=== PATIENT | male | born 1945 | race American Indian/Alaskan Native ===

== ENCOUNTER 2016-07-20 07:44 | Inpatient (IN) | payer MEDICARE ==
[2016-07-20] MEDS ORDERED: NACL 0.9% 1000 ML 1,000 ML IV ONE (08:35)
[2016-07-20 09:00] LABS: Basophils % (Auto) 0.4 % (0.0-1.8); Hematocrit 44.4 % (35.5-45.6); Hemoglobin 14.5 gm/dl (11.8-15.2); Mean Corpuscular HGB Conc 33 % (32-34); Mean Corpuscular Hemoglobin 29 pg (28-32); Mean Corpuscular Volume 89 fl (84-94); Platelet Count 335 K/mm3 (140-440); Red Cell Distribution Width 14.3 % (13.2-15.2); White Blood Count 15.5 K/mm3 (4.5-11.0)
[2016-07-20 09:10] LABS: INR 1.04 (0.87-1.13); Partial Thromboplastin Time 22.5 Sec. (24.2-36.6)
[2016-07-20 09:20] LABS: Albumin 4.4 g/dL (3.9-5); Albumin/Globulin Ratio 1.3 %; BUN/Creatinine Ratio 23.68; Bilirubin,Total 0.7 mg/dL (0.1-1.2); Calcium 9.4 mg/dL (8.4-10.2); Chloride 89.8 mmol/L (98-107); Potassium 5.1 mmol/L (3.6-5.0); Total Protein 7.7 g/dL (6.3-8.2)
[2016-07-20] MEDS ORDERED: ZOFRAN IV ONE (10:25)
[2016-07-20] MEDS ORDERED: PROTONIX IV ONE (10:25)
--- NOTE | 2016-07-20 10:28 | Emergency Department Report ---
ED GI Bleed HPI - General Chief complaint: GI Bleed Stated complaint: VOMITTING/COUGHING / Time Seen by Provider: 07/20/16 10:11 Source: patient, old records reviewed Mode of arrival: Wheelchair Limitations: No Limitations - History of Present Illness Initial comments: 70-year-old male with a past medical history of independent diabetes, gastroparesis, antihypertensive complaints of vomiting times one day. Patient has had multiple episodes of vomiting dark red blood. Patient denies pain during my assessment that described a burning abdominal and chest discomfort during MSE. Patient states he has been compliant with his assessment today and states stomach medication. Denies diarrhea, hematochezia, or fever. No aggravating or alleviating factors. Previous medical record review. Patient was admitted here 08/15/2015 and 07/21/2005 for similar presentation. Diagnosis gastroparesis and had an EGD showing gastritis and esophagitis. - Related Data Home Medications Medication Instructions Recorded Confirmed Last Taken Atorvastatin Calcium [Lipitor] 40 mg PO QHS 09/18/14 07/19/15 Unknown Insulin Glargine,Hum.rec.anlog 25 unit SQ QAM 09/18/14 07/19/15 Unknown [Lantus] Losartan [Cozaar] 50 mg PO QDAY 09/18/14 07/19/15 Unknown NIFEdipine [NIFEdipine ER] 60 mg PO QDAY 09/18/14 07/19/15 Unknown Tramadol HCl [traMADol] 100 mg PO Q8H PRN 09/18/14 07/19/15 Unknown Previous Rx's Medication Instructions Recorded Last Taken Type Ondansetron [Zofran ORAL LIQ] 4 mg PO Q6H 7 Days 09/19/14 Unknown Rx Pantoprazole [Protonix TAB] 40 mg PO QDAY #14 tablet 07/21/15 Unknown Rx Allergies Allergy/AdvReac Type Severity Reaction Status Date / Time No Known Allergies Allergy Verified 09/18/14 18:31 ED Review of Systems ROS: Stated complaint: VOMITTING/COUGHING / Other details as noted in HPI Comment: All other systems reviewed and negative Other: Constitutional: No fevers chills Eyes: No eye pain visual changes e ENT: No ear pain or throat pain Neck: Denies pain Respiratory: Denies sob Cardiovascular: Denies chest pain, palpitations, syncope GI: As per HPI : Denies dysuria, urinary frequency, or urgency Musculoskeletal: Denies back pain, joint swelling Skin: Denies rash, lesions, erythema Neurologic: Denies headache, numbness, weakness Psychiatric: Denies suicidal ideation, hallucinations ED Past Medical Hx - Past Medical History Hx Hypertension: Yes Hx Diabetes: Yes Hx Seizures: Yes Hx HIV: No Additional medical history: GI bleed. MVP - Surgical History Additional Surgical History: all left toes amputated - Social History Smoking Status: Never Smoker - Medications Home Medications: Home Medications Medication Instructions Recorded Confirmed Last Taken Type Atorvastatin Calcium [Lipitor] 40 mg PO QHS 09/18/14 07/19/15 Unknown History Insulin Glargine,Hum.rec.anlog 25 unit SQ QAM 09/18/14 07/19/15 Unknown History [Lantus] Losartan [Cozaar] 50 mg PO QDAY 09/18/14 07/19/15 Unknown History NIFEdipine [NIFEdipine ER] 60 mg PO QDAY 09/18/14 07/19/15 Unknown History Tramadol HCl [traMADol] 100 mg PO Q8H PRN 09/18/14 07/19/15 Unknown History Ondansetron [Zofran ORAL LIQ] 4 mg PO Q6H 7 Days 09/19/14 07/19/15 Unknown Rx Pantoprazole [Protonix TAB] 40 mg PO QDAY #14 tablet 07/21/15 Unknown Rx ED Physical Exam - General Limitations: No Limitations - Other Other exam information: General: No limitations, patient is alert in no acute distress Head exam: Atraumatic, normocephalic Eyes exam: Normal appearance, pupils equal reactive to light, extraocular movements intact ENT: Moist mucous membrane, normal oropharynx Neck exam: Normal inspection, full range of motion, no meningismus nontender Respiratory exam: Clear to auscultation bilateral, no wheezes, rales, crackles Cardiovascular: Normal rate and rhythm, normal heart sounds Abdomen: Soft, nondistended, and nontender, with normal bowel sounds, no rebound, or guarding Rectal: Guaiac-negative brown stool Extremity: Full range of motion normal inspection no deformity Back: Normal Inspection, full range of motion, no tenderness Neurologic: Alert, oriented x3, cranial nerves intact, no motor or sensory deficit Psychiatric: normal affect, normal mood Skin: Warm, dry, intact ED Course Vital Signs 07/20/16 08:29 Temperature 98.2 F Pulse Rate 88 Respiratory 18 Rate Blood Pressure 182/96 O2 Sat by Pulse 97 Oximetry - Reevaluation(s) Reevaluation #1: 07/20/16 10:36 Treated with normal saline, Protonix, Zofran, and insulin in the ED - Consultations Consultation #1: 07/20/16 11:10 Case discussed with Isabelle Rossi. Consult ordered for Dr. Ibarra ED Medical Decision Making - Lab Data Result diagrams: 07/20/16 08:44 07/20/16 08:44 Lab Results 07/20/16 07/20/16 07/20/16 Range/Units 08:44 08:44 08:44 WBC 15.5 H (4.5-11.0) K/mm3 RBC 5.00 (3.65-5.03) M/mm3 Hgb 14.5 (11.8-15.2) gm/dl Hct 44.4 (35.5-45.6) % MCV 89 (84-94) fl MCH 29 (28-32) pg MCHC 33 (32-34) % RDW 14.3 (13.2-15.2) % Plt Count 335 (140-440) K/mm3 Lymph % (Auto) 10.4 L (13.4-35.0) % [place] % (Auto) 6.8 (0.0-7.3) % Eos % (Auto) 0.0 (0.0-4.3) % Baso % (Auto) 0.4 (0.0-1.8) % Lymph # 1.6 (1.2-5.4) K/mm3 [place] # 1.1 H (0.0-0.8) K/mm3 Eos # 0.0 (0.0-0.4) K/mm3 Baso # 0.1 (0.0-0.1) K/mm3 Seg Neutrophils % 82.4 H (40.0-70.0) % Seg Neutrophils # 12.8 H (1.8-7.7) K/mm3 PT 13.5 (12.2-14.9) Sec. INR 1.04 (0.87-1.13) APTT 22.5 L (24.2-36.6) Sec. Sodium 134 L (137-145) mmol/L Potassium 5.1 H (3.6-5.0) mmol/L Chloride 89.8 L (98-107) mmol/L Carbon Dioxide 22 (22-30) mmol/L Anion Gap 27 mmol/L BUN 45 H (9-20) mg/dL Creatinine 1.9 H (0.8-1.5) mg/dL Estimated GFR 43 ml/min BUN/Creatinine Ratio 23.68 % Glucose 629 H* (75-100) mg/dL Calcium 9.4 (8.4-10.2) mg/dL Total Bilirubin 0.7 (0.1-1.2) mg/dL AST 14 (5-40) units/L ALT 12 (7-56) units/L Alkaline Phosphatase 108 (35-129) units/L Total Protein 7.7 (6.3-8.2) g/dL Albumin 4.4 (3.9-5) g/dL Albumin/Globulin Ratio 1.3 % Lipase 10 L (13-60) units/L Blood Type Antibody Screen 07/20/16 Range/Units 08:44 WBC (4.5-11.0) K/mm3 RBC (3.65-5.03) M/mm3 Hgb (11.8-15.2) gm/dl Hct (35.5-45.6) % MCV (84-94) fl MCH (28-32) pg MCHC (32-34) % RDW (13.2-15.2) % Plt Count (140-440) K/mm3 Lymph % (Auto) (13.4-35.0) % [place] % (Auto) (0.0-7.3) % Eos % (Auto) (0.0-4.3) % Baso % (Auto) (0.0-1.8) % Lymph # (1.2-5.4) K/mm3 [place] # (0.0-0.8) K/mm3 Eos # (0.0-0.4) K/mm3 Baso # (0.0-0.1) K/mm3 Seg Neutrophils % (40.0-70.0) % Seg Neutrophils # (1.8-7.7) K/mm3 PT (12.2-14.9) Sec. INR (0.87-1.13) APTT (24.2-36.6) Sec. Sodium (137-145) mmol/L Potassium (3.6-5.0) mmol/L Chloride (98-107) mmol/L Carbon Dioxide (22-30) mmol/L Anion Gap mmol/L BUN (9-20) mg/dL Creatinine (0.8-1.5) mg/dL Estimated GFR ml/min BUN/Creatinine Ratio % Glucose (75-100) mg/dL Calcium (8.4-10.2) mg/dL Total Bilirubin (0.1-1.2) mg/dL AST (5-40) units/L ALT (7-56) units/L Alkaline Phosphatase (35-129) units/L Total Protein (6.3-8.2) g/dL Albumin (3.9-5) g/dL Albumin/Globulin Ratio % Lipase (13-60) units/L Blood Type O POSITIVE Antibody Screen Negative - EKG Data -: EKG Interpreted by Me (sinus rhythm rate 91 septal infarct) - EKG Data When compared to previous EKG there are: previous EKG unavailable - Medical Decision Making Plan to admit patient to hospital for further evaluation due to hematemesis in the ED. GI consult - Differential Diagnosis PUD, esophagitis, Yaz-Dang, gastritis, varices Critical Care Time: No Critical care attestation.: If time is entered above; I have spent that time in minutes in the direct care of this critically ill patient, excluding procedure time. ED Disposition Clinical Impression: Insulin dependent diabetes mellitus, Upper GI bleed, Gastroparesis, Hyperglycemia, Renal insufficiency Nausea and vomiting Qualifiers: Vomiting type: hematemesis Qualified Code(s): K92.0 - Hematemesis Hypertension Qualifiers: Hypertension type: essential hypertension Qualified Code(s): I10 - Essential ( primary) hypertension Disposition: OP ADMITTED IP TO THIS HOSP Is pt being admited?: Yes Condition: Stable Time of Disposition: 10:28 (Dr bustillo/hosp)
--- NOTE | 2016-07-20 10:33 | Admit Criteria Form ---
Admission Criteria Documentation: GASTROINTESTINAL BLEEDING, UPPER Clinical Indications for Admission to Inpatient Care ( Place 'X' for any and all applicable criteria): Admission is indicated for ANY ONE of the following(1)(2)(3)(4)(5)(6): [ X]I. Active bleeding (eg, fresh voluminous blood in emesis or nasogastric aspirate) [ ]II. Associated conditions requiring hospitalization (eg, perforation, obstruction from ulcer) [ ]III. Inpatient admission required rather than observation care (Also use Gastrointestinal Bleeding, Upper: Observation Care as appropriate) because of ANY ONE of the following: [ ]a) Hemodynamic instability that is severe or persistent [ ]b) Anemia requiring inpatient admission as indicated by ALL of the following: [ ]1) Presence of significant clinical finding indicated by ANY ONE of the following: [ ]A. Tachycardia for age [ ]B. Orthostatic vital sign changes [ ]C. Cognitive impairment [ ]D. Heart failure [ ]E. Chest pain [ ]F. Exertional dyspnea [ ]G. Other findings suggesting inadequate perfusion (eg, peripheral or myocardial ischemia, end organ dysfunction) [ ]2) Initial (eg, emergency department, observation care) treatment with transfusion or volume replacement is judged inappropriate (due to severity of the finding) or has been ineffective [ ]c) Severe pain requiring acute inpatient management [ ]d) High-risk low platelet count [ ]e) IV fluid to replace significant ongoing losses (greater than 3 L/m2 per day) [ ]f) Immediate inpatient surgery [ ]g) Other condition, treatment or monitoring requiring inpatient admission [ ]IV. Severe liver disease (eg, cirrhosis) [ ]V. Significant active comorbid disease [ ]. Anticoagulation therapy [ ]VII. High-risk endoscopic features (arterial bleeding, adherent clot, nonbleeding visible vessel, varices, flat red spots, ulcer size greater than 2 cm, or portal hypertensive gastropathy) [ ]VIII. Previous aortic graft placement or known aortic aneurysm [ ]IX. Coagulopathy [ ]X. Syncope Extended stay beyond goal length of stay may be needed for(1)(2): [ ]a) Emergency surgery [ ]b) Varices [ ]c) Coagulation abnormalities [ ]d) Recurrent, obscure, or persistent bleeding or continued Hemodynamic instability [ ]e) Associated conditions requiring surgery (eg, perforated gastric ulcer, gastric outlet obstruction) [ ]f) Active comorbidities (eg, renal insufficiency, heart failure, pre- existing liver disease) The original [facility] [employer] content created by [facility] has been revised. The portions of the content which have been revised are identified through the use of italic text or in bold, and [facility] has neither reviewed nor approved the modified material. All other unmodified content is copyright [facility] [employer]. Please see references footnoted in the original [facility] [employer] edition 2016 Admission Criteria Met: Yes
--- NOTE | 2016-07-20 11:00 | History and Physical Report ---
History of Present Illness Date of examination: 07/20/16 Date of admission: 07/20/16 Chief complaint: Vomiting blood since this morning History of present illness: Mr. Avila is a 70 yo M who presented to the Er with vomiting blood since this morning; has about 2 episodes; he started to vomit yesterday but at that time he had no blood. He does have a history of gastritis and esophagitis which was diagnosed on EGD in 2016. He reports that his stool has been brown. He also has a diagnosed history of gastroparesis secondary to diabetes. No dizziness. No chest pain. He has no objections to being transfused. He also vomited in the emergency room. He was given IV Protonix 40 mg in the ER. Has not been taking an Advil or any other NSAID. 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 denies: smoking, alcohol abuse, prescription drug abuse Family history: diabetes, hypertension Medications and Allergies Allergies Allergy/AdvReac Type Severity Reaction Status Date / Time No Known Allergies Allergy Verified 09/18/14 18:31 Home Medications Medication Instructions Recorded Confirmed Last Taken Type Atorvastatin Calcium [Lipitor] 40 mg PO QHS 09/18/14 07/19/15 Unknown History Insulin Glargine,Hum.rec.anlog 25 unit SQ QAM 09/18/14 07/19/15 Unknown History [Lantus] Losartan [Cozaar] 50 mg PO QDAY 09/18/14 07/19/15 Unknown History NIFEdipine [NIFEdipine ER] 60 mg PO QDAY 09/18/14 07/19/15 Unknown History Tramadol HCl [traMADol] 100 mg PO Q8H PRN 09/18/14 07/19/15 Unknown History Ondansetron [Zofran ORAL LIQ] 4 mg PO Q6H 7 Days 09/19/14 07/19/15 Unknown Rx Pantoprazole [Protonix TAB] 40 mg PO QDAY #14 tablet 07/21/15 Unknown Rx Active Meds: Active Medications Pantoprazole Sodium 80 mg/ (Sodium Chloride) 100 mls @ 10 mls/hr IV Q10H PANDA PRN Reason: 8 MG/HR Review of Systems All systems: negative Constitutional: no weight loss, no weight gain, no fever, no chills, no sweats Ears, nose, mouth and throat: no ear pain, no ear discharge, no tinnitis, no decreased hearing Cardiovascular: no chest pain, no orthopnea, no palpitations, no rapid/ irregular heart beat Respiratory: no cough, no cough with sputum, no excessive sputum, no hemoptysis Gastrointestinal: other (as in the history of presenting complaint) Genitourinary Male: no dysuria, no hematuria, no flank pain, no discharge, no urinary frequency Rectal: no pain, no incontinence, no bleeding Musculoskeletal: no neck stiffness, no neck pain, no shooting arm pain, no arm numbness/tingling Integumentary: no rash, no pruritis, no redness, no sores Neurological: no head injury, no transient paralysis, no paralysis, no weakness Psychiatric: no anxiety, no memory loss, no change in sleep habits, no sleep disturbances, no insomnia Endocrine: no cold intolerance, no heat intolerance, no polyphagia, no excessive thirst Hematologic/Lymphatic: no easy bruising, no easy bleeding Allergic/Immunologic: no urticaria, no allergic rhinitis Exam - Constitutional Vitals: Temp Pulse Resp BP Pulse Ox 98.2 F 88 18 182/96 97 07/20/16 08:29 07/20/16 08:29 07/20/16 08:29 07/20/16 08:29 07/20/16 08:29 General appearance: Present: no acute distress, cachectic - EENT Eyes: Present: PERRL, EOM intact. Absent: scleral icterus, conjunctival injection ENT: hearing intact, clear oral mucosa, other (mucosa in the mouth has started blood), no oropharyngeal erythema, no poor dentition - Neck Neck: Present: supple, normal ROM. Absent: enlarged thyroid, masses or JVD - Respiratory Respiratory effort: normal Respiratory: negative: diminished, rales, rhonchi, wheezing - Cardiovascular Rhythm: regular Heart Sounds: Present: S1 & S2. Absent: gallop - Extremities Extremities: no ischemia, pulses intact, pulses symmetrical, No edema Peripheral Pulses: within normal limits - Abdominal General gastrointestinal: Present: soft, non-tender, non-distended Male genitourinary: Present: deferred - Rectal Rectal Exam: deferred - Integumentary Integumentary: Present: clear - Musculoskeletal Musculoskeletal: strength equal bilaterally - Psychiatric Psychiatric: appropriate mood/affect, intact judgment & insight - Neurologic Neurologic: CNII-XII intact, moves all extremities Results - Labs CBC & Chem 7: 07/20/16 08:44 07/20/16 08:44 Labs: Abnormal lab results 07/20/16 07/20/16 07/20/16 Range/Units 08:44 08:44 08:44 WBC 15.5 H (4.5-11.0) K/mm3 Lymph % (Auto) 10.4 L (13.4-35.0) % [place] # 1.1 H (0.0-0.8) K/mm3 Seg Neutrophils % 82.4 H (40.0-70.0) % Seg Neutrophils # 12.8 H (1.8-7.7) K/mm3 APTT 22.5 L (24.2-36.6) Sec. Sodium 134 L (137-145) mmol/L Potassium 5.1 H (3.6-5.0) mmol/L Chloride 89.8 L (98-107) mmol/L BUN 45 H (9-20) mg/dL Creatinine 1.9 H (0.8-1.5) mg/dL Glucose 629 H* (75-100) mg/dL Lipase 10 L (13-60) units/L - Imaging and Cardiology Chest x-ray: report reviewed (COPD) Assessment and Plan 1. Upper gastrointestinal bleed most likely secondary to gastritis/esophagitis to rule out peptic ulcer disease versus Yaz-Dang tear-we'll admit as an inpatient as more than 2 midnights are required for treatment. We'll admit patient to telemetry. We'll start patient on IV Protonix infusion. Monitor hemoglobin and hematocrit. We'll consult GI. We'll transfuse as needed. We' ll keep him nothing by mouth and start him on IV fluids. 2. Diabetes type 2 uncontrolled with hyperglycemia-will start patient on apidra insulin sliding scale; better Accu-Cheks 3. Benign hypertension-uncontrolled; IV prn hydralazine 4. Mild hyperkalemia- will hydrate and monitor; NPO so unable to give kayexalate 5. Acute renal failure due to vasomotor nephropathy- IVF; get u/a; monitor lytes 6. DVT prophyhlaxis- SCD; chemical prophylaxis C/I due to GIB CCT exclusive of all other billable procedures 45 minutes
[2016-07-20] MEDS: PROTONIX 80 MG in NACL 0.9% 100 ML IV SCH ×2 (12:34→23:47)
[2016-07-20] MEDS ORDERED: NOVOLOG SUB-Q SCH (12:49)
[2016-07-20] MEDS ORDERED: ZOFRAN IV PRN (12:49)
[2016-07-20] MEDS ORDERED: TYLENOL PO PRN (12:49)
[2016-07-20] MEDS ORDERED: REGLAN IV PRN (12:49)
[2016-07-20] MEDS ORDERED: APRESOLINE IV PRN (12:49)
[2016-07-20] MEDS: NACL 0.45% 1000 ML 1,000 ML IV SCH (15:21)
--- NOTE | 2016-07-20 15:42 | Gastroenterology Consultation ---
Addendum entered and electronically signed by ARNALDO CAMACHO NP 07/20/16 15:46: strict glycemic control, currently on PPI gtt. Original Note: <ARNALDO CAMACHO - Last Filed: 07/20/16 15:38> History of Present Illness - Reason for Consult Consult date: 07/20/16 Hematemesis Requesting physician: MALU PEREZ - History of Present Illness Mr. Avila is a 70 yo M who presented to the ED with vomiting blood. He states he started vomiting yesterday and noticed red tinged fluid today when vomiting. He does have a history of gastritis and esophagitis which was diagnosed on EGD in 07/2015. He denies melena. No abdominal pain. He was given IV Protonix 40 mg in the ER. Has not been taking an Advil or any other NSAID that he is aware of although he is not clear on his medication regimen. Blood glucose on admission elevated. Noted gastric emptying scan WNL in 07/2015. 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 denies: smoking, alcohol abuse, prescription drug abuse Family history: diabetes, hypertension Medications and Allergies Allergies Allergy/AdvReac Type Severity Reaction Status Date / Time No Known Allergies Allergy Verified 09/18/14 18:31 Home Medications Medication Instructions Recorded Confirmed Last Taken Type Atorvastatin Calcium [Lipitor] 80 mg PO QHS 09/18/14 07/20/16 Unknown History Insulin Glargine,Hum.rec.anlog 25 unit SQ QAM 09/18/14 07/20/16 Unknown History [Lantus] NIFEdipine [NIFEdipine ER] 60 mg PO QDAY 09/18/14 07/20/16 Unknown History Tramadol HCl [traMADol] 100 mg PO Q8H PRN 09/18/14 07/19/15 Unknown History Pantoprazole [Protonix TAB] 40 mg PO QDAY #14 tablet 07/21/15 07/20/16 Unknown Rx Gabapentin 300 mg PO TID 07/20/16 07/20/16 Unknown History Invokana 100 mg PO QAM 07/20/16 07/20/16 Unknown History Lisinopril 5 mg PO QAM 07/20/16 07/20/16 Unknown History Lyrica 75 mg PO QDAY 07/20/16 07/20/16 Unknown History Metanx Capsule 90.314 mg PO Q12HR 07/20/16 07/20/16 Unknown History Metoprolol SUCCINATE ER TAB 50 mg PO Q12HR 07/20/16 07/20/16 Unknown History Ondansetron 4 mg SL PRN PRN 07/20/16 07/20/16 Unknown History Tamsulosin [Flomax] 0.4 mg PO BID 07/20/16 07/20/16 Unknown History Vitamin D3 1,000 unit PO QDAY 07/20/16 07/20/16 Unknown History levETIRAcetam 500 mg PO Q12HR 07/20/16 07/20/16 Unknown History Active Meds: Active Medications Acetaminophen (Tylenol) 650 mg PO Q4H PRN PRN Reason: Pain MILD(1-3)/Fever >100.5/ONEILL Hydralazine HCl (Apresoline) 10 mg IV Q4HR PRN PRN Reason: SBP >/= 160mmHg Pantoprazole Sodium 80 mg/ (Sodium Chloride) 100 mls @ 10 mls/hr IV Q10H PANDA PRN Reason: 8 MG/HR Last Admin: 07/20/16 12:34 Dose: 10 mls/hr Sodium Chloride (Nacl 0.45% 1000 Ml) 1,000 mls @ 100 mls/hr IV DIRECT PANDA Last Admin: 07/20/16 15:21 Dose: 100 mls/hr Insulin Aspart (Novolog) 0 units SUB-Q ACHS PANDA PRN Reason: Protocol Last Admin: 07/20/16 14:09 Dose: Not Given Metoclopramide HCl (Reglan) 5 mg IV Q6H PRN PRN Reason: Nausea And Vomiting Ondansetron HCl (Zofran) 4 mg IV Q8H PRN PRN Reason: N/V unrelieved by Reglan Review of Systems - Review of Systems All systems: negative Gastrointestinal: vomiting, hematemesis Exam - Constitutional Vital Signs: Temp Pulse Resp BP Pulse Ox 98.2 F 91 H 15 149/69 94 07/20/16 08:29 07/20/16 14:01 07/20/16 14:01 07/20/16 14:01 07/20/16 14:01 General appearance: no acute distress, other (withdrawn) - EENT ENT: hearing intact, other (poor historian) - Respiratory Respiratory: bilateral: diminished - Cardiovascular Rhythm: regular Heart Sounds: Present: S1 & S2 Extremities: abnormal (left foot partial amputation) - Gastrointestinal General gastrointestinal: Present: soft, non-tender, normal bowel sounds - Integumentary Integumentary: Present: warm, dry - Neurologic Neurological: alert and oriented x3 - Psychiatric Psychiatric: appropriate mood/affect, cooperative - Labs CBC & Chem 7: 07/20/16 08:44 07/20/16 13:00 Lab Results: Laboratory Results - last 24 hr 07/20/16 07/20/16 12:39 13:00 Glucose 515 H* POC Glucose > 500 H Assessment and Plan 41. Hematemesis -H/H WNL -Previous EGD in 07/2015 with esophagitis, path c/w esophagitis and kellen. -Noted increase in BUN/Creat with mild hyperkalemia -Agree with PPI, avoid NSAIDS -Monitor H/H. -Ok for clear liquids today -EGD based on progress <KIRAN VELEZ R - Last Filed: 07/21/16 13:26> History of Present Illness - Reason for Consult Consult date: 07/20/16 Medications and Allergies Active Meds: Active Medications Acetaminophen (Tylenol) 650 mg PO Q4H PRN PRN Reason: Pain MILD(1-3)/Fever >100.5/ONEILL Atorvastatin Calcium (Lipitor) 80 mg PO QHS PANDA Gabapentin (Neurontin) 300 mg PO Q8HR PANDA Hydralazine HCl (Apresoline) 10 mg IV Q4HR PRN PRN Reason: SBP >/= 160mmHg Last Admin: 07/20/16 23:45 Dose: 10 mg Sodium Chloride (Nacl 0.45% 1000 Ml) 1,000 mls @ 100 mls/hr IV DIRECT PANDA Last Admin: 07/20/16 15:21 Dose: 100 mls/hr Pantoprazole Sodium 80 mg/ (Sodium Chloride) 100 mls @ 10 mls/hr IV DIRECT PANDA PRN Reason: 8 MG/HR Piperacillin Sod/Tazobactam Sod (Zosyn/Ns 4.5gm/100ml) 100 mls @ 200 mls/hr IV Q8HR PANDA PRN Reason: Protocol Last Admin: 07/21/16 11:51 Dose: 200 mls/hr Insulin Aspart (Novolog) 0 units SUB-Q Q4HR [facility] PRN Reason: Protocol Last Admin: 07/21/16 05:47 Dose: 6 units Levetiracetam (Keppra) 500 mg PO BID [facility] Last Admin: 07/21/16 11:55 Dose: 500 mg Metoclopramide HCl (Reglan) 5 mg IV Q6H PRN PRN Reason: Nausea And Vomiting Metoprolol Succinate (Toprol Xl) 50 mg PO BID [facility] Last Admin: 07/21/16 11:56 Dose: 50 mg Nifedipine (Procardia Xl) 60 mg PO QDAY [facility] Last Admin: 07/21/16 11:55 Dose: 60 mg Ondansetron HCl (Zofran) 4 mg IV Q8H PRN PRN Reason: N/V unrelieved by Reglan Last Admin: 07/21/16 02:09 Dose: 4 mg Pregabalin (Lyrica) 75 mg PO QDAY [facility] Last Admin: 07/21/16 11:56 Dose: 75 mg Tamsulosin HCl (Flomax) 0.4 mg PO BID [facility] Last Admin: 07/21/16 11:55 Dose: 0.4 mg Exam - Constitutional Vital Signs: Temp Pulse Resp BP Pulse Ox 98.2 F 87 20 123/63 98 07/21/16 08:20 07/21/16 08:20 07/21/16 08:20 07/21/16 08:20 07/21/16 08:20 - Labs CBC & Chem 7: 07/21/16 05:24 07/21/16 05:24 Lab Results: Laboratory Results - last 24 hr 07/20/16 07/20/16 07/20/16 13:00 15:36 19:24 WBC RBC Hgb 14.1 Hct 41.9 MCV MCH MCHC RDW Plt Count Add Manual Diff Total Counted Seg Neuts % (Manual) Band Neutrophils % Lymphocytes % (Manual) Reactive Lymphs % (Man) Monocytes % (Manual) Eosinophils % (Manual) Basophils % (Manual) Metamyelocytes % Myelocytes % Promyelocytes % Blast Cells % Nucleated RBC % Seg Neutrophils # Man Band Neutrophils # Lymphocytes # (Manual) Abs React Lymphs (Man) Monocytes # (Manual) Eosinophils # (Manual) Basophils # (Manual) Metamyelocytes # Myelocytes # Promyelocytes # Blast Cells # WBC Morphology Hypersegmented Neuts Hyposegmented Neuts Hypogranular Neuts Smudge Cells Toxic Granulation Toxic Vacuolation Dohle Bodies Pelger-Huet Anomaly Irais Rods Platelet Estimate Clumped Platelets Plt Clumps, EDTA Large Platelets Giant Platelets Platelet Satelliting Plt Morphology Comment RBC Morphology Dimorphic RBCs Polychromasia Hypochromasia Poikilocytosis Anisocytosis Microcytosis Macrocytosis Spherocytes Pappenheimer Bodies Sickle Cells Target Cells Tear Drop Cells Ovalocytes Helmet Cells Vega-Whitten Bodies [place] Rings Esther Cells Bite Cells Crenated Cell Elliptocytes Acanthocytes (Spur) Rouleaux Hemoglobin C Crystals Schistocytes Malaria parasites Bhavin Bodies Hem Pathologist Commnt POC ABG pH POC ABG pCO2 POC ABG pO2 POC ABG HCO3 POC ABG Total CO2 POC ABG O2 Sat POC ABG Base Excess FiO2 Sodium Potassium Chloride Carbon Dioxide Anion Gap BUN Creatinine Estimated GFR BUN/Creatinine Ratio Glucose 515 H* POC Glucose > 500 H Calcium Ketones 07/20/16 07/20/16 07/20/16 19:24 19:24 22:56 WBC RBC Hgb Hct MCV MCH MCHC RDW Plt Count Add Manual Diff Total Counted Seg Neuts % (Manual) Band Neutrophils % Lymphocytes % (Manual) Reactive Lymphs % (Man) Monocytes % (Manual) Eosinophils % (Manual) Basophils % (Manual) Metamyelocytes % Myelocytes % Promyelocytes % Blast Cells % Nucleated RBC % Seg Neutrophils # Man Band Neutrophils # Lymphocytes # (Manual) Abs React Lymphs (Man) Monocytes # (Manual) Eosinophils # (Manual) Basophils # (Manual) Metamyelocytes # Myelocytes # Promyelocytes # Blast Cells # WBC Morphology Hypersegmented Neuts Hyposegmented Neuts Hypogranular Neuts Smudge Cells Toxic Granulation Toxic Vacuolation Dohle Bodies Pelger-Huet Anomaly Irais Rods Platelet Estimate Clumped Platelets Plt Clumps, EDTA Large Platelets Giant Platelets Platelet Satelliting Plt Morphology Comment RBC Morphology Dimorphic RBCs Polychromasia Hypochromasia Poikilocytosis Anisocytosis Microcytosis Macrocytosis Spherocytes Pappenheimer Bodies Sickle Cells Target Cells Tear Drop Cells Ovalocytes Helmet Cells Vega-Whitten Bodies [place] Rings Orem Cells Bite Cells Crenated Cell Elliptocytes Acanthocytes (Spur) Rouleaux Hemoglobin C Crystals Schistocytes Malaria parasites Bhavin Bodies Hem Pathologist Commnt POC ABG pH POC ABG pCO2 POC ABG pO2 POC ABG HCO3 POC ABG Total CO2 POC ABG O2 Sat POC ABG Base Excess FiO2 Sodium 142 D Potassium 4.5 Chloride 99.9 Carbon Dioxide 25 Anion Gap 22 BUN 47 H Creatinine 1.7 H Estimated GFR 49 BUN/Creatinine Ratio 27.64 Glucose 338 H POC Glucose 311 H Calcium 9.1 Ketones 3.4 H 07/20/16 07/21/16 07/21/16 23:06 02:22 05:24 WBC 23.7 H RBC 4.69 Hgb 13.5 Hct 41.5 MCV 88 MCH 29 MCHC 33 RDW 14.3 Plt Count 334 Add Manual Diff Complete Total Counted 100 Seg Neuts % (Manual) 81.0 H Band Neutrophils % 6.0 Lymphocytes % (Manual) 8.0 L Reactive Lymphs % (Man) 0 Monocytes % (Manual) 5.0 Eosinophils % (Manual) 0 Basophils % (Manual) 0 Metamyelocytes % 0 Myelocytes % 0 Promyelocytes % 0 Blast Cells % 0 Nucleated RBC % Not Reportable Seg Neutrophils # Man 19.2 H Band Neutrophils # 1.4 Lymphocytes # (Manual) 1.9 Abs React Lymphs (Man) 0.0 Monocytes # (Manual) 1.2 H Eosinophils # (Manual) 0.0 Basophils # (Manual) 0.0 Metamyelocytes # 0.0 Myelocytes # 0.0 Promyelocytes # 0.0 Blast Cells # 0.0 WBC Morphology Not Reportable Hypersegmented Neuts Not Reportable Hyposegmented Neuts Not Reportable Hypogranular Neuts Not Reportable Smudge Cells Not Reportable Toxic Granulation Not Reportable Toxic Vacuolation Not Reportable Dohle Bodies Not Reportable Pelger-Huet Anomaly Not Reportable Irais Rods Not Reportable Platelet Estimate Appears normal Clumped Platelets Not Reportable Plt Clumps, EDTA Not Reportable Large Platelets Not Reportable Giant Platelets Not Reportable Platelet Satelliting Not Reportable Plt Morphology Comment Not Reportable RBC Morphology Normal Dimorphic RBCs Not Reportable Polychromasia Not Reportable Hypochromasia Not Reportable Poikilocytosis Not Reportable Anisocytosis Not Reportable Microcytosis Not Reportable Macrocytosis Not Reportable Spherocytes Not Reportable Pappenheimer Bodies Not Reportable Sickle Cells Not Reportable Target Cells Not Reportable Tear Drop Cells Not Reportable Ovalocytes Not Reportable Helmet Cells Not Reportable Vega-Whitten Bodies Not Reportable [place] Rings Not Reportable Esther Cells Not Reportable Bite Cells Not Reportable Crenated Cell Not Reportable Elliptocytes Not Reportable Acanthocytes (Spur) Not Reportable Rouleaux Not Reportable Hemoglobin C Crystals Not Reportable Schistocytes Not Reportable Malaria parasites Not Reportable Bhavin Bodies Not Reportable Hem Pathologist Commnt No POC ABG pH 7.403 POC ABG pCO2 38.4 POC ABG pO2 65 L POC ABG HCO3 23.9 POC ABG Total CO2 25 POC ABG O2 Sat 93 POC ABG Base Excess -1 FiO2 21 Sodium Potassium Chloride Carbon Dioxide Anion Gap BUN Creatinine Estimated GFR BUN/Creatinine Ratio Glucose POC Glucose 292 H Calcium Ketones 07/21/16 07/21/16 05:24 05:27 WBC RBC Hgb Hct MCV MCH MCHC RDW Plt Count Add Manual Diff Total Counted Seg Neuts % (Manual) Band Neutrophils % Lymphocytes % (Manual) Reactive Lymphs % (Man) Monocytes % (Manual) Eosinophils % (Manual) Basophils % (Manual) Metamyelocytes % Myelocytes % Promyelocytes % Blast Cells % Nucleated RBC % Seg Neutrophils # Man Band Neutrophils # Lymphocytes # (Manual) Abs React Lymphs (Man) Monocytes # (Manual) Eosinophils # (Manual) Basophils # (Manual) Metamyelocytes # Myelocytes # Promyelocytes # Blast Cells # WBC Morphology Hypersegmented Neuts Hyposegmented Neuts Hypogranular Neuts Smudge Cells Toxic Granulation Toxic Vacuolation Dohle Bodies Pelger-Huet Anomaly Irais Rods Platelet Estimate Clumped Platelets Plt Clumps, EDTA Large Platelets Giant Platelets Platelet Satelliting Plt Morphology Comment RBC Morphology Dimorphic RBCs Polychromasia Hypochromasia Poikilocytosis Anisocytosis Microcytosis Macrocytosis Spherocytes Pappenheimer Bodies Sickle Cells Target Cells Tear Drop Cells Ovalocytes Helmet Cells Vega-Whitten Bodies [place] Rings Esther Cells Bite Cells Crenated Cell Elliptocytes Acanthocytes (Spur) Rouleaux Hemoglobin C Crystals Schistocytes Malaria parasites Bhavin Bodies Hem Pathologist Commnt POC ABG pH POC ABG pCO2 POC ABG pO2 POC ABG HCO3 POC ABG Total CO2 POC ABG O2 Sat POC ABG Base Excess FiO2 Sodium 143 Potassium 4.2 Chloride 102.0 Carbon Dioxide 27 Anion Gap 18 BUN 44 H Creatinine 1.6 H Estimated GFR 52 BUN/Creatinine Ratio 27.50 Glucose 242 H POC Glucose 251 H Calcium 9.1 Ketones Assessment and Plan As above. 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 No evidence of active bleed. Will not do endoscopy unless warranted by clinical changes.
[2016-07-20] MEDS: NOVOLOG SUB-Q SCH ×3 (16:58→23:48)
[2016-07-20 19:38] LABS: Hematocrit 41.9 % (35.5-45.6); Hemoglobin 14.1 gm/dl (11.8-15.2)
[2016-07-20 19:48] LABS: BUN/Creatinine Ratio 27.64; Calcium 9.1 mg/dL (8.4-10.2); Chloride 99.9 mmol/L (98-107); Potassium 4.5 mmol/L (3.6-5.0)
[2016-07-20 23:26] LABS: ISTAT Base Excess -1; ISTAT DEVICE 0; ISTAT HCO3 23.9; ISTAT PCO2 38.4 (35-45); ISTAT PH 7.403 (7.35-7.45); ISTAT PO2 65 (80-105); ISTAT SO2 93; ISTAT TCO2 25
[2016-07-21] MEDS ORDERED: PROTONIX 80 MG in NACL 0.9% 100 ML IV SCH (02:00)
[2016-07-21] MEDS: NOVOLOG SUB-Q SCH ×5 (02:34→18:12)
[2016-07-21 06:27] LABS: Hematocrit 41.5 % (35.5-45.6); Hemoglobin 13.5 gm/dl (11.8-15.2); Mean Corpuscular HGB Conc 33 % (32-34); Mean Corpuscular Hemoglobin 29 pg (28-32); Mean Corpuscular Volume 88 fl (84-94); Platelet Count 334 K/mm3 (140-440); Red Blood Count 4.69 M/mm3 (3.65-5.03); Red Cell Distribution Width 14.3 % (13.2-15.2)
[2016-07-21 06:31] LABS: BUN/Creatinine Ratio 27.5; Calcium 9.1 mg/dL (8.4-10.2); Potassium 4.2 mmol/L (3.6-5.0)
[2016-07-21 06:48] LABS: White Blood Count 23.7 K/mm3 (4.5-11.0)
[2016-07-21] MEDS ORDERED: NON-FORMULARY (Gabapentin 300 MG) PO SCH (08:00)
[2016-07-21 09:14] LABS: Basophils % (Manual) 0 % (0.0-1.8); Blastocytes % (Manual) 0 %; Eosinophils % (Manual) 0 % (0.0-4.3)
[2016-07-21 09:15] LABS: Diff Status Complete; RBC Morphology Normal
[2016-07-21] MEDS ORDERED: NON-FORMULARY (Metoprolol Succinate Er Tab 50 MG) PO SCH (10:00)
[2016-07-21] MEDS ORDERED: LEVETIRACETAM 500 MG PO SCH (10:00)
[2016-07-21] MEDS ORDERED: NON-FORMULARY (Nifedipine [Nifedipine Er] 60 MG) PO SCH (10:00)
[2016-07-21] MEDS ORDERED: LYRICA 75 MG PO SCH (10:00)
--- NOTE | 2016-07-21 11:26 | XRay Report ---
PORTABLE CHEST: An AP portable view of the chest demonstrates a normal cardiac contour considering the limits of this technique. The lungs are clear with no evidence of infiltrate, fluid or failure. IMPRESSION: Normal portable chest.
[2016-07-21] MEDS: ZOSYN/NS 4.5GM/100ML 100 ML IV SCH ×2 (11:51→16:23)
[2016-07-21] MEDS: PROCARDIA XL PO SCH (11:55)
[2016-07-21] MEDS: FLOMAX PO SCH (11:55)
[2016-07-21] MEDS: KEPPRA PO SCH (11:55)
[2016-07-21] MEDS: LYRICA PO SCH (11:56)
[2016-07-21] MEDS: TOPROL XL PO SCH (11:56)
--- NOTE | 2016-07-21 13:01 | Gastroenterology Progress Note ---
<ARNALDO CAMACHO - Last Filed: 07/21/16 13:02> Assessment and Plan 41. Hematemesis -H/H stable wtih no further vomiting, this could have been MWT as the patient only saw blood after vomiting the first time. -Previous EGD in 07/2015 with esophagitis, path c/w esophagitis and kellen. -Continue PPI -advance diet to full liquids, no plans for endoscopy at this time. Subjective Date of service: 07/21/16 Interval history: Patient denies any further vomiting. Objective - Constitutional Vitals: Temp Pulse Resp BP Pulse Ox 98.2 F 87 20 123/63 98 07/21/16 08:20 07/21/16 08:20 07/21/16 08:20 07/21/16 08:20 07/21/16 08:20 General appearance: no acute distress - EENT Eyes: EOM intact ENT: hearing intact - Neck Neck: supple - Respiratory Respiratory: bilateral: diminished - Cardiovascular Rhythm: regular - Gastrointestinal General gastrointestinal: Present: non-tender, non-distended, normal bowel sounds - Integumentary Integumentary: Present: warm, dry - Neurologic Neurological: alert and oriented x3 - Labs CBC & Chem 7: 07/21/16 05:24 07/21/16 05:24 Labs: Laboratory Results - last 24 hr 07/20/16 07/20/16 07/20/16 13:00 15:36 19:24 WBC RBC Hgb 14.1 Hct 41.9 MCV MCH MCHC RDW Plt Count Add Manual Diff Total Counted Seg Neuts % (Manual) Band Neutrophils % Lymphocytes % (Manual) Reactive Lymphs % (Man) Monocytes % (Manual) Eosinophils % (Manual) Basophils % (Manual) Metamyelocytes % Myelocytes % Promyelocytes % Blast Cells % Nucleated RBC % Seg Neutrophils # Man Band Neutrophils # Lymphocytes # (Manual) Abs React Lymphs (Man) Monocytes # (Manual) Eosinophils # (Manual) Basophils # (Manual) Metamyelocytes # Myelocytes # Promyelocytes # Blast Cells # WBC Morphology Hypersegmented Neuts Hyposegmented Neuts Hypogranular Neuts Smudge Cells Toxic Granulation Toxic Vacuolation Dohle Bodies Pelger-Huet Anomaly Irais Rods Platelet Estimate Clumped Platelets Plt Clumps, EDTA Large Platelets Giant Platelets Platelet Satelliting Plt Morphology Comment RBC Morphology Dimorphic RBCs Polychromasia Hypochromasia Poikilocytosis Anisocytosis Microcytosis Macrocytosis Spherocytes Pappenheimer Bodies Sickle Cells Target Cells Tear Drop Cells Ovalocytes Helmet Cells [place] Bodies [place] Rings [place] Cells Bite Cells Crenated Cell Elliptocytes Acanthocytes (Spur) Rouleaux Hemoglobin C Crystals Schistocytes Malaria parasites Bhavin Bodies Hem Pathologist Commnt POC ABG pH POC ABG pCO2 POC ABG pO2 POC ABG HCO3 POC ABG Total CO2 POC ABG O2 Sat POC ABG Base Excess FiO2 Sodium Potassium Chloride Carbon Dioxide Anion Gap BUN Creatinine Estimated GFR BUN/Creatinine Ratio Glucose 515 H* POC Glucose > 500 H Calcium Ketones 07/20/16 07/20/16 07/20/16 19:24 19:24 22:56 WBC RBC Hgb Hct MCV MCH MCHC RDW Plt Count Add Manual Diff Total Counted Seg Neuts % (Manual) Band Neutrophils % Lymphocytes % (Manual) Reactive Lymphs % (Man) Monocytes % (Manual) Eosinophils % (Manual) Basophils % (Manual) Metamyelocytes % Myelocytes % Promyelocytes % Blast Cells % Nucleated RBC % Seg Neutrophils # Man Band Neutrophils # Lymphocytes # (Manual) Abs React Lymphs (Man) Monocytes # (Manual) Eosinophils # (Manual) Basophils # (Manual) Metamyelocytes # Myelocytes # Promyelocytes # Blast Cells # WBC Morphology Hypersegmented Neuts Hyposegmented Neuts Hypogranular Neuts Smudge Cells Toxic Granulation Toxic Vacuolation Dohle Bodies Pelger-Huet Anomaly Irais Rods Platelet Estimate Clumped Platelets Plt Clumps, EDTA Large Platelets Giant Platelets Platelet Satelliting Plt Morphology Comment RBC Morphology Dimorphic RBCs Polychromasia Hypochromasia Poikilocytosis Anisocytosis Microcytosis Macrocytosis Spherocytes Pappenheimer Bodies Sickle Cells Target Cells Tear Drop Cells Ovalocytes Helmet Cells [place] Bodies [place] Rings [place] Cells Bite Cells Crenated Cell Elliptocytes Acanthocytes (Spur) Rouleaux Hemoglobin C Crystals Schistocytes Malaria parasites Bhavin Bodies Hem Pathologist Commnt POC ABG pH POC ABG pCO2 POC ABG pO2 POC ABG HCO3 POC ABG Total CO2 POC ABG O2 Sat POC ABG Base Excess FiO2 Sodium 142 D Potassium 4.5 Chloride 99.9 Carbon Dioxide 25 Anion Gap 22 BUN 47 H Creatinine 1.7 H Estimated GFR 49 BUN/Creatinine Ratio 27.64 Glucose 338 H POC Glucose 311 H Calcium 9.1 Ketones 3.4 H 07/20/16 07/21/16 07/21/16 23:06 02:22 05:24 WBC 23.7 H RBC 4.69 Hgb 13.5 Hct 41.5 MCV 88 MCH 29 MCHC 33 RDW 14.3 Plt Count 334 Add Manual Diff Complete Total Counted 100 Seg Neuts % (Manual) 81.0 H Band Neutrophils % 6.0 Lymphocytes % (Manual) 8.0 L Reactive Lymphs % (Man) 0 Monocytes % (Manual) 5.0 Eosinophils % (Manual) 0 Basophils % (Manual) 0 Metamyelocytes % 0 Myelocytes % 0 Promyelocytes % 0 Blast Cells % 0 Nucleated RBC % Not Reportable Seg Neutrophils # Man 19.2 H Band Neutrophils # 1.4 Lymphocytes # (Manual) 1.9 Abs React Lymphs (Man) 0.0 Monocytes # (Manual) 1.2 H Eosinophils # (Manual) 0.0 Basophils # (Manual) 0.0 Metamyelocytes # 0.0 Myelocytes # 0.0 Promyelocytes # 0.0 Blast Cells # 0.0 WBC Morphology Not Reportable Hypersegmented Neuts Not Reportable Hyposegmented Neuts Not Reportable Hypogranular Neuts Not Reportable Smudge Cells Not Reportable Toxic Granulation Not Reportable Toxic Vacuolation Not Reportable Dohle Bodies Not Reportable Pelger-Huet Anomaly Not Reportable Irais Rods Not Reportable Platelet Estimate Appears normal Clumped Platelets Not Reportable Plt Clumps, EDTA Not Reportable Large Platelets Not Reportable Giant Platelets Not Reportable Platelet Satelliting Not Reportable Plt Morphology Comment Not Reportable RBC Morphology Normal Dimorphic RBCs Not Reportable Polychromasia Not Reportable Hypochromasia Not Reportable Poikilocytosis Not Reportable Anisocytosis Not Reportable Microcytosis Not Reportable Macrocytosis Not Reportable Spherocytes Not Reportable Pappenheimer Bodies Not Reportable Sickle Cells Not Reportable Target Cells Not Reportable Tear Drop Cells Not Reportable Ovalocytes Not Reportable Helmet Cells Not Reportable [place] Bodies Not Reportable [place] Rings Not Reportable [place] Cells Not Reportable Bite Cells Not Reportable Crenated Cell Not Reportable Elliptocytes Not Reportable Acanthocytes (Spur) Not Reportable Rouleaux Not Reportable Hemoglobin C Crystals Not Reportable Schistocytes Not Reportable Malaria parasites Not Reportable Bhavin Bodies Not Reportable Hem Pathologist Commnt No POC ABG pH 7.403 POC ABG pCO2 38.4 POC ABG pO2 65 L POC ABG HCO3 23.9 POC ABG Total CO2 25 POC ABG O2 Sat 93 POC ABG Base Excess -1 FiO2 21 Sodium Potassium Chloride Carbon Dioxide Anion Gap BUN Creatinine Estimated GFR BUN/Creatinine Ratio Glucose POC Glucose 292 H Calcium Ketones 07/21/16 07/21/16 05:24 05:27 WBC RBC Hgb Hct MCV MCH MCHC RDW Plt Count Add Manual Diff Total Counted Seg Neuts % (Manual) Band Neutrophils % Lymphocytes % (Manual) Reactive Lymphs % (Man) Monocytes % (Manual) Eosinophils % (Manual) Basophils % (Manual) Metamyelocytes % Myelocytes % Promyelocytes % Blast Cells % Nucleated RBC % Seg Neutrophils # Man Band Neutrophils # Lymphocytes # (Manual) Abs React Lymphs (Man) Monocytes # (Manual) Eosinophils # (Manual) Basophils # (Manual) Metamyelocytes # Myelocytes # Promyelocytes # Blast Cells # WBC Morphology Hypersegmented Neuts Hyposegmented Neuts Hypogranular Neuts Smudge Cells Toxic Granulation Toxic Vacuolation Dohle Bodies Pelger-Huet Anomaly Irais Rods Platelet Estimate Clumped Platelets Plt Clumps, EDTA Large Platelets Giant Platelets Platelet Satelliting Plt Morphology Comment RBC Morphology Dimorphic RBCs Polychromasia Hypochromasia Poikilocytosis Anisocytosis Microcytosis Macrocytosis Spherocytes Pappenheimer Bodies Sickle Cells Target Cells Tear Drop Cells Ovalocytes Helmet Cells [place] Bodies [place] Cells Bite Cells Crenated Cell Elliptocytes Acanthocytes (Spur) Rouleaux Hemoglobin C Crystals Schistocytes Malaria parasites Bhavin Bodies Hem Pathologist Commnt POC ABG pH POC ABG pCO2 POC ABG pO2 POC ABG HCO3 POC ABG Total CO2 POC ABG O2 Sat POC ABG Base Excess FiO2 Sodium 143 Potassium 4.2 Chloride 102.0 Carbon Dioxide 27 Anion Gap 18 BUN 44 H Creatinine 1.6 H Estimated GFR 52 BUN/Creatinine Ratio 27.50 Glucose 242 H POC Glucose 251 H Calcium 9.1 Ketones <KIRAN VELEZ R - Last Filed: 07/21/16 14:21> Assessment and Plan No further bleeding. Pt denies abd pain, difficulty swallowing. No evidence of thrush on oral exam. H/H stable. No further GI evaluation planned. Will sign off. Thanks. Subjective Date of service: 07/21/16 Objective - Constitutional Vitals: Temp Pulse Resp BP Pulse Ox 98.2 F 87 20 123/63 98 07/21/16 08:20 07/21/16 08:20 07/21/16 08:20 07/21/16 08:20 07/21/16 08:20 - Labs CBC & Chem 7: 07/21/16 05:24 07/21/16 05:24 Labs: Laboratory Results - last 24 hr 07/20/16 07/20/16 07/20/16 15:36 19:24 19:24 WBC RBC Hgb 14.1 Hct 41.9 MCV MCH MCHC RDW Plt Count Add Manual Diff Total Counted Seg Neuts % (Manual) Band Neutrophils % Lymphocytes % (Manual) Reactive Lymphs % (Man) Monocytes % (Manual) Eosinophils % (Manual) Basophils % (Manual) Metamyelocytes % Myelocytes % Promyelocytes % Blast Cells % Nucleated RBC % Seg Neutrophils # Man Band Neutrophils # Lymphocytes # (Manual) Abs React Lymphs (Man) Monocytes # (Manual) Eosinophils # (Manual) Basophils # (Manual) Metamyelocytes # Myelocytes # Promyelocytes # Blast Cells # WBC Morphology Hypersegmented Neuts Hyposegmented Neuts Hypogranular Neuts Smudge Cells Toxic Granulation Toxic Vacuolation Dohle Bodies Pelger-Huet Anomaly Irais Rods Platelet Estimate Clumped Platelets Plt Clumps, EDTA Large Platelets Giant Platelets Platelet Satelliting Plt Morphology Comment RBC Morphology Dimorphic RBCs Polychromasia Hypochromasia Poikilocytosis Anisocytosis Microcytosis Macrocytosis Spherocytes Pappenheimer Bodies Sickle Cells Target Cells Tear Drop Cells Ovalocytes Helmet Cells [place] Bodies [place] Cells Bite Cells Crenated Cell Elliptocytes Acanthocytes (Spur) Rouleaux Hemoglobin C Crystals Schistocytes Malaria parasites Bhavin Bodies Hem Pathologist Commnt POC ABG pH POC ABG pCO2 POC ABG pO2 POC ABG HCO3 POC ABG Total CO2 POC ABG O2 Sat POC ABG Base Excess FiO2 Sodium 142 D Potassium 4.5 Chloride 99.9 Carbon Dioxide 25 Anion Gap 22 BUN 47 H Creatinine 1.7 H Estimated GFR 49 BUN/Creatinine Ratio 27.64 Glucose 338 H POC Glucose > 500 H Calcium 9.1 Ketones 07/20/16 07/20/16 07/20/16 19:24 22:56 23:06 WBC RBC Hgb Hct MCV MCH MCHC RDW Plt Count Add Manual Diff Total Counted Seg Neuts % (Manual) Band Neutrophils % Lymphocytes % (Manual) Reactive Lymphs % (Man) Monocytes % (Manual) Eosinophils % (Manual) Basophils % (Manual) Metamyelocytes % Myelocytes % Promyelocytes % Blast Cells % Nucleated RBC % Seg Neutrophils # Man Band Neutrophils # Lymphocytes # (Manual) Abs React Lymphs (Man) Monocytes # (Manual) Eosinophils # (Manual) Basophils # (Manual) Metamyelocytes # Myelocytes # Promyelocytes # Blast Cells # WBC Morphology Hypersegmented Neuts Hyposegmented Neuts Hypogranular Neuts Smudge Cells Toxic Granulation Toxic Vacuolation Dohle Bodies Pelger-Huet Anomaly Irais Rods Platelet Estimate Clumped Platelets Plt Clumps, EDTA Large Platelets Giant Platelets Platelet Satelliting Plt Morphology Comment RBC Morphology Dimorphic RBCs Polychromasia Hypochromasia Poikilocytosis Anisocytosis Microcytosis Macrocytosis Spherocytes Pappenheimer Bodies Sickle Cells Target Cells Tear Drop Cells Ovalocytes Helmet Cells [place] Bodies [place] Cells Bite Cells Crenated Cell Elliptocytes Acanthocytes (Spur) Rouleaux Hemoglobin C Crystals Schistocytes Malaria parasites Bhavin Bodies Hem Pathologist Commnt POC ABG pH 7.403 POC ABG pCO2 38.4 POC ABG pO2 65 L POC ABG HCO3 23.9 POC ABG Total CO2 25 POC ABG O2 Sat 93 POC ABG Base Excess -1 FiO2 21 Sodium Potassium Chloride Carbon Dioxide Anion Gap BUN Creatinine Estimated GFR BUN/Creatinine Ratio Glucose POC Glucose 311 H Calcium Ketones 3.4 H 07/21/16 07/21/16 07/21/16 02:22 05:24 05:24 WBC 23.7 H RBC 4.69 Hgb 13.5 Hct 41.5 MCV 88 MCH 29 MCHC 33 RDW 14.3 Plt Count 334 Add Manual Diff Complete Total Counted 100 Seg Neuts % (Manual) 81.0 H Band Neutrophils % 6.0 Lymphocytes % (Manual) 8.0 L Reactive Lymphs % (Man) 0 Monocytes % (Manual) 5.0 Eosinophils % (Manual) 0 Basophils % (Manual) 0 Metamyelocytes % 0 Myelocytes % 0 Promyelocytes % 0 Blast Cells % 0 Nucleated RBC % Not Reportable Seg Neutrophils # Man 19.2 H Band Neutrophils # 1.4 Lymphocytes # (Manual) 1.9 Abs React Lymphs (Man) 0.0 Monocytes # (Manual) 1.2 H Eosinophils # (Manual) 0.0 Basophils # (Manual) 0.0 Metamyelocytes # 0.0 Myelocytes # 0.0 Promyelocytes # 0.0 Blast Cells # 0.0 WBC Morphology Not Reportable Hypersegmented Neuts Not Reportable Hyposegmented Neuts Not Reportable Hypogranular Neuts Not Reportable Smudge Cells Not Reportable Toxic Granulation Not Reportable Toxic Vacuolation Not Reportable Dohle Bodies Not Reportable Pelger-Huet Anomaly Not Reportable Irais Rods Not Reportable Platelet Estimate Appears normal Clumped Platelets Not Reportable Plt Clumps, EDTA Not Reportable Large Platelets Not Reportable Giant Platelets Not Reportable Platelet Satelliting Not Reportable Plt Morphology Comment Not Reportable RBC Morphology Normal Dimorphic RBCs Not Reportable Polychromasia Not Reportable Hypochromasia Not Reportable Poikilocytosis Not Reportable Anisocytosis Not Reportable Microcytosis Not Reportable Macrocytosis Not Reportable Spherocytes Not Reportable Pappenheimer Bodies Not Reportable Sickle Cells Not Reportable Target Cells Not Reportable Tear Drop Cells Not Reportable Ovalocytes Not Reportable Helmet Cells Not Reportable [place] Bodies Not Reportable [place] Rings Not Reportable [place] Cells Not Reportable Bite Cells Not Reportable Crenated Cell Not Reportable Elliptocytes Not Reportable Acanthocytes (Spur) Not Reportable Rouleaux Not Reportable Hemoglobin C Crystals Not Reportable Schistocytes Not Reportable Malaria parasites Not Reportable Bhavin Bodies Not Reportable Hem Pathologist Commnt No POC ABG pH POC ABG pCO2 POC ABG pO2 POC ABG HCO3 POC ABG Total CO2 POC ABG O2 Sat POC ABG Base Excess FiO2 Sodium 143 Potassium 4.2 Chloride 102.0 Carbon Dioxide 27 Anion Gap 18 BUN 44 H Creatinine 1.6 H Estimated GFR 52 BUN/Creatinine Ratio 27.50 Glucose 242 H POC Glucose 292 H Calcium 9.1 Ketones 07/21/16 07/21/16 05:27 13:37 WBC RBC Hgb Hct MCV MCH MCHC RDW Plt Count Add Manual Diff Total Counted Seg Neuts % (Manual) Band Neutrophils % Lymphocytes % (Manual) Reactive Lymphs % (Man) Monocytes % (Manual) Eosinophils % (Manual) Basophils % (Manual) Metamyelocytes % Myelocytes % Promyelocytes % Blast Cells % Nucleated RBC % Seg Neutrophils # Man Band Neutrophils # Lymphocytes # (Manual) Abs React Lymphs (Man) Monocytes # (Manual) Eosinophils # (Manual) Basophils # (Manual) Metamyelocytes # Myelocytes # Promyelocytes # Blast Cells # WBC Morphology Hypersegmented Neuts Hyposegmented Neuts Hypogranular Neuts Smudge Cells Toxic Granulation Toxic Vacuolation Dohle Bodies Pelger-Huet Anomaly Irais Rods Platelet Estimate Clumped Platelets Plt Clumps, EDTA Large Platelets Giant Platelets Platelet Satelliting Plt Morphology Comment RBC Morphology Dimorphic RBCs Polychromasia Hypochromasia Poikilocytosis Anisocytosis Microcytosis Macrocytosis Spherocytes Pappenheimer Bodies Sickle Cells Target Cells Tear Drop Cells Ovalocytes Helmet Cells [place] Bodies [place] Rings [place] Cells Bite Cells Crenated Cell Elliptocytes Acanthocytes (Spur) Rouleaux Hemoglobin C Crystals Schistocytes Malaria parasites Bhavin Bodies Hem Pathologist Commnt POC ABG pH POC ABG pCO2 POC ABG pO2 POC ABG HCO3 POC ABG Total CO2 POC ABG O2 Sat POC ABG Base Excess FiO2 Sodium Potassium Chloride Carbon Dioxide Anion Gap BUN Creatinine Estimated GFR BUN/Creatinine Ratio Glucose POC Glucose 251 H 309 H Calcium Ketones
[2016-07-21] MEDS: NEURONTIN PO SCH (13:51)
[2016-07-21] MEDS: NACL 0.45% 1000 ML 1,000 ML IV SCH (13:54)
--- NOTE | 2016-07-21 15:30 | Progress Note ---
Assessment and Plan Assessment and plan: 1. Upper gastrointestinal bleed most likely secondary to gastritis/esophagitis - resolving; GI consult appreciated. Patient is to be advanced to full liquid diet. Mild globin and hematocrit is stable. No need for transfusion. We'll start patient on twice a day Protonix and DC Protonix infusion 2. Diabetes type 2 uncontrolled with hyperglycemia-tinea insulin sliding scale. We'll restart home medication once patient is started on a full diet; Accu-Cheks 3. Benign hypertension-uncontrolled; start home medications, IV prn hydralazine 4. Mild hyperkalemia- resolved, continue to monitor electrolytes 5. Acute renal failure due to vasomotor nephropathy- improving, continue IVF; get u/a; monitor lytes 6. Likely sepsis with elevated HR and Leukocytosis-source of infection is unclear at this time. Chest x-ray shows no abnormality. We'll get urinalysis. He does have a productive coughs up possible early pneumonia is not ruled out. We'll start patient on empiric antibiotics with zosyn 7. DVT prophyhlaxis- SCD; chemical prophylaxis C/I due to GIB History Interval history: Low up for hemoptysis Patient is seen at the bedside, no further hemoptysis noted. He does have productive cough Hospitalist Physical - Constitutional Vitals: Temp Pulse Resp BP Pulse Ox 98.2 F 87 20 123/63 98 07/21/16 08:20 07/21/16 08:20 07/21/16 08:20 07/21/16 08:20 07/21/16 08:20 General appearance: Present: no acute distress, cachectic - EENT Eyes: Present: PERRL, EOM intact. Absent: scleral icterus, conjunctival injection ENT: hearing intact, clear oral mucosa, no oropharyngeal erythema, no poor dentition - Neck Neck: Present: supple, normal ROM - Respiratory Respiratory effort: normal Respiratory: bilateral: diminished, negative: rales, rhonchi, wheezing - Cardiovascular Rhythm: regular Heart Sounds: Present: S1 & S2. Absent: gallop - Extremities Extremities: no ischemia, pulses intact, pulses symmetrical, No edema, normal temperature Peripheral Pulses: within normal limits - Abdominal General gastrointestinal: soft, non-tender, non-distended, normal bowel sounds - Integumentary Integumentary: Present: clear - Psychiatric Psychiatric: appropriate mood/affect, intact judgment & insight, cooperative - Neurologic Neurologic: CNII-XII intact, moves all extremities Results - Labs CBC & Chem 7: 07/21/16 05:24 07/21/16 05:24 Labs: Laboratory Last Values WBC 23.7 K/mm3 (4.5-11.0) H 07/21/16 05:24 RBC 4.69 M/mm3 (3.65-5.03) 07/21/16 05:24 Hgb 13.5 gm/dl (11.8-15.2) 07/21/16 05:24 Hct 41.5 % (35.5-45.6) 07/21/16 05:24 MCV 88 fl (84-94) 07/21/16 05:24 MCH 29 pg (28-32) 07/21/16 05:24 MCHC 33 % (32-34) 07/21/16 05:24 RDW 14.3 % (13.2-15.2) 07/21/16 05:24 Plt Count 334 K/mm3 (140-440) 07/21/16 05:24 Lymph % (Auto) 10.4 % (13.4-35.0) L 07/20/16 08:44 [place] % (Auto) 6.8 % (0.0-7.3) 07/20/16 08:44 Eos % (Auto) 0.0 % (0.0-4.3) 07/20/16 08:44 Baso % (Auto) 0.4 % (0.0-1.8) 07/20/16 08:44 Lymph # 1.6 K/mm3 (1.2-5.4) 07/20/16 08:44 [place] # 1.1 K/mm3 (0.0-0.8) H 07/20/16 08:44 Eos # 0.0 K/mm3 (0.0-0.4) 07/20/16 08:44 Baso # 0.1 K/mm3 (0.0-0.1) 07/20/16 08:44 Add Manual Diff Complete 07/21/16 05:24 Total Counted 100 07/21/16 05:24 Seg Neutrophils % 82.4 % (40.0-70.0) H 07/20/16 08:44 Seg Neuts % (Manual) 81.0 % (40.0-70.0) H 07/21/16 05:24 Band Neutrophils % 6.0 % 07/21/16 05:24 Lymphocytes % (Manual) 8.0 % (13.4-35.0) L 07/21/16 05:24 Reactive Lymphs % (Man) 0 % 07/21/16 05:24 Monocytes % (Manual) 5.0 % (0.0-7.3) 07/21/16 05:24 Eosinophils % (Manual) 0 % (0.0-4.3) 07/21/16 05:24 Basophils % (Manual) 0 % (0.0-1.8) 07/21/16 05:24 Metamyelocytes % 0 % 07/21/16 05:24 Myelocytes % 0 % 07/21/16 05:24 Promyelocytes % 0 % 07/21/16 05:24 Blast Cells % 0 % 07/21/16 05:24 Nucleated RBC % Not Reportable 07/21/16 05:24 Seg Neutrophils # 12.8 K/mm3 (1.8-7.7) H 07/20/16 08:44 Seg Neutrophils # Man 19.2 K/mm3 (1.8-7.7) H 07/21/16 05:24 Band Neutrophils # 1.4 K/mm3 07/21/16 05:24 Lymphocytes # (Manual) 1.9 K/mm3 (1.2-5.4) 07/21/16 05:24 Abs React Lymphs (Man) 0.0 K/mm3 07/21/16 05:24 Monocytes # (Manual) 1.2 K/mm3 (0.0-0.8) H 07/21/16 05:24 Eosinophils # (Manual) 0.0 K/mm3 (0.0-0.4) 07/21/16 05:24 Basophils # (Manual) 0.0 K/mm3 (0.0-0.1) 07/21/16 05:24 Metamyelocytes # 0.0 K/mm3 07/21/16 05:24 Myelocytes # 0.0 K/mm3 07/21/16 05:24 Promyelocytes # 0.0 K/mm3 07/21/16 05:24 Blast Cells # 0.0 K/mm3 07/21/16 05:24 WBC Morphology Not Reportable 07/21/16 05:24 Hypersegmented Neuts Not Reportable 07/21/16 05:24 Hyposegmented Neuts Not Reportable 07/21/16 05:24 Hypogranular Neuts Not Reportable 07/21/16 05:24 Smudge Cells Not Reportable 07/21/16 05:24 Toxic Granulation Not Reportable 07/21/16 05:24 Toxic Vacuolation Not Reportable 07/21/16 05:24 Dohle Bodies Not Reportable 07/21/16 05:24 Pelger-Huet Anomaly Not Reportable 07/21/16 05:24 Irais Rods Not Reportable 07/21/16 05:24 Platelet Estimate Appears normal 07/21/16 05:24 Clumped Platelets Not Reportable 07/21/16 05:24 Plt Clumps, EDTA Not Reportable 07/21/16 05:24 Large Platelets Not Reportable 07/21/16 05:24 Giant Platelets Not Reportable 07/21/16 05:24 Platelet Satelliting Not Reportable 07/21/16 05:24 Plt Morphology Comment Not Reportable 07/21/16 05:24 RBC Morphology Normal 07/21/16 05:24 Dimorphic RBCs Not Reportable 07/21/16 05:24 Polychromasia Not Reportable 07/21/16 05:24 Hypochromasia Not Reportable 07/21/16 05:24 Poikilocytosis Not Reportable 07/21/16 05:24 Anisocytosis Not Reportable 07/21/16 05:24 Microcytosis Not Reportable 07/21/16 05:24 Macrocytosis Not Reportable 07/21/16 05:24 Spherocytes Not Reportable 07/21/16 05:24 Pappenheimer Bodies Not Reportable 07/21/16 05:24 Sickle Cells Not Reportable 07/21/16 05:24 Target Cells Not Reportable 07/21/16 05:24 Tear Drop Cells Not Reportable 07/21/16 05:24 Ovalocytes Not Reportable 07/21/16 05:24 Helmet Cells Not Reportable 07/21/16 05:24 [place] Bodies Not Reportable 07/21/16 05:24 [place] Rings Not Reportable 07/21/16 05:24 [place] Cells Not Reportable 07/21/16 05:24 Bite Cells Not Reportable 07/21/16 05:24 Crenated Cell Not Reportable 07/21/16 05:24 Elliptocytes Not Reportable 07/21/16 05:24 Acanthocytes (Spur) Not Reportable 07/21/16 05:24 Rouleaux Not Reportable 07/21/16 05:24 Hemoglobin C Crystals Not Reportable 07/21/16 05:24 Schistocytes Not Reportable 07/21/16 05:24 Malaria parasites Not Reportable 07/21/16 05:24 Bhavin Bodies Not Reportable 07/21/16 05:24 Hem Pathologist Commnt No 07/21/16 05:24 PT 13.5 Sec. (12.2-14.9) 07/20/16 08:44 INR 1.04 (0.87-1.13) 07/20/16 08:44 APTT 22.5 Sec. (24.2-36.6) L 07/20/16 08:44 POC ABG pH 7.403 (7.35-7.45) 07/20/16 23:06 POC ABG pCO2 38.4 (35-45) 07/20/16 23:06 POC ABG pO2 65 (80-105) L 07/20/16 23:06 POC ABG HCO3 23.9 07/20/16 23:06 POC ABG Total CO2 25 07/20/16 23:06 POC ABG O2 Sat 93 07/20/16 23:06 POC ABG Base Excess -1 07/20/16 23:06 FiO2 21 % 07/20/16 23:06 Sodium 143 mmol/L (137-145) 07/21/16 05:24 Potassium 4.2 mmol/L (3.6-5.0) 07/21/16 05:24 Chloride 102.0 mmol/L (98-107) 07/21/16 05:24 Carbon Dioxide 27 mmol/L (22-30) 07/21/16 05:24 Anion Gap 18 mmol/L 07/21/16 05:24 BUN 44 mg/dL (9-20) H 07/21/16 05:24 Creatinine 1.6 mg/dL (0.8-1.5) H 07/21/16 05:24 Estimated GFR 52 ml/min 07/21/16 05:24 BUN/Creatinine Ratio 27.50 % 07/21/16 05:24 Glucose 242 mg/dL (75-100) H 07/21/16 05:24 POC Glucose 309 (70-105) H 07/21/16 13:37 Calcium 9.1 mg/dL (8.4-10.2) 07/21/16 05:24 Total Bilirubin 0.7 mg/dL (0.1-1.2) 07/20/16 08:44 AST 14 units/L (5-40) 07/20/16 08:44 ALT 12 units/L (7-56) 07/20/16 08:44 Alkaline Phosphatase 108 units/L (35-129) 07/20/16 08:44 Total Protein 7.7 g/dL (6.3-8.2) 07/20/16 08:44 Albumin 4.4 g/dL (3.9-5) 07/20/16 08:44 Albumin/Globulin Ratio 1.3 % 07/20/16 08:44 Lipase 10 units/L (13-60) L 07/20/16 08:44 Ketones 3.4 mg/dL (0.2-2.8) H 07/20/16 19:24 Blood Type O POSITIVE 07/20/16 08:44 Antibody Screen Negative 07/20/16 08:44 Microbiology 07/21/16 08:39 Peripheral/Venous Blood Culture - Preliminary Culture in Progress 07/21/16 08:23 Peripheral/Venous Blood Culture - Preliminary Culture in Progress 07/20/16 10:00 Stool Stool Occult Blood (LAURA) - Final - Imaging and Cardiology Chest x-ray: report reviewed (c x-raynormal)
[2016-07-22] MEDS: PROTONIX PO SCH ×2 (00:42→10:27)
[2016-07-22] MEDS: KEPPRA PO SCH ×2 (00:42→10:27)
[2016-07-22] MEDS: TOPROL XL PO SCH ×2 (00:43→10:25)
[2016-07-22] MEDS: NEURONTIN PO SCH ×3 (00:43→14:08)
[2016-07-22] MEDS: FLOMAX PO SCH ×2 (00:49→10:27)
[2016-07-22] MEDS: ZOSYN/NS 4.5GM/100ML 100 ML IV SCH ×3 (00:55→14:07)
[2016-07-22] MEDS: NOVOLOG SUB-Q SCH ×6 (01:28→18:09)
--- NOTE | 2016-07-22 07:49 | Gastroenterology Progress Note ---
Assessment and Plan 41. Hematemesis -Follow up CBC today -No further vomiting -Patient with a septic picture with hypotension/elevated HR, unclear etiology, being covered empirically wtih ZOSYN. -Advance to Regular diabetic diet and monitor if patient eats. He states he does not have much of an appetite. -No plans for endoscopy at this time. Subjective Date of service: 07/22/16 Interval history: Patient denies further vomiting. Objective - Constitutional Vitals: Temp Pulse Resp BP Pulse Ox 97.7 F 85 20 85/50 97 07/22/16 06:39 07/22/16 06:39 07/22/16 06:39 07/22/16 06:39 07/22/16 06:39 General appearance: no acute distress - EENT Eyes: EOM intact ENT: hearing intact - Neck Neck: supple - Respiratory Respiratory: bilateral: diminished - Cardiovascular Rhythm: regular Heart Sounds: Present: S1 & S2 - Gastrointestinal General gastrointestinal: Present: soft, non-tender, normal bowel sounds - Integumentary Integumentary: Present: warm, dry - Neurologic Neurological: alert and oriented x3 - Labs CBC & Chem 7: 07/21/16 05:24 07/21/16 05:24 Labs: Laboratory Results - last 24 hr 07/21/16 07/21/16 07/21/16 05:24 13:37 15:56 Add Manual Diff Complete Total Counted 100 Seg Neuts % (Manual) 81.0 H Band Neutrophils % 6.0 Lymphocytes % (Manual) 8.0 L Reactive Lymphs % (Man) 0 Monocytes % (Manual) 5.0 Eosinophils % (Manual) 0 Basophils % (Manual) 0 Metamyelocytes % 0 Myelocytes % 0 Promyelocytes % 0 Blast Cells % 0 Nucleated RBC % Not Reportable Seg Neutrophils # Man 19.2 H Band Neutrophils # 1.4 Lymphocytes # (Manual) 1.9 Abs React Lymphs (Man) 0.0 Monocytes # (Manual) 1.2 H Eosinophils # (Manual) 0.0 Basophils # (Manual) 0.0 Metamyelocytes # 0.0 Myelocytes # 0.0 Promyelocytes # 0.0 Blast Cells # 0.0 WBC Morphology Not Reportable Hypersegmented Neuts Not Reportable Hyposegmented Neuts Not Reportable Hypogranular Neuts Not Reportable Smudge Cells Not Reportable Toxic Granulation Not Reportable Toxic Vacuolation Not Reportable Dohle Bodies Not Reportable Pelger-Huet Anomaly Not Reportable Irais Rods Not Reportable Platelet Estimate Appears normal Clumped Platelets Not Reportable Plt Clumps, EDTA Not Reportable Large Platelets Not Reportable Giant Platelets Not Reportable Platelet Satelliting Not Reportable Plt Morphology Comment Not Reportable RBC Morphology Normal Dimorphic RBCs Not Reportable Polychromasia Not Reportable Hypochromasia Not Reportable Poikilocytosis Not Reportable Anisocytosis Not Reportable Microcytosis Not Reportable Macrocytosis Not Reportable Spherocytes Not Reportable Pappenheimer Bodies Not Reportable Sickle Cells Not Reportable Target Cells Not Reportable Tear Drop Cells Not Reportable Ovalocytes Not Reportable Helmet Cells Not Reportable [place]ega[place] Bodies Not Reportable [place] Rings Not Reportable [place] Cells Not Reportable Bite Cells Not Reportable Crenated Cell Not Reportable Elliptocytes Not Reportable Acanthocytes (Spur) Not Reportable Rouleaux Not Reportable Hemoglobin C Crystals Not Reportable Schistocytes Not Reportable Malaria parasites Not Reportable Bhavin Bodies Not Reportable Hem Pathologist Commnt No POC Glucose 309 H 256 H 07/22/16 01:13 Add Manual Diff Total Counted Seg Neuts % (Manual) Band Neutrophils % Lymphocytes % (Manual) Reactive Lymphs % (Man) Monocytes % (Manual) Eosinophils % (Manual) Basophils % (Manual) Metamyelocytes % Myelocytes % Promyelocytes % Blast Cells % Nucleated RBC % Seg Neutrophils # Man Band Neutrophils # Lymphocytes # (Manual) Abs React Lymphs (Man) Monocytes # (Manual) Eosinophils # (Manual) Basophils # (Manual) Metamyelocytes # Myelocytes # Promyelocytes # Blast Cells # WBC Morphology Hypersegmented Neuts Hyposegmented Neuts Hypogranular Neuts Smudge Cells Toxic Granulation Toxic Vacuolation Dohle Bodies Pelger-Huet Anomaly Riais Rods Platelet Estimate Clumped Platelets Plt Clumps, EDTA Large Platelets Giant Platelets Platelet Satelliting Plt Morphology Comment RBC Morphology Dimorphic RBCs Polychromasia Hypochromasia Poikilocytosis Anisocytosis Microcytosis Macrocytosis Spherocytes Pappenheimer Bodies Sickle Cells Target Cells Tear Drop Cells Ovalocytes Helmet Cells [place] Bodies [place] Rings Esther Cells Bite Cells Crenated Cell Elliptocytes Acanthocytes (Spur) Rouleaux Hemoglobin C Crystals Schistocytes Malaria parasites Bhavin Bodies Hem Pathologist Commnt POC Glucose 287 H
[2016-07-22 08:15] LABS: Basophils % (Auto) 0.8 % (0.0-1.8); Eosinophils % (Auto) 0.8 % (0.0-4.3); Hematocrit 40.1 % (35.5-45.6); Hemoglobin 12.8 gm/dl (11.8-15.2); Mean Corpuscular HGB Conc 32 % (32-34); Mean Corpuscular Hemoglobin 29 pg (28-32); Mean Corpuscular Volume 90 fl (84-94); Platelet Count 281 K/mm3 (140-440); Red Blood Count 4.48 M/mm3 (3.65-5.03); Red Cell Distribution Width 14.4 % (13.2-15.2); White Blood Count 13.9 K/mm3 (4.5-11.0)
[2016-07-22 08:32] LABS: BUN/Creatinine Ratio 22.63; Calcium 7.9 mg/dL (8.4-10.2); Chloride 100.6 mmol/L (98-107); Potassium 4.1 mmol/L (3.6-5.0)
[2016-07-22] MEDS: PROCARDIA XL PO SCH (10:25)
[2016-07-22] MEDS: LYRICA PO SCH (10:27)
[2016-07-22] MEDS ORDERED: NACL 0.9% 500 ML 500 ML IV ONE (10:49)
--- NOTE | 2016-07-22 14:04 | Progress Note ---
Assessment and Plan Assessment and plan: 1. Likely sepsis with elevated HR and Leukocytosis-source of infection is unclear at this time. Chest x-ray shows no abnormality. Urinalysis still not done; He does have a productive coughs up possible early pneumonia is not ruled out- improving. cont patient on empiric antibiotics with zosyn 2. Diabetes type 2 uncontrolled with hyperglycemia-cont insulin sliding scale. We'll restart home medication once patient is started on a full diet; Accu- Cheks 3. Benign hypertension-uncontrolled; start home medications, IV prn hydralazine 4. Acute renal failure due to vasomotor nephropathy-cr increased; continue IVF; get u/a; monitor lytes 6. Upper gastrointestinal bleed most likely secondary to gastritis/esophagitis - resolved; GI consult appreciated. Advance to full diet. [place] to po protonix; 7. DVT prophyhlaxis- SCD; chemical prophylaxis C/I due to GIB for us will discharge in the morning if blood cultures are negative and creatinine improves and white count continues to trend down History Interval history: folLow up for hemoptysis Patient is seen at the bedside, no complaints; no vomiting Hospitalist Physical - Constitutional Vitals: Temp Pulse Resp BP Pulse Ox 98.1 F 84 64 H 96/50 98 07/22/16 08:00 07/22/16 10:25 07/22/16 08:00 07/22/16 10:25 07/22/16 08:00 General appearance: Present: no acute distress, cachectic - EENT Eyes: Present: PERRL, EOM intact. Absent: scleral icterus, conjunctival injection ENT: hearing intact, clear oral mucosa, no oropharyngeal erythema, no poor dentition - Neck Neck: Present: supple, normal ROM. Absent: enlarged thyroid, masses or JVD - Respiratory Respiratory effort: normal Respiratory: bilateral: diminished, negative: rales, rhonchi, wheezing - Cardiovascular Rhythm: regular Heart Sounds: Present: S1 & S2. Absent: gallop - Extremities Extremities: no ischemia, pulses intact, pulses symmetrical, No edema Peripheral Pulses: within normal limits - Abdominal General gastrointestinal: soft, non-tender, non-distended - Integumentary Integumentary: Present: clear - Psychiatric Psychiatric: appropriate mood/affect, intact judgment & insight - Neurologic Neurologic: CNII-XII intact, moves all extremities Results - Labs CBC & Chem 7: 07/22/16 07:52 07/22/16 07:52 Labs: Laboratory Last Values WBC 13.9 K/mm3 (4.5-11.0) H 07/22/16 07:52 RBC 4.48 M/mm3 (3.65-5.03) 07/22/16 07:52 Hgb 12.8 gm/dl (11.8-15.2) 07/22/16 07:52 Hct 40.1 % (35.5-45.6) 07/22/16 07:52 MCV 90 fl (84-94) 07/22/16 07:52 MCH 29 pg (28-32) 07/22/16 07:52 MCHC 32 % (32-34) 07/22/16 07:52 RDW 14.4 % (13.2-15.2) 07/22/16 07:52 Plt Count 281 K/mm3 (140-440) 07/22/16 07:52 Lymph % (Auto) 24.8 % (13.4-35.0) 07/22/16 07:52 [place] % (Auto) 8.0 % (0.0-7.3) H 07/22/16 07:52 Eos % (Auto) 0.8 % (0.0-4.3) 07/22/16 07:52 Baso % (Auto) 0.8 % (0.0-1.8) 07/22/16 07:52 Lymph # 3.4 K/mm3 (1.2-5.4) 07/22/16 07:52 [place] # 1.1 K/mm3 (0.0-0.8) H 07/22/16 07:52 Eos # 0.1 K/mm3 (0.0-0.4) 07/22/16 07:52 Baso # 0.1 K/mm3 (0.0-0.1) 07/22/16 07:52 Add Manual Diff Complete 07/21/16 05:24 Total Counted 100 07/21/16 05:24 Seg Neutrophils % 65.6 % (40.0-70.0) 07/22/16 07:52 Seg Neuts % (Manual) 81.0 % (40.0-70.0) H 07/21/16 05:24 Band Neutrophils % 6.0 % 07/21/16 05:24 Lymphocytes % (Manual) 8.0 % (13.4-35.0) L 07/21/16 05:24 Reactive Lymphs % (Man) 0 % 07/21/16 05:24 Monocytes % (Manual) 5.0 % (0.0-7.3) 07/21/16 05:24 Eosinophils % (Manual) 0 % (0.0-4.3) 07/21/16 05:24 Basophils % (Manual) 0 % (0.0-1.8) 07/21/16 05:24 Metamyelocytes % 0 % 07/21/16 05:24 Myelocytes % 0 % 07/21/16 05:24 Promyelocytes % 0 % 07/21/16 05:24 Blast Cells % 0 % 07/21/16 05:24 Nucleated RBC % Not Reportable 07/21/16 05:24 Seg Neutrophils # 9.2 K/mm3 (1.8-7.7) H 07/22/16 07:52 Seg Neutrophils # Man 19.2 K/mm3 (1.8-7.7) H 07/21/16 05:24 Band Neutrophils # 1.4 K/mm3 07/21/16 05:24 Lymphocytes # (Manual) 1.9 K/mm3 (1.2-5.4) 07/21/16 05:24 Abs React Lymphs (Man) 0.0 K/mm3 07/21/16 05:24 Monocytes # (Manual) 1.2 K/mm3 (0.0-0.8) H 07/21/16 05:24 Eosinophils # (Manual) 0.0 K/mm3 (0.0-0.4) 07/21/16 05:24 Basophils # (Manual) 0.0 K/mm3 (0.0-0.1) 07/21/16 05:24 Metamyelocytes # 0.0 K/mm3 07/21/16 05:24 Myelocytes # 0.0 K/mm3 07/21/16 05:24 Promyelocytes # 0.0 K/mm3 07/21/16 05:24 Blast Cells # 0.0 K/mm3 07/21/16 05:24 WBC Morphology Not Reportable 07/21/16 05:24 Hypersegmented Neuts Not Reportable 07/21/16 05:24 Hyposegmented Neuts Not Reportable 07/21/16 05:24 Hypogranular Neuts Not Reportable 07/21/16 05:24 Smudge Cells Not Reportable 07/21/16 05:24 Toxic Granulation Not Reportable 07/21/16 05:24 Toxic Vacuolation Not Reportable 07/21/16 05:24 Dohle Bodies Not Reportable 07/21/16 05:24 Pelger-Huet Anomaly Not Reportable 07/21/16 05:24 Irais Rods Not Reportable 07/21/16 05:24 Platelet Estimate Appears normal 07/21/16 05:24 Clumped Platelets Not Reportable 07/21/16 05:24 Plt Clumps, EDTA Not Reportable 07/21/16 05:24 Large Platelets Not Reportable 07/21/16 05:24 Giant Platelets Not Reportable 07/21/16 05:24 Platelet Satelliting Not Reportable 07/21/16 05:24 Plt Morphology Comment Not Reportable 07/21/16 05:24 RBC Morphology Normal 07/21/16 05:24 Dimorphic RBCs Not Reportable 07/21/16 05:24 Polychromasia Not Reportable 07/21/16 05:24 Hypochromasia Not Reportable 07/21/16 05:24 Poikilocytosis Not Reportable 07/21/16 05:24 Anisocytosis Not Reportable 07/21/16 05:24 Microcytosis Not Reportable 07/21/16 05:24 Macrocytosis Not Reportable 07/21/16 05:24 Spherocytes Not Reportable 07/21/16 05:24 Pappenheimer Bodies Not Reportable 07/21/16 05:24 Sickle Cells Not Reportable 07/21/16 05:24 Target Cells Not Reportable 07/21/16 05:24 Tear Drop Cells Not Reportable 07/21/16 05:24 Ovalocytes Not Reportable 07/21/16 05:24 Helmet Cells Not Reportable 07/21/16 05:24 Vega[employer] Bodies Not Reportable 07/21/16 05:24 [place] Rings Not Reportable 07/21/16 05:24 [place] Cells Not Reportable 07/21/16 05:24 Bite Cells Not Reportable 07/21/16 05:24 Crenated Cell Not Reportable 07/21/16 05:24 Elliptocytes Not Reportable 07/21/16 05:24 Acanthocytes (Spur) Not Reportable 07/21/16 05:24 Rouleaux Not Reportable 07/21/16 05:24 Hemoglobin C Crystals Not Reportable 07/21/16 05:24 Schistocytes Not Reportable 07/21/16 05:24 Malaria parasites Not Reportable 07/21/16 05:24 Bhavin Bodies Not Reportable 07/21/16 05:24 Hem Pathologist Commnt No 07/21/16 05:24 PT 13.5 Sec. (12.2-14.9) 07/20/16 08:44 INR 1.04 (0.87-1.13) 07/20/16 08:44 APTT 22.5 Sec. (24.2-36.6) L 07/20/16 08:44 POC ABG pH 7.403 (7.35-7.45) 07/20/16 23:06 POC ABG pCO2 38.4 (35-45) 07/20/16 23:06 POC ABG pO2 65 (80-105) L 07/20/16 23:06 POC ABG HCO3 23.9 07/20/16 23:06 POC ABG Total CO2 25 07/20/16 23:06 POC ABG O2 Sat 93 07/20/16 23:06 POC ABG Base Excess -1 07/20/16 23:06 FiO2 21 % 07/20/16 23:06 Sodium 138 mmol/L (137-145) 07/22/16 07:52 Potassium 4.1 mmol/L (3.6-5.0) 07/22/16 07:52 Chloride 100.6 mmol/L (98-107) 07/22/16 07:52 Carbon Dioxide 24 mmol/L (22-30) 07/22/16 07:52 Anion Gap 18 mmol/L 07/22/16 07:52 BUN 43 mg/dL (9-20) H 07/22/16 07:52 Creatinine 1.9 mg/dL (0.8-1.5) H 07/22/16 07:52 Estimated GFR 43 ml/min 07/22/16 07:52 BUN/Creatinine Ratio 22.63 % 07/22/16 07:52 Glucose 268 mg/dL (75-100) H 07/22/16 07:52 POC Glucose 312 (70-105) H 07/22/16 10:17 Calcium 7.9 mg/dL (8.4-10.2) L 07/22/16 07:52 Total Bilirubin 0.7 mg/dL (0.1-1.2) 07/20/16 08:44 AST 14 units/L (5-40) 07/20/16 08:44 ALT 12 units/L (7-56) 07/20/16 08:44 Alkaline Phosphatase 108 units/L (35-129) 07/20/16 08:44 Total Protein 7.7 g/dL (6.3-8.2) 07/20/16 08:44 Albumin 4.4 g/dL (3.9-5) 07/20/16 08:44 Albumin/Globulin Ratio 1.3 % 07/20/16 08:44 Lipase 10 units/L (13-60) L 07/20/16 08:44 Ketones 3.4 mg/dL (0.2-2.8) H 07/20/16 19:24 Blood Type O POSITIVE 07/20/16 08:44 Antibody Screen Negative 07/20/16 08:44 Microbiology 07/21/16 08:39 Peripheral/Venous Blood Culture - Preliminary NO GROWTH AFTER 24 HOURS 07/21/16 08:23 Peripheral/Venous Blood Culture - Preliminary NO GROWTH AFTER 24 HOURS 07/20/16 10:00 Stool Stool Occult Blood (LAURA) - Final
[2016-07-23] MEDS: ZOSYN/NS 4.5GM/100ML 100 ML IV SCH ×2 (00:49→07:01)
[2016-07-23] MEDS: NACL 0.45% 1000 ML 1,000 ML IV SCH ×2 (00:49→08:10)
[2016-07-23] MEDS: FLOMAX PO SCH ×2 (00:50→11:25)
[2016-07-23] MEDS: TOPROL XL PO SCH ×2 (00:51→11:33)
[2016-07-23] MEDS: KEPPRA PO SCH ×2 (00:51→11:25)
[2016-07-23] MEDS: PROTONIX PO SCH ×2 (00:52→11:25)
[2016-07-23] MEDS: NOVOLOG SUB-Q SCH ×4 (00:52→11:30)
[2016-07-23] MEDS: NEURONTIN PO SCH ×2 (00:52→07:00)
[2016-07-23 09:05] LABS: Hematocrit 41.5 % (35.5-45.6); Hemoglobin 13.5 gm/dl (11.8-15.2); Mean Corpuscular HGB Conc 33 % (32-34); Mean Corpuscular Hemoglobin 29 pg (28-32); Mean Corpuscular Volume 88 fl (84-94); Platelet Count 264 K/mm3 (140-440); Red Cell Distribution Width 13.9 % (13.2-15.2); White Blood Count 9.1 K/mm3 (4.5-11.0)
[2016-07-23 09:16] VITALS: BP 120/61
--- NOTE | 2016-07-23 09:56 | Discharge Summary ---
Providers - Providers Date of Admission: 07/20/16 10:36 Date of discharge: 07/23/16 Attending physician: MALU PEREZ 07/20/16 11:09 Consult to Physician [CONS] Urgent Consulting Provider: KIRAN VELEZ Reason For Exam: vomiting blood, gastroparesis Notified:: y Primary care physician: CLIENT RESOLUTION SPECIALIST Hospitalization Reason for admission: hematemesis, leukocytosis Condition: Stable Pertinent studies: cxr-normal Microbiology 07/21/16 08:39 Peripheral/Venous Blood Culture - Preliminary NO GROWTH AFTER 48 HOURS 07/21/16 08:23 Peripheral/Venous Blood Culture - Preliminary NO GROWTH AFTER 48 HOURS 07/20/16 10:00 Stool Stool Occult Blood (LAURA) - Final Hospital course: Mr. Avila presented to the emergency room with hematemesis on a background history of gastritis and esophagitis which was diagnosed on a recent EGD. He was seen by the accessibility lift technician and it was recommended for him to continue PPIs. He had no recurrent episodes after admission. He was also noted to have a leukocytosis and had a productive cough. He was started on antibiotics for presumed sepsis secondary to pneumonia. His cough and leukocytosis improved prior to discharge. He required no blood transfusion while he was here. Condition at discharge-stable 31 minutes spent preparing discharge Disposition: DISCHARGED TO HOME OR SELFCARE - Discharge Diagnoses (1) Hypertension Status: Acute Qualifiers: Hypertension type: essential hypertension Qualified Code(s): I10 - Essential (primary) hypertension (2) Nausea and vomiting Status: Acute Qualifiers: Vomiting type: hematemesis Qualified Code(s): K92.0 - Hematemesis; R11.0 - Nausea (3) Renal insufficiency Status: Acute (4) Insulin dependent diabetes mellitus Status: Chronic (5) Sepsis Status: Acute (6) Pneumonia Status: Acute Core Measure Documentation - Palliative Care Palliative Care/ Comfort Measures: Not Applicable - Core Measures Any of the following diagnoses?: none Exam - Constitutional Vitals: Temp Pulse Resp BP Pulse Ox 98.2 F 61 18 120/61 94 07/23/16 08:00 07/23/16 08:00 07/23/16 08:00 07/23/16 08:00 07/23/16 08:00 General appearance: Present: no acute distress, well-nourished - EENT Eyes: Present: PERRL, EOM intact. Absent: scleral icterus, conjunctival injection ENT: hearing intact, clear oral mucosa, no oropharyngeal erythema, no poor dentition - Neck Neck: Present: supple, normal ROM. Absent: enlarged thyroid, masses or JVD - Respiratory Respiratory effort: normal Respiratory: negative: diminished, rales, rhonchi, wheezing - Cardiovascular Rhythm: regular Heart Sounds: Present: S1 & S2. Absent: gallop - Extremities Extremities: no ischemia, pulses intact, pulses symmetrical, No edema - Abdominal General gastrointestinal: Present: soft, non-tender, non-distended - Rectal Rectal Exam: deferred - Integumentary Integumentary: Present: clear - Musculoskeletal Musculoskeletal: strength equal bilaterally - Psychiatric Psychiatric: appropriate mood/affect, intact judgment & insight - Neurologic Neurologic: CNII-XII intact, moves all extremities Plan Activity: no restrictions Diet: low salt, diabetic Follow up with: PRIMARY CARE, [Primary Care Provider] - 3-5 Days Prescriptions: Levofloxacin [Levaquin TAB] 500 mg PO QDAY #4 tablet
[2016-07-23] MEDS: LYRICA PO SCH (11:25)
[2016-07-23] MEDS: PROCARDIA XL PO SCH (11:25)
== END 2016-07-23 13:07 | disposition home or self-care (01) | DRG 871 ==
LOC: ED 07:44 → 3A 10:36
PROVIDERS: ADMIT Hospitalist; ATTEND Hospitalist
DX: A41.9 Sepsis, unspecified organism (principal); N17.0 Acute kidney failure with tubular necrosis; K29.61 Other gastritis with bleeding; J18.9 Pneumonia, unspecified organism; K20.9 Esophagitis, unspecified; K31.84 Gastroparesis; E11.65 Type 2 diabetes mellitus with hyperglycemia; I10 Essential (primary) hypertension; E87.5 Hyperkalemia; E11.43 Type 2 diabetes mellitus with diabetic autonomic (poly)neuropathy; Z79.899 Other long term (current) drug therapy; Z79.4 Long term (current) use of insulin; Z89.422 Acquired absence of other left toe(s); Z89.431 Acquired absence of right foot; Z83.3 Family history of diabetes mellitus; Z82.49 Family history of ischemic heart disease and other diseases of the circulatory system
CPT/HCPCS: 36415; 36600; 71010; 80048; 80053; 82010; 82271; 82803; 82947; 82962; 83690; 85007; 85014; 85018; 85025; 85027; 85610; 85730; 86850; 86900; 86901; 87040; 93005; 93010; 96361; 96374; 96375; A9270-GY; C9113; J0360; J1815; J2405; J2543; J7030; J7040

== ENCOUNTER 2016-08-01 23:10 | Inpatient (IN) | payer MEDICARE ==
[2016-08-01] MEDS ORDERED: NACL 0.9% 1000 ML 1,000 ML IV ONE (23:41)
[2016-08-02 00:14] LABS: Basophils % (Auto) 0.9 % (0.0-1.8); Hemoglobin 14.8 gm/dl (11.8-15.2); Mean Corpuscular HGB Conc 33 % (32-34); Mean Corpuscular Hemoglobin 29 pg (28-32); Mean Corpuscular Volume 89 fl (84-94); Platelet Count 360 K/mm3 (140-440); Red Blood Count 5.07 M/mm3 (3.65-5.03); Red Cell Distribution Width 14.4 % (13.2-15.2); White Blood Count 19.7 K/mm3 (4.5-11.0)
[2016-08-02 00:32] LABS: Albumin/Globulin Ratio 1.1 %; BUN/Creatinine Ratio 16.87; Bilirubin,Total 0.6 mg/dL (0.1-1.2); Calcium 9.7 mg/dL (8.4-10.2); Total Protein 7.5 g/dL (6.3-8.2)
[2016-08-02 00:33] LABS: Chloride 90.8 mmol/L (98-107); Potassium 4.6 mmol/L (3.6-5.0)
[2016-08-02] MEDS ORDERED: NACL 0.9% 1000 ML 1,000 ML IV ONE (02:35)
[2016-08-02] MEDS ORDERED: PEPCID IV ONE (02:35)
[2016-08-02] MEDS ORDERED: PROTONIX IV ONE (02:35)
[2016-08-02] MEDS ORDERED: ZOFRAN IV ONE (02:35)
--- NOTE | 2016-08-02 02:38 | Emergency Department Report ---
ED GI Bleed HPI - General Chief complaint: GI Bleed Stated complaint: VOMITING, CHEST PAIN Time Seen by Provider: 08/02/16 02:23 Source: patient, family, RN notes reviewed, old records reviewed Mode of arrival: Ambulatory Limitations: No Limitations - History of Present Illness Initial comments: This is a 70-year-old male, previously unknown to me. Has a past medical history of diabetes and hypertension. Recently admitted to the hospital for presumed upper GI bleed. Patient presents to the ER with gross hematemesis. It has been present since 1 day. Complains of mild abdominal discomfort, mild chest discomfort. There is no bright red blood per rectum. Positive chest pressure. Positive cough. Positive nausea and vomiting. Patient denies NSAID ingestion. Denies alcohol consumption. Reports that he feels weak generally. When I evaluated the patient in his room, he had a bucket that was filled with gross blood. He was hemodynamically stable, and mentating appropriately. His physical exam was unremarkable including an unremarkable rectal exam. Patient was started on 2 L of IV fluid, Pepcid, Protonix. Type and screen is ordered. Case was discussed with patient accounting representative, Dr. Holt, who was group will evaluate the patient. Hospital physician, Dr. Epps, graciously accepts the patient to his service. MD complaint: gross hematemesis -: Gradual Location: epigastric Radiation: none Severity scale (0 -10): 0 Quality: cramping Consistency: intermittent Improves with: none Worsens with: none Context: history of GI bleed Associated Symptoms: abdominal pain, nausea, vomiting, loss of appetite, malaise , weakness - Related Data Home Medications Medication Instructions Recorded Confirmed Last Taken Atorvastatin Calcium [Lipitor] 80 mg PO QHS 09/18/14 08/02/16 Unknown Insulin Glargine,Hum.rec.anlog 35 unit SQ QPM 09/18/14 08/02/16 Unknown [Lantus] NIFEdipine [NIFEdipine ER] 60 mg PO QDAY 09/18/14 08/02/16 Unknown Tramadol HCl [traMADol] 100 mg PO Q8H PRN 09/18/14 07/19/15 Unknown Gabapentin 300 mg PO TID 07/20/16 08/02/16 Unknown Invokana 100 mg PO QAM 07/20/16 08/02/16 Unknown Lisinopril 5 mg PO QAM 07/20/16 08/02/16 Unknown Metanx Capsule 90.314 mg PO Q12HR 07/20/16 08/02/16 Unknown Metoprolol SUCCINATE ER TAB 50 mg PO Q12HR 07/20/16 08/02/16 Unknown Ondansetron 4 mg SL PRN PRN 07/20/16 08/02/16 Unknown Tamsulosin [Flomax] 0.4 mg PO BID 07/20/16 08/02/16 Unknown Vitamin D3 1,000 unit PO QDAY 07/20/16 08/02/16 Unknown levETIRAcetam 500 mg PO Q12HR 07/20/16 08/02/16 Unknown Levomefolate/B6/B12/Algal Oil 1 each PO DAILY 08/02/16 08/02/16 Unknown [Metanx Capsule] Metoprolol [Lopressor TAB] 50 mg PO DAILY 08/02/16 08/02/16 Unknown Previous Rx's Medication Instructions Recorded Last Taken Type Pantoprazole [Protonix TAB] 40 mg PO QDAY #14 tablet 07/21/15 Unknown Rx Levofloxacin [Levaquin TAB] 500 mg PO QDAY #4 tablet 07/23/16 Unknown Rx Allergies Allergy/AdvReac Type Severity Reaction Status Date / Time No Known Allergies Allergy Verified 09/18/14 18:31 ED Review of Systems ROS: Stated complaint: VOMITING, CHEST PAIN Other details as noted in HPI Constitutional: malaise, weakness. denies: fever Eyes: denies: eye discharge ENT: denies: epistaxis Respiratory: cough Cardiovascular: chest pain Gastrointestinal: abdominal pain, hematemesis. denies: hematochezia Genitourinary: denies: urgency, dysuria Musculoskeletal: denies: back pain Skin: denies: lesions Neurological: weakness ED Past Medical Hx - Past Medical History Previous Medical History?: Yes Hx Hypertension: Yes Hx Congestive Heart Failure: No Hx Diabetes: Yes Hx Seizures: Yes Hx Asthma: No Hx COPD: No Hx HIV: No Additional medical history: GI bleed. MVP - Surgical History Past Surgical History?: Yes Additional Surgical History: all left toes amputated - Social History Smoking Status: Current Every Day Smoker Substance Use Type: None - Medications Home Medications: Home Medications Medication Instructions Recorded Confirmed Last Taken Type Atorvastatin Calcium [Lipitor] 80 mg PO QHS 09/18/14 08/02/16 Unknown History Insulin Glargine,Hum.rec.anlog 35 unit SQ QPM 09/18/14 08/02/16 Unknown History [Lantus] NIFEdipine [NIFEdipine ER] 60 mg PO QDAY 09/18/14 08/02/16 Unknown History Tramadol HCl [traMADol] 100 mg PO Q8H PRN 09/18/14 07/19/15 Unknown History Pantoprazole [Protonix TAB] 40 mg PO QDAY #14 tablet 07/21/15 08/02/16 Unknown Rx Gabapentin 300 mg PO TID 07/20/16 08/02/16 Unknown History Invokana 100 mg PO QAM 07/20/16 08/02/16 Unknown History Lisinopril 5 mg PO QAM 07/20/16 08/02/16 Unknown History Metanx Capsule 90.314 mg PO Q12HR 07/20/16 08/02/16 Unknown History Metoprolol SUCCINATE ER TAB 50 mg PO Q12HR 07/20/16 08/02/16 Unknown History Ondansetron 4 mg SL PRN PRN 07/20/16 08/02/16 Unknown History Tamsulosin [Flomax] 0.4 mg PO BID 07/20/16 08/02/16 Unknown History Vitamin D3 1,000 unit PO QDAY 07/20/16 08/02/16 Unknown History levETIRAcetam 500 mg PO Q12HR 07/20/16 08/02/16 Unknown History Levofloxacin [Levaquin TAB] 500 mg PO QDAY #4 tablet 07/23/16 08/02/16 Unknown Rx Levomefolate/B6/B12/Algal Oil 1 each PO DAILY 08/02/16 08/02/16 Unknown History [Metanx Capsule] Metoprolol [Lopressor TAB] 50 mg PO DAILY 08/02/16 08/02/16 Unknown History ED Physical Exam - General Limitations: No Limitations General appearance: alert, in no apparent distress - Head Head exam: Present: atraumatic, normocephalic - Eye Eye exam: Present: normal appearance, EOMI. Absent: nystagmus - ENT ENT exam: Present: normal exam, normal orophraynx, mucous membranes moist, normal external ear exam - Neck Neck exam: Present: normal inspection, full ROM. Absent: tenderness, meningismus - Respiratory Respiratory exam: Present: normal lung sounds bilaterally. Absent: respiratory distress, wheezes, rales, rhonchi, stridor, decreased breath sounds - Cardiovascular Cardiovascular Exam: Present: regular rate, normal rhythm, normal heart sounds. Absent: bradycardia, tachycardia, irregular rhythm, systolic murmur, diastolic murmur, rubs, gallop - GI/Abdominal GI/Abdominal exam: Present: soft, normal bowel sounds. Absent: distended, tenderness, guarding, rebound, rigid, pulsatile mass - Rectal Rectal exam: Present: normal inspection, normal rectal tone, heme (-) stool, other (escorted by ANIYAH Malloy) - Extremities Exam Extremities exam: Present: normal inspection, full ROM, normal capillary refill. Absent: tenderness, pedal edema, joint swelling, calf tenderness - Back Exam Back exam: Present: normal inspection, full ROM. Absent: tenderness, CVA tenderness (R), CVA tenderness (L), muscle spasm, paraspinal tenderness, vertebral tenderness - Neurological Exam Neurological exam: Present: alert, other (Extraocular movements intact. Tongue midline. No facial droop. Facial sensation intact to light touch in the V1, V2 , V3 distribution bilaterally. 5 and 5 strength in 4 extremities.. Sensation is intact to light touch in 4 extremities.). Absent: motor sensory deficit - Psychiatric Psychiatric exam: Present: normal affect, normal mood - Skin Skin exam: Present: warm, dry, intact, normal color. Absent: rash ED Course Vital Signs 08/01/16 08/02/16 08/02/16 23:25 02:24 03:00 Temperature 99.4 F 99.3 F 99.5 F Pulse Rate 97 H 100 H Respiratory 18 20 Rate Blood Pressure 167/91 178/80 [Left] O2 Sat by Pulse 97 95 Oximetry 08/02/16 03:38 Temperature Pulse Rate Respiratory 20 Rate Blood Pressure [Left] O2 Sat by Pulse 95 Oximetry - Reevaluation(s) Reevaluation #1: 08/02/16 04:39 Differential diagnosis: Yaz-Dang tear, gastritis, upper GI bleed ED Medical Decision Making - Lab Data Result diagrams: 08/01/16 23:52 08/01/16 23:52 Vital Signs 08/01/16 08/02/16 08/02/16 23:25 02:24 03:00 Temperature 99.4 F 99.3 F 99.5 F Pulse Rate 97 H 100 H Respiratory 18 20 Rate Blood Pressure 167/91 178/80 [Left] O2 Sat by Pulse 97 95 Oximetry 08/02/16 03:38 Temperature Pulse Rate Respiratory 20 Rate Blood Pressure [Left] O2 Sat by Pulse 95 Oximetry Lab Results 08/01/16 08/01/16 08/01/16 Range/Units 23:30 23:52 23:52 WBC 19.7 H (4.5-11.0) K/mm3 RBC 5.07 H (3.65-5.03) M/mm3 Hgb 14.8 (11.8-15.2) gm/dl Hct 45.0 (35.5-45.6) % MCV 89 (84-94) fl MCH 29 (28-32) pg MCHC 33 (32-34) % RDW 14.4 (13.2-15.2) % Plt Count 360 (140-440) K/mm3 Lymph % (Auto) 7.2 L (13.4-35.0) % [place] % (Auto) 3.2 (0.0-7.3) % Eos % (Auto) 0.0 (0.0-4.3) % Baso % (Auto) 0.9 (0.0-1.8) % Lymph # 1.4 (1.2-5.4) K/mm3 [place] # 0.6 (0.0-0.8) K/mm3 Eos # 0.0 (0.0-0.4) K/mm3 Baso # 0.2 H (0.0-0.1) K/mm3 Seg Neutrophils % 88.7 H (40.0-70.0) % Seg Neutrophils # 17.5 H (1.8-7.7) K/mm3 PT 13.1 (12.2-14.9) Sec. INR 1.00 (0.87-1.13) APTT 23.0 L (24.2-36.6) Sec. Sodium (137-145) mmol/L Potassium (3.6-5.0) mmol/L Chloride (98-107) mmol/L Carbon Dioxide (22-30) mmol/L Anion Gap mmol/L BUN (9-20) mg/dL Creatinine (0.8-1.5) mg/dL Estimated GFR ml/min BUN/Creatinine Ratio % Glucose (75-100) mg/dL POC Glucose 459 H (70-105) Lactic Acid (0.7-2.0) mmol/L Calcium (8.4-10.2) mg/dL Total Bilirubin (0.1-1.2) mg/dL AST (5-40) units/L ALT (7-56) units/L Alkaline Phosphatase (35-129) units/L Total Protein (6.3-8.2) g/dL Albumin (3.9-5) g/dL Albumin/Globulin Ratio % Lipase (13-60) units/L Blood Type 08/01/16 08/01/16 08/02/16 Range/Units 23:52 23:52 02:57 WBC (4.5-11.0) K/mm3 RBC (3.65-5.03) M/mm3 Hgb (11.8-15.2) gm/dl Hct (35.5-45.6) % MCV (84-94) fl MCH (28-32) pg MCHC (32-34) % RDW (13.2-15.2) % Plt Count (140-440) K/mm3 Lymph % (Auto) (13.4-35.0) % [place] % (Auto) (0.0-7.3) % Eos % (Auto) (0.0-4.3) % Baso % (Auto) (0.0-1.8) % Lymph # (1.2-5.4) K/mm3 [place] # (0.0-0.8) K/mm3 Eos # (0.0-0.4) K/mm3 Baso # (0.0-0.1) K/mm3 Seg Neutrophils % (40.0-70.0) % Seg Neutrophils # (1.8-7.7) K/mm3 PT (12.2-14.9) Sec. INR (0.87-1.13) APTT (24.2-36.6) Sec. Sodium 139 (137-145) mmol/L Potassium 4.6 (3.6-5.0) mmol/L Chloride 90.8 L (98-107) mmol/L Carbon Dioxide 28 (22-30) mmol/L Anion Gap 25 mmol/L BUN 27 H (9-20) mg/dL Creatinine 1.6 H (0.8-1.5) mg/dL Estimated GFR 52 ml/min BUN/Creatinine Ratio 16.87 % Glucose 532 H* (75-100) mg/dL POC Glucose (70-105) Lactic Acid 2.5 H* (0.7-2.0) mmol/L Calcium 9.7 (8.4-10.2) mg/dL Total Bilirubin 0.6 (0.1-1.2) mg/dL AST 17 (5-40) units/L ALT 14 (7-56) units/L Alkaline Phosphatase 102 (35-129) units/L Total Protein 7.5 (6.3-8.2) g/dL Albumin 4.0 (3.9-5) g/dL Albumin/Globulin Ratio 1.1 % Lipase 9 L (13-60) units/L Blood Type O POSITIVE - EKG Data 08/02/16 04:39 normal sinus, 89 bpm, atrial enlargement, poor progression, normal axis, not morphologically consistent with STEMI. Appears essentially unchanged when compared to prior EKG from 07/20/2016. Motion artifact is noted. - Radiology Data Radiology results: report reviewed, image reviewed X-ray chest negative for acute disease Critical care attestation.: If time is entered above; I have spent that time in minutes in the direct care of this critically ill patient, excluding procedure time. ED Disposition Clinical Impression: Renal insufficiency, Upper GI bleed, Nausea and vomiting Disposition: OP ADMITTED IP TO THIS HOSP Is pt being admited?: Yes Does the pt Need Aspirin: No Condition: Good Referrals: JAYDA BATISTA [Other] - 3-5 Days Forms: Accompanied Note
[2016-08-02] MEDS: PROTONIX 80 MG in NACL 0.9% 100 ML IV SCH ×2 (03:15→14:43)
--- NOTE | 2016-08-02 03:16 | XRay Report ---
FINAL REPORT EXAM: XR CHEST 1V AP HISTORY: n/v hematesis TECHNIQUE: Single frontal view of the chest PRIORS: None FINDINGS: Lungs are clear. Heart size is normal. Normal pulmonary vasculature. No effusion or pneumothorax. IMPRESSION: 1. No acute finding.
--- NOTE | 2016-08-02 04:04 | History and Physical Report ---
History of Present Illness Date of examination: 08/02/16 Date of admission: 08/02/16 Chief complaint: hematemesis History of present illness: 70-year-old male with significant past medical history of hypertension, diabetes , gastritis and esophagitis who presents to the emergency Department with complaints of hematemesis. Nursing reports that the patient and his brought a basin of approximately 4-500 mL of dark red blood with them to the emergency room. Patient reports that he has had approximately 10 episodes of hematemesis since yesterday morning. Patient denies any chest pain or shortness of breath. No hematochezia. Patient had a recent hospitalization with discharge home 07/23/16 for hematemesis, SIRS and ARF at that time. No EGD was done. He does have a history of gastritis and esophagitis which was diagnosed on EGD in 07/2015. Patient had a gastric emptying scan that was also normal on 07/2015. No cough or cold-like symptoms. No fever or chills. Past History Past Medical History: diabetes, hypertension, hyperlipidemia, other (gastritis, esophagitis, diabetic gastroparesis) Past Surgical History: Other (transmetatarsal amputation left foot) Social history: no significant social history Family history: no significant family history Medications and Allergies Allergies Allergy/AdvReac Type Severity Reaction Status Date / Time No Known Allergies Allergy Verified 09/18/14 18:31 Home Medications Medication Instructions Recorded Confirmed Last Taken Type Atorvastatin Calcium [Lipitor] 80 mg PO QHS 09/18/14 08/02/16 Unknown History Insulin Glargine,Hum.rec.anlog 35 unit SQ QPM 09/18/14 08/02/16 Unknown History [Lantus] NIFEdipine [NIFEdipine ER] 60 mg PO QDAY 09/18/14 08/02/16 Unknown History Tramadol HCl [traMADol] 100 mg PO Q8H PRN 09/18/14 07/19/15 Unknown History Pantoprazole [Protonix TAB] 40 mg PO QDAY #14 tablet 07/21/15 08/02/16 Unknown Rx Gabapentin 300 mg PO TID 07/20/16 08/02/16 Unknown History Invokana 100 mg PO QAM 07/20/16 08/02/16 Unknown History Lisinopril 5 mg PO QAM 07/20/16 08/02/16 Unknown History Metanx Capsule 90.314 mg PO Q12HR 07/20/16 08/02/16 Unknown History Metoprolol SUCCINATE ER TAB 50 mg PO Q12HR 07/20/16 08/02/16 Unknown History Ondansetron 4 mg SL PRN PRN 07/20/16 08/02/16 Unknown History Tamsulosin [Flomax] 0.4 mg PO BID 07/20/16 08/02/16 Unknown History Vitamin D3 1,000 unit PO QDAY 07/20/16 08/02/16 Unknown History levETIRAcetam 500 mg PO Q12HR 07/20/16 08/02/16 Unknown History Levofloxacin [Levaquin TAB] 500 mg PO QDAY #4 tablet 07/23/16 08/02/16 Unknown Rx Levomefolate/B6/B12/Algal Oil 1 each PO DAILY 08/02/16 08/02/16 Unknown History [Metanx Capsule] Metoprolol [Lopressor TAB] 50 mg PO DAILY 08/02/16 08/02/16 Unknown History Active Meds: Active Medications Pantoprazole Sodium 80 mg/ (Sodium Chloride) 100 mls @ 10 mls/hr IV DIRECT PANDA PRN Reason: 8 MG/HR Last Admin: 08/02/16 03:15 Dose: 10 mls/hr Review of Systems All systems: negative Exam - Constitutional Vitals: Temp Pulse Resp BP Pulse Ox 99.5 F 100 H 20 178/80 95 08/02/16 03:00 08/02/16 02:24 08/02/16 03:38 08/02/16 02:24 08/02/16 03:38 General appearance: Present: no acute distress, well-nourished - EENT Eyes: Present: PERRL ENT: hearing intact, clear oral mucosa - Neck Neck: Present: supple, normal ROM - Respiratory Respiratory effort: normal Respiratory: bilateral: CTA - Cardiovascular Heart Sounds: Present: S1 & S2. Absent: rub, click - Extremities Extremities: pulses symmetrical, No edema Peripheral Pulses: within normal limits - Abdominal General gastrointestinal: Present: soft, non-tender, non-distended, normal bowel sounds Male genitourinary: Present: normal - Integumentary Integumentary: Present: clear, warm, dry - Musculoskeletal Musculoskeletal: gait normal, strength equal bilaterally - Psychiatric Psychiatric: appropriate mood/affect, intact judgment & insight - Neurologic Neurologic: CNII-XII intact, moves all extremities Results - Labs CBC & Chem 7: 08/01/16 23:52 08/01/16 23:52 Labs: Laboratory Last Values WBC 19.7 K/mm3 (4.5-11.0) H 08/01/16 23:52 RBC 5.07 M/mm3 (3.65-5.03) H 08/01/16 23:52 Hgb 14.8 gm/dl (11.8-15.2) 08/01/16 23:52 Hct 45.0 % (35.5-45.6) 08/01/16 23:52 MCV 89 fl (84-94) 08/01/16 23:52 MCH 29 pg (28-32) 08/01/16 23:52 MCHC 33 % (32-34) 08/01/16 23:52 RDW 14.4 % (13.2-15.2) 08/01/16 23:52 Plt Count 360 K/mm3 (140-440) 08/01/16 23:52 Lymph % (Auto) 7.2 % (13.4-35.0) L 08/01/16 23:52 [place] % (Auto) 3.2 % (0.0-7.3) 08/01/16 23:52 Eos % (Auto) 0.0 % (0.0-4.3) 08/01/16 23:52 Baso % (Auto) 0.9 % (0.0-1.8) 08/01/16 23:52 Lymph # 1.4 K/mm3 (1.2-5.4) 08/01/16 23:52 [place] # 0.6 K/mm3 (0.0-0.8) 08/01/16 23:52 Eos # 0.0 K/mm3 (0.0-0.4) 08/01/16 23:52 Baso # 0.2 K/mm3 (0.0-0.1) H 08/01/16 23:52 Seg Neutrophils % 88.7 % (40.0-70.0) H 08/01/16 23:52 Seg Neutrophils # 17.5 K/mm3 (1.8-7.7) H 08/01/16 23:52 PT 13.1 Sec. (12.2-14.9) 08/01/16 23:52 INR 1.00 (0.87-1.13) 08/01/16 23:52 APTT 23.0 Sec. (24.2-36.6) L 08/01/16 23:52 Sodium 139 mmol/L (137-145) 08/01/16 23:52 Potassium 4.6 mmol/L (3.6-5.0) 08/01/16 23:52 Chloride 90.8 mmol/L (98-107) L 08/01/16 23:52 Carbon Dioxide 28 mmol/L (22-30) 08/01/16 23:52 Anion Gap 25 mmol/L 08/01/16 23:52 BUN 27 mg/dL (9-20) H 08/01/16 23:52 Creatinine 1.6 mg/dL (0.8-1.5) H 08/01/16 23:52 Estimated GFR 52 ml/min 08/01/16 23:52 BUN/Creatinine Ratio 16.87 % 08/01/16 23:52 Glucose 532 mg/dL (75-100) H* 08/01/16 23:52 POC Glucose 459 (70-105) H 08/01/16 23:30 Lactic Acid 2.5 mmol/L (0.7-2.0) H* 08/02/16 02:57 Calcium 9.7 mg/dL (8.4-10.2) 08/01/16 23:52 Total Bilirubin 0.6 mg/dL (0.1-1.2) 08/01/16 23:52 AST 17 units/L (5-40) 08/01/16 23:52 ALT 14 units/L (7-56) 08/01/16 23:52 Alkaline Phosphatase 102 units/L (35-129) 08/01/16 23:52 Total Protein 7.5 g/dL (6.3-8.2) 08/01/16 23:52 Albumin 4.0 g/dL (3.9-5) 08/01/16 23:52 Albumin/Globulin Ratio 1.1 % 08/01/16 23:52 Lipase 9 units/L (13-60) L 08/01/16 23:52 Assessment and Plan Assessment and plan: 1. Upper gastrointestinal bleed most likely secondary to gastritis/esophagitis vs peptic ulcer disease versus Yaz-Dang tear. H&H is currently stable. Previous EGD on 07/2015 with esophagitis and pathology consistent with esophagitis and kellen. Patient will be started on a Protonix drip. Given that this is his second admission for same complaint, patient most likely will undergo EGD. GI consultation pending. 2. SIRS. Patient does have low-grade fever and tachycardia. Etiology likely secondary to #1. We will monitor. 3. Diabetes mellitus type 2, uncontrolled. Patient has significant hyperglycemia. Start sliding scale insulin and consider long-acting insulin. 1800 ADA diet. 4. Acute renal failure. Etiology likely secondary to vasomotor nephropathy. Continue IV fluids. Follow-up urinalysis and monitor electrolytes. 5. DVT prophylaxis. Patient will receive SCDs and hold anticoagulation given the GERD.
[2016-08-02] MEDS ORDERED: DULCOLAX PR PRN (04:27)
[2016-08-02] MEDS ORDERED: ZOFRAN IV PRN (04:27)
[2016-08-02] MEDS ORDERED: D50W (25GM) IV PRN (04:27)
[2016-08-02] MEDS ORDERED: MILK OF MAGNESIA PO PRN (04:27)
[2016-08-02] MEDS ORDERED: TYLENOL PO PRN (04:27)
[2016-08-02] MEDS: NACL 0.9% 1000 ML 1,000 ML IV SCH ×2 (06:53→11:29)
--- NOTE | 2016-08-02 08:35 | Admit Criteria Form ---
Admission Criteria Documentation: GASTROINTESTINAL BLEEDING, UPPER Clinical Indications for Admission to Inpatient Care ( Place 'X' for any and all applicable criteria): Admission is indicated for ANY ONE of the following(1)(2)(3)(4)(5)(6): [X ]I. Active bleeding (eg, fresh voluminous blood in emesis or nasogastric aspirate) [ ]II. Associated conditions requiring hospitalization (eg, perforation, obstruction from ulcer) [ ]III. Inpatient admission required rather than observation care (Also use Gastrointestinal Bleeding, Upper: Observation Care as appropriate) because of ANY ONE of the following: [ ]a) Hemodynamic instability that is severe or persistent [ ]b) Anemia requiring inpatient admission as indicated by ALL of the following: [ ]1) Presence of significant clinical finding indicated by ANY ONE of the following: [ ]A. Tachycardia for age [ ]B. Orthostatic vital sign changes [ ]C. Cognitive impairment [ ]D. Heart failure [ ]E. Chest pain [ ]F. Exertional dyspnea [ ]G. Other findings suggesting inadequate perfusion (eg, peripheral or myocardial ischemia, end organ dysfunction) [ ]2) Initial (eg, emergency department, observation care) treatment with transfusion or volume replacement is judged inappropriate (due to severity of the finding) or has been ineffective [ ]c) Severe pain requiring acute inpatient management [ ]d) High-risk low platelet count [ ]e) IV fluid to replace significant ongoing losses (greater than 3 L/m2 per day) [ ]f) Immediate inpatient surgery [ ]g) Other condition, treatment or monitoring requiring inpatient admission [ ]IV. Severe liver disease (eg, cirrhosis) [ ]V. Significant active comorbid disease [ ]. Anticoagulation therapy [ ]VII. High-risk endoscopic features (arterial bleeding, adherent clot, nonbleeding visible vessel, varices, flat red spots, ulcer size greater than 2 cm, or portal hypertensive gastropathy) [ ]VIII. Previous aortic graft placement or known aortic aneurysm [ ]IX. Coagulopathy [ ]X. Syncope Extended stay beyond goal length of stay may be needed for(1)(2): [ ]a) Emergency surgery [ ]b) Varices [ ]c) Coagulation abnormalities [ ]d) Recurrent, obscure, or persistent bleeding or continued Hemodynamic instability [ ]e) Associated conditions requiring surgery (eg, perforated gastric ulcer, gastric outlet obstruction) [ ]f) Active comorbidities (eg, renal insufficiency, heart failure, pre- existing liver disease) The original [facility] [employer] content created by [facility] has been revised. The portions of the content which have been revised are identified through the use of italic text or in bold, and [facility] has neither reviewed nor approved the modified material. All other unmodified content is copyright [facility] [email or web address]. Please see references footnoted in the original [facility] [email or web address] edition 2016 Admission Criteria Met: Yes
--- NOTE | 2016-08-02 13:05 | Gastroenterology Consultation ---
History of Present Illness - Reason for Consult Consult date: 08/02/16 Hematemesis Requesting physician: DAINA ROBERTS - History of Present Illness 70yo man with hx of DM, htn, gastroparesis, left transmetatarsal amputation, who was brought in was several episodes of coffee ground emesis. No melena, however. Mr. Avila denies any heartburn, difficulty swallowing, abdominal pain, BRBPR. No CP/SOB. Hb was 14.8 on admission w/ blood glucose >500 and lactate of 2.2. He has not had any bleeding this AM. No other complaints. Past History Past Medical History: diabetes, hypertension, hyperlipidemia, other (gastritis, esophagitis, diabetic gastroparesis) Past Surgical History: Other (transmetatarsal amputation left foot) Social history: no significant social history Family history: no significant family history Medications and Allergies Allergies Allergy/AdvReac Type Severity Reaction Status Date / Time No Known Allergies Allergy Verified 09/18/14 18:31 Home Medications Medication Instructions Recorded Confirmed Last Taken Type Atorvastatin Calcium [Lipitor] 80 mg PO QHS 09/18/14 08/02/16 Unknown History Insulin Glargine,Hum.rec.anlog 35 unit SQ QPM 09/18/14 08/02/16 Unknown History [Lantus] NIFEdipine [NIFEdipine ER] 60 mg PO QDAY 09/18/14 08/02/16 Unknown History Tramadol HCl [traMADol] 100 mg PO Q8H PRN 09/18/14 07/19/15 Unknown History Pantoprazole [Protonix TAB] 40 mg PO QDAY #14 tablet 07/21/15 08/02/16 Unknown Rx Gabapentin 300 mg PO TID 07/20/16 08/02/16 Unknown History Invokana 100 mg PO QAM 07/20/16 08/02/16 Unknown History Lisinopril 5 mg PO QAM 07/20/16 08/02/16 Unknown History Metanx Capsule 90.314 mg PO Q12HR 07/20/16 08/02/16 Unknown History Metoprolol SUCCINATE ER TAB 50 mg PO Q12HR 07/20/16 08/02/16 Unknown History Ondansetron 4 mg SL PRN PRN 07/20/16 08/02/16 Unknown History Tamsulosin [Flomax] 0.4 mg PO BID 07/20/16 08/02/16 Unknown History Vitamin D3 1,000 unit PO QDAY 07/20/16 08/02/16 Unknown History levETIRAcetam 500 mg PO Q12HR 07/20/16 08/02/16 Unknown History Levofloxacin [Levaquin TAB] 500 mg PO QDAY #4 tablet 07/23/16 08/02/16 Unknown Rx Levomefolate/B6/B12/Algal Oil 1 each PO DAILY 08/02/16 08/02/16 Unknown History [Metanx Capsule] Metoprolol [Lopressor TAB] 50 mg PO DAILY 08/02/16 08/02/16 Unknown History Active Meds: Active Medications Acetaminophen (Tylenol) 650 mg PO Q4H PRN PRN Reason: Pain MILD(1-3)/Fever >100.5/ONEILL Bisacodyl (Dulcolax) 10 mg MN QDAY PRN PRN Reason: Constipation unrelieved by MOM Dextrose (D50w (25gm)) 50 ml IV PRN PRN PRN Reason: Hypoglycemia Pantoprazole Sodium 80 mg/ (Sodium Chloride) 100 mls @ 10 mls/hr IV DIRECT PANDA PRN Reason: 8 MG/HR Last Admin: 08/02/16 03:15 Dose: 10 mls/hr Sodium Chloride (Nacl 0.9% 1000 Ml) 1,000 mls @ 75 mls/hr IV DIRECT PANDA Last Admin: 08/02/16 11:29 Dose: 75 mls/hr Insulin Detemir (Levemir) 10 units SUB-Q QHS PANDA Insulin Human Regular (Novolin R) 0 units SUB-Q ACHS PANDA PRN Reason: Protocol Last Admin: 08/02/16 12:44 Dose: 6 units Magnesium Hydroxide (Milk Of Magnesia) 30 ml PO Q4H PRN PRN Reason: Constipation Ondansetron HCl (Zofran) 4 mg IV Q8H PRN PRN Reason: N/V unrelieved by Reglan Review of Systems - Review of Systems All systems: negative (hematemesis) Exam - Constitutional Vital Signs: Temp Pulse Resp BP Pulse Ox 99.6 F 86 16 186/86 98 08/02/16 07:28 08/02/16 07:28 08/02/16 07:28 08/02/16 07:28 08/02/16 07:28 General appearance: no acute distress - EENT Eyes: PERRL - Neck Neck: supple - Respiratory Respiratory: bilateral: CTA - Cardiovascular Rhythm: regular Heart Sounds: Present: S1 & S2 Extremity abnormal: other (left transmetatarsal amputation) - Gastrointestinal General gastrointestinal: Present: soft, non-tender, non-distended, normal bowel sounds - Integumentary Integumentary: Present: clear - Neurologic Neurological: alert and oriented x3 - Psychiatric Psychiatric: appropriate mood/affect - Labs CBC & Chem 7: 08/01/16 23:52 08/01/16 23:52 Assessment and Plan 70yo man with above medical hx a/w several episodes of coffee ground emesis. However, his Hb is normal and given the amount of hematemesis described, I would expect him to be anemic. This may moreso be entry level marketing representative of underlying diabetic gastroparesis. Rec: 1) OK to have clear liquids 2) Repeat Hb 3) PPI once daily 4) Strict glycemic control 5) May consider EGD after blood sugars are better controlled/lactic acidosis improves Thank you for allowing me to participate in the care of your patient. Please do not hesitate to contact me with any questions.
[2016-08-02] MEDS ORDERED: LEVEMIR SUB-Q SCH (22:00)
[2016-08-02] MEDS ORDERED: APRESOLINE IV PRN (23:27)
[2016-08-03] MEDS: PROTONIX 80 MG in NACL 0.9% 100 ML IV SCH ×2 (00:46→15:30)
[2016-08-03] MEDS: NACL 0.9% 1000 ML 1,000 ML IV SCH ×2 (00:52→13:46)
[2016-08-03 07:13] LABS: Hematocrit 41.6 % (35.5-45.6); Hemoglobin 13.2 gm/dl (11.8-15.2); Mean Corpuscular HGB Conc 32 % (32-34); Mean Corpuscular Hemoglobin 28 pg (28-32); Mean Corpuscular Volume 89 fl (84-94); Platelet Count 348 K/mm3 (140-440); Red Blood Count 4.67 M/mm3 (3.65-5.03); Red Cell Distribution Width 14.6 % (13.2-15.2)
[2016-08-03 07:18] LABS: White Blood Count 24.5 K/mm3 (4.5-11.0)
[2016-08-03 07:20] LABS: BUN/Creatinine Ratio 20.83; Blood Urea Nitrogen 25 mg/dL (9-20); Calcium 8.5 mg/dL (8.4-10.2); Carbon Dioxide 28 mmol/L (22-30); Chloride 104.5 mmol/L (98-107); Glucose 234 mg/dL (75-100); Sodium 145 mmol/L (137-145)
[2016-08-03 07:25] LABS: Anion Gap 17 mmol/L
--- NOTE | 2016-08-03 09:04 | Gastroenterology Progress Note ---
Assessment and Plan 70yo man with above medical hx a/w several episodes of coffee ground emesis. However, his Hb is normal and given the amount of hematemesis described, I would expect him to be anemic. 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 Rec: 1) OK to have clear liquids 2) Monitor Hb 3) Cont PPI 4) Possible EGD tomorrow Subjective Date of service: 08/03/16 Principal diagnosis: Possible hematemesis Interval history: Pt seen/examined today. No abdominal complaints. Hb in 13's, but WBC inc to 25k. No CP/SOB. Objective - Constitutional Vitals: Temp Pulse Resp BP Pulse Ox 98.2 F 72 14 142/82 99 08/03/16 07:22 08/03/16 07:22 08/03/16 07:22 08/03/16 07:22 08/03/16 07:22 General appearance: no acute distress - EENT Eyes: PERRL - Neck Neck: supple - Respiratory Respiratory: bilateral: CTA - Cardiovascular Rhythm: regular Heart Sounds: Present: S1 & S2 - Extremities Extremities: No edema - Gastrointestinal General gastrointestinal: Present: soft, non-tender, non-distended, normal bowel sounds - Neurologic Neurological: alert and oriented x3 - Labs CBC & Chem 7: 08/03/16 06:26 08/03/16 06:26 Labs: Laboratory Results - last 24 hr 08/02/16 08/02/16 08/02/16 05:22 08:17 11:21 WBC RBC Hgb Hct MCV MCH MCHC RDW Plt Count Sodium Potassium Chloride Carbon Dioxide Anion Gap BUN Creatinine Estimated GFR BUN/Creatinine Ratio Glucose POC Glucose 481 H 372 H 338 H Calcium 08/02/16 08/02/16 08/03/16 16:34 21:17 06:09 WBC RBC Hgb Hct MCV MCH MCHC RDW Plt Count Sodium Potassium Chloride Carbon Dioxide Anion Gap BUN Creatinine Estimated GFR BUN/Creatinine Ratio Glucose POC Glucose 301 H 405 H 214 H Calcium 08/03/16 08/03/16 06:26 06:26 WBC 24.5 H RBC 4.67 Hgb 13.2 Hct 41.6 MCV 89 MCH 28 MCHC 32 RDW 14.6 Plt Count 348 Sodium 145 Potassium 4.0 Chloride 104.5 Carbon Dioxide 28 Anion Gap 17 BUN 25 H Creatinine 1.2 Estimated GFR > 60 BUN/Creatinine Ratio 20.83 Glucose 234 H POC Glucose Calcium 8.5
[2016-08-03 09:35] LABS: Basophils % (Manual) 0 % (0.0-1.8); Blastocytes % (Manual) 0 %; Eosinophils % (Manual) 0 % (0.0-4.3)
[2016-08-03 09:36] LABS: Anisocytosis Few; Diff Status Complete
[2016-08-03] MEDS ORDERED: LEVEMIR SUB-Q SCH (10:40)
--- NOTE | 2016-08-03 10:41 | Progress Note ---
Assessment and Plan Assessment and plan: 1. Gastroparesis: optimize DM control, rx with antiemetics and IVFluids, clear liquid diet and Advance as tolerated 2. SIRS. likely 2/2 #1, supportive care 3. Diabetes mellitus type 2, uncontrolled. Patient has significant hyperglycemia. Start sliding scale insulin and consider long-acting insulin. 1800 ADA diet, counseled on improved compliance. 4. Acute renal failure. Etiology likely secondary to vasomotor nephropathy. Continue IV fluids, resolving with IVF . History Interval history: continues to have vomiting with occasional bloody streaks, unable to keep any food of liquids down Hospitalist Physical - Physical exam Narrative exam: General: Patient appears well in no distress HEENT: MMM, EOMI cardiac: S1-S2 heard lungs: clear to auscultation, abdomen: soft, nontender, nondistended bowel sounds positive extremities: no edema clubbing or cyanosis Skin: no rash or lesion Neuro: no focal deficit Psych: appropriate behavior and mood, cognition intact - Constitutional Vitals: Temp Pulse Resp BP Pulse Ox 98.2 F 72 14 142/82 99 08/03/16 07:22 08/03/16 07:22 08/03/16 07:22 08/03/16 07:22 08/03/16 07:22 General appearance: Present: no acute distress, well-nourished Results - Labs CBC & Chem 7: 08/03/16 06:26 08/03/16 06:26 Labs: Laboratory Last Values WBC 24.5 K/mm3 (4.5-11.0) H 08/03/16 06:26 RBC 4.67 M/mm3 (3.65-5.03) 08/03/16 06:26 Hgb 13.2 gm/dl (11.8-15.2) 08/03/16 06:26 Hct 41.6 % (35.5-45.6) 08/03/16 06:26 MCV 89 fl (84-94) 08/03/16 06:26 MCH 28 pg (28-32) 08/03/16 06:26 MCHC 32 % (32-34) 08/03/16 06:26 RDW 14.6 % (13.2-15.2) 08/03/16 06:26 Plt Count 348 K/mm3 (140-440) 08/03/16 06:26 Lymph % (Auto) 7.2 % (13.4-35.0) L 08/01/16 23:52 [place] % (Auto) 3.2 % (0.0-7.3) 08/01/16 23:52 Eos % (Auto) 0.0 % (0.0-4.3) 08/01/16 23:52 Baso % (Auto) 0.9 % (0.0-1.8) 08/01/16 23:52 Lymph # 1.4 K/mm3 (1.2-5.4) 08/01/16 23:52 [place] # 0.6 K/mm3 (0.0-0.8) 08/01/16 23:52 Eos # 0.0 K/mm3 (0.0-0.4) 08/01/16 23:52 Baso # 0.2 K/mm3 (0.0-0.1) H 08/01/16 23:52 Add Manual Diff Complete 08/03/16 06:26 Total Counted 100 08/03/16 06:26 Seg Neutrophils % 88.7 % (40.0-70.0) H 08/01/16 23:52 Seg Neuts % (Manual) 80.0 % (40.0-70.0) H 08/03/16 06:26 Band Neutrophils % 4.0 % 08/03/16 06:26 Lymphocytes % (Manual) 9.0 % (13.4-35.0) L 08/03/16 06:26 Reactive Lymphs % (Man) 0 % 08/03/16 06:26 Monocytes % (Manual) 7.0 % (0.0-7.3) 08/03/16 06:26 Eosinophils % (Manual) 0 % (0.0-4.3) 08/03/16 06:26 Basophils % (Manual) 0 % (0.0-1.8) 08/03/16 06:26 Metamyelocytes % 0 % 08/03/16 06:26 Myelocytes % 0 % 08/03/16 06:26 Promyelocytes % 0 % 08/03/16 06:26 Blast Cells % 0 % 08/03/16 06:26 Nucleated RBC % Not Reportable 08/03/16 06:26 Seg Neutrophils # 17.5 K/mm3 (1.8-7.7) H 08/01/16 23:52 Seg Neutrophils # Man 19.6 K/mm3 (1.8-7.7) H 08/03/16 06:26 Band Neutrophils # 1.0 K/mm3 08/03/16 06:26 Lymphocytes # (Manual) 2.2 K/mm3 (1.2-5.4) 08/03/16 06:26 Abs React Lymphs (Man) 0.0 K/mm3 08/03/16 06:26 Monocytes # (Manual) 1.7 K/mm3 (0.0-0.8) H 08/03/16 06:26 Eosinophils # (Manual) 0.0 K/mm3 (0.0-0.4) 08/03/16 06:26 Basophils # (Manual) 0.0 K/mm3 (0.0-0.1) 08/03/16 06:26 Metamyelocytes # 0.0 K/mm3 08/03/16 06:26 Myelocytes # 0.0 K/mm3 08/03/16 06:26 Promyelocytes # 0.0 K/mm3 08/03/16 06:26 Blast Cells # 0.0 K/mm3 08/03/16 06:26 WBC Morphology Not Reportable 08/03/16 06:26 Hypersegmented Neuts Not Reportable 08/03/16 06:26 Hyposegmented Neuts Not Reportable 08/03/16 06:26 Hypogranular Neuts Not Reportable 08/03/16 06:26 Smudge Cells Not Reportable 08/03/16 06:26 Toxic Granulation Not Reportable 08/03/16 06:26 Toxic Vacuolation Not Reportable 08/03/16 06:26 Dohle Bodies Not Reportable 08/03/16 06:26 Pelger-Huet Anomaly Not Reportable 08/03/16 06:26 Irais Rods Not Reportable 08/03/16 06:26 Platelet Estimate Not Reportable 08/03/16 06:26 Clumped Platelets Not Reportable 08/03/16 06:26 Plt Clumps, EDTA Not Reportable 08/03/16 06:26 Large Platelets Not Reportable 08/03/16 06:26 Giant Platelets Not Reportable 08/03/16 06:26 Platelet Satelliting Not Reportable 08/03/16 06:26 Plt Morphology Comment Not Reportable 08/03/16 06:26 RBC Morphology Not Reportable 08/03/16 06:26 Dimorphic RBCs Not Reportable 08/03/16 06:26 Polychromasia Not Reportable 08/03/16 06:26 Hypochromasia Not Reportable 08/03/16 06:26 Poikilocytosis Not Reportable 08/03/16 06:26 Anisocytosis Few 08/03/16 06:26 Microcytosis Not Reportable 08/03/16 06:26 Macrocytosis Not Reportable 08/03/16 06:26 Spherocytes Not Reportable 08/03/16 06:26 Pappenheimer Bodies Not Reportable 08/03/16 06:26 Sickle Cells Not Reportable 08/03/16 06:26 Target Cells Not Reportable 08/03/16 06:26 Tear Drop Cells Not Reportable 08/03/16 06:26 Ovalocytes Not Reportable 08/03/16 06:26 Helmet Cells Not Reportable 08/03/16 06:26 [place] Bodies Not Reportable 08/03/16 06:26 [place] Rings Not Reportable 08/03/16 06:26 [place] Cells Not Reportable 08/03/16 06:26 Bite Cells Not Reportable 08/03/16 06:26 Crenated Cell Not Reportable 08/03/16 06:26 Elliptocytes Not Reportable 08/03/16 06:26 Acanthocytes (Spur) Not Reportable 08/03/16 06:26 Rouleaux Not Reportable 08/03/16 06:26 Hemoglobin C Crystals Not Reportable 08/03/16 06:26 Schistocytes Not Reportable 08/03/16 06:26 Malaria parasites Not Reportable 08/03/16 06:26 Bhavin Bodies Not Reportable 08/03/16 06:26 Hem Pathologist Commnt No 08/03/16 06:26 PT 13.1 Sec. (12.2-14.9) 08/01/16 23:52 INR 1.00 (0.87-1.13) 08/01/16 23:52 APTT 23.0 Sec. (24.2-36.6) L 08/01/16 23:52 Sodium 145 mmol/L (137-145) 08/03/16 06:26 Potassium 4.0 mmol/L (3.6-5.0) 08/03/16 06:26 Chloride 104.5 mmol/L (98-107) 08/03/16 06:26 Carbon Dioxide 28 mmol/L (22-30) 08/03/16 06:26 Anion Gap 17 mmol/L 08/03/16 06:26 BUN 25 mg/dL (9-20) H 08/03/16 06:26 Creatinine 1.2 mg/dL (0.8-1.5) 08/03/16 06:26 Estimated GFR > 60 ml/min 08/03/16 06:26 BUN/Creatinine Ratio 20.83 % 08/03/16 06:26 Glucose 234 mg/dL (75-100) H 08/03/16 06:26 POC Glucose 214 (70-105) H 08/03/16 06:09 Lactic Acid 2.5 mmol/L (0.7-2.0) H* 08/02/16 02:57 Calcium 8.5 mg/dL (8.4-10.2) 08/03/16 06:26 Total Bilirubin 0.6 mg/dL (0.1-1.2) 08/01/16 23:52 AST 17 units/L (5-40) 08/01/16 23:52 ALT 14 units/L (7-56) 08/01/16 23:52 Alkaline Phosphatase 102 units/L (35-129) 08/01/16 23:52 Total Protein 7.5 g/dL (6.3-8.2) 08/01/16 23:52 Albumin 4.0 g/dL (3.9-5) 08/01/16 23:52 Albumin/Globulin Ratio 1.1 % 08/01/16 23:52 Lipase 9 units/L (13-60) L 08/01/16 23:52 Blood Type O POSITIVE 08/01/16 23:52 Antibody Screen Negative 08/01/16 23:52
[2016-08-03] MEDS ORDERED: NON-FORMULARY (Nifedipine [Nifedipine Er] 60 MG) PO SCH (10:45)
[2016-08-03] MEDS ORDERED: ZESTRIL PO SCH ×2 (12:00→22:00)
[2016-08-03] MEDS: FLOMAX PO SCH ×2 (12:38→22:58)
[2016-08-03] MEDS: LOPRESSOR PO SCH ×2 (12:38→22:58)
[2016-08-03] MEDS: PROCARDIA XL PO SCH (12:38)
[2016-08-03] MEDS ORDERED: NON-FORMULARY (Gabapentin 300 MG) PO SCH (14:00)
[2016-08-03] MEDS: NEURONTIN PO SCH ×2 (15:30→22:57)
[2016-08-03] MEDS: REGLAN IV SCH ×3 (17:49→22:55)
[2016-08-03] MEDS: ZESTRIL PO SCH (22:56)
[2016-08-03] MEDS: LEVEMIR SUB-Q SCH (23:01)
[2016-08-04] MEDS: NACL 0.9% 1000 ML 1,000 ML IV SCH ×2 (02:38→17:09)
[2016-08-04] MEDS: PROTONIX 80 MG in NACL 0.9% 100 ML IV SCH ×2 (04:22→17:02)
[2016-08-04] MEDS: REGLAN IV SCH ×4 (04:26→23:10)
[2016-08-04] MEDS: FLOMAX PO SCH ×2 (09:32→23:00)
[2016-08-04] MEDS: NEURONTIN PO SCH ×3 (09:32→22:59)
[2016-08-04] MEDS: ZESTRIL PO SCH ×2 (09:33→23:00)
[2016-08-04] MEDS: PROCARDIA XL PO SCH (09:33)
[2016-08-04] MEDS: LOPRESSOR PO SCH ×2 (09:34→22:59)
[2016-08-04] MEDS ORDERED: NON-FORMULARY (Lisinopril 5 MG) PO SCH (10:00)
--- NOTE | 2016-08-04 10:04 | Progress Note ---
Assessment and Plan Assessment and plan: 1. Gastroparesis: optimize DM control, rx with antiemetics and IVFluids, clear liquid diet and Advance as tolerated 2. SIRS. likely 2/2 #1, supportive care 3. Diabetes mellitus type 2, uncontrolled. Patient has significant hyperglycemia. Start sliding scale insulin and consider long-acting insulin. 1800 ADA diet, counseled on improved compliance. 4. Acute renal failure. Etiology likely secondary to vasomotor nephropathy. Continue IV fluids, resolving with IVF . History Interval history: continues to have vomiting with occasional bloody streaks, unable to keep any food of liquids down Hospitalist Physical - Physical exam Narrative exam: General: Patient appears well in no distress HEENT: MMM, EOMI cardiac: S1-S2 heard lungs: clear to auscultation, abdomen: soft, nontender, nondistended bowel sounds positive extremities: no edema clubbing or cyanosis Skin: no rash or lesion Neuro: no focal deficit Psych: appropriate behavior and mood, cognition intact - Constitutional Vitals: Temp Pulse Resp BP Pulse Ox 98.5 F 60 18 90/54 94 08/04/16 07:39 08/04/16 07:39 08/04/16 07:39 08/04/16 09:33 08/04/16 07:39 General appearance: Present: no acute distress, well-nourished Results - Labs CBC & Chem 7: 08/03/16 06:26 08/03/16 06:26 Labs: Laboratory Last Values WBC 24.5 K/mm3 (4.5-11.0) H 08/03/16 06:26 RBC 4.67 M/mm3 (3.65-5.03) 08/03/16 06:26 Hgb 13.2 gm/dl (11.8-15.2) 08/03/16 06:26 Hct 41.6 % (35.5-45.6) 08/03/16 06:26 MCV 89 fl (84-94) 08/03/16 06:26 MCH 28 pg (28-32) 08/03/16 06:26 MCHC 32 % (32-34) 08/03/16 06:26 RDW 14.6 % (13.2-15.2) 08/03/16 06:26 Plt Count 348 K/mm3 (140-440) 08/03/16 06:26 Lymph % (Auto) 7.2 % (13.4-35.0) L 08/01/16 23:52 [place] % (Auto) 3.2 % (0.0-7.3) 08/01/16 23:52 Eos % (Auto) 0.0 % (0.0-4.3) 08/01/16 23:52 Baso % (Auto) 0.9 % (0.0-1.8) 08/01/16 23:52 Lymph # 1.4 K/mm3 (1.2-5.4) 08/01/16 23:52 [place] # 0.6 K/mm3 (0.0-0.8) 08/01/16 23:52 Eos # 0.0 K/mm3 (0.0-0.4) 08/01/16 23:52 Baso # 0.2 K/mm3 (0.0-0.1) H 08/01/16 23:52 Add Manual Diff Complete 08/03/16 06:26 Total Counted 100 08/03/16 06:26 Seg Neutrophils % 88.7 % (40.0-70.0) H 08/01/16 23:52 Seg Neuts % (Manual) 80.0 % (40.0-70.0) H 08/03/16 06:26 Band Neutrophils % 4.0 % 08/03/16 06:26 Lymphocytes % (Manual) 9.0 % (13.4-35.0) L 08/03/16 06:26 Reactive Lymphs % (Man) 0 % 08/03/16 06:26 Monocytes % (Manual) 7.0 % (0.0-7.3) 08/03/16 06:26 Eosinophils % (Manual) 0 % (0.0-4.3) 08/03/16 06:26 Basophils % (Manual) 0 % (0.0-1.8) 08/03/16 06:26 Metamyelocytes % 0 % 08/03/16 06:26 Myelocytes % 0 % 08/03/16 06:26 Promyelocytes % 0 % 08/03/16 06:26 Blast Cells % 0 % 08/03/16 06:26 Nucleated RBC % Not Reportable 08/03/16 06:26 Seg Neutrophils # 17.5 K/mm3 (1.8-7.7) H 08/01/16 23:52 Seg Neutrophils # Man 19.6 K/mm3 (1.8-7.7) H 08/03/16 06:26 Band Neutrophils # 1.0 K/mm3 08/03/16 06:26 Lymphocytes # (Manual) 2.2 K/mm3 (1.2-5.4) 08/03/16 06:26 Abs React Lymphs (Man) 0.0 K/mm3 08/03/16 06:26 Monocytes # (Manual) 1.7 K/mm3 (0.0-0.8) H 08/03/16 06:26 Eosinophils # (Manual) 0.0 K/mm3 (0.0-0.4) 08/03/16 06:26 Basophils # (Manual) 0.0 K/mm3 (0.0-0.1) 08/03/16 06:26 Metamyelocytes # 0.0 K/mm3 08/03/16 06:26 Myelocytes # 0.0 K/mm3 08/03/16 06:26 Promyelocytes # 0.0 K/mm3 08/03/16 06:26 Blast Cells # 0.0 K/mm3 08/03/16 06:26 WBC Morphology Not Reportable 08/03/16 06:26 Hypersegmented Neuts Not Reportable 08/03/16 06:26 Hyposegmented Neuts Not Reportable 08/03/16 06:26 Hypogranular Neuts Not Reportable 08/03/16 06:26 Smudge Cells Not Reportable 08/03/16 06:26 Toxic Granulation Not Reportable 08/03/16 06:26 Toxic Vacuolation Not Reportable 08/03/16 06:26 Dohle Bodies Not Reportable 08/03/16 06:26 Pelger-Huet Anomaly Not Reportable 08/03/16 06:26 Irais Rods Not Reportable 08/03/16 06:26 Platelet Estimate Not Reportable 08/03/16 06:26 Clumped Platelets Not Reportable 08/03/16 06:26 Plt Clumps, EDTA Not Reportable 08/03/16 06:26 Large Platelets Not Reportable 08/03/16 06:26 Giant Platelets Not Reportable 08/03/16 06:26 Platelet Satelliting Not Reportable 08/03/16 06:26 Plt Morphology Comment Not Reportable 08/03/16 06:26 RBC Morphology Not Reportable 08/03/16 06:26 Dimorphic RBCs Not Reportable 08/03/16 06:26 Polychromasia Not Reportable 08/03/16 06:26 Hypochromasia Not Reportable 08/03/16 06:26 Poikilocytosis Not Reportable 08/03/16 06:26 Anisocytosis Few 08/03/16 06:26 Microcytosis Not Reportable 08/03/16 06:26 Macrocytosis Not Reportable 08/03/16 06:26 Spherocytes Not Reportable 08/03/16 06:26 Pappenheimer Bodies Not Reportable 08/03/16 06:26 Sickle Cells Not Reportable 08/03/16 06:26 Target Cells Not Reportable 08/03/16 06:26 Tear Drop Cells Not Reportable 08/03/16 06:26 Ovalocytes Not Reportable 08/03/16 06:26 Helmet Cells Not Reportable 08/03/16 06:26 [place] Bodies Not Reportable 08/03/16 06:26 [place] Rings Not Reportable 08/03/16 06:26 [place] Cells Not Reportable 08/03/16 06:26 Bite Cells Not Reportable 08/03/16 06:26 Crenated Cell Not Reportable 08/03/16 06:26 Elliptocytes Not Reportable 08/03/16 06:26 Acanthocytes (Spur) Not Reportable 08/03/16 06:26 Rouleaux Not Reportable 08/03/16 06:26 Hemoglobin C Crystals Not Reportable 08/03/16 06:26 Schistocytes Not Reportable 08/03/16 06:26 Malaria parasites Not Reportable 08/03/16 06:26 Bhavin Bodies Not Reportable 08/03/16 06:26 Hem Pathologist Commnt No 08/03/16 06:26 PT 13.1 Sec. (12.2-14.9) 08/01/16 23:52 INR 1.00 (0.87-1.13) 08/01/16 23:52 APTT 23.0 Sec. (24.2-36.6) L 08/01/16 23:52 Sodium 145 mmol/L (137-145) 08/03/16 06:26 Potassium 4.0 mmol/L (3.6-5.0) 08/03/16 06:26 Chloride 104.5 mmol/L (98-107) 08/03/16 06:26 Carbon Dioxide 28 mmol/L (22-30) 08/03/16 06:26 Anion Gap 17 mmol/L 08/03/16 06:26 BUN 25 mg/dL (9-20) H 08/03/16 06:26 Creatinine 1.2 mg/dL (0.8-1.5) 08/03/16 06:26 Estimated GFR > 60 ml/min 08/03/16 06:26 BUN/Creatinine Ratio 20.83 % 08/03/16 06:26 Glucose 234 mg/dL (75-100) H 08/03/16 06:26 POC Glucose 179 (70-105) H 08/04/16 06:44 Lactic Acid 2.5 mmol/L (0.7-2.0) H* 08/02/16 02:57 Calcium 8.5 mg/dL (8.4-10.2) 08/03/16 06:26 Total Bilirubin 0.6 mg/dL (0.1-1.2) 08/01/16 23:52 AST 17 units/L (5-40) 08/01/16 23:52 ALT 14 units/L (7-56) 08/01/16 23:52 Alkaline Phosphatase 102 units/L (35-129) 08/01/16 23:52 Total Protein 7.5 g/dL (6.3-8.2) 08/01/16 23:52 Albumin 4.0 g/dL (3.9-5) 08/01/16 23:52 Albumin/Globulin Ratio 1.1 % 08/01/16 23:52 Lipase 9 units/L (13-60) L 08/01/16 23:52 Blood Type O POSITIVE 08/01/16 23:52 Antibody Screen Negative 08/01/16 23:52
--- NOTE | 2016-08-04 12:05 | Gastroenterology Progress Note ---
<ARNALDO SMITH - Last Filed: 08/04/16 12:03> Assessment and Plan 1. Hematemesis -H/H stable. -Patient states he has no further N/V. Tolerating clear diet well. NO abdominal pain or melena -Advance to full liquids -Continue glycemic control -Noted elevation of WBC on 08/03/16, Follow up CBC/BMP/Lactic acid today. Subjective Date of service: 08/04/16 Principal diagnosis: Possible hematemesis Interval history: Patient reports he has no further N/V. Objective - Constitutional Vitals: Temp Pulse Resp BP Pulse Ox 98.5 F 60 18 90/54 94 08/04/16 07:39 08/04/16 07:39 08/04/16 07:39 08/04/16 09:33 08/04/16 07:39 General appearance: no acute distress - EENT Eyes: EOM intact ENT: hearing intact - Neck Neck: supple - Respiratory Respiratory: bilateral: CTA - Cardiovascular Rhythm: regular Heart Sounds: Present: S1 & S2 - Gastrointestinal General gastrointestinal: Present: soft, non-tender, non-distended - Labs CBC & Chem 7: 08/03/16 06:26 08/03/16 06:26 Labs: Laboratory Results - last 24 hr 08/03/16 08/03/16 08/03/16 10:56 16:18 22:08 POC Glucose 285 H 326 H 291 H 08/04/16 08/04/16 06:44 11:52 POC Glucose 179 H 231 H <ADRIANNE MORSE - Last Filed: 08/04/16 15:31> Subjective Interval history: GI attending: I have performed a face to face evaluation on Mr. Avila and agree with the above note of Enid Smith NP. Since the time of her exam, he vomited again, but w/o blood. Will therefore plan for EGD tomorrow due to recurrent symptoms. NPO after MN. Objective - Constitutional Vitals: Temp Pulse Resp BP Pulse Ox 98.5 F 60 18 90/54 94 08/04/16 07:39 08/04/16 07:39 08/04/16 07:39 08/04/16 09:33 08/04/16 07:39 - Labs CBC & Chem 7: 08/04/16 12:34 08/04/16 12:34 Labs: Laboratory Results - last 24 hr 08/03/16 08/03/16 08/03/16 10:56 16:18 22:08 WBC RBC Hgb Hct MCV MCH MCHC RDW Plt Count Sodium Potassium Chloride Carbon Dioxide Anion Gap BUN Creatinine Estimated GFR BUN/Creatinine Ratio Glucose POC Glucose 285 H 326 H 291 H Lactic Acid Calcium 08/04/16 08/04/16 08/04/16 06:44 11:52 12:34 WBC 10.2 RBC 4.03 Hgb 11.9 Hct 36.2 MCV 90 MCH 30 MCHC 33 RDW 14.3 Plt Count 286 Sodium Potassium Chloride Carbon Dioxide Anion Gap BUN Creatinine Estimated GFR BUN/Creatinine Ratio Glucose POC Glucose 179 H 231 H Lactic Acid Calcium 08/04/16 08/04/16 12:34 12:34 WBC RBC Hgb Hct MCV MCH MCHC RDW Plt Count Sodium 142 Potassium 4.3 Chloride 105.2 Carbon Dioxide 27 Anion Gap 14 BUN 27 H Creatinine 1.3 Estimated GFR > 60 BUN/Creatinine Ratio 20.76 Glucose 215 H POC Glucose Lactic Acid 1.2 Calcium 7.9 L
[2016-08-04 12:59] LABS: Hematocrit 36.2 % (35.5-45.6); Hemoglobin 11.9 gm/dl (11.8-15.2); Mean Corpuscular HGB Conc 33 % (32-34); Mean Corpuscular Hemoglobin 30 pg (28-32); Mean Corpuscular Volume 90 fl (84-94); Platelet Count 286 K/mm3 (140-440); Red Blood Count 4.03 M/mm3 (3.65-5.03); Red Cell Distribution Width 14.3 % (13.2-15.2); White Blood Count 10.2 K/mm3 (4.5-11.0)
[2016-08-04 13:16] LABS: Anion Gap 14 mmol/L; BUN/Creatinine Ratio 20.76; Blood Urea Nitrogen 27 mg/dL (9-20); Calcium 7.9 mg/dL (8.4-10.2); Carbon Dioxide 27 mmol/L (22-30); Chloride 105.2 mmol/L (98-107); Glucose 215 mg/dL (75-100); Potassium 4.3 mmol/L (3.6-5.0); Sodium 142 mmol/L (137-145)
[2016-08-04] MEDS: LEVEMIR SUB-Q SCH (23:02)
[2016-08-05] MEDS: PROTONIX 80 MG in NACL 0.9% 100 ML IV SCH (03:56)
[2016-08-05] MEDS: REGLAN IV SCH ×2 (04:15→10:00)
[2016-08-05] MEDS: NACL 0.9% 1000 ML 1,000 ML IV SCH (06:33)
[2016-08-05] MEDS ORDERED: WATER FOR IRRIG STERILE IR ONE (07:29)
[2016-08-05] MEDS ORDERED: DIPRIVAN 10 MG/ML IV ONE ×2 (07:44)
--- NOTE | 2016-08-05 07:44 | Anesthesia Consultation ---
Addendum entered and electronically signed by ALEENA BLEVINS PA 08/05/16 07:53: TRINITY Yoon, RRR Original Note: Anesthesia Consult and Med Hx Date of service: 08/05/16 - Pre-Operative Health Status ASA Pre-Surgery Classification: ASA3 Proposed Anesthetic Plan: MAC - Pulmonary Hx Smoking: Yes Hx Asthma: No COPD: No Hx Pneumonia: Yes (07/2016) - Cardiovascular System Hx Hypertension: Yes - Central Nervous System Hx Seizures: Yes Hx Psychiatric Problems: No - Gastrointestinal Hx Gastroesophageal Reflux Disease: No (diabetic gastroparesis) - Endocrine Hx Renal Disease: Yes (ARF) Hx End Stage Renal Disease: No Hx Insulin Dependent Diabetes: Yes (uncontrolled) - Other Systems Hx Cancer: No - Additional Comments Anesthesia Medical History Comments: sepsis 07/2016
--- NOTE | 2016-08-05 07:45 | Anesthesia Day of Surgery ---
Anesthesia Day of Surgery - Day of Surgery Patient Examined: Yes Patient H&P Reviewed: Yes Patient is NPO: Yes Beta Blockers: Yes
[2016-08-05] MEDS ORDERED: NACL 0.9% 1000 ML 1,000 ML IV SCH (08:00)
[2016-08-05] MEDS: NEURONTIN PO SCH ×2 (08:23→14:16)
[2016-08-05] MEDS ORDERED: XYLOCAINE MPF 2% ONE (08:30)
[2016-08-05] MEDS ORDERED: ROBINUL ONE (08:30)
--- NOTE | 2016-08-05 08:52 | Post Operative Note ---
Pre-op diagnosis: Hematemesis, nausea/vomiting Post-op diagnosis: other (hematemesis, nausea/vomiting, ulcerative esophagitis) Findings: EGD Esophagus: Severe ulcerative esophagitis extending from 30-40cm from oral entry site; biopsied Stomach: Normal; biopsied Duodenum: Normal, up to 2nd portion Imp: Hematemesis, nausea/vomiting; has underlying gastroparesis but significant ulcerative esophagitis on exam. Rec: 1) PPI 2x/day, Carafate 4x/day for 1 mos 2) F/U pathology 3) Outpatient f/u in 2 weeks No further inpatient GI w/u will be needed. Will sign off, but please do not hesitate to re-call with any questions. Thank you! Procedure: EGD Anesthesia: MAC Surgeon: ADRIANNE MORSE Estimated blood loss: minimal Pathology: list (esophagus, antrum) Specimen disposition: to lab Condition: stable Disposition: floor
--- NOTE | 2016-08-05 09:59 | Operative Report ---
PROCEDURE PERFORMED: Upper endoscopy with biopsy. PREOPERATIVE DIAGNOSES: Hematemesis, nausea, vomiting. POSTOPERATIVE DIAGNOSES: Hematemesis, nausea, vomiting, ulcerative esophagitis. ANESTHESIA: Via monitored anesthesia care. DESCRIPTION OF PROCEDURE: After informed consent was obtained, the patient was placed in left lateral decubitus position. A standard Fujinon upper endoscope was inserted into the mouth and advanced to the second portion of the duodenum. The scope was then carefully withdrawn and the mucosa was carefully examined. FINDINGS: Esophagus: There was evidence of severe ulcerative esophagitis extending from 30-40 cm from the oral entry site. Cold forceps biopsies were taken and sent for pathology. Stomach: Appeared normal. Cold forceps biopsies were taken and sent for pathology. Duodenum: Appeared normal up to the second portion. COMPLICATIONS: None. ESTIMATED BLOOD LOSS: Minimal. IMPRESSION: A 70-year-old gentleman with recurrent hematemesis, nausea, and vomiting. He has underlying gastroparesis, but also significant ulcerative esophagitis on exam today. RECOMMENDATIONS: 1. Return to floor. 2. Advance diet to soft. 3. Transition Protonix to 40 mg tablets by mouth twice daily and I will also add Carafate suspension four times a day. 4. Follow up pathology. 5. Outpatient followup in 2 weeks. At this time, no further inpatient GI workup will be needed. I will stop following daily, but please do not hesitate to recontact me with any further questions. Thank you for allowing me to participate in the care of your patient. JOB# [id number] ELIZABETH/NEGRA
--- NOTE | 2016-08-05 10:26 | Post Anesthesia Evaluation ---
- Post Anesthesia Evaluation Patient Participated: Yes Airway Patent: Yes Stable Respiratory Function: Yes Nausea/Vomiting: No Temp > 96.8F: Yes Pain Manageable: Yes Adequeate Hydration: Yes Anesthesia Complications: No Block Receding Appropriately: Not Applicable Patient on Ventilator: No
[2016-08-05] MEDS ORDERED: CARAFATE PO SCH (12:00)
--- NOTE | 2016-08-05 12:50 | Discharge Summary ---
Providers - Providers Date of Admission: 08/02/16 04:28 Attending physician: JOSE RAMOS MD Hospitalization Condition: Good Hospital course: This is a 70-year-old man with a past medical history of uncontrolled diabetes and esophagitis who presented with several days of intractable vomiting, vomiting was followed by hematemesis. He notes a had 8 episodes of vomiting that contained streaks of blood. He was admitted for treatment of diabetic gastroparesis, he was given Reglan and antiemetics and IV fluids. His glucose was controlled by subcutaneous insulin, he went on to have an EGD that showed severe ulcerative esophagitis. He has been counseled about adherence with gastroparesis diet, insulin and diabetic diet, he is also to take Carafate and PPI for 1 months and then follow-up with gastroenterology Discharge Diagnosis 1. severe ulcerative esophagitis 2. Diabetic gastroparesis 3. Uncontrolled DM Disposition: DISCHARGED TO HOME OR SELFCARE Time spent for discharge: 35 minutes Core Measure Documentation - Palliative Care Palliative Care/ Comfort Measures: Not Applicable - Core Measures Any of the following diagnoses?: none Exam - Constitutional Vitals: Temp Pulse Resp BP Pulse Ox 97.9 F 65 11 L 116/68 99 08/05/16 08:44 08/05/16 08:59 08/05/16 08:59 08/05/16 08:59 08/05/16 08:59 General appearance: Present: no acute distress, well-nourished - EENT Eyes: Present: PERRL ENT: hearing intact, clear oral mucosa - Neck Neck: Present: supple, normal ROM - Respiratory Respiratory effort: normal Respiratory: bilateral: CTA - Cardiovascular Heart Sounds: Present: S1 & S2. Absent: rub, click - Extremities Extremities: pulses symmetrical, No edema Peripheral Pulses: within normal limits - Abdominal General gastrointestinal: Present: soft, non-tender, non-distended, normal bowel sounds Male genitourinary: Present: normal - Integumentary Integumentary: Present: clear, warm, dry - Musculoskeletal Musculoskeletal: gait normal, strength equal bilaterally - Psychiatric Psychiatric: appropriate mood/affect, intact judgment & insight - Neurologic Neurologic: CNII-XII intact, moves all extremities Plan Follow up with: JAYDA BATISTA [Other] - 3-5 Days ADRIANNE MORSE MD [Staff Physician] - 7 Days Forms: Accompanied Note Prescriptions: Insulin Detemir [Levemir] 20 units SUB-Q QHS #1000 units AtorvaSTATin [Lipitor] 80 mg PO QHS #60 tablet Sucralfate [Carafate] 1 gm PO Q6HR #120 tablet Insulin Regular, Human [HumuLIN R] 5 units SUB-Q AC #1000 units Pantoprazole [Protonix TAB] 40 mg PO BID #60 tab Lisinopril [Zestril TAB] 20 mg PO BID #60 tablet Ondansetron [Zofran Odt] 4 mg PO Q6H PRN #60 tab.rapdis PRN Reason: Nausea And Vomiting
[2016-08-05] MEDS: FLOMAX PO SCH (14:16)
[2016-08-05 14:25] VITALS: BP 186/81
== END 2016-08-05 16:14 | disposition home or self-care (01) | DRG 380 ==
LOC: ED 23:10 → 3A 08-02 04:28
PROVIDERS: ADMIT Hospitalist; ATTEND Internal Medicine
PROC: 0DB58ZX Excision of Esophagus, Via Natural or Artificial Opening Endoscopic, Diagnostic (ICD-10-PCS; principal; 2016-08-05)
PROC: 0DB68ZX Excision of Stomach, Via Natural or Artificial Opening Endoscopic, Diagnostic (ICD-10-PCS; 2016-08-05)
DX: K22.10 Ulcer of esophagus without bleeding (principal); N17.0 Acute kidney failure with tubular necrosis; R65.11 Systemic inflammatory response syndrome (SIRS) of non-infectious origin with acute organ dysfunction; K31.84 Gastroparesis; K92.2 Gastrointestinal hemorrhage, unspecified; E11.43 Type 2 diabetes mellitus with diabetic autonomic (poly)neuropathy; E11.65 Type 2 diabetes mellitus with hyperglycemia; F17.200 Nicotine dependence, unspecified, uncomplicated; E78.5 Hyperlipidemia, unspecified; I10 Essential (primary) hypertension; Z79.4 Long term (current) use of insulin; Z79.899 Other long term (current) drug therapy; Z89.432 Acquired absence of left foot; Z71.89 Other specified counseling; Z87.01 Personal history of pneumonia (recurrent)
CPT/HCPCS: 36415; 71010; 80048; 80053; 82140; 82271; 82962; 83690; 85007; 85025; 85027; 85610; 85730; 86850; 86900; 86901; 88305; 88312; 88342; 93005; 93010; 96361; 96374; 96375; A9270-GY; C9113; J0360; J1815; J1818; J2405; J2704; J2765; J7030

== ENCOUNTER 2016-11-23 14:31 | Emergency (ER) | payer MEDICARE ==
[2016-11-23 14:47] VITALS: BP 131/86
[2016-11-23 15:02] LABS: Basophils % (Auto) 1.5 % (0.0-1.8); Eosinophils % (Auto) 6.9 % (0.0-4.3); Hemoglobin 15.4 gm/dl (11.8-15.2); Mean Corpuscular HGB Conc 32 % (32-34); Mean Corpuscular Hemoglobin 28 pg (28-32); Mean Corpuscular Volume 88 fl (84-94); Platelet Count 314 K/mm3 (140-440); Red Blood Count 5.46 M/mm3 (3.65-5.03); Red Cell Distribution Width 14.5 % (13.2-15.2); White Blood Count 8.1 K/mm3 (4.5-11.0)
[2016-11-23 15:15] LABS: Anion Gap 17 mmol/L; BUN/Creatinine Ratio 19.28; Blood Urea Nitrogen 27 mg/dL (9-20); Calcium 9.8 mg/dL (8.4-10.2); Carbon Dioxide 24 mmol/L (22-30); Glucose 167 mg/dL (75-100); Potassium 5.1 mmol/L (3.6-5.0); Sodium 137 mmol/L (137-145)
--- NOTE | 2016-11-25 16:43 | ED Elopement Review ---
ED Pt Elopement review - Results review Lab results: Laboratory Tests 11/23/16 11/23/16 14:49 14:49 WBC 8.1 RBC 5.46 H Hgb 15.4 H Hct 48.0 H MCV 88 MCH 28 MCHC 32 RDW 14.5 Plt Count 314 Lymph % (Auto) 36.6 H Jack % (Auto) 6.0 Eos % (Auto) 6.9 H Baso % (Auto) 1.5 Lymph # 3.0 Jack # 0.5 Eos # 0.6 H Baso # 0.1 Seg Neutrophils % 49.0 Seg Neutrophils # 4.0 Sodium 137 Potassium 5.1 H Chloride 101.0 Carbon Dioxide 24 Anion Gap 17 BUN 27 H Creatinine 1.4 Estimated GFR > 60 BUN/Creatinine Ratio 19.28 Glucose 167 H Calcium 9.8 Troponin T < 0.010 - Call Back decision Pt Call Back Decision: No action required
== END 2016-11-23 16:05 | disposition left against medical advice (07) ==
LOC: ED 14:31
DX: R07.9 Chest pain, unspecified (principal); R11.11 Vomiting without nausea; Z53.21 Procedure and treatment not carried out due to patient leaving prior to being seen by health care provider
CPT/HCPCS: 36415; 80048; 84484; 85025; 93005; 93010

== ENCOUNTER 2019-02-16 09:37 | Emergency (ER) | payer BC, MEDICARE ==
[2019-02-16] MEDS ORDERED: ZOFRAN IV ONE (10:06)
[2019-02-16] MEDS ORDERED: PROTONIX IV ONE (10:06)
--- NOTE | 2019-02-16 10:14 | Emergency Department Report ---
HPI - General Chief Complaint: GI Bleed Time Seen by Provider: 02/16/19 09:50 - HPI HPI: Room 22 The patient is a 73-year-old male presenting with a chief complaint of coffee- ground emesis. Patient states he developed nausea and vomiting last night hav ing over 10 episodes. The patient's spouse states the vomitus looked brown like coffee grounds. Patient denies abdominal pain, chest pain, headache or pain of any type. Patient states his last bowel movement occurred last night and was within normal limits. Patient denies bright red blood per rectum or melena. Patient denies history of fever. Patient now states he feels weak Location: Gastrointestinal system Duration: [See above] Quality: Weakness Severity: [See above] Modifying factors: [see above] Context: [see above] Mode of transportation: [not driving] ED Past Medical Hx - Past Medical History Previous Medical History?: Yes Hx Hypertension: Yes Hx Diabetes: Yes Hx Renal Disease: Yes (ARF) Hx Seizures: Yes Hx Dementia: Yes Additional medical history: GI bleed. MVP - Surgical History Past Surgical History?: Yes Additional Surgical History: all left toes amputated - Family History Family history: no significant - Social History Smoking Status: Current Every Day Smoker (1/7 pack per day) Substance Use Type: Prescribed - Medications Home Medications: Home Medications Medication Instructions Recorded Confirmed Last Taken Type Atorvastatin Calcium [Lipitor] 80 mg PO QHS 09/18/14 08/02/16 Unknown History NIFEdipine [NIFEdipine ER] 60 mg PO QDAY 09/18/14 08/02/16 Unknown History Gabapentin 300 mg PO TID 07/20/16 08/02/16 Unknown History Invokana 100 mg PO QAM 07/20/16 08/02/16 Unknown History Metanx Capsule 90.314 mg PO Q12HR 07/20/16 08/02/16 Unknown History Tamsulosin [Flomax] 0.4 mg PO BID 07/20/16 08/02/16 Unknown History Vitamin D3 1,000 unit PO QDAY 07/20/16 08/02/16 Unknown History levETIRAcetam 500 mg PO Q12HR 07/20/16 08/02/16 Unknown History Levomefolate/B6/B12/Algal Oil 1 each PO DAILY 08/02/16 08/02/16 Unknown History [Metanx Capsule] Metoprolol [Lopressor TAB] 50 mg PO DAILY 08/02/16 08/02/16 Unknown History AtorvaSTATin [Lipitor] 80 mg PO QHS #60 tablet 08/05/16 Unknown Rx Detemir (Nf) [Levemir (Nf)] 20 units SUB-Q QHS #1000 units 08/05/16 Unknown Rx Insulin Regular, Human [HumuLIN R] 5 units SUB-Q AC #1000 units 08/05/16 Unknown Rx Lisinopril [Zestril TAB] 20 mg PO BID #60 tablet 08/05/16 Unknown Rx Ondansetron [Zofran Odt] 4 mg PO Q6H PRN #60 tab.rapdis 08/05/16 Unknown Rx Pantoprazole [Protonix TAB] 40 mg PO BID #60 tab 08/05/16 Unknown Rx Sucralfate [Carafate] 1 gm PO Q6HR #120 tablet 08/05/16 Unknown Rx Pantoprazole [Protonix] 40 mg PO QDAY #60 tablet 02/16/19 Unknown Rx Ranitidine HCl [Zantac] 300 mg PO QHS #60 tablet 02/16/19 Unknown Rx ED Review of Systems ROS: Stated complaint: VOMITING Other details as noted in HPI Constitutional: weakness Eyes: denies: eye pain ENT: denies: throat pain Respiratory: no symptoms reported Cardiovascular: denies: chest pain Endocrine: no symptoms reported Gastrointestinal: nausea, vomiting, hematemesis. denies: abdominal pain, melena Genitourinary: denies: dysuria Musculoskeletal: denies: back pain Neurological: denies: headache Physical Exam - Physical Exam Vital Signs: Vital Signs 02/16/19 09:38 Temperature 98.1 F Pulse Rate 96 H Respiratory 18 Rate Blood Pressure 174/93 O2 Sat by Pulse 97 Oximetry Physical Exam: GENERAL: The patient is well-developed well-nourished male lying on stretcher not appearing to be in acute distress. [] HEENT: Extraocular motions are intact. Patient has moist mucous membranes. NECK: Supple. Trachea midline CHEST/LUNGS: Clear to auscultation. There is no respiratory distress noted. HEART/CARDIOVASCULAR: Regular. There is no tachycardia. There is no gallop rub or murmur. ABDOMEN: Abdomen is soft, nontender. Patient has normal bowel sounds. There is no abdominal distention. SKIN: There is no rash. There is no edema. There is no diaphoresis. NEURO: The patient is awake, alert, and oriented. The patient is cooperative. The patient has normal speech MUSCULOSKELETAL: There is no evidence of acute injury. ED Course Vital Signs 02/16/19 09:38 Temperature 98.1 F Pulse Rate 96 H Respiratory 18 Rate Blood Pressure 174/93 O2 Sat by Pulse 97 Oximetry - Reevaluation(s) Reevaluation #1: 02/16/19 15:22 Patient asymptomatic. Patient denies nausea. Patient tolerating po - Consultations Consultation #1: 02/16/19 12:39 Gastroenterology paged 02/16/19 12:[address] Field- recommends proceeding with CT chest and call back with results 02/16/19 15:08 Gastroenterology paged 02/16/19 15:[address] field-recommended Protonix 40 mg daily and Zantac 300 milligrams daily at bedtime and follow up in clinic if patient able to tolerate po ED Medical Decision Making - Lab Data Result diagrams: 02/16/19 09:56 02/16/19 09:56 Laboratory Tests 02/16/19 02/16/19 02/16/19 09:56 09:56 09:56 WBC 11.9 H RBC 5.35 H Hgb 15.9 H Hct 47.5 H MCV 89 MCH 30 MCHC 33 RDW 14.9 Plt Count 245 Lymph % (Auto) 9.1 L Clay % (Auto) 1.9 Eos % (Auto) 0.2 Baso % (Auto) 0.7 Lymph # 1.1 L Clay # 0.2 Eos # 0.0 Baso # 0.1 Seg Neutrophils % 88.1 H Seg Neutrophils # 10.5 H PT 12.2 INR 0.93 APTT 23.4 L VBG pH Sodium 136 L Potassium 4.6 Chloride 89.0 L Carbon Dioxide 30 Anion Gap 22 BUN 25 H Creatinine 1.3 Estimated GFR > 60 BUN/Creatinine Ratio 19 Glucose 488 H Calcium 9.9 Total Bilirubin 0.60 AST 23 ALT 12 Alkaline Phosphatase 127 Total Protein 8.1 Albumin 4.5 Albumin/Globulin Ratio 1.3 Lipase 8 L Urine Color Urine Turbidity Urine pH Ur Specific [place] Urine Protein Urine Glucose (UA) Urine Ketones Urine Blood Urine Nitrite Urine Bilirubin Urine Urobilinogen Ur Leukocyte Esterase Urine WBC (Auto) Urine RBC (Auto) Blood Type Antibody Screen 02/16/19 02/16/19 02/16/19 09:56 Unknown Unknown WBC RBC Hgb Hct MCV MCH MCHC RDW Plt Count Lymph % (Auto) Clay % (Auto) Eos % (Auto) Baso % (Auto) Lymph # Clay # Eos # Baso # Seg Neutrophils % Seg Neutrophils # PT INR APTT VBG pH 7.381 Sodium Potassium Chloride Carbon Dioxide Anion Gap BUN Creatinine Estimated GFR BUN/Creatinine Ratio Glucose Calcium Total Bilirubin AST ALT Alkaline Phosphatase Total Protein Albumin Albumin/Globulin Ratio Lipase Urine Color Yellow Urine Turbidity Clear Urine pH 6.0 Ur Specific [place] 1.027 Urine Protein 30 mg/dl Urine Glucose (UA) >=500 Urine Ketones 20 Urine Blood Sm Urine Nitrite Neg Urine Bilirubin Neg Urine Urobilinogen < 2.0 Ur Leukocyte Esterase Neg Urine WBC (Auto) < 1.0 Urine RBC (Auto) 2.0 Blood Type O POSITIVE Antibody Screen Negative - Radiology Data Radiology results: report reviewed (CT abdomen and pelvis, CT chest), image reviewed (CT abdomen pelvis, CT chest) [address] [address] Cat Scan Report Signed Patient: RODOLFO GAMA JR MR#: [id number] : 1945 Acct:[id number] Age/Sex: 73 / M ADM Date: 02/16/19 Loc: ED Attending Dr: Ordering Physician: JESSIE MARTE MD Date of Service: 02/16/19 Procedure(s): CT abdomen pelvis w con Accession Number(s): [id number] cc: JESSIE MARTE MD CT ABDOMEN AND PELVIS WITH CONTRAST INDICATION: frequent nausea vomiting, coffee-ground emesis. TECHNIQUE: Axial CT images were obtained through the abdomen and pelvis after IV contrast. All CT scans at this location are performed using CT dose r eduction for ALARA by means of automated exposure control. COMPARISON: None available. FINDINGS: Exam is limited secondary to moderate respiratory motion artifact LOWER CHEST: Fluid-filled esophagus with probable fluid in the posterior mediastinum surrounding it suggestive for severe esophagitis. LIVER: No significant abnormality. GALLBLADDER: No significant abnormality. BILE DUCTS: No significant abnormality. PANCREAS: No significant abnormality. SPLEEN: No significant abnormality. ADRENALS: No significant abnormality. RIGHT KIDNEY and URETER: Several simple right renal cysts, largest of which measures 1.3 cm. LEFT KIDNEY and URETER: Complex 1.6 cm hypodense lesion with central hyperdense or enhancing component. STOMACH and SMALL BOWEL: No significant abnormality. COLON: No significant abnormality. APPENDIX: Normal PERITONEUM: No free fluid. No free air. No fluid collection. LYMPH NODES: No significant adenopathy. AORTA and ARTERIES: No significant abnormality. IVC and VEINS: No significant abnormality. URINARY BLADDER: Mild to moderate diffuse poorly thickened bladder wall with partially collapsed urinary bladder REPRODUCTIVE ORGANS: No significant abnormality. ADDITIONAL FINDINGS: None. SKELETAL SYSTEM: No significant abnormality. IMPRESSION: 1. Marked esophageal thickening with surrounding fluid characteristic for severe esophagitis. Recommend chest CT with oral Omnipaque c ontrast in order to evaluate for possible esophageal leak/perforation. 2. Few slightly thickened urinary bladder likely secondary to chronic bladder outlet obstruction, however, cystitis cannot be excluded. 3. Indeterminate 1.6 cm complex left renal lesion. Recommend follow-up pre and postcontrast CT and/or ultrasound for to exclude complex cyst from small renal cell carcinoma. Signer Name: Sotero Soriano MD Signed: 02/16/2019 12:19 PM Workstation Name: [id number] Transcribed By: TL Dictated By: Sotero Soriano MD Electronically Authenticated By: Sotero Soriano MD Signed Date/Time: 02/16/191218 DD/ 1212 TD/TT: [address] [address] Cat Scan Report Signed Patient: RODOLFO GAMA JR MR#: [id number] : 1945 Acct:[id number] Age/Sex: 73 / M ADM Date: 02/16/19 Loc: ED Attending Dr: Ordering Physician: JESSIE MARTE MD Date of Service: 02/16/19 Procedure(s): CT chest wo con Accession Number(s): [id number] cc: JESSIE MARTE MD CT CHEST WITHOUT CONTRAST INDICATION / CLINICAL INFORMATION: hematemesis, r/o esophageal perf. abnl CT Abd. TECHNIQUE: Axial CT images were obtained through the chest without contrast. All CT scans at this location are performed using CT dose reduction for ALARA by means of automated exposure control. COMPARISON: CT abdomen and pelvis with contrast earlier this morning FINDINGS: The study was performed with oral contrast. HEART: No significant abnormality. THORACIC AORTA: No significant abnormality. MEDIASTINUM and JAYDA: Oral contrast is seen within the thoracic esophagus and stomach. There is mild distention and marked thickening of the distal thoracic esophagus seen better on the contrast-enhanced study earlier this morning characteristic for esophagitis. No pneumomediastinum or extravasation of oral contrast is seen to suggest esophageal leak/perforation. LUNGS: Moderate pulmonary emphysema is present. Lungs are otherwise clear. PLEURA: No significant pleural effusion. No pneumothorax. ADDITIONAL FINDINGS: None. UPPER ABDOMEN: No significant abnormality. SKELETAL SYSTEM: No significant abnormality. IMPRESSION: 1. Moderate to severe distal thoracic esophagitis. No pneumomediastinum or esophageal leak/perforation. Signer Name: Sotero Soriano MD Signed: 02/16/2019 2:55 PM Workstation Name: [id number] Transcribed By: TL Dictated By: Sotero Soriano MD Electronically Authenticated By: Sotero Soriano MD Signed Date/Time: 02/16/19 1455 DD/ 1449 TD/TT: - Differential Diagnosis GI bleed, gastritis Critical care attestation.: If time is entered above; I have spent that time in minutes in the direct care of this critically ill patient, excluding procedure time. ED Disposition Clinical Impression: Ulcerative esophagitis Disposition: DC-01 TO HOME OR SELFCARE Is pt being admited?: No Does the pt Need Aspirin: No Condition: Stable Instructions: Corrosive Esophagitis (ED) Additional Instructions: Return to the emergency department immediately should you develop worsening symptoms, fever, inability to tolerate food or liquid or any other concerns. 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 Please follow up with him for further evaluation) Forms: Accompanied Note Time of Disposition: 15:27
[2019-02-16 10:28] LABS: Basophils # (Auto) 0.1 K/mm3 (0.0-0.1); Basophils % (Auto) 0.7 % (0.0-1.8); Eosinophils % (Auto) 0.2 % (0.0-4.3); Hematocrit 47.5 % (35.5-45.6); Hemoglobin 15.9 gm/dl (11.8-15.2); Lymphocytes # (Auto) 1.1 K/mm3 (1.2-5.4); Lymphocytes % (Auto) 9.1 % (13.4-35.0); Mean Corpuscular HGB Conc 33 % (32-34); Mean Corpuscular Volume 89 fl (84-94); Monocytes # (Auto) 0.2 K/mm3 (0.0-0.8); Monocytes % (Auto) 1.9 % (0.0-7.3); Platelet Count 245 K/mm3 (140-440); Red Blood Count 5.35 M/mm3 (3.65-5.03); Red Cell Distribution Width 14.9 % (13.2-15.2)
[2019-02-16 10:38] LABS: INR 0.93 (0.87-1.13); Partial Thromboplastin Time 23.4 Sec. (24.2-36.6)
[2019-02-16 10:41] LABS: Alanine Aminotransferase 12 units/L (7-56); Albumin 4.5 g/dL (3.9-5); BUN/Creatinine Ratio 19; Blood Urea Nitrogen 25 mg/dL (9-20); Calcium 9.9 mg/dL (8.4-10.2); Hemolysis Index 33
[2019-02-16] MEDS ORDERED: NACL 0.9% 1000 ML 1,000 ML IV ONE (10:46)
[2019-02-16] MEDS ORDERED: CATAPRES PO ONE (10:47)
[2019-02-16 11:11] LABS: Bilirubin,Urine NEG (Negative); Blood,Urine SM (Negative); Color,Urine Yellow (Yellow); Urobilinogen,Urine < 2.0 mg/dL (<2.0)
[2019-02-16 11:24] LABS: WBC,Urine < 1.0 /HPF (0.0-6.0)
--- NOTE | 2019-02-16 12:23 | Cat Scan Report ---
CT ABDOMEN AND PELVIS WITH CONTRAST INDICATION: frequent nausea vomiting, coffee-ground emesis. TECHNIQUE: Axial CT images were obtained through the abdomen and pelvis after IV contrast. All CT scans at this location are performed using CT dose reduction for ALARA by means of automated exposure control. COMPARISON: None available. FINDINGS: Exam is limited secondary to moderate respiratory motion artifact LOWER CHEST: Fluid-filled esophagus with probable fluid in the posterior mediastinum surrounding it s uggestive for severe esophagitis. LIVER: No significant abnormality. GALLBLADDER: No significant abnormality. BILE DUCTS: No significant abnormality. PANCREAS: No significant abnormality. SPLEEN: No significant abnormality. ADRENALS: No significant abnormality. RIGHT KIDNEY and URETER: Several simple right renal cysts, largest of which measures 1.3 cm. LEFT KIDNEY and URETER: Complex 1.6 cm hypodense lesion with central hyperdense or enhancing componen t. STOMACH and SMALL BOWEL: No significant abnormality. COLON: No significant abnormality. APPENDIX: Normal PERITONEUM: No free fluid. No free air. No fluid collection. LYMPH NODES: No significant adenopathy. AORTA and ARTERIES: No significant abnormality. IVC and VEINS: No significant abnormality. URINARY BLADDER: Mild to moderate diffuse poorly thickened bladder wall with partially collapsed urin cora bladder REPRODUCTIVE ORGANS: No significant abnormality. ADDITIONAL FINDINGS: None. SKELETAL SYSTEM: No significant abnormality. IMPRESSION: 1. Marked esophageal thickening with surrounding fluid characteristic for severe esophagitis. Recomme nd chest CT with oral Omnipaque contrast in order to evaluate for possible esophageal leak/perforatio n. 2. Few slightly thickened urinary bladder likely secondary to chronic bladder outlet obstruction, how ever, cystitis cannot be excluded. 3. Indeterminate 1.6 cm complex left renal lesion. Recommend follow-up pre and postcontrast CT and/or ultrasound for to exclude complex cyst from small renal cell carcinoma. Signer Name: Sotero Soriano MD Signed: 02/16/2019 12:19 PM Workstation Name: [id number]
[2019-02-16] MEDS ORDERED: REGLAN IV PRN (12:59)
--- NOTE | 2019-02-16 15:00 | Cat Scan Report ---
CT CHEST WITHOUT CONTRAST INDICATION / CLINICAL INFORMATION: hematemesis, r/o esophageal perf. abnl CT Abd. TECHNIQUE: Axial CT images were obtained through the chest without contrast. All CT scans at this location are p erformed using CT dose reduction for ALARA by means of automated exposure control. COMPARISON: CT abdomen and pelvis with contrast earlier this morning FINDINGS: The study was performed with oral contrast. HEART: No significant abnormality. THORACIC AORTA: No significant abnormality. MEDIASTINUM and JAYDA: Oral contrast is seen within the thoracic esophagus and stomach. There is mild distention and marked thickening of the distal thoracic esophagus seen better on the contrast-enhance d study earlier this morning characteristic for esophagitis. No pneumomediastinum or extravasation of oral contrast is seen to suggest esophageal leak/perforation. LUNGS: Moderate pulmonary emphysema is present. Lungs are otherwise clear. PLEURA: No significant pleural effusion. No pneumothorax. ADDITIONAL FINDINGS: None. UPPER ABDOMEN: No significant abnormality. SKELETAL SYSTEM: No significant abnormality. IMPRESSION: 1. Moderate to severe distal thoracic esophagitis. No pneumomediastinum or esophageal leak/perforatio n. Signer Name: Sotero Soriano MD Signed: 02/16/2019 2:55 PM Workstation Name: [id number]
[2019-02-16 16:26] VITALS: BP 141/74
== END 2019-02-16 16:28 | disposition home or self-care (01) ==
LOC: ED 09:37
DX: K22.10 Ulcer of esophagus without bleeding (principal); R53.1 Weakness; R10.9 Unspecified abdominal pain; I10 Essential (primary) hypertension; E11.9 Type 2 diabetes mellitus without complications; N17.9 Acute kidney failure, unspecified; F03.90 Unspecified dementia, unspecified severity, without behavioral disturbance, psychotic disturbance, mood disturbance, and anxiety; F17.200 Nicotine dependence, unspecified, uncomplicated; Z79.4 Long term (current) use of insulin; Z98.890 Other specified postprocedural states; Z79.899 Other long term (current) drug therapy
CPT/HCPCS: 36415; 71250; 74177; 80053; 81001; 82271; 82805; 83690; 85025; 85610; 85730; 86850; 86900; 86901; 96361; 96374; 96375; 99284; C9113; J2405; J7030; Q9967

== ENCOUNTER 2019-03-17 16:27 | Emergency (ER) | payer BC, MEDICARE ==
--- NOTE | 2019-03-17 16:45 | Event Note ---
ED Screening Note Date of service: 03/17/19 Time: 16:44 ED Screening Note: 73 y o male presents to ED cc of N/V x 2 days, states coffe grounds vomitting has GI appt 2-3 weeks This initial assessment/diagnostic orders/clinical plan/treatment(s) is/are subject to change based on patients health status, clinical progression and re- assessment by fellow clinical providers in the ED. Further treatment and workup at subsequent clinical providers discretion. Patient/guardian urged not to elope from the ED as their condition may be serious if not clinically assessed and managed. Initial orders include: labs, ua
[2019-03-17] MEDS ORDERED: ZOFRAN IV ONE (20:42)
[2019-03-17] MEDS ORDERED: NACL 0.9% 1000 ML 1,000 ML IV ONE ×2 (20:42→21:59)
[2019-03-17] MEDS ORDERED: PROTONIX IV ONE (20:43)
[2019-03-17 21:11] LABS: Basophils # (Auto) 0.1 K/mm3 (0.0-0.1); Basophils % (Auto) 1.1 % (0.0-1.8); Eosinophils % (Auto) 0.1 % (0.0-4.3); Hematocrit 41.1 % (35.5-45.6); Hemoglobin 13.8 gm/dl (11.8-15.2); Lymphocytes % (Auto) 8.5 % (13.4-35.0); Mean Corpuscular HGB Conc 34 % (32-34); Mean Corpuscular Volume 89 fl (84-94); Monocytes # (Auto) 0.4 K/mm3 (0.0-0.8); Monocytes % (Auto) 3.4 % (0.0-7.3); Platelet Count 279 K/mm3 (140-440); Red Blood Count 4.63 M/mm3 (3.65-5.03); Red Cell Distribution Width 14.8 % (13.2-15.2)
--- NOTE | 2019-03-17 21:13 | Emergency Department Report ---
ED N/V/D HPI - General Chief complaint: Nausea/Vomiting/Diarrhea Stated complaint: VOMITING Time Seen by Provider: 03/17/19 16:43 Source: patient Mode of arrival: Wheelchair Limitations: Physical Limitation - History of Present Illness Initial comments: Mr. kaushik vaca is a 73-year-old male with history of diabetes mellitus gastroparesis and ulcerative esophagitis presents with vomiting today. He vomited over 4 times. Had a normal meal yesterday. He has prescription Zofran at home which did not provide any relief. He denies pain. In 2016, EGD revealed severe ulcerative esophagitis. CT scan obtained earlier in February revealed marked esophageal thickening with surrounding fluid characteristic for severe esophagitis. . Personal wall taper helper Dr. Livingston Personal dictating machine typist Dr. Smith PCP Dr. Renuka SHARMA complaint: nausea, vomiting -: Gradual, days(s) (1) Description of Vomiting: food contents Associated Abdominal Pain: No Severity: moderate Consistency: constant Improves with: none Worsens with: none Associated Symptoms: denies other symptoms - Related Data Home Medications Medication Instructions Recorded Confirmed Last Taken Atorvastatin Calcium [Lipitor] 80 mg PO QHS 09/18/14 03/17/19 03/16/19 Gabapentin 300 mg PO TID 07/20/16 03/17/19 03/16/19 Vitamin D3 1,000 unit PO QDAY 07/20/16 03/17/19 03/17/19 Levomefolate/B6/B12/Algal Oil 1 each PO DAILY 08/02/16 03/17/19 03/17/19 [Metanx Capsule] AtorvaSTATin [Lipitor] 40 mg PO QHS 03/17/19 03/17/19 03/16/19 Magnesium 400 mg PO BID 03/17/19 03/17/19 03/16/19 Sodium Polystyrene Sulfon/Sorb 30 gm PO DAILY 03/17/19 03/17/19 03/16/19 [Kionex 15 gm/60 ml Suspension] Tamsulosin [Flomax] 0.4 mg PO QDAY 03/17/19 03/17/19 03/17/19 Previous Rx's Medication Instructions Recorded Last Taken Type Detemir (Nf) [Levemir (Nf)] 20 units SUB-Q QHS #1000 units 08/05/16 03/16/19 Rx Pantoprazole [Protonix TAB] 40 mg PO BID #60 tab 08/05/16 03/17/19 Rx Allergies Allergy/AdvReac Type Severity Reaction Status Date / Time No Known Allergies Allergy Verified 09/18/14 18:31 ED Review of Systems ROS: Stated complaint: VOMITING Other details as noted in HPI Comment: All other systems reviewed and negative Constitutional: denies: fever, malaise Gastrointestinal: abdominal pain ED Past Medical Hx - Past Medical History Previous Medical History?: Yes Hx Hypertension: Yes Hx Congestive Heart Failure: No Hx Diabetes: Yes Hx Renal Disease: Yes (ARF) Hx Seizures: Yes Hx Asthma: No Hx COPD: No Hx Dementia: Yes Hx HIV: No Additional medical history: GI bleed, neuropathy, elevated cholesterol. MVP - Surgical History Past Surgical History?: Yes Additional Surgical History: all left toes amputated - Social History Smoking Status: Current Every Day Smoker Substance Use Type: Prescribed - Medications Home Medications: Home Medications Medication Instructions Recorded Confirmed Last Taken Type Atorvastatin Calcium [Lipitor] 80 mg PO QHS 09/18/14 03/17/19 03/16/19 History Gabapentin 300 mg PO TID 07/20/16 03/17/19 03/16/19 History Vitamin D3 1,000 unit PO QDAY 07/20/16 03/17/19 03/17/19 History Levomefolate/B6/B12/Algal Oil 1 each PO DAILY 08/02/16 03/17/19 03/17/19 History [Metanx Capsule] Detemir (Nf) [Levemir (Nf)] 20 units SUB-Q QHS #1000 units 08/05/16 03/17/19 03/16/19 Rx Pantoprazole [Protonix TAB] 40 mg PO BID #60 tab 08/05/16 03/17/19 03/17/19 Rx AtorvaSTATin [Lipitor] 40 mg PO QHS 03/17/19 03/17/19 03/16/19 History Magnesium 400 mg PO BID 03/17/19 03/17/19 03/16/19 History Sodium Polystyrene Sulfon/Sorb 30 gm PO DAILY 03/17/19 03/17/19 03/16/19 History [Kionex 15 gm/60 ml Suspension] Tamsulosin [Flomax] 0.4 mg PO QDAY 03/17/19 03/17/19 03/17/19 History ED Physical Exam - General Limitations: Physical Limitation General appearance: alert, in no apparent distress - Head Head exam: Present: atraumatic, normocephalic - Eye Eye exam: Present: normal appearance - ENT ENT exam: Present: mucous membranes moist - Neck Neck exam: Present: normal inspection, full ROM - Respiratory Respiratory exam: Present: normal lung sounds bilaterally. Absent: respiratory distress, wheezes, rales, rhonchi - Cardiovascular Cardiovascular Exam: Present: regular rate, normal rhythm, normal heart sounds. Absent: systolic murmur, diastolic murmur, rubs, gallop - GI/Abdominal GI/Abdominal exam: Present: soft, normal bowel sounds. Absent: distended, tenderness, guarding, rebound - Rectal Rectal exam: Present: deferred - Extremities Exam Extremities exam: Present: normal inspection - Back Exam Back exam: Present: normal inspection - Neurological Exam Neurological exam: Present: alert, oriented X3 - Psychiatric Psychiatric exam: Present: normal affect, normal mood - Skin Skin exam: Present: warm, dry, intact, normal color. Absent: rash ED Course Vital Signs 03/17/19 03/17/19 03/17/19 16:32 20:31 21:01 Temperature 99.7 F H Pulse Rate 98 H 95 H Respiratory 18 18 18 Rate Blood Pressure 145/75 140/76 Blood Pressure 156/77 [Left] O2 Sat by Pulse 97 97 93 Oximetry 03/17/19 03/17/19 03/17/19 21:31 22:00 22:31 Temperature Pulse Rate 93 H 90 89 Respiratory 15 14 15 Rate Blood Pressure 157/79 144/73 144/73 Blood Pressure [Left] O2 Sat by Pulse 99 95 97 Oximetry 03/17/19 03/17/19 23:00 23:31 Temperature Pulse Rate 90 89 Respiratory 14 16 Rate Blood Pressure 144/75 144/75 Blood Pressure [Left] O2 Sat by Pulse 95 95 Oximetry ED Medical Decision Making - Lab Data Result diagrams: 03/17/19 20:50 03/17/19 23:01 Laboratory Results - last 24 hr 03/17/19 03/17/19 03/17/19 20:50 20:50 23:01 WBC 12.0 H RBC 4.63 Hgb 13.8 Hct 41.1 MCV 89 MCH 30 MCHC 34 RDW 14.8 Plt Count 279 Lymph % (Auto) 8.5 L [place] % (Auto) 3.4 Eos % (Auto) 0.1 Baso % (Auto) 1.1 Lymph # 1.0 L [place] # 0.4 Eos # 0.0 Baso # 0.1 Seg Neutrophils % 86.9 H Seg Neutrophils # 10.5 H Sodium 133 L Potassium 5.4 H 6.2 H* Chloride 92.0 L Carbon Dioxide 25 Anion Gap 21 BUN 19 Creatinine 1.6 H Estimated GFR 52 BUN/Creatinine Ratio 12 Glucose 486 H Calcium 9.5 - Medical Decision Making Mr. Tenorio presents with nausea vomiting. He has history of gastroparesis and esophagitis. He has been prescribed Zofran tablets which did not provide any relief. While under my observation, Mr. Avila did not have any vomiting. Baseline renal function with two hemolyzed samples. I do not suspect hyperkalemia in this setting. Mr. vAila felt better and desired to go home. dc'd home Critical care attestation.: If time is entered above; I have spent that time in minutes in the direct care of this critically ill patient, excluding procedure time. ED Disposition Clinical Impression: Renal insufficiency, Insulin dependent diabetes mellitus, Gastroparesis, Nausea and vomiting Disposition: DC- TO HOME OR SELFCARE Is pt being admited?: No Does the pt Need Aspirin: No Condition: Stable Additional Instructions: Please return to the ED for any concerns. Referrals: PRIMARY CARE, [Primary Care Provider] - 3-5 Days
[2019-03-17 21:54] LABS: Calcium 9.5 mg/dL (8.4-10.2)
[2019-03-18 00:26] VITALS: BP 147/69
== END 2019-03-18 00:46 | disposition home or self-care (01) ==
LOC: ED 16:27
DX: E11.43 Type 2 diabetes mellitus with diabetic autonomic (poly)neuropathy (principal); K31.84 Gastroparesis; I10 Essential (primary) hypertension; F17.200 Nicotine dependence, unspecified, uncomplicated; E78.00 Pure hypercholesterolemia, unspecified; Z89.422 Acquired absence of other left toe(s); Z79.899 Other long term (current) drug therapy; N28.9 Disorder of kidney and ureter, unspecified
CPT/HCPCS: 36415; 80048; 84132; 85025; 96361; 96374; 96375; 99284; C9113; J2405; J7030

== ENCOUNTER 2019-03-20 17:25 | Inpatient (IN) | payer BC, MEDICARE ==
--- NOTE | 2019-03-20 17:40 | Emergency Department Report ---
Blank Doc - Documentation Documentation: This is a 73-year-old male that presents with n/v. Was here 2 days ago for si milary symptoms but has not resolved. Hyperkalemia 2 days ago at 6.1 prior to discharge. This initial assessment/diagnostic orders/clinical plan/treatment(s) is/are subject to change based on patient's health status, clinical progression and re- assessment by fellow clinical providers in the ED. Further treatment and workup at subsequent clinical providers discretion. Patient/guardians urged not to elope from the ED as their condition may be serious if not clinically assessed and managed. Initial orders include: 1- Patient sent to MAIN ED for further evaluation and treatment 2- EKG 3- labs 4- UA
[2019-03-20] MEDS ORDERED: NACL 0.9% 1000 ML 1,000 ML IV ONE ×2 (17:57→19:25)
[2019-03-20] MEDS ORDERED: ZOFRAN IV ONE ×2 (17:57)
--- NOTE | 2019-03-20 18:08 | Emergency Department Report ---
HPI - General Chief Complaint: Nausea/Vomiting/Diarrhea Time Seen by Provider: 03/20/19 17:41 - HPI HPI: Room 18 The patient is a 73-year-old male presenting with a chief complaint of nausea vomiting. states the patient has had little to eat since she was discharged from the hospital 3 days ago. The patient had an episode of nausea vomiting today. Patient denies diarrhea, abdominal pain, chest pain or headache. Patient denies shortness of breath. Patient denies any forms of pain. When asked how is feeling currently the patient implies he feels "all right." Location: [See above] Duration: [See above] Quality: [See above] Severity: [See above] Timing: [See above] Context: [See above] Modifying factors: [See above] Associated signs and symptoms: [see above] ED Past Medical Hx - Past Medical History Previous Medical History?: Yes Hx Hypertension: Yes Hx Diabetes: Yes Hx Renal Disease: Yes (ARF) Hx Seizures: Yes Hx Dementia: Yes Additional medical history: GI bleed, neuropathy, elevated cholesterol. MVP - Surgical History Past Surgical History?: Yes Additional Surgical History: all left toes amputated - Family History Family history: no significant - Social History Smoking Status: Current Every Day Smoker (1/7 per day) Substance Use Type: None (denies illicit drug use) - Medications Home Medications: Home Medications Medication Instructions Recorded Confirmed Last Taken Type Atorvastatin Calcium [Lipitor] 80 mg PO QHS 09/18/14 03/17/19 03/16/19 History Gabapentin 300 mg PO TID 07/20/16 03/17/19 03/16/19 History Vitamin D3 1,000 unit PO QDAY 07/20/16 03/17/19 03/17/19 History Levomefolate/B6/B12/Algal Oil 1 each PO DAILY 08/02/16 03/17/19 03/17/19 History [Metanx Capsule] Detemir (Nf) [Levemir (Nf)] 20 units SUB-Q QHS #1000 units 08/05/16 03/17/19 03/16/19 Rx Pantoprazole [Protonix TAB] 40 mg PO BID #60 tab 08/05/16 03/17/19 03/17/19 Rx AtorvaSTATin [Lipitor] 40 mg PO QHS 03/17/19 03/17/19 03/16/19 History Magnesium 400 mg PO BID 03/17/19 03/17/19 03/16/19 History Sodium Polystyrene Sulfon/Sorb 30 gm PO DAILY 03/17/19 03/17/19 03/16/19 History [Kionex 15 gm/60 ml Suspension] Tamsulosin [Flomax] 0.4 mg PO QDAY 03/17/19 03/17/19 03/17/19 History ED Review of Systems ROS: Stated complaint: VOMITING Other details as noted in HPI Constitutional: no symptoms reported Eyes: denies: eye pain ENT: denies: throat pain Respiratory: denies: shortness of breath Cardiovascular: denies: chest pain Endocrine: no symptoms reported Gastrointestinal: nausea, vomiting. denies: abdominal pain, diarrhea Genitourinary: denies: dysuria Musculoskeletal: denies: back pain Neurological: denies: headache Physical Exam - Physical Exam Vital Signs: Vital Signs 03/20/19 03/20/19 17:39 18:02 Temperature 99.4 F Pulse Rate 94 H 92 H Respiratory 18 18 Rate Blood Pressure 131/77 Blood Pressure 176/81 [Left] O2 Sat by Pulse 98 99 Oximetry Physical Exam: GENERAL: The patient is well-developed well-nourished male lying on stretcher with an emesis bag but not appearing to be in acute distress HEENT: Normocephalic. Atraumatic. Extraocular motions are intact. Patient has moist mucous membranes. NECK: Supple. Trachea midline CHEST/LUNGS: Clear to auscultation. There is no respiratory distress noted. HEART/CARDIOVASCULAR: Regular. There is no tachycardia. There is no gallop rub or murmur. ABDOMEN: Abdomen is soft, nontender. Patient has normal bowel sounds. There is no abdominal distention. SKIN: There is no rash. There is no edema. There is no diaphoresis. NEURO: The patient is awake, alert, and oriented. The patient is cooperative. The patient has normal speech MUSCULOSKELETAL: There is no evidence of acute injury. ED Course Vital Signs 03/20/19 03/20/19 17:39 18:02 Temperature 99.4 F Pulse Rate 94 H 92 H Respiratory 18 18 Rate Blood Pressure 131/77 Blood Pressure 176/81 [Left] O2 Sat by Pulse 98 99 Oximetry ED Medical Decision Making - Lab Data Result diagrams: 03/20/19 18:00 03/20/19 18:32 Laboratory Tests 03/20/19 03/20/19 03/20/19 17:39 18:00 18:00 WBC 11.9 H RBC 5.61 H Hgb 16.3 H Hct 49.7 H D MCV 89 MCH 29 MCHC 33 RDW 14.7 Plt Count 353 Lymph % (Auto) 10.6 L [place] % (Auto) 3.1 Eos % (Auto) 0.0 Baso % (Auto) 1.6 Lymph # 1.3 [place] # 0.4 Eos # 0.0 Baso # 0.2 H Seg Neutrophils % 84.7 H Seg Neutrophils # 10.0 H PT INR APTT VBG pH 7.409 Sodium Potassium Chloride Carbon Dioxide Anion Gap BUN Creatinine Estimated GFR BUN/Creatinine Ratio Glucose POC Glucose 405 H Calcium Total Bilirubin AST ALT Alkaline Phosphatase CK-MB (CK-2) Troponin T Total Protein Albumin Albumin/Globulin Ratio Lipase 03/20/19 03/20/19 03/20/19 18:00 18:32 18:32 WBC RBC Hgb Hct MCV MCH MCHC RDW Plt Count Lymph % (Auto) [place] % (Auto) Eos % (Auto) Baso % (Auto) Lymph # [place] # Eos # Baso # Seg Neutrophils % Seg Neutrophils # PT 12.6 INR 0.97 APTT 20.0 L VBG pH Sodium 135 L Potassium 4.2 D Chloride 87.5 L Carbon Dioxide 25 Anion Gap 27 BUN 31 H Creatinine 1.5 Estimated GFR 56 BUN/Creatinine Ratio 21 Glucose 475 H POC Glucose Calcium 9.8 Total Bilirubin 0.90 AST 9 ALT 10 Alkaline Phosphatase 97 CK-MB (CK-2) 2.0 Troponin T < 0.010 Total Protein 7.3 Albumin 4.3 Albumin/Globulin Ratio 1.4 Lipase 7 L - EKG Data -: EKG Interpreted by Me EKG shows normal: sinus rhythm Rate: normal - EKG Data When compared to previous EKG there are: no significant change Interpretation: unchanged when compared t (02/16/2019) - Medical Decision Making Patient is hemoconcentrated with elevated BUN/creatinine ratio is compared to previous visit signify dehydration. We'll admit the patient for persistent nausea vomiting, decreased oral intake and dehydration - Differential Diagnosis DKA, gastroparesis, achalasia Critical care attestation.: If time is entered above; I have spent that time in minutes in the direct care of this critically ill patient, excluding procedure time. ED Disposition Clinical Impression: Nausea & vomiting, Hyperglycemia, Dehydration Disposition: DC-09 OP ADMIT IP TO THIS HOSP Is pt being admited?: Yes Does the pt Need Aspirin: No Condition: Fair Time of Disposition: 19:27 (hospitalist paged (Dr Atwood))
[2019-03-20 18:52] LABS: Basophils # (Auto) 0.2 K/mm3 (0.0-0.1); Basophils % (Auto) 1.6 % (0.0-1.8); Hematocrit 49.7 % (35.5-45.6); Hemoglobin 16.3 gm/dl (11.8-15.2); Lymphocytes # (Auto) 1.3 K/mm3 (1.2-5.4); Lymphocytes % (Auto) 10.6 % (13.4-35.0); Mean Corpuscular HGB Conc 33 % (32-34); Mean Corpuscular Volume 89 fl (84-94); Monocytes # (Auto) 0.4 K/mm3 (0.0-0.8); Monocytes % (Auto) 3.1 % (0.0-7.3); Platelet Count 353 K/mm3 (140-440); Red Blood Count 5.61 M/mm3 (3.65-5.03); Red Cell Distribution Width 14.7 % (13.2-15.2)
[2019-03-20 19:03] LABS: INR 0.97 (0.87-1.13)
[2019-03-20 19:14] LABS: Albumin 4.3 g/dL (3.9-5); Calcium 9.8 mg/dL (8.4-10.2)
[2019-03-20] MEDS ORDERED: HumuLIN R IV ONE (19:33)
[2019-03-20 20:51] LABS: Bilirubin,Urine NEG (Negative); Blood,Urine SM (Negative); Color,Urine Yellow (Yellow); Mucus,Urine FEW /HPF; Protein,Urine <15 mg/dL mg/dL (Negative); Urobilinogen,Urine < 2.0 mg/dL (<2.0); WBC,Urine < 1.0 /HPF (0.0-6.0)
[2019-03-20] MEDS ORDERED: PROTONIX IV ONE (21:35)
[2019-03-20] MEDS ORDERED: ZOFRAN IV PRN (21:37)
[2019-03-20] MEDS ORDERED: SODIUM CHLORIDE FLUSH SYRINGE 10 ML IV PRN (21:37)
[2019-03-20] MEDS ORDERED: TYLENOL PO PRN (21:37)
[2019-03-20] MEDS ORDERED: REGLAN IV PRN (21:39)
[2019-03-20] MEDS: SODIUM CHLORIDE FLUSH SYRINGE 10 ML IV SCH (21:50)
[2019-03-20] MEDS ORDERED: NACL 0.45% 1000 ML 1,000 ML IV SCH (22:00)
[2019-03-20] MEDS: PROTONIX 80 MG in NACL 0.9% 100 ML IV SCH (22:25)
[2019-03-20] MEDS ORDERED: APRESOLINE IV PRN (23:10)
--- NOTE | 2019-03-20 23:10 | History and Physical Report ---
History of Present Illness Date of examination: 03/20/19 Date of admission: 03/20/19 21:37 History of present illness: 73-year-old man with a history of hypertension, diabetes, gastroparesis, se izure, dementia, hyperlipidemia, mitral valve prolapse comes emergency room with complaints of nausea vomiting black material today, total of 5 episodes, no NSAID use, denies abdominal pain eview Of Systems: Constitutional: no weight loss, fever, chills Ears, eyes, nose, mouth and throat: no nasal congestion, no nasal discharge, no sinus pressure, blurry vision, diplopia Neck: No neck pain or rigidity. Cardiovascular: No palpitations, chest pain Respiratory: No shortness of breath, cough Gastrointestinal: No hematochezia, abdominal pain Genitourinary : no dysuria, frequency , hematuria Musculoskeletal: no muscle ache , joint pain Integumentary: no rash, no pruritis Neurological: no parathesias, focal weakness Endocrine: no cold or heat intolerance, no polyuria or polydipsia Hematologic/Lymphatic: no easy bruising, no easy bleeding, no gland swelling Allergic/Immunologic: no urticaria, no angioedema. PAST MEDICAL HISTORY:hypertension, diabetes, gastroparesis, seizure, dementia, hyperlipidemia, mitral valve prolapse PAST SURGICAL HISTORY: Left toes amputated FAMILY HISTORY:hypertension, diabetes SOCIAL HISTORY: Denies tobacco, drugs, alcohol Medications and Allergies Allergies Allergy/AdvReac Type Severity Reaction Status Date / Time No Known Allergies Allergy Verified 09/18/14 18:31 Home Medications Medication Instructions Recorded Confirmed Last Taken Type Atorvastatin Calcium [Lipitor] 80 mg PO QHS 09/18/14 03/17/19 03/16/19 History Gabapentin 300 mg PO TID 07/20/16 03/17/19 03/16/19 History Vitamin D3 1,000 unit PO QDAY 07/20/16 03/17/19 03/17/19 History Levomefolate/B6/B12/Algal Oil 1 each PO DAILY 08/02/16 03/17/19 03/17/19 History [Metanx Capsule] Detemir (Nf) [Levemir (Nf)] 20 units SUB-Q QHS #1000 units 08/05/16 03/17/19 03/16/19 Rx Pantoprazole [Protonix TAB] 40 mg PO BID #60 tab 08/05/16 03/17/1903/17/19 Rx AtorvaSTATin [Lipitor] 40 mg PO QHS 03/17/19 03/17/19 03/16/19 History Magnesium 400 mg PO BID 03/17/19 03/17/19 03/16/19 History Sodium Polystyrene Sulfon/Sorb 30 gm PO DAILY 03/17/19 03/17/19 03/16/19 History [Kionex 15 gm/60 ml Suspension] Tamsulosin [Flomax] 0.4 mg PO QDAY 03/17/19 03/17/19 03/17/19 History Active Meds: Active Medications Acetaminophen (Tylenol) 650 mg PO Q4H PRN PRN Reason: Pain MILD(1-3)/Fever >100.5/ONEILL Sodium Chloride (Nacl 0.9% 1000 Ml) 1,000 mls @ 250 mls/hr IV ONCE ONE Stop: 03/20/19 23:24 Last Admin: 03/20/19 19:55 Dose: 250 mls/hr Documented by: Pantoprazole Sodium 80 mg/ (Sodium Chloride) 100 mls @ 10 mls/hr IV DIRECT PANDA Last Admin: 03/20/19 22:25 Dose: 8 mg/hr, 10 mls/hr Documented by: Sodium Chloride (Nacl 0.45% 1000 Ml) 1,000 mls @ 100 mls/hr IV DIRECT PANDA Metoclopramide HCl (Reglan) 10 mg IV Q4H PRN PRN Reason: Nausea And Vomiting Ondansetron HCl (Zofran) 4 mg IV Q4H PRN PRN Reason: Nausea And Vomiting Sodium Chloride (Sodium Chloride Flush Syringe 10 Ml) 10 ml IV BID [facility] Last Admin: 03/20/19 21:50 Dose: 10 ml Documented by: Sodium Chloride (Sodium Chloride Flush Syringe 10 Ml) 10 ml IV PRN PRN PRN Reason: LINE FLUSH Exam - Physical Exam Narrative exam: General Apperance: The patient sitting in bed no acute distress HEENT: Normocephalic, atraumatic. Pupils equally round and reactive to light, extraocular movement intact, and no sclericterus or JVD or thyromegaly or nodule. Neck supple, no carotid bruit, mucous membranes moist, no exudate or erythema Heart: S1-S2, regular is rhythm Lungs: Clear to auscultation bilaterally, breathing comfortable Abdomen: Positive bowel sounds, soft, nontender, nondistended, no organomegaly Extremities: No edema cyanosis clubbing Skin: no rash, nodule, warm and dry Neuro:CN 2 -12 intact, motor/sensory intact, speech is fluent - Constitutional Vitals: Temp Pulse Resp BP Pulse Ox 98.3 F 76 16 156/73 99 03/20/19 19:23 03/20/19 21:45 03/20/19 21:45 03/20/19 21:45 03/20/19 21:45 Results - Labs CBC & Chem 7: 03/20/19 18:00 03/20/19 18:32 Labs: Abnormal lab results 03/20/19 03/20/19 03/20/19 Range/Units 17:39 18:00 18:00 WBC 11.9 H (4.5-11.0) K/mm3 RBC 5.61 H (3.65-5.03) M/mm3 Hgb 16.3 H (11.8-15.2) gm/dl Hct 49.7 H D (35.5-45.6) % Lymph % (Auto) 10.6 L (13.4-35.0) % Baso # 0.2 H (0.0-0.1) K/mm3 Seg Neutrophils % 84.7 H (40.0-70.0) % Seg Neutrophils # 10.0 H (1.8-7.7) K/mm3 APTT 20.0 L (24.2-36.6) Sec. Sodium (137-145) mmol/L Chloride (98-107) mmol/L BUN (9-20) mg/dL Glucose (75-100) mg/dL POC Glucose 405 H (70-105) Total Creatine Kinase (55-170) units/L CK-MB (CK-2) Rel Index (0-4) Lipase (13-60) units/L 03/20/19 03/20/19 03/20/19 Range/Units 18:32 18:32 19:39 WBC (4.5-11.0) K/mm3 RBC (3.65-5.03) M/mm3 Hgb (11.8-15.2) gm/dl Hct (35.5-45.6) % Lymph % (Auto) (13.4-35.0) % Baso # (0.0-0.1) K/mm3 Seg Neutrophils % (40.0-70.0) % Seg Neutrophils # (1.8-7.7) K/mm3 APTT (24.2-36.6) Sec. Sodium 135 L (137-145) mmol/L Chloride 87.5 L (98-107) mmol/L BUN 31 H (9-20) mg/dL Glucose 475 H (75-100) mg/dL POC Glucose 478 H (70-105) Total Creatine Kinase 32 L (55-170) units/L CK-MB (CK-2) Rel Index 6.2 H (0-4) Lipase 7 L (13-60) units/L 03/20/19 Range/Units 20:47 WBC (4.5-11.0) K/mm3 RBC (3.65-5.03) M/mm3 Hgb (11.8-15.2) gm/dl Hct (35.5-45.6) % Lymph % (Auto) (13.4-35.0) % Baso # (0.0-0.1) K/mm3 Seg Neutrophils % (40.0-70.0) % Seg Neutrophils # (1.8-7.7) K/mm3 APTT (24.2-36.6) Sec. Sodium (137-145) mmol/L Chloride (98-107) mmol/L BUN (9-20) mg/dL Glucose (75-100) mg/dL POC Glucose 367 H (70-105) Total Creatine Kinase (55-170) units/L CK-MB (CK-2) Rel Index (0-4) Lipase (13-60) units/L Assessment and Plan Assessment Upper GI bleed hypertension diabetes/gastroparesis seizure dementia hyperlipidemia mitral valve prolapse Plan Admit to medicine Start IV fluid, protonix drip Serial hemoglobin, xray, consult GI Check fingersticks initiate insulin sliding scale Continue appropriate outpatient medications DVT prophylaxis, IV hydralazine as needed for blood pressure control
[2019-03-21 00:33] LABS: Hematocrit 44.7 % (35.5-45.6); Hemoglobin 14.5 gm/dl (11.8-15.2)
--- NOTE | 2019-03-21 01:16 | XRay Report ---
CHEST 1 VIEW 03/20/2019 11:11 PM INDICATION / CLINICAL INFORMATION: ugib. COMPARISON: Chest x-ray 08/02/2016 FINDINGS: SUPPORT DEVICES: None. HEART / MEDIASTINUM: No significant abnormality. LUNGS / PLEURA: No significant pulmonary or pleural abnormality. No pneumothorax. ADDITIONAL FINDINGS: No significant additional findings. IMPRESSION: 1. No acute findings. Signer Name: Sotero Soriano MD Signed: 03/21/2019 1:12 AM Workstation Name: [id number]
[2019-03-21] MEDS: PROTONIX 80 MG in NACL 0.9% 100 ML IV SCH ×2 (06:55→17:25)
[2019-03-21 07:34] LABS: Basophils # (Auto) 0.2 K/mm3 (0.0-0.1); Basophils % (Auto) 1.1 % (0.0-1.8); Eosinophils % (Auto) 0.1 % (0.0-4.3); Hemoglobin 13.2 gm/dl (11.8-15.2); Lymphocytes # (Auto) 2.3 K/mm3 (1.2-5.4); Mean Corpuscular HGB Conc 32 % (32-34); Mean Corpuscular Volume 89 fl (84-94); Monocytes # (Auto) 1.6 K/mm3 (0.0-0.8); Monocytes % (Auto) 9.9 % (0.0-7.3); Red Blood Count 4.62 M/mm3 (3.65-5.03); Red Cell Distribution Width 14.7 % (13.2-15.2)
[2019-03-21 07:42] LABS: Calcium 8.7 mg/dL (8.4-10.2)
[2019-03-21 07:58] LABS: Platelet Count 248 K/mm3 (140-440)
[2019-03-21] MEDS: SODIUM CHLORIDE FLUSH SYRINGE 10 ML IV SCH ×2 (09:56→21:54)
[2019-03-21] MEDS ORDERED: NACL 0.9% 1000 ML 1,000 ML IV SCH (15:00)
--- NOTE | 2019-03-21 16:14 | Anesthesia Consultation ---
Anesthesia Consult and Med Hx Date of service: 03/21/19 - Airway Anesthetic Teeth Evaluation: Edentulous ROM Head & Neck: Adequate Mental/Hyoid Distance: Adequate Mallampati Class: Class II Intubation Access Assessment: Probably Good - Pre-Operative Health Status ASA Pre-Surgery Classification: ASA3 Proposed Anesthetic Plan: MAC - Pulmonary Hx Smoking: Yes Hx Asthma: No COPD: No Hx Pneumonia: Yes (07/2016) - Cardiovascular System Hx Hypertension: Yes - Central Nervous System Hx Seizures: Yes Hx Psychiatric Problems: Yes (Dementia) - Gastrointestinal Hx Gastroesophageal Reflux Disease: No (diabetic gastroparesis) - Endocrine Hx Renal Disease: Yes (ARF) Hx End Stage Renal Disease: No Hx Insulin Dependent Diabetes: Yes (uncontrolled) - Other Systems Hx Cancer: No
--- NOTE | 2019-03-21 16:15 | Anesthesia Day of Surgery ---
Anesthesia Day of Surgery - Day of Surgery Patient Examined: Yes Patient H&P Reviewed: Yes Patient is NPO: Yes Beta Blockers: No
[2019-03-21] MEDS: HumuLIN R SUB-Q SCH (16:35)
--- NOTE | 2019-03-21 16:44 | Progress Note ---
Assessment and Plan Assessment and plan: Upper GI bleed. Cont. protonix. GI to perform EGD. Hypertension. Resume antihypertensives Diabetes Mellitus II. Accucheks and SSRI Gastroparesis. Reglan prn, antiemetics Seizure d/o. AEDs and sz precautions Alzheimers Dementia. Hyperlipidemia. Cont. statins Mitral valve prolapse History Interval history: no new episodes of bleeding Hospitalist Physical - Constitutional Vitals: Temp Pulse Resp BP Pulse Ox 99.1 F 94 H 18 140/70 98 03/21/19 07:31 03/21/19 07:31 03/21/19 07:31 03/21/19 07:31 03/21/19 12:46 General appearance: Present: no acute distress, well-nourished - EENT Eyes: Present: PERRL, EOM intact ENT: hearing intact, clear oral mucosa, dentition normal - Neck Neck: Present: supple, normal ROM - Respiratory Respiratory effort: normal Respiratory: bilateral: CTA - Cardiovascular Rhythm: regular Heart Sounds: Present: S1 & S2. Absent: gallop, rub - Extremities Extremities: no ischemia, No edema, Full ROM - Abdominal General gastrointestinal: soft, non-tender, non-distended, normal bowel sounds - Integumentary Integumentary: Present: clear, warm, dry - Neurologic Neurologic: CNII-XII intact, moves all extremities Results - Labs CBC & Chem 7: 03/21/19 06:40 03/21/19 06:40 Labs: Laboratory Last Values WBC 16.4 K/mm3 (4.5-11.0) H 03/21/19 06:40 RBC 4.62 M/mm3 (3.65-5.03) 03/21/19 06:40 Hgb 13.2 gm/dl (11.8-15.2) 03/21/19 06:40 Hct 41.0 % (35.5-45.6) 03/21/19 06:40 MCV 89 fl (84-94) 03/21/19 06:40 MCH 29 pg (28-32) 03/21/19 06:40 MCHC 32 % (32-34) 03/21/19 06:40 RDW 14.7 % (13.2-15.2) 03/21/19 06:40 Plt Count 248 K/mm3 (140-440) 03/21/19 06:40 Lymph % (Auto) 14.0 % (13.4-35.0) 03/21/19 06:40 [place] % (Auto) 9.9 % (0.0-7.3) H 03/21/19 06:40 Eos % (Auto) 0.1 % (0.0-4.3) 03/21/19 06:40 Baso % (Auto) 1.1 % (0.0-1.8) 03/21/19 06:40 Lymph # 2.3 K/mm3 (1.2-5.4) 03/21/19 06:40 [place] # 1.6 K/mm3 (0.0-0.8) H 03/21/19 06:40 Eos # 0.0 K/mm3 (0.0-0.4) 03/21/19 06:40 Baso # 0.2 K/mm3 (0.0-0.1) H 03/21/19 06:40 Seg Neutrophils % 74.9 % (40.0-70.0) H 03/21/19 06:40 Seg Neutrophils # 12.3 K/mm3 (1.8-7.7) H 03/21/19 06:40 PT 12.6 Sec. (12.2-14.9) 03/20/19 18:00 INR 0.97 (0.87-1.13) 03/20/19 18:00 APTT 20.0 Sec. (24.2-36.6) L 03/20/19 18:00 VBG pH 7.409 (7.320-7.420) 03/20/19 18:00 Sodium 139 mmol/L (137-145) 03/21/19 06:40 Potassium 4.3 mmol/L (3.6-5.0) 03/21/19 06:40 Chloride 98.0 mmol/L (98-107) 03/21/19 06:40 Carbon Dioxide 22 mmol/L (22-30) 03/21/19 06:40 23 mmol/L 03/21/19 06:40 BUN 34 mg/dL (9-20) H 03/21/19 06:40 1.5 mg/dL (0.8-1.5) 03/21/19 06:40 Estimated GFR 56 ml/min 03/21/19 06:40 23 % 03/21/19 06:40 Glucose 337 mg/dL (75-100) H 03/21/19 06:40 POC Glucose 309 (70-105) H 03/21/19 15:10 Calcium 8.7 mg/dL (8.4-10.2) 03/21/19 06:40 0.90 mg/dL (0.1-1.2) 03/20/19 18:32 AST 9 units/L (5-40) 03/20/19 18:32 ALT 10 units/L (7-56) 03/20/19 18:32 97 units/L (35-129) 03/20/19 18:32 32 units/L (55-170) L 03/20/19 18:32 CK-MB (CK-2) 2.0 ng/mL (0.0-4.0) 03/20/19 18:32 CK-MB (CK-2) Rel Index 6.2 (0-4) H 03/20/19 18:32 < 0.010 ng/mL (0.00-0.029) 03/20/19 18:32 7.3 g/dL (6.3-8.2) 03/20/19 18:32 4.3 g/dL (3.9-5) 03/20/19 18:32 1.4 % 03/20/19 18:32 7 units/L (13-60) L 03/20/19 18:32 Yellow (Yellow) 03/20/19 20:30 Clear (Clear) 03/20/19 20:30 5.0 (5.0-7.0) 03/20/19 20:30 Ur Specific [place] 1.027 (1.003-1.030) 03/20/19 20:30 <15 mg/dl mg/dL (Negative) 03/20/19 20:30 >=500 mg/dL (Negative) 03/20/19 20:30 20 mg/dL (Negative) 03/20/19 20:30 Sm (Negative) 03/20/19 20:30 Neg (Negative) 03/20/19 20:30 Neg (Negative) 03/20/19 20:30 < 2.0 mg/dL (<2.0) 03/20/19 20:30 Ur Leukocyte Esterase Neg (Negative) 03/20/19 20:30 < 1.0 /HPF (0.0-6.0) 03/20/19 20:30 2.0 /HPF (0.0-6.0) 03/20/19 20:30 Few /HPF 03/20/19 20:30 Active Medications - Current Medications Current Medications: Generic Name Dose Route Start Last Admin Trade Name Freq PRN Reason Stop Dose Admin Acetaminophen 650 mg 03/20/19 21:37 Tylenol PO Q4H PRN Pain MILD(1-3)/Fever >100.5/ONEILL Hydralazine HCl 5 mg 03/20/19 23:10 Apresoline IV Q6H PRN Hypertension Pantoprazole Sodium 80 mg/ 100 mls @ 10 mls/hr 03/20/19 22:00 03/21/19 06:55 Sodium Chloride IV 8 mg/hr DIRECT PANDA 10 mls/hr Administration 8 MG/HR Sodium Chloride 1,000 mls @ 50 mls/hr 03/21/19 15:00 Nacl 0.9% 1000 Ml IV DIRECT PANDA Insulin Human Regular 0 units 03/21/19 16:30 03/21/19 16:35 Humulin R SUB-Q 6 units ACHS PANDA Administration Protocol Metoclopramide HCl 10 mg 03/20/19 21:39 03/21/19 01:01 Reglan IV 10 mg Q4H PRN Administration Nausea And Vomiting Ondansetron HCl 4 mg 03/20/19 21:37 Zofran IV Q4H PRN Nausea And Vomiting Sodium Chloride 10 ml 03/20/19 22:00 03/21/19 09:56 Sodium Chloride Flush Syringe 10 Ml IV Not Given BID PANDA Sodium Chloride 10 ml 03/20/19 21:37 03/21/19 00:55 Sodium Chloride Flush Syringe 10 Ml IV 10 ml PRN PRN Administration LINE FLUSH Nutrition/Malnutrition Assess - Dietary Evaluation Nutrition/Malnutrition Findings: Nutrition Notes Start: 03/21/19 12:00 Freq: Status: Active Protocol: Document 03/21/19 12:00 ZUNILDA (Rec: 03/21/19 12:13 [email or web address] [id number]) Nutrition Notes Need for Assessment generated from: director of [employer],Education Initial or Follow up Brief Note Current Diagnosis Diabetes,Hypertension, Hyperlipidemia Other Pertinent Diagnosis AMS, N/V/D, gastroparesis, s/p L toe amputation Current Diet NPO Labs/Tests BUN: 34 Glu: 337 Pertinent Medications Reviewed Height 6 ft 1 in Weight 79 kg [place] Body Weight (kg) 83.63 BMI 22.9 Subjective/Other Information Pt screened for new onset of DM. Pt with AMS at time of visit and was alone. Pt was not good historian and not appropriate for diet education at [facility] time. RD spoke with pt RN who said pt is at bedside often. Nutrition Intervention Follow-Up By: 03/22/19 Additional Comments F/u for assessment/diet education when returns to bedside
[2019-03-22] MEDS: HumuLIN R SUB-Q SCH ×5 (00:16→21:20)
--- NOTE | 2019-03-22 02:25 | Consultation ---
REFERRING PHYSICIAN: Patricio Epps MD INDICATION: 1. Anemia. 2. GI bleed. HISTORY OF PRESENT ILLNESS: The patient is a 73-year-old male with history of hypertension, diabetes, gastroparesis, seizure disorder and dementia as well as mitral valve prolapse, who comes complaining of nausea and vomiting with coffee emesis. The patient reports some mild epigastric pain. He reports some history of reflux. Denies any melena or bright red blood per rectum. Denies any family history of upper GI bleed. Denies severe NSAID use. The patient subsequently came to the Emergency Room, was admitted and GI consulted. Denies a history of GI bleed in the past. PAST MEDICAL HISTORY: 1. Hypertension. 2. Diabetes. 3. Gastroparesis. 4. Seizure disorder. 5. Dementia. 6. High cholesterol. PAST SURGICAL HISTORY: Left toe amputations. ALLERGIES: No known drug allergies. MEDICATIONS: Reviewed and updated in chart. FAMILY HISTORY: Negative for colon cancer, IBD, or liver disease. SOCIAL HISTORY: Denies alcohol, tobacco or IV drug abuse. REVIEW OF SYSTEMS: GENERAL: Reports mild weakness. HEENT: No visual complaints or tinnitus. PULMONARY: No shortness of breath, cough or chest pain. GASTROINTESTINAL: Reports nausea, vomiting, and hematemesis. All points of 13-point review of systems otherwise negative. PHYSICAL EXAMINATION: VITAL SIGNS: Temperature of 98.0, pulse 94, respirations 18, blood pressure 140/70. GENERAL: Fairly nourished male in no acute distress. HEENT: Pupils are round and reactive. PULMONARY: Clear to auscultation bilaterally. CARDIOVASCULAR: Regular rhythm. Normal S1, S2. ABDOMEN: Positive bowel sounds, soft. SKIN: No obvious rashes. LABORATORY DATA: Pertinent for white count of 16, hemoglobin and hematocrit 13.2 and 41.0, platelet count 248. Chem-7 within normal limits. LFTs within normal limits. ASSESSMENT AND PLAN: A 73-year-old male presents with coffee emesis and signs of upper gastrointestinal bleed, now being seen by GI. The patient does have a history of gastroparesis and diabetes. We would want to rule out upper GI pathology. PLAN: 1. We will follow hematocrit and transfuse as needed. 2. PPI IV daily. 3. Antiemetics and pain medication per primary team. 4. Diabetes and other medical issues per primary team. 5. NPO after midnight. 6. Plan EGD in a.m. JOB# [id number] AEB/NEGRA
[2019-03-22 05:44] LABS: Basophils # (Auto) 0.1 K/mm3 (0.0-0.1); Basophils % (Auto) 0.9 % (0.0-1.8); Eosinophils # (Auto) 0.2 K/mm3 (0.0-0.4); Eosinophils % (Auto) 1.6 % (0.0-4.3); Hematocrit 41.2 % (35.5-45.6); Hemoglobin 13.3 gm/dl (11.8-15.2); Lymphocytes # (Auto) 4.1 K/mm3 (1.2-5.4); Mean Corpuscular HGB Conc 32 % (32-34); Mean Corpuscular Volume 90 fl (84-94); Monocytes # (Auto) 1.1 K/mm3 (0.0-0.8); Monocytes % (Auto) 7.7 % (0.0-7.3); Platelet Count 269 K/mm3 (140-440); Red Cell Distribution Width 14.7 % (13.2-15.2)
[2019-03-22 06:05] LABS: BUN/Creatinine Ratio 18; Blood Urea Nitrogen 24 mg/dL (9-20); Calcium 8.8 mg/dL (8.4-10.2); Hemolysis Index 7
--- NOTE | 2019-03-22 12:47 | Progress Note ---
Assessment and Plan Assessment and plan: Upper GI bleed. Cont. protonix. GI to perform EGD today Hypertension. Resume antihypertensives Diabetes Mellitus II. Accucheks and SSRI Gastroparesis. Reglan prn, antiemetics Seizure d/o. AEDs and sz precautions Alzheimers Dementia. Hyperlipidemia. Cont. statins Mitral valve prolapse Disposition. Anticipate d/c later today. History Interval history: no new episodes of bleeding Hospitalist Physical - Constitutional Vitals: Temp Pulse Resp BP Pulse Ox 98.5 F 74 16 155/72 93 03/22/19 04:09 03/22/19 07:53 03/22/19 07:53 03/22/19 07:53 03/22/19 04:09 General appearance: Present: no acute distress, well-nourished - EENT Eyes: Present: PERRL, EOM intact ENT: hearing intact, clear oral mucosa, dentition normal - Neck Neck: Present: supple, normal ROM - Respiratory Respiratory effort: normal Respiratory: bilateral: CTA - Cardiovascular Rhythm: regular Heart Sounds: Present: S1 & S2. Absent: gallop, rub - Extremities Extremities: no ischemia, No edema, Full ROM - Abdominal General gastrointestinal: soft, non-tender, non-distended, normal bowel sounds - Integumentary Integumentary: Present: clear, warm, dry - Neurologic Neurologic: CNII-XII intact, moves all extremities Results - Labs CBC & Chem 7: 03/22/19 05:02 03/22/19 05:02 Labs: Laboratory Last Values WBC 13.8 K/mm3 (4.5-11.0) H 03/22/19 05:02 RBC 4.60 M/mm3 (3.65-5.03) 03/22/19 05:02 Hgb 13.3 gm/dl (11.8-15.2) 03/22/19 05:02 Hct 41.2 % (35.5-45.6) 03/22/19 05:02 MCV 90 fl (84-94) 03/22/19 05:02 MCH 29 pg (28-32) 03/22/19 05:02 MCHC 32 % (32-34) 03/22/19 05:02 RDW 14.7 % (13.2-15.2) 03/22/19 05:02 Plt Count 269 K/mm3 (140-440) 03/22/19 05:02 Lymph % (Auto) 30.0 % (13.4-35.0) 03/22/19 05:02 [place] % (Auto) 7.7 % (0.0-7.3) H 03/22/19 05:02 Eos % (Auto) 1.6 % (0.0-4.3) 03/22/19 05:02 Baso % (Auto) 0.9 % (0.0-1.8) 03/22/19 05:02 Lymph # 4.1 K/mm3 (1.2-5.4) 03/22/19 05:02 [place] # 1.1 K/mm3 (0.0-0.8) H 03/22/19 05:02 Eos # 0.2 K/mm3 (0.0-0.4) 03/22/19 05:02 Baso # 0.1 K/mm3 (0.0-0.1) 03/22/19 05:02 Seg Neutrophils % 59.8 % (40.0-70.0) 03/22/19 05:02 Seg Neutrophils # 8.3 K/mm3 (1.8-7.7) H 03/22/19 05:02 PT 12.6 Sec. (12.2-14.9) 03/20/19 18:00 INR 0.97 (0.87-1.13) 03/20/19 18:00 APTT 20.0 Sec. (24.2-36.6) L 03/20/19 18:00 VBG pH 7.409 (7.320-7.420) 03/20/19 18:00 Sodium 141 mmol/L (137-145) 03/22/19 05:02 Potassium 3.8 mmol/L (3.6-5.0) 03/22/19 05:02 Chloride 99.8 mmol/L (98-107) 03/22/19 05:02 Carbon Dioxide 26 mmol/L (22-30) 03/22/19 05:02 19 mmol/L 03/22/19 05:02 BUN 24 mg/dL (9-20) H 03/22/19 05:02 1.3 mg/dL (0.8-1.5) 03/22/19 05:02 Estimated GFR > 60 ml/min 03/22/19 05:02 18 % 03/22/19 05:02 Glucose 184 mg/dL (75-100) H 03/22/19 05:02 POC Glucose 242 (70-105) H 03/22/19 12:30 Calcium 8.8 mg/dL (8.4-10.2) 03/22/19 05:02 0.90 mg/dL (0.1-1.2) 03/20/19 18:32 AST 9 units/L (5-40) 03/20/19 18:32 ALT 10 units/L (7-56) 03/20/19 18:32 97 units/L (35-129) 03/20/19 18:32 32 units/L (55-170) L 03/20/19 18:32 CK-MB (CK-2) 2.0 ng/mL (0.0-4.0) 03/20/19 18:32 CK-MB (CK-2) Rel Index 6.2 (0-4) H 03/20/19 18:32 < 0.010 ng/mL (0.00-0.029) 03/20/19 18:32 7.3 g/dL (6.3-8.2) 03/20/19 18:32 4.3 g/dL (3.9-5) 03/20/19 18:32 1.4 % 03/20/19 18:32 7 units/L (13-60) L 03/20/19 18:32 Yellow (Yellow) 03/20/19 20:30 Clear (Clear) 03/20/19 20:30 5.0 (5.0-7.0) 03/20/19 20:30 Ur Specific [place] 1.027 (1.003-1.030) 03/20/19 20:30 <15 mg/dl mg/dL (Negative) 03/20/19 20:30 >=500 mg/dL (Negative) 03/20/19 20:30 20 mg/dL (Negative) 03/20/19 20:30 Sm (Negative) 03/20/19 20:30 Neg (Negative) 03/20/19 20:30 Neg (Negative) 03/20/19 20:30 < 2.0 mg/dL (<2.0) 03/20/19 20:30 Ur Leukocyte Esterase Neg (Negative) 03/20/19 20:30 < 1.0 /HPF (0.0-6.0) 03/20/19 20:30 2.0 /HPF (0.0-6.0) 03/20/19 20:30 Few /HPF 03/20/19 20:30 Active Medications - Current Medications Current Medications: Generic Name Dose Route Start Last Admin Trade Name Freq PRN Reason Stop Dose Admin Acetaminophen 650 mg 03/20/19 21:37 Tylenol PO Q4H PRN Pain MILD(1-3)/Fever >100.5/ONEILL Hydralazine HCl 5 mg 03/20/19 23:10 Apresoline IV Q6H PRN Hypertension Sodium Chloride 1,000 mls @ 50 mls/hr 03/21/19 15:00 Nacl 0.9% 1000 Ml IV DIRECT [facility] Insulin Human Regular 0 units 03/21/19 16:30 03/22/19 07:53 Humulin R SUB-Q Not Given ACHS [facility] Protocol Metoclopramide HCl 10 mg 03/20/19 21:39 03/21/19 01:01 Reglan IV 10 mg Q4H PRN Administration Nausea And Vomiting Ondansetron HCl 4 mg 03/20/19 21:37 Zofran IV Q4H PRN Nausea And Vomiting Pantoprazole Sodium 40 mg 03/22/19 10:00 Protonix IV QDAY PANDA Sodium Chloride 10 ml 03/20/19 22:00 03/21/19 21:54 Sodium Chloride Flush Syringe 10 Ml IV 10 ml BID PANDA Administration Sodium Chloride 10 ml 03/20/19 21:37 03/21/19 00:55 Sodium Chloride Flush Syringe 10 Ml IV 10 ml PRN PRN Administration LINE FLUSH Nutrition/Malnutrition Assess - Dietary Evaluation Nutrition/Malnutrition Findings: Nutrition Notes Start: 03/21/19 12:00 Freq: Status: Active Protocol: Document 03/21/19 12:00 ZUNILDA (Rec: 03/21/19 12:13 ZUNILDA [id number]) Nutrition Notes Need for Assessment generated from: medical accounts receivable specialist,Education Initial or Follow up Brief Note Current Diagnosis Diabetes,Hypertension, Hyperlipidemia Other Pertinent Diagnosis AMS, N/V/D, gastroparesis, s/p L toe amputation Current Diet NPO Labs/Tests BUN: 34 Glu: 337 Pertinent Medications Reviewed Height 6 ft 1 in Weight 79 kg [place] Body Weight (kg) 83.63 BMI 22.9 Subjective/Other Information Pt screened for new onset of DM. Pt with AMS at time of visit and was alone. Pt was not good historian and not appropriate for diet education at [facility] time. RD spoke with pt RN who said pt is at bedside often. Nutrition Intervention Follow-Up By: 03/22/19 Additional Comments F/u for assessment/diet education when returns to bedside
--- NOTE | 2019-03-22 14:23 | Anesthesia Day of Surgery ---
Anesthesia Day of Surgery - Day of Surgery Patient Examined: Yes Patient H&P Reviewed: Yes Patient is NPO: Yes
[2019-03-22] MEDS ORDERED: DIPRIVAN 10 MG/ML IV ONE (15:23)
--- NOTE | 2019-03-22 17:23 | Post Operative Note ---
Pre-op diagnosis: gi bleed Post-op diagnosis: same Findings: EGD: hiatal hernia - Grade 2 erosive esophagitis 34-40 cm from gums (bxs) - medium hiatal hernia - gastritis (bx's) - negative other Procedure: EGD Anesthesia: MAC Surgeon: DEBORAH BLACKMAN Estimated blood loss: none Pathology: list Specimen disposition: to lab Condition: stable Disposition: floor
[2019-03-22] MEDS: PROTONIX IV SCH (17:44)
[2019-03-22] MEDS: SODIUM CHLORIDE FLUSH SYRINGE 10 ML IV SCH ×3 (17:44→21:18)
--- NOTE | 2019-03-22 19:33 | Operative Report ---
PROCEDURE: Esophagogastroduodenoscopy with cold biopsy. INDICATION: 1. Coffee emesis. 2. Epigastric pain. MEDICATIONS: Propofol per [employer]IST[employer]. COMPLICATIONS: None. DESCRIPTION OF PROCEDURE: The patient brought to procedure suite. The patient had the procedure discussed with him at length. All risks, complications, and benefits discussed after which the patient signed for the procedure performed. The patient was placed in left lateral decubitus position. Mouth block placed in the patient's oral cavity. After adequate sedation medication as above, endoscope placed in the mouth and brought to level of the second portion of duodenum. Retroflexion view performed. The patient's vital signs remained stable throughout the procedure. FINDINGS: There was grade 2 erosive esophagitis noted at 34-40 cm from the gums. The GE junction was 40 cm from the gums. Biopsies were taken and sent for pathology. Medium hiatal hernia at GE junction. Esophagus otherwise appeared to be normal. There is mild antral gastritis noted. Biopsies were taken and sent to pathology. Remaining stomach otherwise appeared to be normal. The duodenum appeared to be normal. Retroflexion view performed in the stomach showed no other pathology other than noted above. The patient tolerated the procedure well. No complications during the procedure. IMPRESSION: 1. Erosive esophagitis, distal esophagus with biopsies performed. 2. Hiatal hernia. 3. Gastritis, biopsies performed. 4. Otherwise, normal EGD. RECOMMENDATIONS: 1. Follow up biopsy results. 2. If H. pylori positive, treat. 3. PPI daily. 4. Advance diet. 5. If stable in a.m., okay to discharge from GI standpoint. 6. We will sign off, call if needed. JOB# [id number] CAB/NTS
[2019-03-23 04:02] VITALS: BP 114/68
[2019-03-23] MEDS: PROTONIX IV SCH (09:20)
[2019-03-23] MEDS: HumuLIN R SUB-Q SCH (09:20)
[2019-03-23] MEDS: SODIUM CHLORIDE FLUSH SYRINGE 10 ML IV SCH (09:20)
--- NOTE | 2019-03-23 09:25 | Discharge Summary ---
Providers - Providers Date of Admission: 03/20/19 21:37 Date of discharge: 03/23/19 Attending physician: DAINA ROBERTS 03/20/19 21:37 Consult to Physician [CONS] Routine Comment: Consulting Provider: NOY MASCORRO Physician Instructions: Reason For Exam: ugib Primary care physician: SHAHRIAR ALEXANDRA MD Hospitalization Reason for admission: gi bleed Condition: Fair Hospital course: 73-year-old man with a history of hypertension, diabetes, gastroparesis, seizure, dementia, hyperlipidemia, mitral valve prolapse who presented emergency room with complaints of nausea vomiting coffee-ground emesis with a total of 5 episodes. The patient denied no NSAID use or abdominal pain. The patient had no further episodes after arrival into the emergency room. Patient's H&H remained stable throughout hospitalization. The patient underwent GI consultation and subsequent EGD which revealed hiatal hernia and a grade 2 erosive esophagitis, gastritis and otherwise negative. GI felt the patient would need PPI daily along with Carafate suspension 4 times a day and follow-up as an outpatient. Dedicated discharge time 32 minutes. Disposition: - TO HOME OR SELFCARE Time spent for discharge: 32 - Discharge Diagnoses (1) Coffee ground emesis Status: Acute (2) Gastritis Status: Acute (3) Erosive esophagitis Status: Acute Core Measure Documentation - Palliative Care Palliative Care/ Comfort Measures: Not Applicable - Core Measures Any of the following diagnoses?: none Exam - Constitutional Vitals: Temp Pulse Resp BP Pulse Ox 98.7 F 74 18 114/68 99 03/23/19 04:00 03/23/19 04:00 03/23/19 04:00 03/23/19 04:00 03/23/19 04:00 General appearance: Present: no acute distress, well-nourished - EENT Eyes: Present: PERRL ENT: hearing intact, clear oral mucosa - Neck Neck: Present: supple, normal ROM - Respiratory Respiratory effort: normal Respiratory: bilateral: CTA - Cardiovascular Heart Sounds: Present: S1 & S2. Absent: rub, click - Extremities Extremities: pulses symmetrical, No edema Peripheral Pulses: within normal limits - Abdominal General gastrointestinal: Present: soft, non-tender, non-distended, normal bowel sounds Male genitourinary: Present: normal - Integumentary Integumentary: Present: clear, warm, dry - Musculoskeletal Musculoskeletal: gait normal, strength equal bilaterally - Psychiatric Psychiatric: appropriate mood/affect, intact judgment & insight - Neurologic Neurologic: CNII-XII intact, moves all extremities Plan Activity: no restrictions Weight Bearing Status: Full Weight Bearing Diet: regular Follow up with: SHAHRIAR ALEXANDRA MD [Primary Care Provider] - 7 Days DEBORAH BLACKMAN MD [Staff Physician] - 7 Days Prescriptions: Gabapentin 300 mg PO TID #90 AtorvaSTATin [Lipitor] 40 mg PO QHS #30 tablet Pantoprazole [Protonix TAB] 40 mg PO BID #60 tab
[2019-03-24] MEDS ORDERED: PROTONIX PO SCH (10:00)
== END 2019-03-23 11:10 | disposition home or self-care (01) | DRG 382 ==
LOC: ED 17:25 → 4A 21:37
PROVIDERS: ADMIT Internal Medicine; ATTEND Hospitalist
PROC: 0DB38ZX Excision of Lower Esophagus, Via Natural or Artificial Opening Endoscopic, Diagnostic (ICD-10-PCS; principal; 2019-03-22)
PROC: 0DB68ZX Excision of Stomach, Via Natural or Artificial Opening Endoscopic, Diagnostic (ICD-10-PCS; 2019-03-22)
DX: K22.11 Ulcer of esophagus with bleeding (principal); K29.71 Gastritis, unspecified, with bleeding; E86.0 Dehydration; I10 Essential (primary) hypertension; K31.84 Gastroparesis; I34.1 Nonrheumatic mitral (valve) prolapse; F17.200 Nicotine dependence, unspecified, uncomplicated; E11.43 Type 2 diabetes mellitus with diabetic autonomic (poly)neuropathy; K44.9 Diaphragmatic hernia without obstruction or gangrene; G40.909 Epilepsy, unspecified, not intractable, without status epilepticus; G30.9 Alzheimer's disease, unspecified; F02.80 Dementia in other diseases classified elsewhere, unspecified severity, without behavioral disturbance, psychotic disturbance, mood disturbance, and anxiety; E11.65 Type 2 diabetes mellitus with hyperglycemia; E78.5 Hyperlipidemia, unspecified; Z82.49 Family history of ischemic heart disease and other diseases of the circulatory system; Z83.3 Family history of diabetes mellitus; Z87.01 Personal history of pneumonia (recurrent); Z79.4 Long term (current) use of insulin; Z79.899 Other long term (current) drug therapy
CPT/HCPCS: 36415; 71045; 80048; 80053; 81001; 82550; 82553; 82805; 82962; 83690; 84484; 85014; 85018; 85025; 85610; 85730; 88305; 88342; 93005; 93010; G0378; C9113; J1815; J2405; J2704; J2765; J7030

== ENCOUNTER 2019-07-19 07:31 | Inpatient (IN) | payer BC, MEDICARE ==
--- NOTE | 2019-07-19 08:07 | Emergency Department Report ---
ED General Adult HPI - General Chief complaint: GI Bleed Stated complaint: VOMITING Time Seen by Provider: 07/19/19 08:06 Source: patient, family Mode of arrival: Wheelchair Limitations: No Limitations - History of Present Illness Initial comments: This is a 73-year-old male that admits noncompliance with his Protonix and Carafate. He lives with his . It is uncertain why he stopped taking this medicine considering his recent admission for upper GI bleeding. He states he does have a primary care physician. This morning he threw up coffee ground material. He does not report any melena yet. He is not complaining of abdominal pain at this time nor persistent nausea. 04/04 admission for UGIB and Endoscopy Note: 73-year-old man with a history of hypertension, diabetes, gastroparesis, seizure, dementia, hyperlipidemia, mitral valve prolapse who presented emergency room with complaints of nausea vomiting coffee-ground emesis with a total of 5 episodes. The patient denied no NSAID use or abdominal pain. The patient had no further episodes after arrival into the emergency room. Patient's H&H remained stable throughout hospitalization. The patient underwent GI consultation and subsequent EGD which revealed hiatal hernia and a grade 2 erosive esophagitis, gastritis and otherwise negative. GI felt the patient would need PPI daily along with Carafate suspension 4 times a day and follow-up as an outpatient. Dedicated discharge time 32 minutes. Disposition: - TO HOME OR SELFCARE Time spent for discharge: 32 - Discharge Diagnoses (1) Coffee ground emesis Status: Acute (2) Gastritis Status: Acute (3) Erosive esophagitis Status: Acute Addendum entered and electronically signed by DEBORAH BLACKMAN MD 03/22/19 17:23: Plan: f/u bx's - PPI qd - follow h/h - Carafate susp qid - if stable in am ok to d/c from GI standpoint - call if needed Original Note: Pre-op diagnosis: gi bleed Post-op diagnosis: same Findings: EGD: hiatal hernia - Grade 2 erosive esophagitis 34-40 cm from gums (bxs) - medium hiatal hernia - gastritis (bx's) - negative other Procedure: EGD Associated Symptoms: denies other symptoms - Related Data Home Medications Medication Instructions Recorded Confirmed Last Taken Atorvastatin Calcium [Lipitor] 80 mg PO QHS 09/18/14 03/22/19 03/16/19 Vitamin D3 1,000 unit PO QDAY 07/20/16 03/22/19 03/17/19 Levomefolate/B6/B12/Algal Oil 1 each PO DAILY 08/02/16 03/22/19 03/17/19 [Metanx Capsule] Magnesium 400 mg PO BID 03/17/19 03/22/19 03/16/19 Sodium Polystyrene Sulfon/Sorb 30 gm PO DAILY 03/17/19 03/22/19 03/16/19 [Kionex 15 gm/60 ml Suspension] Tamsulosin [Flomax] 0.4 mg PO QDAY 03/17/19 03/22/19 03/17/19 Previous Rx's Medication Instructions Recorded Last Taken Type Detemir (Nf) [Levemir (Nf)] 20 units SUB-Q QHS #1000 units 08/05/16 03/16/19 Rx AtorvaSTATin [Lipitor] 40 mg PO QHS #30 tablet 03/23/19 Unknown Rx Gabapentin 300 mg PO TID #90 03/23/19 Unknown Rx Pantoprazole [Protonix TAB] 40 mg PO BID #60 tab 03/23/19 Unknown Rx Allergies Allergy/AdvReac Type Severity Reaction Status Date / Time No Known Allergies Allergy Verified 09/18/14 18:31 ED Review of Systems ROS: Stated complaint: VOMITING Other details as noted in HPI Constitutional: denies: chills, fever Eyes: denies: eye pain, vision change ENT: denies: ear pain, throat pain Respiratory: denies: cough, wheezing Cardiovascular: denies: chest pain, palpitations Endocrine: no symptoms reported Gastrointestinal: vomiting, hematemesis. denies: abdominal pain, nausea, diarrhea Genitourinary: denies: urgency, dysuria Musculoskeletal: denies: back pain, joint swelling, arthralgia Skin: denies: rash, lesions Neurological: denies: headache, weakness, paresthesias Psychiatric: denies: anxiety, depression Hematological/Lymphatic: denies: easy bleeding, easy bruising ED Past Medical Hx - Past Medical History Previous Medical History?: Yes Hx Hypertension: Yes Hx Congestive Heart Failure: No Hx Diabetes: Yes Hx Renal Disease: Yes (ARF) Hx Seizures: Yes Hx Asthma: No Hx COPD: No Hx Dementia: Yes Hx HIV: No Additional medical history: GI bleed, neuropathy, elevated cholesterol. MVP - Surgical History Past Surgical History?: Yes Additional Surgical History: all left toes amputated - Social History Smoking Status: Current Every Day Smoker Substance Use Type: None - Medications Home Medications: Home Medications Medication Instructions Recorded Confirmed Last Taken Type Atorvastatin Calcium [Lipitor] 80 mg PO QHS 09/18/14 03/22/19 03/16/19 History Vitamin D3 1,000 unit PO QDAY 07/20/16 03/22/19 03/17/19 History Levomefolate/B6/B12/Algal Oil 1 each PO DAILY 08/02/16 03/22/19 03/17/19 History [Metanx Capsule] Detemir (Nf) [Levemir (Nf)] 20 units SUB-Q QHS #1000 units 08/05/16 03/22/19 03/16/19 Rx Magnesium 400 mg PO BID 03/17/19 03/22/19 03/16/19 History Sodium Polystyrene Sulfon/Sorb 30 gm PO DAILY 03/17/19 03/22/19 03/16/19 History [Kionex 15 gm/60 ml Suspension] Tamsulosin [Flomax] 0.4 mg PO QDAY 03/17/19 03/22/19 03/17/19 History AtorvaSTATin [Lipitor] 40 mg PO QHS #30 tablet 03/23/19 Unknown Rx Gabapentin 300 mg PO TID #90 03/23/19 Unknown Rx Pantoprazole [Protonix TAB] 40 mg PO BID #60 tab 03/23/19 Unknown Rx ED Physical Exam - General Limitations: Other (hard of hearing, dementia by history) General appearance: alert, in no apparent distress, other ( brings a container with obvious hematemesis but no bright red blood.) - Head Head exam: Present: atraumatic, normocephalic - Eye Eye exam: Present: normal appearance, PERRL, EOMI. Absent: scleral icterus - ENT ENT exam: Present: mucous membranes moist - Neck Neck exam: Present: normal inspection. Absent: tenderness, meningismus - Respiratory Respiratory exam: Present: normal lung sounds bilaterally. Absent: respiratory distress - Cardiovascular Cardiovascular Exam: Present: regular rate, normal rhythm. Absent: systolic murmur, diastolic murmur, rubs, gallop - GI/Abdominal GI/Abdominal exam: Present: soft, normal bowel sounds. Absent: distended, tenderness, guarding, rebound, rigid - Rectal Rectal exam: Present: deferred - Extremities Exam Extremities exam: Present: normal inspection - Back Exam Back exam: Present: normal inspection - Neurological Exam Neurological exam: Present: alert, oriented X3, CN II-XII intact. Absent: motor sensory deficit - Psychiatric Psychiatric exam: Present: normal affect, normal mood - Skin Skin exam: Present: warm, dry, intact, normal color. Absent: rash ED Course Vital Signs 07/19/19 07/19/19 07:37 08:17 Temperature 97.9 F 98.1 F Pulse Rate 86 82 Respiratory 18 13 Rate Blood Pressure 122/66 Blood Pressure 141/52 [Right] O2 Sat by Pulse 99 99 Oximetry - Reevaluation(s) Reevaluation #1: Spoke with hospitalist. GI consultation placed. Patient hemodynamically stab le. Given insulin. 07/19/19 09:08 ED Medical Decision Making - Lab Data Result diagrams: 07/19/19 08:22 07/19/19 08:22 Laboratory Results - last 24 hr 07/19/19 07/19/19 07/19/19 07:52 08:22 08:22 WBC 6.7 RBC 4.78 Hgb 14.1 Hct 42.2 MCV 88 MCH 29 MCHC 33 RDW 14.9 Plt Count 227 Lymph % (Auto) 19.9 Lucas % (Auto) 4.5 Eos % (Auto) 3.7 Baso % (Auto) 0.9 Lymph # 1.3 Lucas # 0.3 Eos # 0.2 Baso # 0.1 Seg Neutrophils % 71.0 H Seg Neutrophils # 4.7 VBG pH Sodium 134 L Potassium 4.5 Chloride 96.3 L Carbon Dioxide 22 Anion Gap 20 BUN 20 Creatinine 1.3 Estimated GFR > 60 BUN/Creatinine Ratio 15 Glucose 436 H POC Glucose 400 H Calcium 9.1 07/19/19 08:22 WBC RBC Hgb Hct MCV MCH MCHC RDW Plt Count Lymph % (Auto) Lucas % (Auto) Eos % (Auto) Baso % (Auto) Lymph # Lucas # Eos # Baso # Seg Neutrophils % Seg Neutrophils # VBG pH 7.450 H Sodium Potassium Chloride Carbon Dioxide Anion Gap BUN Creatinine Estimated GFR BUN/Creatinine Ratio Glucose POC Glucose Calcium - Radiology Data Radiology results: report reviewed (acute findings) Critical care attestation.: If time is entered above; I have spent that time in minutes in the direct care of this critically ill patient, excluding procedure time. ED Disposition Clinical Impression: Upper GI bleeding, Hyperglycemia due to type 1 diabetes mellitus Disposition: OP ADMIT IP TO THIS HOSP Is pt being admited?: Yes Does the pt Need Aspirin: No (hold secondary to GI bleeding) Condition: Stable Instructions: Diabetes Mellitus Type 2 in Adults (ED) Forms: Accompanied Note
[2019-07-19] MEDS ORDERED: SODIUM CHLORIDE 0.9% 1000 ML 1,000 ML IV ONE (08:11)
[2019-07-19] MEDS ORDERED: PANTOPRAZOLE 40 MG INJ IV ONE (08:11)
[2019-07-19 08:49] LABS: Basophils # (Auto) 0.1 K/mm3 (0.0-0.1); Basophils % (Auto) 0.9 % (0.0-1.8); Eosinophils # (Auto) 0.2 K/mm3 (0.0-0.4); Eosinophils % (Auto) 3.7 % (0.0-4.3); Hematocrit 42.2 % (35.5-45.6); Hemoglobin 14.1 gm/dl (11.8-15.2); Lymphocytes # (Auto) 1.3 K/mm3 (1.2-5.4); Lymphocytes % (Auto) 19.9 % (13.4-35.0); Mean Corpuscular HGB Conc 33 % (32-34); Mean Corpuscular Volume 88 fl (84-94); Monocytes # (Auto) 0.3 K/mm3 (0.0-0.8); Monocytes % (Auto) 4.5 % (0.0-7.3); Platelet Count 227 K/mm3 (140-440); Red Blood Count 4.78 M/mm3 (3.65-5.03); Red Cell Distribution Width 14.9 % (13.2-15.2)
--- NOTE | 2019-07-19 08:54 | XRay Report ---
CHEST 1 VIEW INDICATION: Difficulty in breathing. COMPARISON: 03/20/2019 FINDINGS: Support devices: None. Heart: Within normal limits. Lungs/Pleura: No acute air space or interstitial disease. Additional findings: None. IMPRESSION: No acute findings. Signer Name: Dean Salguero Jr, MD Signed: 07/19/2019 8:50 AM Workstation Name: [id number]
[2019-07-19 09:05] LABS: BUN/Creatinine Ratio 15; Blood Urea Nitrogen 20 mg/dL (9-20); Calcium 9.1 mg/dL (8.4-10.2); Hemolysis Index 23
[2019-07-19] MEDS ORDERED: INSULIN REGULAR, HUMAN 100 UNITS/1 ML IV ONE (09:06)
[2019-07-19 09:07] LABS: Alanine Aminotransferase 11 units/L (7-56); Albumin 4.2 g/dL (3.9-5)
[2019-07-19 09:15] LABS: Bilirubin,Direct < 0.2 mg/dL (0-0.2)
[2019-07-19 09:20] LABS: INR 0.95 (0.87-1.13); Partial Thromboplastin Time 23.3 Sec. (24.2-36.6)
--- NOTE | 2019-07-19 10:52 | History and Physical Report ---
History of Present Illness Date of examination: 07/19/19 Date of admission: 07/19/19 09:14 Chief complaint: Coffee-ground emesis History of present illness: Pleasant 73-year-old -[place] male patient with significant past medical history of grade 2 erosive esophagitis diagnosed in March 2019 Presents to the emergency room with coffee-ground emesis, patient denies any melena or rectal bleeding He denies nausea, abdominal pain Denies chest pain or shortness of breath Denies headache dizziness weakness or numbness H&H is stable, vital signs within normal limits Past History Past Medical History: GERD, other (grade 2 erosive esophagitis) Past Surgical History: Other (EGD) Social history: lives with family, smoking. denies: alcohol abuse, prescription drug abuse Family history: hypertension Medications and Allergies Allergies Allergy/AdvReac Type Severity Reaction Status Date / Time No Known Allergies Allergy Verified 09/18/14 18:31 Home Medications Medication Instructions Recorded Confirmed Last Taken Type Atorvastatin Calcium [Lipitor] 80 mg PO QHS 09/18/14 03/22/19 03/16/19 History Vitamin D3 1,000 unit PO QDAY 07/20/16 03/22/19 03/17/19 History Levomefolate/B6/B12/Algal Oil 1 each PO DAILY 08/02/16 03/22/19 03/17/19 History [Metanx Capsule] Detemir (Nf) [Levemir (Nf)] 20 units SUB-Q QHS #1000 units 08/05/16 03/22/19 03/16/19 Rx Magnesium 400 mg PO BID 03/17/19 03/22/19 03/16/19 History Sodium Polystyrene Sulfon/Sorb 30 gm PO DAILY 03/17/19 03/22/19 03/16/19 History [Kionex 15 gm/60 ml Suspension] Tamsulosin [Flomax] 0.4 mg PO QDAY 03/17/19 03/22/19 03/17/19 History AtorvaSTATin [Lipitor] 40 mg PO QHS #30 tablet 03/23/19 Unknown Rx Gabapentin 300 mg PO TID #90 03/23/19 Unknown Rx Pantoprazole [Protonix TAB] 40 mg PO BID #60 tab 03/23/19 Unknown Rx Active Meds: Active Medications Atorvastatin Calcium (Lipitor) 40 mg PO QHS PANDA Gabapentin (Gabapentin) 300 mg PO Q8HR PANDA Sodium Chloride (Nacl 0.9% 1000 Ml) 1,000 mls @ 125 mls/hr IV ONCE ONE Stop: 07/19/19 16:10 Last Admin: 07/19/19 10:32 Dose: 125 mls/hr Documented by: Review of Systems Constitutional: fatigue, weakness, no weight loss, no weight gain Ears, nose, mouth and throat: no nasal congestion, no nasal discharge Cardiovascular: no chest pain, no shortness of breath Respiratory: no cough, no shortness of breath Gastrointestinal: vomiting, coffee ground emesis, no abdominal pain, no nausea, no melena Genitourinary Male: no dysuria, no hematuria Musculoskeletal: no myalgias, no arthritis Integumentary: no rash, no lesions Neurological: weakness, no seizures, no syncope Psychiatric: no anxiety, no depression Endocrine: no cold intolerance, no heat intolerance Hematologic/Lymphatic: no easy bruising, no easy bleeding Allergic/Immunologic: no urticaria, no allergic rhinitis Exam - Constitutional Vitals: Temp Pulse Resp BP Pulse Ox 98.1 F 86 16 155/83 99 07/19/19 08:17 07/19/19 10:01 07/19/19 10:01 07/19/19 10:01 07/19/19 10:01 General appearance: Present: mild distress, cachectic, disheveled - EENT Eyes: Present: PERRL, EOM intact - Neck Neck: Present: supple, normal ROM - Respiratory Respiratory effort: normal Respiratory: bilateral: diminished, negative: rales, rhonchi, wheezing - Cardiovascular Rhythm: regular Heart Sounds: Present: S1 & S2 - Extremities Extremities: no ischemia, No edema - Abdominal General gastrointestinal: Present: tender, non-distended, normal bowel sounds - Integumentary Integumentary: Present: clear, warm - Musculoskeletal Musculoskeletal: strength equal bilaterally, generalized weakness - Psychiatric Psychiatric: appropriate mood/affect, cooperative - Neurologic Neurologic: CNII-XII intact, moves all extremities Results - Labs CBC & Chem 7: 07/19/19 08:22 07/19/19 08:22 Labs: Abnormal lab results 07/19/19 07/19/19 07/19/19 Range/Units 07:52 08:22 08:22 Seg Neutrophils % 71.0 H (40.0-70.0) % APTT (24.2-36.6) Sec. VBG pH (7.320-7.420) Sodium 134 L (137-145) mmol/L Chloride 96.3 L (98-107) mmol/L Glucose 436 H (75-100) mg/dL POC Glucose 400 H (70-105) Magnesium (1.7-2.3) mg/dL Alkaline Phosphatase (35-129) units/L Lipase (13-60) units/L 07/19/19 07/19/19 07/19/19 Range/Units 08:22 08:22 08:22 Seg Neutrophils % (40.0-70.0) % APTT 23.3 L (24.2-36.6) Sec. VBG pH 7.450 H (7.320-7.420) Sodium (137-145) mmol/L Chloride (98-107) mmol/L Glucose (75-100) mg/dL POC Glucose (70-105) Magnesium 2.40 H (1.7-2.3) mg/dL Alkaline Phosphatase 136 H (35-129) units/L Lipase 9 L (13-60) units/L Assessment and Plan --Coffee-ground emesis/upper GI bleeding Nothing by mouth status IV Protonix, monitor H&H Transfuse as needed GI consult --History of erosive esophagitis Patient had extensive GI evaluation in March 2019 History of the grade 2 erosive esophagitis --Ongoing tobacco use; Smoking cessation, nicotine patch as needed --DVT prophylaxis; SCDs Monitor closely and adjust management as needed
[2019-07-19] MEDS ORDERED: MORPHINE 2 MG/1 ML INJ IV PRN (10:58)
[2019-07-19] MEDS ORDERED: NON-FORMULARY EACH (Gabapentin 300 MG) PO SCH (14:00)
[2019-07-19] MEDS: GABAPENTIN 300 MG CAP PO SCH ×2 (14:10→21:09)
--- NOTE | 2019-07-19 16:03 | Event Note ---
Date: 07/19/19 - full consult dictated - pt presented w/ episode n/n last night w/ ?coffee emesis, now stable - h/h stable - start po - if h/h stable in am ok to d/c - call if needed
[2019-07-19] MEDS: INSULIN LISPRO 100 UNIT/ML SUB-Q SCH ×2 (16:40→21:17)
[2019-07-19] MEDS: SODIUM CHLORIDE 0.9% 1000 ML 1,000 ML IV SCH (16:43)
[2019-07-19] MEDS: PANTOPRAZOLE 40 MG INJ IV SCH (21:09)
--- NOTE | 2019-07-19 23:41 | Consultation ---
REFERRING PHYSICIAN: Tori Eng MD INDICATION: Coffee-ground emesis. HISTORY OF PRESENT ILLNESS: The patient is a 73-year-old black male with a history of erosive esophagitis in the past, has been seen for coffee-ground emesis. The patient reports usual state of health. The patient's reports that he had ice cream last night and then beef just before going or lying in bed. She reports he subsequently awoke in the middle of the night with nausea and vomiting. He subsequently noted some coffee-like material and a few specks of blood. She reports this continued for a couple of hours and subsequently she brought him to the Emergency Room. He denies any bright red blood per rectum. He denies any recent signs of GI bleed. The patient subsequently was brought to the Emergency Room and reportedly since that time has not had any more coffee-ground emesis. The patient's history is pertinent for history of erosive esophagitis back in 03/2019. Denies any NSAID use. Denies any lower GI symptoms. PAST MEDICAL HISTORY: 1. Reflux. 2. Erosive esophagitis. ALLERGIES: No known drug allergies. MEDICATIONS: Reviewed and updated in chart. SOCIAL HISTORY: Denies alcohol, tobacco, or IV drug abuse. FAMILY HISTORY: Negative for colon cancer, IBD, or liver disease. REVIEW OF SYSTEMS: GENERAL: Reports mild weakness. HEENT: No visual complaints or tinnitus. PULMONARY: No shortness of breath. No cough. No chest pain. GASTROINTESTINAL: Reports nausea, vomiting and question of coffee-ground emesis. All other points of 13-point review of systems otherwise negative. PHYSICAL EXAMINATION: VITAL SIGNS: Temperature of 98.1, pulse 83, respirations 18, blood pressure 135/80. GENERAL: Fairly nourished black male in no acute distress. HEENT: Pupils equal, round and reactive. PULMONARY: Clear to auscultation bilaterally. CARDIOVASCULAR: Regular rhythm. Normal S1, S2. ABDOMEN: Positive bowel sounds, soft. SKIN: No obvious rashes. LABORATORY DATA: Pertinent for white count of 6.7, hemoglobin and hematocrit of 14.1 and 42.2, platelet count of 227. Chem-7 within normal limits. LFTs within normal limits. ASSESSMENT AND PLAN: A 73-year-old male who late last night had ice cream and beef and then awoke this morning with nausea, vomiting with a report of question of coffee-ground emesis. The patient has a history of erosive esophagitis in the past. The patient denies any significant GI complaints at this time. The patient reports no more nausea, vomiting since coming to the Emergency Room. My suspicion is the patient had some nausea, vomiting and subsequently had some inflammation. We will take a conservative approach. PLAN: 1. Follow hematocrit and transfuse as needed. 2. Start soft diet and advance as tolerated. 3. PPI daily. 4. If tolerating p.o. in a.m., okay to discharge from GI standpoint with followup as an outpatient. 5. Dr. Koch on this weekend, call if needed. JOB# [id number] [facility]
[2019-07-20] MEDS: SODIUM CHLORIDE 0.9% 1000 ML 1,000 ML IV SCH (02:32)
[2019-07-20] MEDS: GABAPENTIN 300 MG CAP PO SCH ×2 (05:16→14:23)
[2019-07-20 06:08] VITALS: BP 139/68
[2019-07-20 07:19] LABS: Hematocrit 40.4 % (35.5-45.6)
[2019-07-20] MEDS: INSULIN LISPRO 100 UNIT/ML SUB-Q SCH ×2 (08:36→12:04)
[2019-07-20] MEDS: PANTOPRAZOLE 40 MG INJ IV SCH (09:28)
[2019-07-20] MEDS ORDERED: TAMSULOSIN 0.4 MG CAP PO SCH (10:00)
--- NOTE | 2019-07-20 13:52 | Discharge Summary ---
Providers - Providers Date of Admission: 07/19/19 09:14 Date of discharge: 07/20/19 Attending physician: OTILIA SANTIAGO 07/19/19 10:46 Consult to Physician [CONS] Routine Comment: Consulting Provider: DEBORAH BLACKMAN Physician Instructions: Reason For Exam: coffee-ground emesis/h/o erosive esophagitis Primary care physician: ORACLE [employer] DEVELOPER Hospitalization Condition: Stable Disposition: DC-01 TO HOME OR SELFCARE Time spent for discharge: 32 min Core Measure Documentation - Palliative Care Palliative Care/ Comfort Measures: Not Applicable - Core Measures Any of the following diagnoses?: none Exam - Constitutional Vitals: Temp Pulse Resp BP Pulse Ox 97.9 F 57 L 18 139/68 95 07/20/19 05:23 07/20/19 07:05 07/20/19 08:46 07/20/19 05:23 07/20/19 05:23 Plan Activity: advance as tolerated Diet: diabetic Additional Instructions: If you have any bleeding ,contact MD or go to ER Follow up with: CORAZON BERNSTEIN MD [Primary Care Provider] - 7 Days DEBORAH BLACKMAN MD [Staff Physician] - 7 Days Forms: Accompanied Note
== END 2019-07-20 14:45 | disposition home or self-care (01) | DRG 379 ==
LOC: ED 07:31 → 4A 09:14
PROVIDERS: ADMIT Internal Medicine; ATTEND Internal Medicine
PROC: 05HQ33Z Insertion of Infusion Device into Left External Jugular Vein, Percutaneous Approach (ICD-10-PCS; principal; 2019-07-19)
DX: K92.2 Gastrointestinal hemorrhage, unspecified (principal); E10.65 Type 1 diabetes mellitus with hyperglycemia; K21.9 Gastro-esophageal reflux disease without esophagitis; F17.200 Nicotine dependence, unspecified, uncomplicated; I10 Essential (primary) hypertension; F03.90 Unspecified dementia, unspecified severity, without behavioral disturbance, psychotic disturbance, mood disturbance, and anxiety; E10.40 Type 1 diabetes mellitus with diabetic neuropathy, unspecified; Z82.49 Family history of ischemic heart disease and other diseases of the circulatory system; Z79.899 Other long term (current) drug therapy; Z71.6 Tobacco abuse counseling; Z89.422 Acquired absence of other left toe(s)
CPT/HCPCS: 36415; 71045; 80048; 80076; 82805; 82962; 83690; 83735; 83880; 85014; 85018; 85025; 85610; 85730; 86850; 86900; 86901; 99406; G0378; C9113; J1815; J7030

== ENCOUNTER 2019-12-17 14:40 | Emergency (ER) | payer BC, MEDICARE ==
[2019-12-17] MEDS ORDERED: SODIUM CHLORIDE 0.9% 500 ML 500 ML IV ONE (15:04)
[2019-12-17] MEDS ORDERED: SODIUM CHLORIDE 0.9% 1000 ML 1,000 ML IV ONE ×3 (15:08→16:29)
--- NOTE | 2019-12-17 15:12 | Emergency Department Report ---
ED General Adult HPI - General Chief complaint: Recheck/Abnormal Lab/Rx Stated complaint: LOW SODIUM PUI?: No Time Seen by Provider: 12/17/19 15:03 Source: patient Mode of arrival: Ambulatory Limitations: No Limitations - History of Present Illness Initial comments: Patient is a 74-year-old F [place] male who has a past medical history of diabetes and renal insufficiency who was sent in by his cashier clerk for low sodium. Patient states he is eating and drinking well but has had some episodes of dizziness when walking and doing certain activities. States this is been going on for 2 to 3 months. Patient has some routine blood work done by his cashier clerk and he was told to report to the hospital. He has had no nausea vomiting diarrhea fevers chills cough cold or congestion at this time. Patient states while resting he feels normal and has his baseline - Related Data Home Medications Medication Instructions Recorded Confirmed Last Taken Atorvastatin Calcium [Lipitor] 80 mg PO QHS 09/18/14 03/22/19 03/16/19 Vitamin D3 1,000 unit PO QDAY 07/20/16 03/22/19 03/17/19 Levomefolate/B6/B12/Algal Oil 1 each PO DAILY 08/02/16 03/22/19 03/17/19 [Metanx Capsule] Magnesium 400 mg PO BID 03/17/19 03/22/19 03/16/19 Sodium Polystyrene Sulfon/Sorb 30 gm PO DAILY 03/17/19 03/22/19 03/16/19 [Kionex 15 gm/60 ml Suspension] Tamsulosin [Flomax] 0.4 mg PO QDAY 03/17/19 03/22/19 03/17/19 Previous Rx's Medication Instructions Recorded Last Taken Type Detemir (Nf) [Levemir (Nf)] 20 units SUB-Q QHS #1000 units 08/05/16 03/16/19 Rx AtorvaSTATin [Lipitor] 40 mg PO QHS #30 tablet 03/23/19 Unknown Rx Gabapentin 300 mg PO TID #90 03/23/19 Unknown Rx Pantoprazole [Protonix TAB] 40 mg PO BID #60 tab 03/23/19 Unknown Rx Allergies Allergy/AdvReac Type Severity Reaction Status Date / Time No Known Allergies Allergy Verified 12/17/19 14:57 ED Review of Systems ROS: Stated complaint: LOW SODIUM Other details as noted in HPI Comment: All other systems reviewed and negative ED Past Medical Hx - Past Medical History Previous Medical History?: Yes Hx Hypertension: Yes Hx Congestive Heart Failure: No Hx Diabetes: Yes Hx Renal Disease: Yes (ARF) Hx Seizures: Yes Hx Asthma: No Hx COPD: No Hx Dementia: Yes Hx HIV: No Additional medical history: GI bleed, neuropathy, elevated cholesterol. MVP - Surgical History Past Surgical History?: Yes Additional Surgical History: all left toes amputated - Social History Smoking Status: Current Every Day Smoker Substance Use Type: None - Medications Home Medications: Home Medications Medication Instructions Recorded Confirmed Last Taken Type Atorvastatin Calcium [Lipitor] 80 mg PO QHS 09/18/14 03/22/19 03/16/19 History Vitamin D3 1,000 unit PO QDAY 07/20/16 03/22/19 03/17/19 History Levomefolate/B6/B12/Algal Oil 1 each PO DAILY 08/02/16 03/22/19 03/17/19 History [Metanx Capsule] Detemir (Nf) [Levemir (Nf)] 20 units SUB-Q QHS #1000 units 08/05/16 03/22/19 03/16/19 Rx Magnesium 400 mg PO BID 03/17/19 03/22/19 03/16/19 History Sodium Polystyrene Sulfon/Sorb 30 gm PO DAILY 03/17/19 03/22/19 03/16/19 History [Kionex 15 gm/60 ml Suspension] Tamsulosin [Flomax] 0.4 mg PO QDAY 03/17/19 03/22/19 03/17/19 History AtorvaSTATin [Lipitor] 40 mg PO QHS #30 tablet 03/23/19 Unknown Rx Gabapentin 300 mg PO TID #90 03/23/19 Unknown Rx Pantoprazole [Protonix TAB] 40 mg PO BID #60 tab 03/23/19 Unknown Rx ED Physical Exam - General Limitations: No Limitations General appearance: alert, in no apparent distress - Head Head exam: Present: atraumatic, normocephalic - Eye Eye exam: Present: normal appearance - ENT ENT exam: Present: mucous membranes moist - Neck Neck exam: Present: normal inspection - Respiratory Respiratory exam: Present: normal lung sounds bilaterally. Absent: respiratory distress, wheezes, rales, rhonchi - Cardiovascular Cardiovascular Exam: Present: regular rate, normal rhythm, normal heart sounds. Absent: systolic murmur, diastolic murmur, rubs, gallop - GI/Abdominal GI/Abdominal exam: Present: soft, normal bowel sounds. Absent: distended, tenderness, guarding, rebound - Rectal Rectal exam: Present: deferred - Extremities Exam Extremities exam: Present: normal inspection - Back Exam Back exam: Present: normal inspection - Neurological Exam Neurological exam: Present: alert, oriented X3 - Psychiatric Psychiatric exam: Present: normal affect, normal mood - Skin Skin exam: Present: warm, dry, intact, normal color. Absent: rash ED Course Vital Signs 12/17/19 12/17/19 12/17/19 14:57 16:51 16:57 Temperature 97.4 F L Pulse Rate 72 71 Respiratory 18 16 Rate Blood Pressure 92/51 Blood Pressure 149/84 [Right] O2 Sat by Pulse 97 98 98 Oximetry ED Medical Decision Making - Lab Data Result diagrams: 12/17/19 15:13 12/17/19 15:13 - Medical Decision Making Patient was given 3 L of normal saline to correct his dehydration hyponatremia. Blood glucose decreased to an acceptable range. Patient stable for discharge. Critical care attestation.: If time is entered above; I have spent that time in minutes in the direct care of this critically ill patient, excluding procedure time. ED Disposition Clinical Impression: Dehydration, Hyperglycemia, Hyponatremia Disposition: -01 TO HOME OR SELFCARE Is pt being admited?: No Does the pt Need Aspirin: No Condition: Stable Instructions: Dehydration (ED), Diabetic Hyperglycemia (ED), Hyponatremia (ED) Referrals: PRIMARY CARE, [Primary Care Provider] - 3-5 Days Time of Disposition: 18:53
[2019-12-17 15:46] LABS: Basophils # (Auto) 0.1 K/mm3 (0.0-0.1); Basophils % (Auto) 1.3 % (0.0-1.8); Eosinophils # (Auto) 0.8 K/mm3 (0.0-0.4); Eosinophils % (Auto) 9.2 % (0.0-4.3); Hematocrit 38.7 % (35.5-45.6); Hemoglobin 12.7 gm/dl (11.8-15.2); Lymphocytes % (Auto) 34.2 % (13.4-35.0); Mean Corpuscular HGB Conc 33 % (32-34); Mean Corpuscular Volume 89 fl (84-94); Monocytes # (Auto) 0.5 K/mm3 (0.0-0.8); Monocytes % (Auto) 5.6 % (0.0-7.3); Red Blood Count 4.36 M/mm3 (3.65-5.03); Red Cell Distribution Width 14.2 % (13.2-15.2)
[2019-12-17 16:07] LABS: Calcium 9.2 mg/dL (8.4-10.2)
[2019-12-17] MEDS ORDERED: INSULIN REGULAR, HUMAN 100 UNITS/1 ML IV ONE ×2 (16:29→18:50)
[2019-12-17 17:02] LABS: Platelet Count 211 K/mm3 (140-440)
[2019-12-17 19:31] VITALS: BP 141/76
== END 2019-12-17 19:41 | disposition home or self-care (01) ==
LOC: ED 14:40
DX: E11.65 Type 2 diabetes mellitus with hyperglycemia (principal); E86.0 Dehydration; E87.1 Hypo-osmolality and hyponatremia; I10 Essential (primary) hypertension; R56.9 Unspecified convulsions; F03.90 Unspecified dementia, unspecified severity, without behavioral disturbance, psychotic disturbance, mood disturbance, and anxiety; F17.200 Nicotine dependence, unspecified, uncomplicated; Z98.890 Other specified postprocedural states; Z79.899 Other long term (current) drug therapy
CPT/HCPCS: 36415; 80048; 82962; 85025; 96361; 96374; 96376; 99284; J7030; J1815

== ENCOUNTER 2020-03-07 21:25 | Observation (INO) | payer BC, MEDICARE ==
[2020-03-07 23:41] LABS: Calcium 10.3 mg/dL (8.4-10.2)
[2020-03-07 23:48] LABS: Basophils # (Auto) 0.1 K/mm3 (0.0-0.1); Basophils % (Auto) 1.2 % (0.0-1.8); Eosinophils # (Auto) 0.4 K/mm3 (0.0-0.4); Eosinophils % (Auto) 5.5 % (0.0-4.3); Hematocrit 41.4 % (35.5-45.6); Hemoglobin 13.9 gm/dl (11.8-15.2); Lymphocytes # (Auto) 2.5 K/mm3 (1.2-5.4); Lymphocytes % (Auto) 33.2 % (13.4-35.0); Mean Corpuscular HGB Conc 34 % (32-34); Mean Corpuscular Volume 90 fl (84-94); Monocytes # (Auto) 0.5 K/mm3 (0.0-0.8); Platelet Count 224 K/mm3 (140-440); Red Blood Count 4.62 M/mm3 (3.65-5.03); Red Cell Distribution Width 14.3 % (13.2-15.2)
[2020-03-08] MEDS ORDERED: SODIUM CHLORIDE 0.9% 1000 ML 1,000 ML IV ONE (00:02)
[2020-03-08] MEDS ORDERED: SODIUM BICARB 8.4% 50 MEQ/50 ML SYRINGE IV ONE (00:03)
[2020-03-08] MEDS ORDERED: INSULIN REGULAR, HUMAN 100 UNIT/ML 3ML VIAL IV ONE (00:03)
--- NOTE | 2020-03-08 00:05 | Emergency Department Report ---
ED General Adult HPI - General Chief complaint: BP Check / Ring removal req Stated complaint: BLOOD PRESSURE PUI?: No Time Seen by Provider: 03/07/20 23:58 Source: patient Mode of arrival: Ambulatory Limitations: No Limitations - History of Present Illness Initial comments: This is a 74-year-old male with history of insulin-dependent diabetes, gastroparesis, esophagitis who presents with low blood pressure. stated that blood pressure was 71/57. In general patient has been his normal state of health. He has intermittent chronic abdominal pain which is unchanged. Mild nondescript pain in his abdomen. He is currently pain-free. He denies fever. Denies chest pain. Denies shortness of breath. He denies cough. Denies syncope. -: Gradual, This evening Severity scale (0 -10): 0 Consistency: now resolved Improves with: none Worsens with: none Associated Symptoms: denies other symptoms Treatments Prior to Arrival: none - Related Data Home Medications Medication Instructions Recorded Confirmed Last Taken Atorvastatin Calcium [Lipitor] 80 mg PO QHS 09/18/14 03/22/19 03/16/19 Vitamin D3 1,000 unit PO QDAY 07/20/16 03/22/19 03/17/19 Levomefolate/B6/B12/Algal Oil 1 each PO DAILY 08/02/16 03/22/19 03/17/19 [Metanx Capsule] Magnesium 400 mg PO BID 03/17/19 03/22/19 03/16/19 Sodium Polystyrene Sulfon/Sorb 30 gm PO DAILY 03/17/19 03/22/19 03/16/19 [Kionex 15 gm/60 ml Suspension] Tamsulosin [Flomax] 0.4 mg PO QDAY 03/17/19 03/22/19 03/17/19 Previous Rx's Medication Instructions Recorded Last Taken Type Detemir (Nf) [Levemir (Nf)] 20 units SUB-Q QHS #1000 units 08/05/16 03/16/19 Rx AtorvaSTATin [Lipitor] 40 mg PO QHS #30 tablet 03/23/19 Unknown Rx Gabapentin 300 mg PO TID #90 03/23/19 Unknown Rx Pantoprazole [Protonix TAB] 40 mg PO BID #60 tab 03/23/19 Unknown Rx Allergies Allergy/AdvReac Type Severity Reaction Status Date / Time No Known Allergies Allergy Verified 12/17/19 14:57 ED Review of Systems ROS: Stated complaint: BLOOD PRESSURE Other details as noted in HPI Comment: All other systems reviewed and negative Constitutional: denies: fever, malaise Respiratory: denies: cough, shortness of breath Cardiovascular: denies: chest pain Gastrointestinal: abdominal pain. denies: nausea, vomiting, diarrhea ED Past Medical Hx - Past Medical History Previous Medical History?: Yes Hx Hypertension: Yes Hx Congestive Heart Failure: No Hx Diabetes: Yes Hx Renal Disease: Yes (ARF) Hx Seizures: Yes Hx Asthma: No Hx COPD: No Hx Dementia: Yes Hx HIV: No Additional medical history: GI bleed, neuropathy, elevated cholesterol. MVP - Surgical History Past Surgical History?: Yes Additional Surgical History: all left toes amputated - Social History Smoking Status: Current Every Day Smoker Substance Use Type: None - Medications Home Medications: Home Medications Medication Instructions Recorded Confirmed Last Taken Type Atorvastatin Calcium [Lipitor] 80 mg PO QHS 09/18/14 03/22/19 03/16/19 History Vitamin D3 1,000 unit PO QDAY 07/20/16 03/22/19 03/17/19 History Levomefolate/B6/B12/Algal Oil 1 each PO DAILY 08/02/16 03/22/19 03/17/19 History [Metanx Capsule] Detemir (Nf) [Levemir (Nf)] 20 units SUB-Q QHS #1000 units 08/05/16 03/22/19 03/16/19 Rx Magnesium 400 mg PO BID 03/17/19 03/22/19 03/16/19 History Sodium Polystyrene Sulfon/Sorb 30 gm PO DAILY 03/17/19 03/22/19 03/16/19 History [Kionex 15 gm/60 ml Suspension] Tamsulosin [Flomax] 0.4 mg PO QDAY 03/17/19 03/22/19 03/17/19 History AtorvaSTATin [Lipitor] 40 mg PO QHS #30 tablet 03/23/19 Unknown Rx Gabapentin 300 mg PO TID #90 03/23/19 Unknown Rx Pantoprazole [Protonix TAB] 40 mg PO BID #60 tab 03/23/19 Unknown Rx ED Physical Exam - General Limitations: No Limitations General appearance: alert, in no apparent distress - Head Head exam: Present: atraumatic, normocephalic, other (3 cm right forehead cyst) - Eye Eye exam: Present: normal appearance - ENT ENT exam: Present: mucous membranes moist - Neck Neck exam: Present: normal inspection, full ROM - Respiratory Respiratory exam: Present: normal lung sounds bilaterally. Absent: respiratory distress, wheezes, rales, rhonchi - Cardiovascular Cardiovascular Exam: Present: regular rate, normal rhythm, normal heart sounds. Absent: systolic murmur, diastolic murmur, rubs, gallop - GI/Abdominal GI/Abdominal exam: Present: soft, normal bowel sounds. Absent: distended, tenderness, guarding, rebound - Rectal Rectal exam: Present: deferred - Extremities Exam Extremities exam: Present: other (No pedal edema) - Neurological Exam Neurological exam: Present: alert, oriented X3 - Psychiatric Psychiatric exam: Present: normal affect, normal mood - Skin Skin exam: Present: warm, dry, intact, normal color. Absent: rash ED Course Vital Signs 03/07/20 03/08/20 03/08/20 22:32 00:02 00:04 Temperature 97.2 F L 97.6 F Pulse Rate 73 74 Respiratory 18 16 Rate Blood Pressure 116/67 Blood Pressure 76/49 [Right] O2 Sat by Pulse 99 100 100 Oximetry 03/08/20 03/08/20 03/08/20 00:22 00:31 00:45 Temperature Pulse Rate 77 69 68 Respiratory 15 9 L 9 L Rate Blood Pressure 76/49 76/49 76/49 Blood Pressure [Right] O2 Sat by Pulse Oximetry 03/08/20 03/08/20 03/08/20 01:01 01:15 01:31 Temperature Pulse Rate 70 76 84 Respiratory 9 L 10 L 9 L Rate Blood Pressure 76/49 76/49 76/49 Blood Pressure [Right] O2 Sat by Pulse Oximetry 03/08/20 03/08/20 01:45 02:00 Temperature Pulse Rate 75 74 Respiratory 11 L 18 Rate Blood Pressure 113/74 108/67 Blood Pressure [Right] O2 Sat by Pulse 99 97 Oximetry ED Medical Decision Making - Lab Data Result diagrams: 03/07/20 22:56 03/07/20 22:56 Laboratory Results - last 24 hr 03/07/20 03/07/20 03/08/20 22:56 22:56 01:39 WBC 7.6 RBC 4.62 Hgb 13.9 Hct 41.4 MCV 90 MCH 30 MCHC 34 RDW 14.3 Plt Count 224 Lymph % (Auto) 33.2 Union % (Auto) 6.0 Eos % (Auto) 5.5 H Baso % (Auto) 1.2 Lymph # 2.5 Union # 0.5 Eos # 0.4 Baso # 0.1 Seg Neutrophils % 54.1 Seg Neutrophils # 4.1 Sodium 125 L Potassium 6.4 H* Chloride 82.6 L Carbon Dioxide 22 Anion Gap 27 BUN 51 H Creatinine 1.9 H Estimated GFR 42 BUN/Creatinine Ratio 27 Glucose 668 H* POC Glucose 462 H Calcium 10.3 H - EKG Data 03/08/20 01:25 EKG obtained 0 116 interpreted by me Normal sinus rhythm rate 70 bpm normal axis normal intervals poor R wave progr ession anterior leads no ST elevation nonischemic T wave pattern - Radiology Data Radiology results: report reviewed, image reviewed CT ABDOMEN AND PELVIS WITHOUT CONTRAST INDICATION: Acute kidney injury. Hypotension. TECHNICAL: Multiple axial CT images of the abdomen and pelvis were acquired without intravenous contrast. Sagittal and coronal reformats were obtained. All CTs at this facility utilize dose r eduction techniques including automated exposure control, iterative reconstruction and weight based dosing when appropriate to reduce patient radiation dose to as low as reasonable achievable. COMPARISON: CT of the abdomen and pelvis, 02/16/2019 FINDINGS: Limited imaging of the bilateral lung bases demonstrates no evidence of acute abnormality. Abdomen: Evaluation of the abdomen is limited secondary to the lack of intravenous contrast and lack of intra-abdominal fat. Given these limitations, the liver, gallbladder, spleen, pancreas, bilateral adrenal glands and bilateral kidneys show no definitive evidence of acute abnormality. The previously described left renal lesion is not clearly visualized due to the lack of intravenous contrast. There is no evidence of bowel obstruction. There is a moderate amount of retained stool throughout the colon. The appendix is visualized and appears normal. Pelvis: No free fluid is seen within the pelvis. There is a significant amount of stool noted throughout the distal colon and rectum. The urinary bladder appears normal. Bones and Soft Tissues: Evaluation of bony structures demonstrates no evidence of acute bony abnormality. Evaluation of soft tissue structures demonstrates no evidence of acute soft tissue abnormality. IMPRESSION: 1. No CT evidence of acute inflammatory or obstructive process within the abdomen or pelvis. 2. Moderate amount of retained stool throughout the colon and rectum suggests constipation. - Medical Decision Making 1. Acute kidney injury: Prerenal injury pattern. Differential diagnosis includes volume contraction due to diuretic use or prolonged hyperglycemia, versus obstructive uropathy. Patient treated with IV fluid therapy. Hyperkalemia addressed with calcium, sodium bicarbonate, insulin. Next Cage catheter was inserted. Nurse reported 500 mL of urine expressed. I reviewed CT abdomen pelvis images, my impression bladder was distended. Corrected hyponatremia suggest hypovolemia. Especially in the setting of reported hypotension 2. Acute hyperglycemia: Addressed with IV fluid therapy IV insulin. Facilities Maintenance Technician Dr. Contreras consulted Patient has been normotensive during ED encounter. Admitted to hospital service telemetry. Critical care attestation.: If time is entered above; I have spent that time in minutes in the direct care of this critically ill patient, excluding procedure time. ED Disposition Clinical Impression: Acute kidney injury, Hyperglycemia due to type 1 diabetes mellitus Disposition: OP ADMIT IP TO THIS HOSP Is pt being admited?: Yes Does the pt Need Aspirin: No Condition: Stable
--- NOTE | 2020-03-08 00:56 | Cat Scan Report ---
CT ABDOMEN AND PELVIS WITHOUT CONTRAST INDICATION: Acute kidney injury. Hypotension. TECHNICAL: Multiple axial CT images of the abdomen and pelvis were acquired without intravenous contr ast. Sagittal and coronal reformats were obtained. All CTs at this facility utilize dose reduction techniques including automated exposure control, iterative reconstruction and weight based dosing whe n appropriate to reduce patient radiation dose to as low as reasonable achievable. COMPARISON: CT of the abdomen and pelvis, 02/16/2019 FINDINGS: Limited imaging of the bilateral lung bases demonstrates no evidence of acute abnormality. Abdomen: Evaluation of the abdomen is limited secondary to the lack of intravenous contrast and lack of intra-abdominal fat. Given these limitations, the liver, gallbladder, spleen, pancreas, bilateral adrenal glands and bilateral kidneys show no definitive evidence of acute abnormality. The previously described left renal lesion is not clearly visualized due to the lack of intravenous contrast. There is no evidence of bowel obstruction. There is a moderate amount of retained stool throughout the col on. The appendix is visualized and appears normal. Pelvis: No free fluid is seen within the pelvis. There is a significant amount of stool noted through out the distal colon and rectum. The urinary bladder appears normal. Bones and Soft Tissues: Evaluation of bony structures demonstrates no evidence of acute bony abnormal ity. Evaluation of soft tissue structures demonstrates no evidence of acute soft tissue abnormality. IMPRESSION: 1. No CT evidence of acute inflammatory or obstructive process within the abdomen or pelvis. 2. Moderate amount of retained stool throughout the colon and rectum suggests constipation. Signer Name: Abeba Keene MD Signed: 03/08/2020 12:52 AM Workstation Name: [id number]
[2020-03-08] MEDS ORDERED: CALCIUM GLUCONATE 1,000 MG in SODIUM CHLORIDE 0.9% 100 ML IV ONE (01:03)
[2020-03-08] MEDS ORDERED: DEXTROSE 50% IN WATER (25GM) 50 ML SYRINGE IV PRN (03:03)
[2020-03-08] MEDS ORDERED: ONDANSETRON 4 MG/2 ML INJ IV PRN (03:03)
[2020-03-08] MEDS ORDERED: MAGNESIUM HYDROXIDE (MOM) ORAL LIQD UDC PO PRN (03:03)
[2020-03-08] MEDS ORDERED: ACETAMINOPHEN 325 MG TAB PO PRN (03:03)
--- NOTE | 2020-03-08 03:16 | History and Physical Report ---
History of Present Illness Date of examination: 03/08/20 Date of admission: 03/08/2020 Chief complaint: Low Blood Pressure History of present illness: 74-year-old male with known history of diabetes mellitus, gastroparesis, hypertension, hyperlipidemia and dementia presenting to the emergency room today because of low blood pressure. indicates that blood pressure was about 70s in the systolic and 50s diastolic. He denies any headaches or dizziness, no fever or chills, no chest pain, no shortness of breath, no nausea or vomiting, no diarrhea. He has had i ntermittent abdominal pain in the past which has resolved. Upon arrival in the emergency room bladder was found to be distended and Cage catheter was placed. Work-up reveals hyperglycemia and hyperkalemia. BUN and creatinine was also found to be elevated. Information Broker Dr. Contreras was consulted by the ER physician and will be evaluating patient. Past History Past Medical History: hypertension, hyperlipidemia, seizures, other (Neuropathy, esophagitis, Gastroparesis, Dementia,MVP.) Past Surgical History: Other (Left foot partial amputation) Social history: smoking (Current daily smoker) Family history: no significant family history Medications and Allergies Allergies Allergy/AdvReac Type Severity Reaction Status Date / Time No Known Allergies Allergy Verified 12/17/19 14:57 Home Medications Medication Instructions Recorded Confirmed Last Taken Type Atorvastatin Calcium [Lipitor] 80 mg PO QHS 09/18/14 03/22/19 03/16/19 History Vitamin D3 1,000 unit PO QDAY 07/20/16 03/22/19 03/17/19 History Levomefolate/B6/B12/Algal Oil 1 each PO DAILY 08/02/16 03/22/19 03/17/19 History [Metanx Capsule] Detemir (Nf) [Levemir (Nf)] 20 units SUB-Q QHS #1000 units 08/05/16 03/22/19 Rx Magnesium 400 mg PO BID 03/17/19 03/22/19 03/16/19 History Sodium Polystyrene Sulfon/Sorb 30 gm PO DAILY 03/17/19 03/22/19 03/16/19 History [Kionex 15 gm/60 ml Suspension] Tamsulosin [Flomax] 0.4 mg PO QDAY 03/17/19 03/22/19 03/17/19 History AtorvaSTATin [Lipitor] 40 mg PO QHS #30 tablet 03/23/19 Unknown Rx Gabapentin 300 mg PO TID #90 03/23/19 Unknown Rx Pantoprazole [Protonix TAB] 40 mg PO BID #60 tab 03/23/19 Unknown Rx Active Meds: Active Medications Acetaminophen (Tylenol) 650 mg PO Q4H PRN PRN Reason: Pain MILD(1-3)/Fever >100.5/ONEILL Dextrose (D50w (25gm) Syringe) 50 ml IV Q30MIN PRN; Protocol PRN Reason: Hypoglycemia Dextrose (D50w (25gm) Syringe) 50 ml IV Q30MIN PRN; Protocol PRN Reason: Hypoglycemia Sodium Chloride (Nacl 0.9% 1000 Ml) 1,000 mls @ 125 mls/hr IV DIRECT PANDA Insulin Human Lispro (Humalog) 0 unit SUB-Q ACHS [facility]; Protocol Magnesium Hydroxide (Milk Of Magnesia) 30 ml PO Q4H PRN PRN Reason: Constipation Ondansetron HCl (Zofran) 4 mg IV Q8H PRN PRN Reason: Nausea And Vomiting Sodium Chloride (Sodium Chloride Flush Syringe 10 Ml) 10 ml IV BID PANDA Sodium Chloride (Sodium Chloride Flush Syringe 10 Ml) 10 ml IV PRN PRN PRN Reason: LINE FLUSH Review of Systems Constitutional: no fever, no chills Ears, nose, mouth and throat: no nasal congestion, no sore throat Cardiovascular: no chest pain, no palpitations Respiratory: no cough, no shortness of breath Gastrointestinal: no abdominal pain, no nausea, no vomiting, no diarrhea Genitourinary Male: no dysuria, no hematuria, no flank pain Musculoskeletal: no neck pain, no low back pain Integumentary: no rash, no pruritis Neurological: no headaches, no confusion Psychiatric: no anxiety, no depression Exam - Constitutional Vitals: Temp Pulse Resp BP Pulse Ox 97.6 F 74 18 108/67 97 03/08/20 00:04 03/08/20 02:00 03/08/20 02:00 03/08/20 02:00 03/08/20 02:00 General appearance: Present: no acute distress, well-nourished - EENT Eyes: Present: PERRL, EOM intact. Absent: scleral icterus ENT: hearing intact, clear oral mucosa, dentition normal - Neck Neck: Present: supple, normal ROM - Respiratory Respiratory effort: normal Respiratory: bilateral: CTA - Cardiovascular Rhythm: regular Heart Sounds: Present: S1 & S2. Absent: gallop, systolic murmur, diastolic murmur, rub - Extremities Extremities: no ischemia, pulses intact, pulses symmetrical, No edema, Full ROM Extremity abnormal: other (Left foot partial amputation) Peripheral Pulses: within normal limits - Abdominal General gastrointestinal: Present: soft, non-tender, non-distended. Absent: mass - Integumentary Integumentary: Present: clear, warm, dry. Absent: rash - Musculoskeletal Musculoskeletal: strength equal bilaterally - Psychiatric Psychiatric: appropriate mood/affect, intact judgment & insight, memory intact, cooperative - Neurologic Neurologic: CNII-XII intact, no focal deficits, moves all extremities Results - Labs CBC & Chem 7: 03/07/20 22:56 03/08/20 02:32 Labs: Abnormal lab results 03/07/20 03/07/20 03/08/20 Range/Units 22:56 22:56 01:39 Eos % (Auto) 5.5 H (0.0-4.3) % Sodium 125 L (137-145) mmol/L Potassium 6.4 H* (3.6-5.0) mmol/L Chloride 82.6 L (98-107) mmol/L BUN 51 H (9-20) mg/dL Creatinine 1.9 H (0.8-1.3) mg/dL Glucose 668 H* (75-100) mg/dL POC Glucose 462 H (70-105) Calcium 10.3 H (8.4-10.2) mg/dL Assessment and Plan - Patient Problems (1) Acute kidney injury Current Visit: Yes Status: Acute Plan to address problem: Patient placed on IV fluid and will monitor BUN and creatinine. Information Broker Dr. Contreras has been consulted for further evaluation and recommendation. (2) Hyperkalemia Current Visit: Yes Status: Acute Plan to address problem: Patient has had insulin and glucose, sodium bicarbonate, calcium gluconate. Will monitor potassium level. (3) Hyperglycemia Current Visit: No Status: Acute Plan to address problem: Patient placed on sliding scale insulin. Will monitor Accu-Cheks closely. (4) DVT prophylaxis Current Visit: Yes Status: Acute Plan to address problem: Patient placed on subcutaneous heparin. (5) Full code status Current Visit: Yes Status: Acute
[2020-03-08] MEDS ORDERED: INSULIN REGULAR, HUMAN 100 UNIT/ML 3ML VIAL ONE (03:59)
[2020-03-08] MEDS ORDERED: INSULIN REGULAR, HUMAN 100 UNITS/1 ML ONE ×2 (04:00)
[2020-03-08] MEDS: SODIUM CHLORIDE 0.9% 1000 ML 1,000 ML IV SCH ×3 (04:57→21:24)
[2020-03-08] MEDS: INSULIN LISPRO 100 UNIT/ML VIAL 3 mL SUB-Q SCH ×4 (08:23→21:25)
--- NOTE | 2020-03-08 11:28 | Consultation ---
History of Present Illness - Reason for Consult Consult date: 03/08/20 acute renal failure - History of Present Illness 74-year-old male with known history of diabetes mellitus, gastroparesis, hy pertension, hyperlipidemia and dementia was admitted last night for hypotension, she was found to have severe hyperglycemia, hyperkalemia and MAHSA. renal consult was requested for management of acute renal failure Upon arrival in the emergency room bladder was found to be distended and Cage catheter was placed. Past History Past Medical History: hypertension, hyperlipidemia, seizures, other (Neuropathy, esophagitis, Gastroparesis, Dementia,MVP.) Past Surgical History: Other (Left foot partial amputation) Social history: smoking (Current daily smoker) Family history: no significant family history Medications and Allergies Allergies Allergy/AdvReac Type Severity Reaction Status Date / Time No Known Allergies Allergy Verified 12/17/19 14:57 Home Medications Medication Instructions Recorded Confirmed Last Taken Type Atorvastatin Calcium [Lipitor] 80 mg PO QHS 09/18/14 03/22/19 03/16/19 History Vitamin D3 1,000 unit PO QDAY 07/20/16 03/22/19 03/17/19 History Levomefolate/B6/B12/Algal Oil 1 each PO DAILY 08/02/16 03/22/19 03/17/19 History [Metanx Capsule] Detemir (Nf) [Levemir (Nf)] 20 units SUB-Q QHS #1000 units 08/05/16 03/22/19 03/16/19 Rx Magnesium 400 mg PO BID 03/17/19 03/22/19 03/16/19 History Sodium Polystyrene Sulfon/Sorb 30 gm PO DAILY 03/17/19 03/22/19 03/16/19 History [Kionex 15 gm/60 ml Suspension] Tamsulosin [Flomax] 0.4 mg PO QDAY 03/17/19 03/22/19 03/17/19 History AtorvaSTATin [Lipitor] 40 mg PO QHS #30 tablet 03/23/19 Unknown Rx Gabapentin 300 mg PO TID #90 03/23/19 Unknown Rx Pantoprazole [Protonix TAB] 40 mg PO BID #60 tab 03/23/19 Unknown Rx Active Meds: Active Medications Acetaminophen (Tylenol) 650 mg PO Q4H PRN PRN Reason: Pain MILD(1-3)/Fever >100.5/ONEILL Atorvastatin Calcium (Lipitor) 40 mg PO QHS [facility] Dextrose (D50w (25gm) Syringe) 0 ml IV Q30MIN PRN; Protocol PRN Reason: Hypoglycemia Gabapentin (Gabapentin) 300 mg PO TID [facility] Sodium Chloride (Nacl 0.9% 1000 Ml) 1,000 mls @ 125 mls/hr IV DIRECT [facility] Last Admin: 03/08/20 04:57 Dose: 125 mls/hr Documented by: Insulin Glargine (Lantus) 20 units SUB-Q QHS [facility] Insulin Human Lispro (Humalog) 0 unit SUB-Q ACHS [facility]; Protocol Last Admin: 03/08/20 08:23 Dose: 6 unit Documented by: Magnesium Hydroxide (Milk Of Magnesia) 30 ml PO Q4H PRN PRN Reason: Constipation Miscellaneous Medication (Levomefolate/B6/B12/Algal Oil [Metanx Capsule]) 1 each PO DAILY [facility] Ondansetron HCl (Zofran) 4 mg IV Q8H PRN PRN Reason: Nausea And Vomiting Pantoprazole Sodium (Protonix) 40 mg PO BID [facility] Sodium Chloride (Sodium Chloride Flush Syringe 10 Ml) 10 ml IV BID [facility] Last Admin: 03/08/20 09:16 Dose: 10 ml Documented by: Sodium Chloride (Sodium Chloride Flush Syringe 10 Ml) 10 ml IV PRN PRN PRN Reason: LINE FLUSH Tamsulosin HCl (Flomax) 0.4 mg PO QDAY [facility] Review of Systems All systems: negative (weakness) Exam - Vital Signs Vital signs: Vital Signs Temp Pulse Resp BP Pulse Ox 97.2 F L 73 18 116/67 99 03/07/20 22:32 03/07/20 22:32 03/07/20 22:32 03/07/20 22:32 03/07/20 22:32 - General Appearance General appearance: well-developed EENT: ATNC, PERRL, mucous membranes dry Neck: Present: neck supple Respiratory: Clear to Ascultation Heart: regular, S1S2 Gastrointestinal: Present: normoactive bowel sounds. Absent: tenderness, distended Integumentary: no rash, warm and dry Neurologic: no focal deficit, no asterixis Musculoskeletal: Present: other (no edema in BLE) Psychiatric: cooperative Results - Lab Results 03/07/20 22:56 03/08/20 02:32 Most recent lab results Calcium 10.3 mg/dL (8.4-10.2) H 03/07/20 22:56 Assessment and Plan acute renal failure, likelt prerenal azotemia with possible ischemic ATN Hyperkalemia DM type II Hypotension cont NS 125 cc/h will check urine lytes, protein and eos will check renal US renally dose meds strict I&O daily weight Gianfranco schwartz MD [phone]
[2020-03-08] MEDS: PANTOPRAZOLE 40 MG TAB PO SCH ×2 (11:48→21:24)
[2020-03-08] MEDS: TAMSULOSIN 0.4 MG CAP PO SCH (11:48)
[2020-03-08] MEDS ORDERED: NON-FORMULARY EACH (Gabapentin 300 MG) PO SCH (14:00)
[2020-03-08] MEDS: GABAPENTIN 300 MG CAP PO SCH ×2 (14:16→21:25)
[2020-03-08 14:37] LABS: Bilirubin,Urine NEG (Negative); Blood,Urine LG (Negative); Color,Urine Yellow (Yellow); Mucus,Urine FEW /HPF; Protein,Urine <15 mg/dL mg/dL (Negative); RBC,Urine > 182.0 /HPF (0.0-6.0); Urobilinogen,Urine < 2.0 mg/dL (<2.0)
[2020-03-08 14:50] LABS: Creatinine,Urine 112.4 mg/dL (0.1-20.0); Protein/Creatinine Ratio,Urine 0.18
[2020-03-08 16:20] LABS: Calcium 9.7 mg/dL (8.4-10.2)
--- NOTE | 2020-03-08 21:49 | Ultrasound Report ---
ULTRASOUND RENAL INDICATION: renal failure. COMPARISON: CT earlier today. FINDINGS: RIGHT KIDNEY: Size: 9.3 cm. Echogenicity: Normal. Cortical thickness: Normal. Stones: None. Hydronephrosis: None. Cyst or mass: There is an 8 mm hyperechoic lesion in the lower pole. There is a subcentimeter cyst at the lower pole as well.. LEFT KIDNEY: Size: 10.1 cm. Echogenicity: Normal. Cortical thickness: Normal. Stones: None. Hydronephrosis: None. Cyst or mass: Subcentimeter cysts are noted. The talent sourcing specialist measured a isoechoic focus in the centra l left kidney.. Urinary Bladder: Collapsed and a Cage catheter.. Free Fluid: None. Additional Findings: None. IMPRESSION 1. No acute sonographic abnormality of the kidneys. 2. In addition to small cysts, the talent sourcing specialist measured subcentimeter hyperechoic focus in the right kidney and a 2.2 cm isoechoic focus in the mid left kidney. No definite corresponding abnormality is seen on the CT abdomen without contrast from earlier today. However, complex left renal lesion was de scribed on more remote prior CT from 02/16/2019. CT without and with intravenous contrast is recommende jackeline Signer Name: Brendan Ludwig MD Signed: 03/08/2020 9:45 PM Workstation Name: [id number]
[2020-03-08] MEDS ORDERED: INSULIN GLARGINE 100 UNITS/ML SUB-Q SCH (22:00)
[2020-03-08] MEDS ORDERED: DETEMIR SUB-Q SCH (22:00)
--- NOTE | 2020-03-08 22:45 | Event Note ---
Date: 03/08/20 Patient seen and examined 74-year-old male with known history of diabetes mellitus, gastroparesis, hypertension, hyperlipidemia and dementia presented to the emergency room because of that blood pressure was about 70s in the systolic and 50s diastolic. Upon arrival in the emergency room bladder was found to be distended and Cage catheter was placed. Work-up reveals hyperglycemia and hyperkalemia. BUN and creatinine was also found to be elevated. Fertilizer Loader Dr. Contreras was consulted by the ER physician cont current mx and plan follow BMP and monitor BG
[2020-03-09 05:18] LABS: BUN/Creatinine Ratio 23; Blood Urea Nitrogen 30 mg/dL (9-20); Calcium 8.6 mg/dL (8.4-10.2); Hemolysis Index 5
[2020-03-09 05:31] LABS: Basophils # (Auto) 0.1 K/mm3 (0.0-0.1); Basophils % (Auto) 0.9 % (0.0-1.8); Eosinophils # (Auto) 0.6 K/mm3 (0.0-0.4); Eosinophils % (Auto) 7.4 % (0.0-4.3); Hematocrit 35.8 % (35.5-45.6); Lymphocytes # (Auto) 2.7 K/mm3 (1.2-5.4); Lymphocytes % (Auto) 33.6 % (13.4-35.0); Mean Corpuscular HGB Conc 34 % (32-34); Mean Corpuscular Volume 88 fl (84-94); Monocytes # (Auto) 0.7 K/mm3 (0.0-0.8); Monocytes % (Auto) 8.2 % (0.0-7.3); Platelet Count 204 K/mm3 (140-440); Red Blood Count 4.06 M/mm3 (3.65-5.03); Red Cell Distribution Width 13.7 % (13.2-15.2)
[2020-03-09 05:39] LABS: INR 0.97 (0.87-1.13)
[2020-03-09] MEDS: SODIUM CHLORIDE 0.9% 1000 ML 1,000 ML IV SCH (06:22)
--- NOTE | 2020-03-09 09:25 | Progress Note ---
Assessment and Plan acute renal failure, likelt prerenal azotemia with possible ischemic ATN Hyperkalemia DM type II Hypotension Cr and BUN are trending down will decrease NS to 50 cc/h will d/c sanchez with voiding trial after removal renally dose meds strict I&O daily weight Gianfranco schwartz MD [phone] Subjective Date of service: 03/09/20 Principal diagnosis: MAHSA Interval history: feels much better this AM Objective - Vital Signs Vital signs: Vital Signs - 12hr 03/08/20 03/08/20 03/09/20 22:00 23:21 03:42 Temperature 98.4 F 98.1 F Pulse Rate 76 67 Respiratory 18 18 Rate Blood Pressure 106/66 100/63 O2 Sat by Pulse 98 98 97 Oximetry 03/09/20 03/09/20 05:00 07:41 Temperature 98.0 F Pulse Rate 66 65 Respiratory 18 Rate Blood Pressure 118/66 O2 Sat by Pulse 98 Oximetry - General Appearance General appearance: well-developed, well-nourished EENT: ATNC, PERRL, mucous membranes moist Neck: no JVD, no carotid bruit Respiratory: Present: Clear to Ascultation. Absent: Rales, Ronchi Cardiology: regular, S1S2 Gastrointestinal: normoactive bowel sounds Integumentary: no rash, warm and dry Neurologic: no focal deficit, no asterixis, alert and oriented x3 Musculoskeletal: other (no edema in BLE) Psychiatric: mood/affect appropriate, cooperative - Lab 03/09/20 04:22 03/09/20 04:22 Most recent lab results Calcium 8.6 mg/dL (8.4-10.2) 03/09/20 04:22 Phosphorus 2.40 mg/dL (2.5-4.5) L 03/09/20 04:22 Urine Creatinine 112.4 mg/dL (0.1-20.0) H 03/08/20 11:23 Urine Sodium 83 mmol/L 03/08/20 11:23 Urine Total Protein 20 mg/dL (5-11.8) H 03/08/20 11:23 Medications & Allergies - Medications Allergies/Adverse Reactions: Allergies No Known Allergies Allergy (Verified 12/17/19 14:57) Home Medications: Home Medications Medication Instructions Recorded Confirmed Last Taken Type Atorvastatin Calcium [Lipitor] 80 mg PO QHS 09/18/14 03/08/20 03/07/20 History Vitamin D3 1,000 unit PO QDAY 07/20/16 03/08/20 03/07/20 History Levomefolate/B6/B12/Algal Oil 1 each PO DAILY 08/02/16 03/08/20 03/17/19 History [Metanx Capsule] Detemir (Nf) [Levemir (Nf)] 20 units SUB-Q QHS #1000 units 08/05/16 03/08/20 03/07/20 Rx Magnesium 400 mg PO BID 03/17/19 03/08/20 03/07/20 History Sodium Polystyrene Sulfon/Sorb 30 gm PO DAILY 03/17/19 03/08/20 03/16/19 History [Kionex 15 gm/60 ml Suspension] Tamsulosin [Flomax] 0.4 mg PO QDAY 03/17/19 03/08/20 03/08/20 16:16 History AtorvaSTATin [Lipitor] 40 mg PO QHS #30 tablet 03/23/19 03/08/20 03/07/20 Rx Gabapentin 300 mg PO TID #90 03/23/19 03/08/20 03/07/20 Rx Pantoprazole [Protonix TAB] 40 mg PO BID #60 tab 03/23/19 03/08/20 03/08/20 Rx Doxazosin 4 mg PO ONCE 03/08/20 03/08/20 03/07/20 History Sodium Bicarbonate/Sod Citrat 10 mg PO BID 03/08/20 03/08/20 03/07/20 History Active Medications: Generic Name Dose Route Start Last Admin Trade Name Freq PRN Reason Stop Dose Admin Acetaminophen 650 mg 03/08/20 03:03 Tylenol PO Q4H PRN Pain MILD(1-3)/Fever >100.5/ONEILL Atorvastatin Calcium 40 mg 03/08/20 22:00 03/08/20 21:25 Lipitor PO 40 mg QHS PANDA Administration Dextrose 0 ml 03/08/20 03:03 D50w (25gm) Syringe IV Q30MIN PRN Hypoglycemia Protocol Gabapentin 300 mg 03/08/20 14:00 03/08/20 21:25 Gabapentin PO 300 mg TID PANDA Administration Sodium Chloride 1,000 mls @ 125 mls/hr 03/08/20 03:15 03/09/20 06:22 Nacl 0.9% 1000 Ml IV 125 mls/hr DIRECT PANDA Administration Insulin Glargine 20 units 03/08/20 22:00 03/08/20 21:24 Lantus SUB-Q 20 units QHS PANDA Administration Insulin Human Lispro 0 unit 03/08/20 07:30 03/08/20 21:25 Humalog SUB-Q 8 unit ACHS PANDA Administration Protocol Magnesium Hydroxide 30 ml 03/08/20 03:03 Milk Of Magnesia PO Q4H PRN Constipation Miscellaneous Medication 1 each 03/09/20 10:00 Levomefolate/B6/B12/Algal Oil [Metanx Capsule] PO DAILY PANDA Ondansetron HCl 4 mg 03/08/20 03:03 Zofran IV Q8H PRN Nausea And Vomiting Pantoprazole Sodium 40 mg 03/08/20 11:00 03/08/20 21:24 Protonix PO 40 mg BID PANDA Administration Sodium Chloride 10 ml 03/08/20 10:00 03/08/20 21:26 Sodium Chloride Flush Syringe 10 Ml IV 10 ml BID PANDA Administration Sodium Chloride 10 ml 03/08/20 03:03 Sodium Chloride Flush Syringe 10 Ml IV PRN PRN LINE FLUSH Tamsulosin HCl 0.4 mg 03/08/20 11:00 03/08/20 11:48 Flomax PO 0.4 mg QDAY PANDA Administration
[2020-03-09] MEDS ORDERED: B6 PO SCH (10:00)
[2020-03-09] MEDS ORDERED: ALGAL OIL PO SCH (10:00)
[2020-03-09] MEDS ORDERED: B12 PO SCH (10:00)
[2020-03-09] MEDS ORDERED: LEVOMEFOLATE PO SCH (10:00)
[2020-03-09] MEDS: PANTOPRAZOLE 40 MG TAB PO SCH (10:26)
[2020-03-09] MEDS: TAMSULOSIN 0.4 MG CAP PO SCH (10:26)
[2020-03-09] MEDS: INSULIN LISPRO 100 UNIT/ML VIAL 3 mL SUB-Q SCH ×3 (10:27→17:35)
[2020-03-09] MEDS: GABAPENTIN 300 MG CAP PO SCH ×2 (10:34→14:29)
[2020-03-09] MEDS ORDERED: DOXAZOSIN 4 MG PO SCH (12:30)
--- NOTE | 2020-03-09 12:37 | Discharge Summary ---
Providers - Providers Date of Admission: 03/08/20 02:17 Date of discharge: 03/09/20 Attending physician: RASHMI PEARSON 03/08/20 02:16 Consult to Physician [CONS] Stat Comment: Consulting Provider: BAY CONTRERAS Physician Instructions: Reason For Exam: MAHSA 03/08/20 03:03 Consult to Dietitian/Nutrition [CONS] Routine Physician Instructions: Reason For Exam: Reason for Consult: Diet education 03/08/20 12:42 Physical Therapy Evaluation and Treat [CONS] Routine Comment: Reason For Exam: placement Primary care physician: [facility]OP[facility]IC PODIATRIST Hospitalization Condition: Stable Pertinent studies: Abdomen/pelvis CT Renal US Hospital course: 74-year-old male with known history of diabetes mellitus, gastroparesis, hypertension, hyperlipidemia and dementia presented to the emergency room because of that blood pressure was about 70s in the systolic and 50s diastolic. Upon arrival in the emergency room bladder was found to be distended and Cage catheter was placed. Work-up revealed hyperglycemia and hyperkalemia. BUN and creatinine was also found to be elevated, placed on IV fluid, adjusted insulin dose, treated for hyperkalemia. Woods Boss Dr. Contreras was consulted by the ER physician. Patient was monitored with serial BMP and BG was monitored. His BG was stable, renal function improved. Patient was then discharged home in stable condition with . Discharge diagnosis; MAHSA with vasomotor nephropathy Hyperkalemia Urinary retention DM type 2 with hyperglycemia Hyponatremia due to hyperglycemia Dementia Disposition: DC/[place]-06 HOME UNDER HOME [facility] Time spent for discharge: 34 minutes Core Measure Documentation - Palliative Care Palliative Care/ Comfort Measures: Not Applicable - Core Measures Any of the following diagnoses?: none Exam - Physical Exam Narrative exam: General appearance: Present: no acute distress, well-nourished - EENT Eyes: Present: PERRL, EOM intact. Absent: scleral icterus ENT: hearing intact, clear oral mucosa, dentition normal - Neck Neck: Present: supple, normal ROM - Respiratory Respiratory effort: normal Respiratory: bilateral: CTA - Cardiovascular Rhythm: regular Heart Sounds: Present: S1 & S2. Absent: gallop, systolic murmur, diastolic mu rmur, rub - Extremities Extremities: no ischemia, pulses intact, pulses symmetrical, No edema, Full ROM Extremity abnormal: other (Left foot partial amputation) Peripheral Pulses: within normal limits - Abdominal General gastrointestinal: Present: soft, non-tender, non-distended. Absent: mass - Integumentary Integumentary: Present: clear, warm, dry. Absent: rash - Musculoskeletal Musculoskeletal: strength equal bilaterally - Psychiatric Psychiatric: appropriate mood/affect, intact judgment & insight, memory intact, cooperative - Neurologic Neurologic: CNII-XII intact, no focal deficits, moves all extremities - Constitutional Vitals: Temp Pulse Resp BP Pulse Ox 98.0 F 65 18 118/66 98 03/09/20 07:41 03/09/20 07:41 03/09/20 07:41 03/09/20 07:41 03/09/20 10:00 Plan Activity: advance as tolerated Weight Bearing Status: Non-Weight Bearing Diet: diabetic Special Instructions: record blood sugar diary Additional Instructions: f/u with urologist in one week Follow up with: CORAZON BERNSTEIN MD [Primary Care Provider] - 7 Days BAY CONTRERAS MD [Staff Physician] - 7 Days
[2020-03-09 16:46] VITALS: BP 107/64
[2020-03-09] MEDS ORDERED: SODIUM BICARBONATE PO SCH (22:00)
[2020-03-09] MEDS ORDERED: SODIUM CITRATE PO SCH (22:00)
== END 2020-03-09 18:20 | disposition home health service (06) ==
LOC: ED 21:25 → 4A 03-08 02:17
PROVIDERS: ADMIT Internal Medicine Geriatric Medicine; ATTEND Internal Medicine
DX: N17.9 Acute kidney failure, unspecified (principal); E11.65 Type 2 diabetes mellitus with hyperglycemia; E87.5 Hyperkalemia; E78.5 Hyperlipidemia, unspecified; I34.1 Nonrheumatic mitral (valve) prolapse; I95.9 Hypotension, unspecified; K31.84 Gastroparesis; R56.9 Unspecified convulsions; E78.00 Pure hypercholesterolemia, unspecified; F02.80 Dementia in other diseases classified elsewhere, unspecified severity, without behavioral disturbance, psychotic disturbance, mood disturbance, and anxiety; F17.200 Nicotine dependence, unspecified, uncomplicated; Z98.890 Other specified postprocedural states; Z79.4 Long term (current) use of insulin; Z79.899 Other long term (current) drug therapy
CPT/HCPCS: 36415; 74176; 76770; 80048; 81001; 82550; 82570; 82962; 83036; 84100; 84132; 84156; 84300; 85025; 85610; 87086; 89050; 93005; 96361; 96372; 96374; 96375; 97161; 99285; A9270; G0378; J0610; J7030; J1815

== ENCOUNTER 2020-08-06 13:38 | Inpatient (IN) | payer BC, MEDICARE ==
--- NOTE | 2020-08-06 13:58 | Emergency Department Report ---
Blank Doc - Documentation Documentation: 74-year-old male that was brought by his for weakness and stated has some altered mental status. Exam: No facial drooping, no one-sided weakness. Denies any dizziness or abnormal gait. 1- This initial assessment/diagnostic orders/clinical plan/ treatment(s) is/are subject to change based on pt's health status, clinical progression and re- assessment by fellow clinical providers in the ED. Further treatment and workup at subsequent clinical provers discretion. Patient/guardians urged not to elope from ED as their condition may be serious if not clinically assessed and managed. 2-labs 3-UA 4-EKG 5-imaging studies
--- NOTE | 2020-08-06 14:31 | XRay Report ---
CHEST 2 VIEWS INDICATION / CLINICAL INFORMATION: Chest Pain. COMPARISON: Chest x-ray on 04/01/2020 FINDINGS: SUPPORT DEVICES: None. HEART / MEDIASTINUM: No significant abnormality. LUNGS / PLEURA: Stable hyperexpansion suggesting COPD without focal consolidation or other acute abno rmality. No pneumothorax. ADDITIONAL FINDINGS: No significant additional findings. IMPRESSION: 1. No acute findings. Signer Name: Jayden Montelongo MD Signed: 08/06/2020 2:26 PM Workstation Name: [id number]
--- NOTE | 2020-08-06 15:05 | Cat Scan Report ---
CT BRAIN: 08/06/2020 INDICATION / CLINICAL INFORMATION: Altered Mental Status. COMPARISON: None available. FINDINGS: BRAIN/INTRACRANIAL STRUCTURES: Unenhanced CT images of the brain demonstrate no evidence of acute int racranial abnormality. Ventricles and sulci are prominent in size, consistent with pronounced diffuse cerebral atrophy. Diff use chronic white matter hypoattenuation is noted. There is no evidence of acute ischemic injury, hemorrhage, or mass. There are no abnormal extra-axial fluid collections. EXTRACRANIAL STRUCTURES: Unremarkable. IMPRESSION: No acute abnormality. Prominent age-related atrophy. All CT scans at this location are performed using dose reduction to ALARA by means of automated expos ure control. Signer Name: Myles Jean MD Signed: 08/06/2020 3:01 PM Workstation Name: [id number]
[2020-08-06 15:41] LABS: Basophils # (Auto) 0.1 K/mm3 (0.0-0.1); Basophils % (Auto) 1.2 % (0.0-1.8); Eosinophils # (Auto) 0.4 K/mm3 (0.0-0.4); Eosinophils % (Auto) 5.7 % (0.0-4.3); Hematocrit 44.1 % (35.5-45.6); Hemoglobin 14.7 gm/dl (11.8-15.2); Lymphocytes # (Auto) 2.9 K/mm3 (1.2-5.4); Mean Corpuscular HGB Conc 33 % (32-34); Mean Corpuscular Volume 90 fl (84-94); Monocytes # (Auto) 0.4 K/mm3 (0.0-0.8); Monocytes % (Auto) 5.1 % (0.0-7.3); Platelet Count 268 K/mm3 (140-440); Red Blood Count 4.89 M/mm3 (3.65-5.03); Red Cell Distribution Width 14.7 % (13.2-15.2)
[2020-08-06 15:49] LABS: INR 0.97 (0.87-1.13)
[2020-08-06 15:50] LABS: Partial Thromboplastin Time 23.3 Sec. (24.2-36.6)
[2020-08-06 16:07] LABS: Alanine Aminotransferase 14 units/L (7-56); Albumin 3.9 g/dL (3.9-5); BUN/Creatinine Ratio 16; Blood Urea Nitrogen 25 mg/dL (9-20); Calcium 9.5 mg/dL (8.4-10.2); Hemolysis Index 17
[2020-08-06] MEDS ORDERED: SODIUM CHLORIDE 0.9% 1000 ML 1,000 ML IV ONE (16:47)
[2020-08-06] MEDS ORDERED: INSULIN REGULAR, HUMAN 100 UNITS/1 ML IV ONE (16:47)
--- NOTE | 2020-08-06 17:09 | Emergency Department Report ---
ED General Adult HPI - General Chief complaint: Altered Mental Status Stated complaint: AMS Time Seen by Provider: 08/06/20 13:54 Source: patient Mode of arrival: Wheelchair Limitations: No Limitations - History of Present Illness Initial comments: Patient presents to the emergency department with a reported chief complaint of altered mental status. Upon asking the patient why he is here he states he is not quite sure and feels well. Initially the patient's sinuses were making sense but as I spoke to him he was not aware of his person, place, or time. Patient was also not sure of the month of the year cannot name the last 4 presidents. Patient denies any chest pain or shortness of breath. Patient was initially brought to the emergency department by his for her concern with him being altered over the last couple of days. -: unknown Severity scale (0 -10): 0 Consistency: constant Improves with: none Worsens with: none Associated Symptoms: denies other symptoms Treatments Prior to Arrival: none - Related Data Home Medications Medication Instructions Recorded Confirmed Last Taken Vitamin D3 1,000 unit PO QDAY 07/20/16 04/01/20 03/07/20 Levomefolate/B6/B12/Algal Oil 1 each PO DAILY 08/02/16 04/01/20 03/17/19 [Metanx Capsule] Magnesium 400 mg PO BID 03/17/19 04/01/20 03/07/20 Sodium Polystyrene Sulfon/Sorb 30 gm PO DAILY 03/17/19 04/01/20 03/16/19 [Kionex 15 gm/60 ml Suspension] Tamsulosin [Flomax] 0.4 mg PO QDAY 03/17/19 04/01/20 03/08/20 16:16 Finasteride [Proscar] 5 mg PO QDAY 04/01/20 04/01/20 Unknown Previous Rx's Medication Instructions Recorded Last Taken Type AtorvaSTATin [Lipitor] 40 mg PO QHS #30 tablet 03/23/19 03/07/20 Rx Pantoprazole [Protonix TAB] 40 mg PO BID #60 tab 03/23/19 03/08/20 Rx Gabapentin 300 mg PO TID capsule 03/09/20 Unknown Rx Insulin Lispro [Humalog] 0 unit SUB-Q ACHS vial 03/09/20 Unknown Rx Insulin Glargine [Lantus VIAL] 35 units SUB-Q QHS 30 Days units 04/02/20 Unknown Rx Allergies Allergy/AdvReac Type Severity Reaction Status Date / Time No Known Allergies Allergy Verified 04/01/20 08:01 ED Review of Systems ROS: Stated complaint: AMS Other details as noted in HPI Comment: Unobtainable due to pts medical conditions ED Past Medical Hx - Past Medical History Previous Medical History?: Yes Hx Hypertension: Yes Hx Congestive Heart Failure: No Hx Diabetes: Yes Hx Renal Disease: Yes (ARF) Hx Seizures: Yes Hx Asthma: No Hx COPD: No Hx Dementia: Yes Hx HIV: No Additional medical history: GI bleed, neuropathy, elevated cholesterol. MVP - Surgical History Past Surgical History?: Yes Additional Surgical History: all left toes amputated - Social History Smoking Status: Current Some Day Smoker - Medications Home Medications: Home Medications Medication Instructions Recorded Confirmed Last Taken Type Vitamin D3 1,000 unit PO QDAY 07/20/16 04/01/20 03/07/20 History Levomefolate/B6/B12/Algal Oil 1 each PO DAILY 08/02/16 04/01/20 03/17/19 History [Metanx Capsule] Magnesium 400 mg PO BID 03/17/19 04/01/20 03/07/20 History Sodium Polystyrene Sulfon/Sorb 30 gm PO DAILY 03/17/19 04/01/20 03/16/19 History [Kionex 15 gm/60 ml Suspension] Tamsulosin [Flomax] 0.4 mg PO QDAY 03/17/19 04/01/20 03/08/20 16:16 History AtorvaSTATin [Lipitor] 40 mg PO QHS #30 tablet 03/23/19 04/01/20 03/07/20 Rx Pantoprazole [Protonix TAB] 40 mg PO BID #60 tab 03/23/19 04/01/20 03/08/20 Rx Gabapentin 300 mg PO TID capsule 03/09/20 04/01/20 Unknown Rx Insulin Lispro [Humalog] 0 unit SUB-Q ACHS vial 03/09/20 04/01/20 Unknown Rx Finasteride [Proscar] 5 mg PO QDAY 04/01/20 04/01/20 Unknown History Insulin Glargine [Lantus VIAL] 35 units SUB-Q QHS 30 Days units 04/02/20 Unknown Rx ED Physical Exam - General Limitations: No Limitations General appearance: alert, in no apparent distress - Head Head exam: Present: atraumatic, normocephalic, other (Lipoma of the right forehead) - Eye Eye exam: Present: normal appearance - ENT ENT exam: Present: mucous membranes dry - Neck Neck exam: Present: normal inspection - Respiratory Respiratory exam: Present: normal lung sounds bilaterally. Absent: respiratory distress - Cardiovascular Cardiovascular Exam: Present: regular rate, normal rhythm. Absent: systolic murmur, diastolic murmur, rubs, gallop - GI/Abdominal GI/Abdominal exam: Present: soft, normal bowel sounds. Absent: distended, tende rness - Rectal Rectal exam: Present: deferred - Extremities Exam Extremities exam: Present: normal inspection - Back Exam Back exam: Present: normal inspection - Neurological Exam Neurological exam: Present: alert, CN II-XII intact. Absent: motor sensory deficit - Psychiatric Psychiatric exam: Present: normal affect, normal mood - Skin Skin exam: Present: warm, dry, intact, normal color. Absent: rash ED Course Vital Signs 08/06/20 13:42 Temperature 97.3 F L Pulse Rate 81 Respiratory 17 Rate Blood Pressure 123/68 O2 Sat by Pulse 100 Oximetry ED Medical Decision Making - Lab Data Result diagrams: 08/06/20 15:05 08/06/20 15:05 Lab Results 08/06/20 08/06/20 08/06/20 Range/Units 13:57 15:05 15:05 WBC 7.0 (4.5-11.0) K/mm3 RBC 4.89 (3.65-5.03) M/mm3 Hgb 14.7 (11.8-15.2) gm/dl Hct 44.1 (35.5-45.6) % MCV 90 (84-94) fl MCH 30 (28-32) pg MCHC 33 (32-34) % RDW 14.7 (13.2-15.2) % Plt Count 268 (140-440) K/mm3 Lymph % (Auto) 41.0 H (13.4-35.0) % Hale % (Auto) 5.1 (0.0-7.3) % Eos % (Auto) 5.7 H (0.0-4.3) % Baso % (Auto) 1.2 (0.0-1.8) % Lymph # (Auto) 2.9 (1.2-5.4) K/mm3 Hale # (Auto) 0.4 (0.0-0.8) K/mm3 Eos # (Auto) 0.4 (0.0-0.4) K/mm3 Baso # (Auto) 0.1 (0.0-0.1) K/mm3 Seg Neutrophils % 47.0 (40.0-70.0) % Seg Neutrophils # 3.3 (1.8-7.7) K/mm3 PT 12.8 (12.2-14.9) Sec. INR 0.97 (0.87-1.13) APTT 23.3 L (24.2-36.6) Sec. VBG pH (7.320-7.420) Sodium (137-145) mmol/L Potassium (3.6-5.0) mmol/L Chloride (98-107) mmol/L Carbon Dioxide (22-30) mmol/L Anion Gap mmol/L BUN (9-20) mg/dL Creatinine (0.8-1.3) mg/dL Estimated GFR ml/min BUN/Creatinine Ratio % Glucose (75-100) mg/dL POC Glucose 483 H (70-105) mg/dL Lactic Acid (0.7-2.0) mmol/L Calcium (8.4-10.2) mg/dL Magnesium (1.7-2.3) mg/dL Total Bilirubin (0.1-1.2) mg/dL AST (5-40) units/L ALT (7-56) units/L Alkaline Phosphatase (35-129) units/L Troponin T (0.00-0.029) ng/mL Total Protein (6.3-8.2) g/dL Albumin (3.9-5) g/dL Albumin/Globulin Ratio % 08/06/20 08/06/20 08/06/20 Range/Units 15:05 15:05 15:05 WBC (4.5-11.0) K/mm3 RBC (3.65-5.03) M/mm3 Hgb (11.8-15.2) gm/dl Hct (35.5-45.6) % MCV (84-94) fl MCH (28-32) pg MCHC (32-34) % RDW (13.2-15.2) % Plt Count (140-440) K/mm3 Lymph % (Auto) (13.4-35.0) % Hale % (Auto) (0.0-7.3) % Eos % (Auto) (0.0-4.3) % Baso % (Auto) (0.0-1.8) % Lymph # (Auto) (1.2-5.4) K/mm3 Hale # (Auto) (0.0-0.8) K/mm3 Eos # (Auto) (0.0-0.4) K/mm3 Baso # (Auto) (0.0-0.1) K/mm3 Seg Neutrophils % (40.0-70.0) % Seg Neutrophils # (1.8-7.7) K/mm3 PT (12.2-14.9) Sec. INR (0.87-1.13) APTT (24.2-36.6) Sec. VBG pH (7.320-7.420) Sodium 130 L (137-145) mmol/L Potassium 5.0 (3.6-5.0) mmol/L Chloride 92.9 L (98-107) mmol/L Carbon Dioxide 25 (22-30) mmol/L Anion Gap 17 mmol/L BUN 25 H (9-20) mg/dL Creatinine 1.6 H (0.8-1.3) mg/dL Estimated GFR 52 ml/min BUN/Creatinine Ratio 16 % Glucose 515 H* (75-100) mg/dL POC Glucose (70-105) mg/dL Lactic Acid 1.80 (0.7-2.0) mmol/L Calcium 9.5 (8.4-10.2) mg/dL Magnesium 2.50 H (1.7-2.3) mg/dL Total Bilirubin 0.50 (0.1-1.2) mg/dL AST 16 (5-40) units/L ALT 14 (7-56) units/L Alkaline Phosphatase 136 H (35-129) units/L Troponin T < 0.010 (0.00-0.029) ng/mL Total Protein 6.4 (6.3-8.2) g/dL Albumin 3.9 (3.9-5) g/dL Albumin/Globulin Ratio 1.6 % 08/06/20 Range/Units 15:05 WBC (4.5-11.0) K/mm3 RBC (3.65-5.03) M/mm3 Hgb (11.8-15.2) gm/dl Hct (35.5-45.6) % MCV (84-94) fl MCH (28-32) pg MCHC (32-34) % RDW (13.2-15.2) % Plt Count (140-440) K/mm3 Lymph % (Auto) (13.4-35.0) % Hale % (Auto) (0.0-7.3) % Eos % (Auto) (0.0-4.3) % Baso % (Auto) (0.0-1.8) % Lymph # (Auto) (1.2-5.4) K/mm3 Hale # (Auto) (0.0-0.8) K/mm3 Eos # (Auto) (0.0-0.4) K/mm3 Baso # (Auto) (0.0-0.1) K/mm3 Seg Neutrophils % (40.0-70.0) % Seg Neutrophils # (1.8-7.7) K/mm3 PT (12.2-14.9) Sec. INR (0.87-1.13) APTT (24.2-36.6) Sec. VBG pH 7.365 (7.320-7.420) Sodium (137-145) mmol/L Potassium (3.6-5.0) mmol/L Chloride (98-107) mmol/L Carbon Dioxide (22-30) mmol/L Anion Gap mmol/L BUN (9-20) mg/dL Creatinine (0.8-1.3) mg/dL Estimated GFR ml/min BUN/Creatinine Ratio % Glucose (75-100) mg/dL POC Glucose (70-105) mg/dL Lactic Acid (0.7-2.0) mmol/L Calcium (8.4-10.2) mg/dL Magnesium (1.7-2.3) mg/dL Total Bilirubin (0.1-1.2) mg/dL AST (5-40) units/L ALT (7-56) units/L Alkaline Phosphatase (35-129) units/L Troponin T (0.00-0.029) ng/mL Total Protein (6.3-8.2) g/dL Albumin (3.9-5) g/dL Albumin/Globulin Ratio % - Medical Decision Making IV fluids given and IV insulin Critical Care Time: Yes Critical care time in (mins) excluding proc time.: 35 Critical care attestation.: If time is entered above; I have spent that time in minutes in the direct care of this critically ill patient, excluding procedure time. ED Disposition Clinical Impression: Altered mental status, Hyperglycemia Disposition: DC-09 OP ADMIT IP TO THIS HOSP Is pt being admited?: Yes Does the pt Need Aspirin: No Condition: Fair Referrals: PRIMARY CARE, [Primary Care Provider] - 3-5 Days
--- NOTE | 2020-08-06 17:45 | History and Physical Report ---
History of Present Illness Chief complaint: He has been going downhill for the past 2 weeks History of present illness: 74 YO Male with DM complicated by Gastroparesis, Urinary Retention, HTN, HLD, Vascular Dementia, Cerebral Atherosclerosis, CKD, Nicotine Dependence presents to ED for evaluation. Patient is confused and lethargic and is unable to provide history. Patient history provided by who is at bedside during initial exam and interview. As per the patient has experienced increased confusion and agitation over the past 2 weeks with worsening symptoms over the past 7 days. Patient has diminished oral intake. Patient currently requires 6/6 assistance with activities of daily living. Patient is bedbound and has a palliative performance score 30%. Patient transported to [facility] for further care and evaluation of the aforementioned symptoms. The patient was seen and evaluated in the emergency department. All lab and imaging studies reviewed. Patient found to have metabolic encephalopathy, uncontrolled diabetes, volume depletion, acute kidney injury, as well as clinical symptoms consistent with urinary tract infection. Patient admitted to medical floor due to increased risk of worsening symptoms. Patient initiated on IV antibiotic therapy as well as IV fluid resuscitation therapy. No reports of fever, chills, chest pain, palpitations, productive cough, skin rash, recent ill contacts, or known exposure to COVID-19. Prior admission on 04/01/2020 reviewed. All medication listed at time of admission has been reconciled. Advanced care planning conducted in ED. Past History Past Medical History: diabetes, hypertension, hyperlipidemia, other (See HPI) Past Surgical History: Other (Toe amputation) Social history: smoking Family history: diabetes, hypertension Medications and Allergies Allergies Allergy/AdvReac Type Severity Reaction Status Date / Time No Known Allergies Allergy Verified 04/01/20 08:01 Home Medications Medication Instructions Recorded Confirmed Last Taken Type Vitamin D3 1,000 unit PO QDAY 07/20/16 04/01/20 03/07/20 History Levomefolate/B6/B12/Algal Oil 1 each PO DAILY 08/02/16 04/01/20 03/17/19 History [Metanx Capsule] Magnesium 400 mg PO BID 03/17/19 04/01/20 03/07/20 History Sodium Polystyrene Sulfon/Sorb 30 gm PO DAILY 03/17/19 04/01/20 03/16/19 History [Kionex 15 gm/60 ml Suspension] Tamsulosin [Flomax] 0.4 mg PO QDAY 03/17/19 04/01/20 03/08/20 16:16 History AtorvaSTATin [Lipitor] 40 mg PO QHS #30 tablet 03/23/19 04/01/20 03/07/20 Rx Pantoprazole [Protonix TAB] 40 mg PO BID #60 tab 03/23/19 04/01/20 03/08/20 Rx Gabapentin 300 mg PO TID capsule 03/09/20 04/01/20 Unknown Rx Insulin Lispro [Humalog] 0 unit SUB-Q ACHS vial 03/09/20 04/01/20 Unknown Rx Finasteride [Proscar] 5 mg PO QDAY 04/01/20 04/01/20 Unknown History Insulin Glargine [Lantus VIAL] 35 units SUB-Q QHS 30 Days units 04/02/20 Unknown Rx Active Meds: Active Medications Sodium Chloride (Nacl 0.9% 1000 Ml) 1,000 mls @ 999 mls/hr IV BOLUS ONE Stop: 08/06/20 17:47 Review of Systems ROS unobtainable: due to mental status Exam - Constitutional Vitals: Temp Pulse Resp BP Pulse Ox 97.3 F L 71 14 158/75 99 08/06/20 13:42 08/06/20 17:05 08/06/20 17:05 08/06/20 17:05 08/06/20 17:05 General appearance: Present: mild distress, cachectic - EENT Eyes: Present: PERRL ENT: hearing decreased, other (Dry oral mucosa) - Neck Neck: Present: supple, normal ROM - Respiratory Respiratory effort: normal Respiratory: bilateral: CTA - Cardiovascular Heart Sounds: Present: S1 & S2. Absent: rub, click - Extremities Extremities: pulses symmetrical, No edema Peripheral Pulses: within normal limits - Abdominal General gastrointestinal: Present: soft, non-tender, non-distended, normal bowel sounds Male genitourinary: Present: normal - Integumentary Integumentary: Present: dry, clammy - Musculoskeletal Musculoskeletal: generalized weakness - Psychiatric Psychiatric: no appropriate mood/affect, no intact judgment & insight, no memory intact - Neurologic Neurologic: CNII-XII intact, moves all extremities, no gait normal HEART Score - HEART Score Troponin: Troponin T < 0.010 ng/mL (0.00-0.029) 08/06/20 15:05 Results - Labs CBC & Chem 7: 08/06/20 15:05 08/06/20 15:05 Labs: Abnormal lab results 08/06/20 08/06/20 08/06/20 Range/Units 13:57 15:05 15:05 Lymph % (Auto) 41.0 H (13.4-35.0) % Eos % (Auto) 5.7 H (0.0-4.3) % APTT 23.3 L (24.2-36.6) Sec. Sodium (137-145) mmol/L Chloride (98-107) mmol/L BUN (9-20) mg/dL Creatinine (0.8-1.3) mg/dL Glucose (75-100) mg/dL POC Glucose 483 H (70-105) mg/dL Magnesium (1.7-2.3) mg/dL Alkaline Phosphatase (35-129) units/L 08/06/20 08/06/20 Range/Units 15:05 15:05 Lymph % (Auto) (13.4-35.0) % Eos % (Auto) (0.0-4.3) % APTT (24.2-36.6) Sec. Sodium 130 L (137-145) mmol/L Chloride 92.9 L (98-107) mmol/L BUN 25 H (9-20) mg/dL Creatinine 1.6 H (0.8-1.3) mg/dL Glucose 515 H* (75-100) mg/dL POC Glucose (70-105) mg/dL Magnesium 2.50 H (1.7-2.3) mg/dL Alkaline Phosphatase 136 H (35-129) units/L Assessment and Plan - Patient Problems (1) Metabolic encephalopathy Current Visit: Yes Status: Acute Plan to address problem: CT head, seizure precautions, aspiration precautions, fall precautions, urinalysis, thyroid panel, supportive care (2) Acute kidney injury (MAHSA) with acute tubular necrosis (ATN) Current Visit: Yes Status: Acute Plan to address problem: IV fluid resuscitation therapy, BMP, repeat BMP in a.m. to monitor serum creatinine as well as GFR, monitor fluid balance. (3) Uncontrolled diabetes mellitus Current Visit: Yes Status: Acute Plan to address problem: Sliding-scale insulin therapy, Accu-Chek, hypoglycemia protocol, consistent carbohydrate diet when awake and alert only. (4) Volume depletion Current Visit: Yes Status: Acute Plan to address problem: BMP, IV fluid resuscitation therapy, monitor urine output every shift. (5) Severe malnutrition Current Visit: Yes Status: Acute Plan to address problem: Dietary supplementation, encourage increased protein intake when awake and alert only. (6) DVT prophylaxis Current Visit: Yes Status: Acute Plan to address problem: SCD to bilateral lower extremities while in bed, prophylactic anticoagulation (7) Advance care planning Current Visit: Yes Status: Acute Plan to address problem: Disease education conducted, patient is full code, care plan discussed, prognosis discussed, patient knowledges understanding and agreement with care plan, +30 minutes.
[2020-08-06] MEDS ORDERED: ONDANSETRON 4 MG/2 ML INJ IV PRN (17:55)
[2020-08-06] MEDS ORDERED: ALBUTEROL 2.5 MG/3 ML NEBU IH PRN (17:55)
[2020-08-06] MEDS ORDERED: MAGNESIUM 200 MG PO SCH (22:00)
[2020-08-06] MEDS: SODIUM CHLORIDE 0.9% 1000 ML 1,000 ML IV SCH (22:06)
[2020-08-06] MEDS: GABAPENTIN 300 MG CAP PO SCH (22:14)
[2020-08-06] MEDS: PANTOPRAZOLE 40 MG TAB PO SCH (22:14)
[2020-08-06] MEDS: HEPARIN 5,000 UNIT/1 ML VIAL SUB-Q SCH (22:15)
[2020-08-07] MEDS: ACETAMINOPHEN 325 MG TAB PO PRN (03:45)
[2020-08-07] MEDS: SODIUM CHLORIDE 0.9% 1000 ML 1,000 ML IV SCH ×2 (03:47→17:10)
[2020-08-07 06:19] LABS: Basophils # (Auto) 0.1 K/mm3 (0.0-0.1); Eosinophils # (Auto) 0.4 K/mm3 (0.0-0.4); Eosinophils % (Auto) 5.8 % (0.0-4.3); Hematocrit 40.2 % (35.5-45.6); Hemoglobin 13.4 gm/dl (11.8-15.2); Lymphocytes # (Auto) 2.9 K/mm3 (1.2-5.4); Lymphocytes % (Auto) 45.3 % (13.4-35.0); Mean Corpuscular HGB Conc 33 % (32-34); Mean Corpuscular Volume 90 fl (84-94); Monocytes # (Auto) 0.4 K/mm3 (0.0-0.8); Monocytes % (Auto) 6.8 % (0.0-7.3); Platelet Count 240 K/mm3 (140-440); Red Blood Count 4.49 M/mm3 (3.65-5.03); Red Cell Distribution Width 14.8 % (13.2-15.2)
[2020-08-07 06:53] LABS: Bilirubin,Urine NEG (Negative); Blood,Urine NEG (Negative); Color,Urine Yellow (Yellow); Hyaline Casts,Urine 1 /LPF; Mucus,Urine FEW /HPF; Urobilinogen,Urine < 2.0 mg/dL (<2.0)
[2020-08-07 07:07] LABS: Alanine Aminotransferase 12 units/L (7-56); Albumin 3.3 g/dL (3.9-5); BUN/Creatinine Ratio 17; Blood Urea Nitrogen 24 mg/dL (9-20); Hemolysis Index 12
[2020-08-07] MEDS ORDERED: B12 PO SCH (10:00)
[2020-08-07] MEDS ORDERED: VITAMIN D3 1000 UNIT PO SCH (10:00)
[2020-08-07] MEDS ORDERED: ALGAL OIL PO SCH (10:00)
[2020-08-07] MEDS ORDERED: LEVOMEFOLATE PO SCH (10:00)
[2020-08-07] MEDS ORDERED: MAGNESIUM OXIDE 400 MG TAB PO SCH (10:00)
[2020-08-07] MEDS ORDERED: [UNRECOGNIZED DRUG - OTHER] PO SCH (10:00)
[2020-08-07] MEDS ORDERED: SODIUM POLYSTYRENE 15 GM/60 ML ORAL LIQD PO ONE (10:00)
[2020-08-07] MEDS ORDERED: SODIUM POLYSTYRENE SULFONATE PO SCH (10:00)
[2020-08-07] MEDS ORDERED: B6 PO SCH (10:00)
[2020-08-07] MEDS ORDERED: SORBITOL PO SCH (10:00)
[2020-08-07] MEDS: INSULIN LISPRO 100 UNIT/ML SUB-Q SCH ×4 (10:36→22:25)
[2020-08-07] MEDS: CHOLECALCIFEROL (VIT D3) 1000 UNIT (25 mcg) TAB PO SCH (10:36)
[2020-08-07] MEDS: TAMSULOSIN 0.4 MG CAP PO SCH (10:36)
[2020-08-07] MEDS: PANTOPRAZOLE 40 MG TAB PO SCH ×2 (10:36→22:24)
[2020-08-07] MEDS: HEPARIN 5,000 UNIT/1 ML VIAL SUB-Q SCH ×2 (10:37→22:24)
[2020-08-07] MEDS: FINASTERIDE 5 MG TAB PO SCH (10:41)
[2020-08-07] MEDS: GABAPENTIN 300 MG CAP PO SCH ×3 (10:41→22:24)
--- NOTE | 2020-08-07 13:05 | Progress Note ---
Assessment and Plan Assessment and plan: Metabolic encephalopathy. Etiology secondary to HHNKS and acute kidney injury. Continue IV fluid hydration and treating underlying causes. Hyperosmolar hyperglycemic nonketotic syndrome. Resolved with IV fluid hydration. Continue insulin as above. Accelerated hypertension. Start Procardia 60 mg twice daily. Acute kidney injury. Etiology likely secondary to vasomotor nephropathy. Diabetes mellitus type 2, uncontrolled. Continue long-acting insulin, sliding scale regular insulin and Accu-Cheks. Protein calorie malnutrition. Nutritional support. Dietitian consult. Vascular dementia. Continue supportive care. Disposition. Dr. Atwood and I had a discussion with the who reports a ssistance with all daily activities. Patient is bedbound with a palliative performance score 30%. PT evaluation for discharge needs. Case management follow-up. History Interval history: No new issues overnight. Confusion improved. Hospitalist Physical - Constitutional Vitals: Temp Pulse Resp BP Pulse Ox 97.9 F 84 20 181/101 98 08/07/20 11:00 08/07/20 11:00 08/07/20 11:00 08/07/20 11:00 08/07/20 07:30 General appearance: Present: mild distress, cachectic - EENT Eyes: Present: PERRL, EOM intact ENT: hearing intact, clear oral mucosa, dentition normal - Neck Neck: Present: supple, normal ROM - Respiratory Respiratory effort: normal Respiratory: bilateral: CTA - Cardiovascular Rhythm: regular Heart Sounds: Present: S1 & S2. Absent: gallop, rub - Extremities Extremities: no ischemia, No edema, Full ROM - Abdominal General gastrointestinal: soft, non-tender, non-distended, normal bowel sounds - Integumentary Integumentary: Present: clear, warm, dry - Neurologic Neurologic: CNII-XII intact, moves all extremities HEART Score - HEART Score Troponin: Troponin T < 0.010 ng/mL (0.00-0.029) 08/06/20 20:06 Results - Labs CBC & Chem 7: 08/07/20 05:39 08/07/20 05:39 Labs: Laboratory Last Values WBC 6.3 K/mm3 (4.5-11.0) 08/07/20 05:39 RBC 4.49 M/mm3 (3.65-5.03) 08/07/20 05:39 Hgb 13.4 gm/dl (11.8-15.2) 08/07/20 05:39 Hct 40.2 % (35.5-45.6) 08/07/20 05:39 MCV 90 fl (84-94) 08/07/20 05:39 MCH 30 pg (28-32) 08/07/20 05:39 MCHC 33 % (32-34) 08/07/20 05:39 RDW 14.8 % (13.2-15.2) 08/07/20 05:39 Plt Count 240 K/mm3 (140-440) 08/07/20 05:39 Lymph % (Auto) 45.3 % (13.4-35.0) H 08/07/20 05:39 [place] % (Auto) 6.8 % (0.0-7.3) 08/07/20 05:39 Eos % (Auto) 5.8 % (0.0-4.3) H 08/07/20 05:39 Baso % (Auto) 1.0 % (0.0-1.8) 08/07/20 05:39 Lymph # (Auto) 2.9 K/mm3 (1.2-5.4) 08/07/20 05:39 [place] # (Auto) 0.4 K/mm3 (0.0-0.8) 08/07/20 05:39 Eos # (Auto) 0.4 K/mm3 (0.0-0.4) 08/07/20 05:39 Baso # (Auto) 0.1 K/mm3 (0.0-0.1) 08/07/20 05:39 Seg Neutrophils % 41.1 % (40.0-70.0) 08/07/20 05:39 Seg Neutrophils # 2.6 K/mm3 (1.8-7.7) 08/07/20 05:39 PT 12.8 Sec. (12.2-14.9) 08/06/20 15:05 INR 0.97 (0.87-1.13) 08/06/20 15:05 APTT 23.3 Sec. (24.2-36.6) L 08/06/20 15:05 VBG pH 7.365 (7.320-7.420) 08/06/20 15:05 Sodium 136 mmol/L (137-145) L 08/07/20 05:39 Potassium 4.5 mmol/L (3.6-5.0) 08/07/20 05:39 Chloride 100.1 mmol/L (98-107) 08/07/20 05:39 Carbon Dioxide 30 mmol/L (22-30) 08/07/20 05:39 Anion Gap 10 mmol/L 08/07/20 05:39 BUN 24 mg/dL (9-20) H 08/07/20 05:39 Creatinine 1.4 mg/dL (0.8-1.3) H 08/07/20 05:39 Estimated GFR > 60 ml/min 08/07/20 05:39 BUN/Creatinine Ratio 17 % 08/07/20 05:39 Glucose 248 mg/dL (75-100) H 08/07/20 05:39 POC Glucose 406 mg/dL (70-105) H 08/07/20 11:08 Lactic Acid 1.80 mmol/L (0.7-2.0) 08/06/20 15:05 Calcium 9.0 mg/dL (8.4-10.2) 08/07/20 05:39 Magnesium 2.50 mg/dL (1.7-2.3) H 08/06/20 15:05 Total Bilirubin 0.30 mg/dL (0.1-1.2) 08/07/20 05:39 AST 16 units/L (5-40) 08/07/20 05:39 ALT 12 units/L (7-56) 08/07/20 05:39 Alkaline Phosphatase 110 units/L (35-129) 08/07/20 05:39 Troponin T < 0.010 ng/mL (0.00-0.029) 08/06/20 20:06 Total Protein 5.9 g/dL (6.3-8.2) L 08/07/20 05:39 Albumin 3.3 g/dL (3.9-5) L 08/07/20 05:39 Albumin/Globulin Ratio 1.3 % 08/07/20 05:39 Urine Color Yellow (Yellow) 08/07/20 06:36 Urine Turbidity Clear (Clear) 08/07/20 06:36 Urine pH 6.0 (5.0-7.0) 08/07/20 06:36 Ur Specific [place] 1.023 (1.003-1.030) 08/07/20 06:36 Urine Protein 100 mg/dl mg/dL (Negative) 08/07/20 06:36 Urine Glucose (UA) >=500 mg/dL (Negative) 08/07/20 06:36 Urine Ketones Neg mg/dL (Negative) 08/07/20 06:36 Urine Blood Neg (Negative) 08/07/20 06:36 Urine Nitrite Neg (Negative) 08/07/20 06:36 Urine Bilirubin Neg (Negative) 08/07/20 06:36 Urine Urobilinogen < 2.0 mg/dL (<2.0) 08/07/20 06:36 Ur Leukocyte Esterase Neg (Negative) 08/07/20 06:36 Urine WBC (Auto) 2.0 /HPF (0.0-6.0) 08/07/20 06:36 Urine RBC (Auto) 1.0 /HPF (0.0-6.0) 08/07/20 06:36 U Epithel Cells (Auto) < 1.0 /HPF (0-13.0) 08/07/20 06:36 Hyaline Casts 1 /LPF 08/07/20 06:36 Urine Mucus Few /HPF 08/07/20 06:36 Cage/IV: Voiding Method Condom Catheter IV Catheter Type [Left] Peripheral IV Active Medications - Current Medications Current Medications: Generic Name Dose Route Start Last Admin Trade Name Freq PRN Reason Stop Dose Admin Acetaminophen 650 mg 08/06/20 17:55 08/07/20 03:45 Acetaminophen 325 Mg Tab PO 650 mg Q4H PRN Administration Pain MILD(1-3)/Fever >100.5/ONEILL Albuterol 2.5 mg 08/06/20 17:55 Albuterol 2.5 Mg/3 Ml Nebu IH Q4HRT PRN Shortness Of Breath Atorvastatin Calcium 40 mg 08/06/20 22:00 08/06/20 22:14 Atorvastatin 40 Mg Tab PO 40 mg QHS PANDA Administration Cholecalciferol 1,000 unit 08/07/20 10:00 08/07/20 10:36 Cholecalciferol (Vit D3) 1000 Unit (25 Mcg) Tab PO 1,000 unit QDAY PANDA Administration Finasteride 5 mg 08/07/20 10:00 08/07/20 10:41 Finasteride 5 Mg Tab PO 5 mg QDAY PANDA Administration Gabapentin 300 mg 08/06/20 20:00 08/07/20 10:41 Gabapentin 300 Mg Cap PO 300 mg TID PANDA Administration Heparin Sodium (Porcine) 5,000 unit 08/06/20 22:00 08/07/20 10:37 Heparin 5,000 Unit/1 Ml Vial SUB-Q 5,000 unit Q12HR PANDA Administration Sodium Chloride 1,000 mls @ 75 mls/hr 08/06/20 18:00 08/07/20 03:47 Nacl 0.9% 1000 Ml IV 75 mls/hr DIRECT PANDA Administration Insulin Human Lispro 0 unit 08/07/20 07:30 08/07/20 10:36 Insulin Lispro 100 Unit/Ml SUB-Q 4 unit ACHS PANDA Administration Protocol Magnesium Oxide 400 mg 08/08/20 10:00 Magnesium Oxide 400 Mg Tab PO BID PANDA Nifedipine 60 mg 08/07/20 22:00 Nifedipine Xl 60 Mg Tab PO Q12HR PANDA Ondansetron HCl 4 mg 08/06/20 17:55 08/06/20 22:37 Ondansetron 4 Mg/2 Ml Inj IV 4 mg Q8H PRN Administration Nausea And Vomiting Pantoprazole Sodium 40 mg 08/06/20 22:00 08/07/20 10:36 Pantoprazole 40 Mg Tab PO 40 mg BID PANDA Administration Sodium Chloride 10 ml 08/06/20 22:00 08/06/20 22:15 Sodium Chloride 0.9% 10 Ml Flush Syringe IV 10 ml BID PANDA Administration Sodium Chloride 10 ml 08/06/20 17:55 Sodium Chloride 0.9% 10 Ml Flush Syringe IV PRN PRN LINE FLUSH Tamsulosin HCl 0.4 mg 08/07/20 10:00 08/07/20 10:36 Tamsulosin 0.4 Mg Cap PO 0.4 mg QDAY PANDA Administration
[2020-08-07] MEDS: NIFEdipine XL 60 MG TAB PO SCH (22:32)
[2020-08-08] MEDS: GABAPENTIN 300 MG CAP PO SCH ×3 (08:05→21:03)
[2020-08-08] MEDS: INSULIN LISPRO 100 UNIT/ML SUB-Q SCH ×4 (08:25→22:26)
--- NOTE | 2020-08-08 08:56 | Progress Note ---
Assessment and Plan Assessment and plan: Metabolic encephalopathy. Etiology secondary to HHNKS and acute kidney injury. Continue IV fluid hydration and treating underlying causes. Hyperosmolar hyperglycemic nonketotic syndrome. Resolved with IV fluid hydration. Continue insulin as above. Accelerated hypertension. Start Procardia 60 mg twice daily. Acute kidney injury. Etiology likely secondary to vasomotor nephropathy. Diabetes mellitus type 2, uncontrolled. Continue long-acting insulin, sliding scale regular insulin and Accu-Cheks. Protein calorie malnutrition. Nutritional support. Dietitian consult. Vascular dementia. Continue supportive care. Disposition. Dr. Atwood and I had a discussion with the who reports a ssistance with all daily activities. Patient is bedbound with a palliative performance score 30%. PT evaluation for discharge needs. Case management follow-up. 08/08. Acute kidney injury improved with creatinine of 1.4. Continue IV fluid hydration. Encephalopathy improved and patient appears to be back to baseline. Patient does have some underlying dementia. Blood pressure better controlled with Procardia. Physical therapy recommends subacute rehab placement. Case management to follow-up. History Interval history: No new issues overnight. Hospitalist Physical - Constitutional Vitals: Temp Pulse Resp BP Pulse Ox 98.4 F 73 18 147/88 98 08/08/20 04:56 08/08/20 04:56 08/08/20 04:56 08/08/20 04:56 08/08/20 04:56 General appearance: Present: no acute distress, cachectic - EENT Eyes: Present: PERRL, EOM intact ENT: hearing intact, clear oral mucosa, dentition normal - Neck Neck: Present: supple, normal ROM - Respiratory Respiratory effort: normal Respiratory: bilateral: CTA - Cardiovascular Rhythm: regular Heart Sounds: Present: S1 & S2. Absent: gallop, rub - Extremities Extremities: no ischemia, No edema, Full ROM - Abdominal General gastrointestinal: soft, non-tender, non-distended, normal bowel sounds - Integumentary Integumentary: Present: clear, warm, dry - Neurologic Neurologic: CNII-XII intact, moves all extremities HEART Score - HEART Score Troponin: Troponin T < 0.010 ng/mL (0.00-0.029) 08/06/20 20:06 Results - Labs CBC & Chem 7: 08/07/20 05:39 08/07/20 05:39 Labs: Laboratory Last Values WBC 6.3 K/mm3 (4.5-11.0) 08/07/20 05:39 RBC 4.49 M/mm3 (3.65-5.03) 08/07/20 05:39 Hgb 13.4 gm/dl (11.8-15.2) 08/07/20 05:39 Hct 40.2 % (35.5-45.6) 08/07/20 05:39 MCV 90 fl (84-94) 08/07/20 05:39 MCH 30 pg (28-32) 08/07/20 05:39 MCHC 33 % (32-34) 08/07/20 05:39 RDW 14.8 % (13.2-15.2) 08/07/20 05:39 Plt Count 240 K/mm3 (140-440) 08/07/20 05:39 Lymph % (Auto) 45.3 % (13.4-35.0) H 08/07/20 05:39 [place] % (Auto) 6.8 % (0.0-7.3) 08/07/20 05:39 Eos % (Auto) 5.8 % (0.0-4.3) H 08/07/20 05:39 Baso % (Auto) 1.0 % (0.0-1.8) 08/07/20 05:39 Lymph # (Auto) 2.9 K/mm3 (1.2-5.4) 08/07/20 05:39 [place] # (Auto) 0.4 K/mm3 (0.0-0.8) 08/07/20 05:39 Eos # (Auto) 0.4 K/mm3 (0.0-0.4) 08/07/20 05:39 Baso # (Auto) 0.1 K/mm3 (0.0-0.1) 08/07/20 05:39 Seg Neutrophils % 41.1 % (40.0-70.0) 08/07/20 05:39 Seg Neutrophils # 2.6 K/mm3 (1.8-7.7) 08/07/20 05:39 PT 12.8 Sec. (12.2-14.9) 08/06/20 15:05 INR 0.97 (0.87-1.13) 08/06/20 15:05 APTT 23.3 Sec. (24.2-36.6) L 08/06/20 15:05 VBG pH 7.365 (7.320-7.420) 08/06/20 15:05 Sodium 136 mmol/L (137-145) L 08/07/20 05:39 Potassium 4.5 mmol/L (3.6-5.0) 08/07/20 05:39 Chloride 100.1 mmol/L (98-107) 08/07/20 05:39 Carbon Dioxide 30 mmol/L (22-30) 08/07/20 05:39 Anion Gap 10 mmol/L 08/07/20 05:39 BUN 24 mg/dL (9-20) H 08/07/20 05:39 Creatinine 1.4 mg/dL (0.8-1.3) H 08/07/20 05:39 Estimated GFR > 60 ml/min 08/07/20 05:39 BUN/Creatinine Ratio 17 % 08/07/20 05:39 Glucose 248 mg/dL (75-100) H 08/07/20 05:39 POC Glucose 295 mg/dL (70-105) H 08/08/20 07:42 Lactic Acid 1.80 mmol/L (0.7-2.0) 08/06/20 15:05 Calcium 9.0 mg/dL (8.4-10.2) 08/07/20 05:39 Magnesium 1.90 mg/dL (1.7-2.3) 08/08/20 05:26 Total Bilirubin 0.30 mg/dL (0.1-1.2) 08/07/20 05:39 AST 16 units/L (5-40) 08/07/20 05:39 ALT 12 units/L (7-56) 08/07/20 05:39 Alkaline Phosphatase 110 units/L (35-129) 08/07/20 05:39 Troponin T < 0.010 ng/mL (0.00-0.029) 08/06/20 20:06 Total Protein 5.9 g/dL (6.3-8.2) L 08/07/20 05:39 Albumin 3.3 g/dL (3.9-5) L 08/07/20 05:39 Albumin/Globulin Ratio 1.3 % 08/07/20 05:39 Urine Color Yellow (Yellow) 08/07/20 06:36 Urine Turbidity Clear (Clear) 08/07/20 06:36 Urine pH 6.0 (5.0-7.0) 08/07/20 06:36 Ur Specific [place] 1.023 (1.003-1.030) 08/07/20 06:36 Urine Protein 100 mg/dl mg/dL (Negative) 08/07/20 06:36 Urine Glucose (UA) >=500 mg/dL (Negative) 08/07/20 06:36 Urine Ketones Neg mg/dL (Negative) 08/07/20 06:36 Urine Blood Neg (Negative) 08/07/20 06:36 Urine Nitrite Neg (Negative) 08/07/20 06:36 Urine Bilirubin Neg (Negative) 08/07/20 06:36 Urine Urobilinogen < 2.0 mg/dL (<2.0) 08/07/20 06:36 Ur Leukocyte Esterase Neg (Negative) 08/07/20 06:36 Urine WBC (Auto) 2.0 /HPF (0.0-6.0) 08/07/20 06:36 Urine RBC (Auto) 1.0 /HPF (0.0-6.0) 08/07/20 06:36 U Epithel Cells (Auto) < 1.0 /HPF (0-13.0) 08/07/20 06:36 Hyaline Casts 1 /LPF 08/07/20 06:36 Urine Mucus Few /HPF 08/07/20 06:36 Cage/IV: Voiding Method Condom Catheter IV Catheter Type [Left] Peripheral IV Active Medications - Current Medications Current Medications: Generic Name Dose Route Start Last Admin Trade Name Freq PRN Reason Stop Dose Admin Acetaminophen 650 mg 08/06/20 17:55 08/07/20 03:45 Acetaminophen 325 Mg Tab PO 650 mg Q4H PRN Administration Pain MILD(1-3)/Fever >100.5/ONEILL Albuterol 2.5 mg 08/06/20 17:55 Albuterol 2.5 Mg/3 Ml Nebu IH Q4HRT PRN Shortness Of Breath Atorvastatin Calcium 40 mg 08/06/20 22:00 08/07/20 22:24 Atorvastatin 40 Mg Tab PO 40 mg QHS PANDA Administration Cholecalciferol 1,000 unit 08/07/20 10:00 08/07/20 10:36 Cholecalciferol (Vit D3) 1000 Unit (25 Mcg) Tab PO 1,000 unit QDAY PANDA Administration Finasteride 5 mg 08/07/20 10:00 08/07/20 10:41 Finasteride 5 Mg Tab PO 5 mg QDAY PANDA Administration Gabapentin 300 mg 08/06/20 20:00 08/08/20 08:05 Gabapentin 300 Mg Cap PO 300 mg TID PANDA Administration Heparin Sodium (Porcine) 5,000 unit 08/06/20 22:00 08/07/20 22:24 Heparin 5,000 Unit/1 Ml Vial SUB-Q 5,000 unit Q12HR PANDA Administration Sodium Chloride 1,000 mls @ 75 mls/hr 08/06/20 18:00 08/07/20 17:10 Nacl 0.9% 1000 Ml IV 75 mls/hr DIRECT PANDA Administration Insulin Human Lispro 0 unit 08/07/20 07:30 08/07/20 22:25 Insulin Lispro 100 Unit/Ml SUB-Q 4 unit ACHS PANDA Administration Protocol Magnesium Oxide 400 mg 08/08/20 10:00 Magnesium Oxide 400 Mg Tab PO BID PANDA Nifedipine 60 mg 08/07/20 22:00 08/07/20 22:32 Nifedipine Xl 60 Mg Tab PO 60 mg Q12HR PANDA Administration Ondansetron HCl 4 mg 08/06/20 17:55 08/06/20 22:37 Ondansetron 4 Mg/2 Ml Inj IV 4 mg Q8H PRN Administration Nausea And Vomiting Pantoprazole Sodium 40 mg 08/06/20 22:00 08/07/20 22:24 Pantoprazole 40 Mg Tab PO 40 mg BID PANDA Administration Sodium Chloride 10 ml 08/06/20 22:00 08/06/20 22:15 Sodium Chloride 0.9% 10 Ml Flush Syringe IV 10 ml BID PANDA Administration Sodium Chloride 10 ml 08/06/20 17:55 Sodium Chloride 0.9% 10 Ml Flush Syringe IV PRN PRN LINE FLUSH Tamsulosin HCl 0.4 mg 08/07/20 10:00 08/07/20 10:36 Tamsulosin 0.4 Mg Cap PO 0.4 mg QDAY PANDA Administration
[2020-08-08] MEDS: FINASTERIDE 5 MG TAB PO SCH (10:18)
[2020-08-08] MEDS: MAGNESIUM OXIDE 400 MG TAB PO SCH ×2 (10:18→21:03)
[2020-08-08] MEDS: NIFEdipine XL 60 MG TAB PO SCH ×2 (10:18→21:04)
[2020-08-08] MEDS: CHOLECALCIFEROL (VIT D3) 1000 UNIT (25 mcg) TAB PO SCH (10:18)
[2020-08-08] MEDS: PANTOPRAZOLE 40 MG TAB PO SCH ×2 (10:19→21:03)
[2020-08-08] MEDS: TAMSULOSIN 0.4 MG CAP PO SCH (10:19)
[2020-08-08] MEDS: HEPARIN 5,000 UNIT/1 ML VIAL SUB-Q SCH ×2 (10:19→21:04)
[2020-08-08 10:29] LABS: BUN/Creatinine Ratio 17; Blood Urea Nitrogen 19 mg/dL (9-20); Calcium 8.4 mg/dL (8.4-10.2); Hemolysis Index 72
[2020-08-08] MEDS: SODIUM CHLORIDE 0.9% 1000 ML 1,000 ML IV SCH (21:33)
[2020-08-08] MEDS: INSULIN GLARGINE 100 UNITS/ML SUB-Q SCH (22:29)
[2020-08-09 05:00] LABS: Basophils # (Auto) 0.1 K/mm3 (0.0-0.1); Eosinophils # (Auto) 0.5 K/mm3 (0.0-0.4); Eosinophils % (Auto) 6.7 % (0.0-4.3); Hematocrit 38.4 % (35.5-45.6); Hemoglobin 12.9 gm/dl (11.8-15.2); Lymphocytes # (Auto) 2.9 K/mm3 (1.2-5.4); Lymphocytes % (Auto) 40.9 % (13.4-35.0); Mean Corpuscular HGB Conc 34 % (32-34); Mean Corpuscular Volume 90 fl (84-94); Monocytes # (Auto) 0.6 K/mm3 (0.0-0.8); Monocytes % (Auto) 7.9 % (0.0-7.3); Platelet Count 239 K/mm3 (140-440); Red Blood Count 4.29 M/mm3 (3.65-5.03); Red Cell Distribution Width 14.5 % (13.2-15.2)
[2020-08-09 05:18] LABS: BUN/Creatinine Ratio 18; Blood Urea Nitrogen 24 mg/dL (9-20); Calcium 8.6 mg/dL (8.4-10.2); Hemolysis Index 4
[2020-08-09] MEDS: INSULIN LISPRO 100 UNIT/ML SUB-Q SCH ×4 (08:43→22:44)
--- NOTE | 2020-08-09 09:56 | Progress Note ---
Assessment and Plan Assessment and plan: Metabolic encephalopathy. Etiology secondary to HHNKS and acute kidney injury. Continue IV fluid hydration and treating underlying causes. Hyperosmolar hyperglycemic nonketotic syndrome. Resolved with IV fluid hydration. Continue insulin as above. Accelerated hypertension. Start Procardia 60 mg twice daily. Acute kidney injury. Etiology likely secondary to vasomotor nephropathy. Diabetes mellitus type 2, uncontrolled. Continue long-acting insulin, sliding scale regular insulin and Accu-Cheks. Protein calorie malnutrition. Nutritional support. Dietitian consult. Vascular dementia. Continue supportive care. Disposition. Dr. Atwood and I had a discussion with the who reports a ssistance with all daily activities. Patient is bedbound with a palliative performance score 30%. PT evaluation for discharge needs. Case management follow-up. 08/08. Acute kidney injury improved with creatinine of 1.4. Continue IV fluid hydration. Encephalopathy improved and patient appears to be back to baseline. Patient does have some underlying dementia. Blood pressure better controlled with Procardia. Physical therapy recommends subacute rehab placement. Case management to follow-up. 08/09. Encephalopathy, HHNKS and acute kidney injury resolved. Continue Procardia for blood pressure. Awaiting placement History Interval history: No new issues overnight. Hospitalist Physical - Constitutional Vitals: Temp Pulse Resp BP Pulse Ox 98.3 F 102 H 18 129/89 92 08/09/20 08:10 08/09/20 08:10 08/09/20 08:10 08/09/20 08:10 08/09/20 08:10 General appearance: Present: no acute distress, cachectic - EENT Eyes: Present: PERRL, EOM intact ENT: hearing intact, clear oral mucosa, dentition normal - Neck Neck: Present: supple, normal ROM - Respiratory Respiratory effort: normal Respiratory: bilateral: CTA - Cardiovascular Rhythm: regular Heart Sounds: Present: S1 & S2. Absent: gallop, rub - Extremities Extremities: no ischemia, No edema, Full ROM - Abdominal General gastrointestinal: soft, non-tender, non-distended, normal bowel sounds - Integumentary Integumentary: Present: clear, warm, dry - Neurologic Neurologic: CNII-XII intact, moves all extremities HEART Score - HEART Score Troponin: Troponin T < 0.010 ng/mL (0.00-0.029) 08/06/20 20:06 Results - Labs CBC & Chem 7: 01/24/21 04:14 08/09/20 04:14 Labs: Laboratory Last Values WBC 7.2 K/mm3 (4.5-11.0) 08/09/20 04:14 RBC 4.29 M/mm3 (3.65-5.03) 08/09/20 04:14 Hgb 12.9 gm/dl (11.8-15.2) 08/09/20 04:14 Hct 38.4 % (35.5-45.6) 08/09/20 04:14 MCV 90 fl (84-94) 08/09/20 04:14 MCH 30 pg (28-32) 08/09/20 04:14 MCHC 34 % (32-34) 08/09/20 04:14 RDW 14.5 % (13.2-15.2) 08/09/20 04:14 Plt Count 239 K/mm3 (140-440) 08/09/20 04:14 Lymph % (Auto) 40.9 % (13.4-35.0) H 08/09/20 04:14 [place] % (Auto) 7.9 % (0.0-7.3) H 08/09/20 04:14 Eos % (Auto) 6.7 % (0.0-4.3) H 08/09/20 04:14 Baso % (Auto) 1.0 % (0.0-1.8) 08/09/20 04:14 Lymph # (Auto) 2.9 K/mm3 (1.2-5.4) 08/09/20 04:14 [place] # (Auto) 0.6 K/mm3 (0.0-0.8) 08/09/20 04:14 Eos # (Auto) 0.5 K/mm3 (0.0-0.4) H 08/09/20 04:14 Baso # (Auto) 0.1 K/mm3 (0.0-0.1) 08/09/20 04:14 Seg Neutrophils % 43.5 % (40.0-70.0) 08/09/20 04:14 Seg Neutrophils # 3.1 K/mm3 (1.8-7.7) 08/09/20 04:14 PT 12.8 Sec. (12.2-14.9) 08/06/20 15:05 INR 0.97 (0.87-1.13) 08/06/20 15:05 APTT 23.3 Sec. (24.2-36.6) L 08/06/20 15:05 VBG pH 7.365 (7.320-7.420) 08/06/20 15:05 Sodium 132 mmol/L (137-145) L 08/09/20 04:14 Potassium 4.7 mmol/L (3.6-5.0) 08/09/20 04:14 Chloride 99.8 mmol/L (98-107) 08/09/20 04:14 Carbon Dioxide 23 mmol/L (22-30) 08/09/20 04:14 Anion Gap 14 mmol/L 08/09/20 04:14 BUN 24 mg/dL (9-20) H 08/09/20 04:14 Creatinine 1.3 mg/dL (0.8-1.3) 08/09/20 04:14 Estimated GFR > 60 ml/min 08/09/20 04:14 BUN/Creatinine Ratio 18 % 08/09/20 04:14 Glucose 346 mg/dL (75-100) H 08/09/20 04:14 POC Glucose 317 mg/dL (70-105) H 08/09/20 08:04 Lactic Acid 1.80 mmol/L (0.7-2.0) 08/06/20 15:05 Calcium 8.6 mg/dL (8.4-10.2) 08/09/20 04:14 Magnesium 1.90 mg/dL (1.7-2.3) 08/08/20 05:26 Total Bilirubin 0.30 mg/dL (0.1-1.2) 08/07/20 05:39 AST 16 units/L (5-40) 08/07/20 05:39 ALT 12 units/L (7-56) 08/07/20 05:39 Alkaline Phosphatase 110 units/L (35-129) 08/07/20 05:39 Troponin T < 0.010 ng/mL (0.00-0.029) 08/06/20 20:06 Total Protein 5.9 g/dL (6.3-8.2) L 08/07/20 05:39 Albumin 3.3 g/dL (3.9-5) L 08/07/20 05:39 Albumin/Globulin Ratio 1.3 % 08/07/20 05:39 Urine Color Yellow (Yellow) 08/07/20 06:36 Urine Turbidity Clear (Clear) 08/07/20 06:36 Urine pH 6.0 (5.0-7.0) 08/07/20 06:36 Ur Specific [place] 1.023 (1.003-1.030) 08/07/20 06:36 Urine Protein 100 mg/dl mg/dL (Negative) 08/07/20 06:36 Urine Glucose (UA) >=500 mg/dL (Negative) 08/07/20 06:36 Urine Ketones Neg mg/dL (Negative) 08/07/20 06:36 Urine Blood Neg (Negative) 08/07/20 06:36 Urine Nitrite Neg (Negative) 08/07/20 06:36 Urine Bilirubin Neg (Negative) 08/07/20 06:36 Urine Urobilinogen < 2.0 mg/dL (<2.0) 08/07/20 06:36 Ur Leukocyte Esterase Neg (Negative) 08/07/20 06:36 Urine WBC (Auto) 2.0 /HPF (0.0-6.0) 08/07/20 06:36 Urine RBC (Auto) 1.0 /HPF (0.0-6.0) 08/07/20 06:36 U Epithel Cells (Auto) < 1.0 /HPF (0-13.0) 08/07/20 06:36 Hyaline Casts 1 /LPF 08/07/20 06:36 Urine Mucus Few /HPF 08/07/20 06:36 Cage/IV: Voiding Method Condom Catheter IV Catheter Type [Left Upper INT / Saline Lock arm] IV Catheter Type [Left] Peripheral IV Active Medications - Current Medications Current Medications: Generic Name Dose Route Start Last Admin Trade Name Freq PRN Reason Stop Dose Admin Acetaminophen 650 mg 08/06/20 17:55 08/07/20 03:45 Acetaminophen 325 Mg Tab PO 650 mg Q4H PRN Administration Pain MILD(1-3)/Fever >100.5/ONEILL Albuterol 2.5 mg 08/06/20 17:55 Albuterol 2.5 Mg/3 Ml Nebu IH Q4HRT PRN Shortness Of Breath Atorvastatin Calcium 40 mg 08/06/20 22:00 08/08/20 21:03 Atorvastatin 40 Mg Tab PO 40 mg QHS PANDA Administration Cholecalciferol 1,000 unit 08/07/20 10:00 08/08/20 10:18 Cholecalciferol (Vit D3) 1000 Unit (25 Mcg) Tab PO 1,000 unit QDAY PANDA Administration Finasteride 5 mg 08/07/20 10:00 08/08/20 10:18 Finasteride 5 Mg Tab PO 5 mg QDAY PANDA Administration Gabapentin 300 mg 08/06/20 20:00 08/08/20 21:03 Gabapentin 300 Mg Cap PO 300 mg TID PANDA Administration Heparin Sodium (Porcine) 5,000 unit 08/06/20 22:00 08/08/20 21:04 Heparin 5,000 Unit/1 Ml Vial SUB-Q 5,000 unit Q12HR PANDA Administration Sodium Chloride 1,000 mls @ 75 mls/hr 08/06/20 18:00 08/08/20 21:33 Nacl 0.9% 1000 Ml IV 75 mls/hr DIRECT PANDA Administration Insulin Glargine 35 units 08/08/20 22:00 08/08/20 22:29 Insulin Glargine 100 Units/Ml SUB-Q 35 units QHS PANDA Administration Insulin Human Lispro 0 unit 08/07/20 07:30 08/09/20 08:43 Insulin Lispro 100 Unit/Ml SUB-Q 6 unit ACHS PANDA Administration Protocol Magnesium Oxide 400 mg 08/08/20 10:00 08/08/20 21:03 Magnesium Oxide 400 Mg Tab PO 400 mg BID PANDA Administration Nifedipine 60 mg 08/07/20 22:00 08/08/20 21:04 Nifedipine Xl 60 Mg Tab PO Not Given Q12HR [facility] Ondansetron HCl 4 mg 08/06/20 17:55 08/06/20 22:37 Ondansetron 4 Mg/2 Ml Inj IV 4 mg Q8H PRN Administration Nausea And Vomiting Pantoprazole Sodium 40 mg 08/06/20 22:00 08/08/20 21:03 Pantoprazole 40 Mg Tab PO 40 mg BID PANDA Administration Sodium Chloride 10 ml 08/06/20 22:00 08/08/20 21:03 Sodium Chloride 0.9% 10 Ml Flush Syringe IV 10 ml BID PANDA Administration Sodium Chloride 10 ml 08/06/20 17:55 Sodium Chloride 0.9% 10 Ml Flush Syringe IV PRN PRN LINE FLUSH Tamsulosin HCl 0.4 mg 08/07/20 10:00 08/08/20 10:19 Tamsulosin 0.4 Mg Cap PO 0.4 mg QDAY PANDA Administration
[2020-08-09] MEDS: SODIUM CHLORIDE 0.9% 1000 ML 1,000 ML IV SCH (10:41)
[2020-08-09] MEDS: PANTOPRAZOLE 40 MG TAB PO SCH ×2 (10:42→22:34)
[2020-08-09] MEDS: GABAPENTIN 300 MG CAP PO SCH ×3 (10:42→22:34)
[2020-08-09] MEDS: FINASTERIDE 5 MG TAB PO SCH (10:42)
[2020-08-09] MEDS: HEPARIN 5,000 UNIT/1 ML VIAL SUB-Q SCH ×2 (10:43→22:35)
[2020-08-09] MEDS: NIFEdipine XL 60 MG TAB PO SCH ×2 (10:43→22:35)
[2020-08-09] MEDS: CHOLECALCIFEROL (VIT D3) 1000 UNIT (25 mcg) TAB PO SCH (10:43)
[2020-08-09] MEDS: MAGNESIUM OXIDE 400 MG TAB PO SCH ×2 (10:43→22:34)
[2020-08-09] MEDS: TAMSULOSIN 0.4 MG CAP PO SCH (10:43)
[2020-08-09] MEDS: INSULIN GLARGINE 100 UNITS/ML SUB-Q SCH (22:38)
[2020-08-10] MEDS: SODIUM CHLORIDE 0.9% 1000 ML 1,000 ML IV SCH ×2 (01:10→22:42)
--- NOTE | 2020-08-10 08:20 | Progress Note ---
Assessment and Plan Assessment and plan: Metabolic encephalopathy. Etiology secondary to HHNKS and acute kidney injury. Continue IV fluid hydration and treating underlying causes. Hyperosmolar hyperglycemic nonketotic syndrome. Resolved with IV fluid hydration. Continue insulin as above. Accelerated hypertension. Start Procardia 60 mg twice daily. Acute kidney injury. Etiology likely secondary to vasomotor nephropathy. Diabetes mellitus type 2, uncontrolled. Continue long-acting insulin, sliding scale regular insulin and Accu-Cheks. Protein calorie malnutrition. Nutritional support. Dietitian consult. Vascular dementia. Continue supportive care. Disposition. Dr. Atwood and I had a discussion with the who reports a ssistance with all daily activities. Patient is bedbound with a palliative performance score 30%. PT evaluation for discharge needs. Case management follow-up. 08/08. Acute kidney injury improved with creatinine of 1.4. Continue IV fluid hydration. Encephalopathy improved and patient appears to be back to baseline. Patient does have some underlying dementia. Blood pressure better controlled with Procardia. Physical therapy recommends subacute rehab placement. Case management to follow-up. 08/09. Encephalopathy, HHNKS and acute kidney injury resolved. Continue Procardia for blood pressure. Awaiting placement. 08/10. Patient somewhat somnolent this morning. However, patient is easily aroused. Blood pressure appears to be well controlled with Procardia. BG better controlled with home regimen of Lantus 35 units at bedtime. Continue SSRI and Accu-Cheks. Case management follow-up with regards to placement. History Interval history: No new issues overnight. Hospitalist Physical - Constitutional Vitals: Temp Pulse Resp BP Pulse Ox 97.6 F 71 17 140/79 99 08/10/20 04:19 08/10/20 04:19 08/10/20 05:08 08/10/20 04:19 08/10/20 04:19 General appearance: Present: no acute distress, cachectic - EENT Eyes: Present: PERRL, EOM intact ENT: hearing intact, clear oral mucosa, dentition normal - Neck Neck: Present: supple, normal ROM - Respiratory Respiratory effort: normal Respiratory: bilateral: CTA - Cardiovascular Rhythm: regular Heart Sounds: Present: S1 & S2. Absent: gallop, rub - Extremities Extremities: no ischemia, No edema, Full ROM - Abdominal General gastrointestinal: soft, non-tender, non-distended, normal bowel sounds - Integumentary Integumentary: Present: clear, warm, dry - Neurologic Neurologic: CNII-XII intact, moves all extremities HEART Score - HEART Score Troponin: Troponin T < 0.010 ng/mL (0.00-0.029) 08/06/20 20:06 Results - Labs CBC & Chem 7: 08/09/20 04:14 08/09/20 04:14 Labs: Laboratory Last Values WBC 7.2 K/mm3 (4.5-11.0) 08/09/20 04:14 RBC 4.29 M/mm3 (3.65-5.03) 08/09/20 04:14 Hgb 12.9 gm/dl (11.8-15.2) 08/09/20 04:14 Hct 38.4 % (35.5-45.6) 08/09/20 04:14 MCV 90 fl (84-94) 08/09/20 04:14 MCH 30 pg (28-32) 08/09/20 04:14 MCHC 34 % (32-34) 08/09/20 04:14 RDW 14.5 % (13.2-15.2) 08/09/20 04:14 Plt Count 239 K/mm3 (140-440) 08/09/20 04:14 Lymph % (Auto) 40.9 % (13.4-35.0) H 08/09/20 04:14 [place] % (Auto) 7.9 % (0.0-7.3) H 08/09/20 04:14 Eos % (Auto) 6.7 % (0.0-4.3) H 08/09/20 04:14 Baso % (Auto) 1.0 % (0.0-1.8) 08/09/20 04:14 Lymph # (Auto) 2.9 K/mm3 (1.2-5.4) 08/09/20 04:14 [place] # (Auto) 0.6 K/mm3 (0.0-0.8) 08/09/20 04:14 Eos # (Auto) 0.5 K/mm3 (0.0-0.4) H 08/09/20 04:14 Baso # (Auto) 0.1 K/mm3 (0.0-0.1) 08/09/20 04:14 Seg Neutrophils % 43.5 % (40.0-70.0) 08/09/20 04:14 Seg Neutrophils # 3.1 K/mm3 (1.8-7.7) 08/09/20 04:14 PT 12.8 Sec. (12.2-14.9) 08/06/20 15:05 INR 0.97 (0.87-1.13) 08/06/20 15:05 APTT 23.3 Sec. (24.2-36.6) L 08/06/20 15:05 VBG pH 7.365 (7.320-7.420) 08/06/20 15:05 Sodium 132 mmol/L (137-145) L 08/09/20 04:14 Potassium 4.7 mmol/L (3.6-5.0) 08/09/20 04:14 Chloride 99.8 mmol/L (98-107) 08/09/20 04:14 Carbon Dioxide 23 mmol/L (22-30) 08/09/20 04:14 Anion Gap 14 mmol/L 08/09/20 04:14 BUN 24 mg/dL (9-20) H 08/09/20 04:14 Creatinine 1.3 mg/dL (0.8-1.3) 08/09/20 04:14 Estimated GFR > 60 ml/min 08/09/20 04:14 BUN/Creatinine Ratio 18 % 08/09/20 04:14 Glucose 346 mg/dL (75-100) H 08/09/20 04:14 POC Glucose 148 mg/dL (70-105) H 08/10/20 08:03 Lactic Acid 1.80 mmol/L (0.7-2.0) 08/06/20 15:05 Calcium 8.6 mg/dL (8.4-10.2) 08/09/20 04:14 Magnesium 1.90 mg/dL (1.7-2.3) 08/08/20 05:26 Total Bilirubin 0.30 mg/dL (0.1-1.2) 08/07/20 05:39 AST 16 units/L (5-40) 08/07/20 05:39 ALT 12 units/L (7-56) 08/07/20 05:39 Alkaline Phosphatase 110 units/L (35-129) 08/07/20 05:39 Troponin T < 0.010 ng/mL (0.00-0.029) 08/06/20 20:06 Total Protein 5.9 g/dL (6.3-8.2) L 08/07/20 05:39 Albumin 3.3 g/dL (3.9-5) L 08/07/20 05:39 Albumin/Globulin Ratio 1.3 % 08/07/20 05:39 Urine Color Yellow (Yellow) 08/07/20 06:36 Urine Turbidity Clear (Clear) 08/07/20 06:36 Urine pH 6.0 (5.0-7.0) 08/07/20 06:36 Ur Specific [place] 1.023 (1.003-1.030) 08/07/20 06:36 Urine Protein 100 mg/dl mg/dL (Negative) 08/07/20 06:36 Urine Glucose (UA) >=500 mg/dL (Negative) 08/07/20 06:36 Urine Ketones Neg mg/dL (Negative) 08/07/20 06:36 Urine Blood Neg (Negative) 08/07/20 06:36 Urine Nitrite Neg (Negative) 08/07/20 06:36 Urine Bilirubin Neg (Negative) 08/07/20 06:36 Urine Urobilinogen < 2.0 mg/dL (<2.0) 08/07/20 06:36 Ur Leukocyte Esterase Neg (Negative) 08/07/20 06:36 Urine WBC (Auto) 2.0 /HPF (0.0-6.0) 08/07/20 06:36 Urine RBC (Auto) 1.0 /HPF (0.0-6.0) 08/07/20 06:36 U Epithel Cells (Auto) < 1.0 /HPF (0-13.0) 08/07/20 06:36 Hyaline Casts 1 /LPF 08/07/20 06:36 Urine Mucus Few /HPF 08/07/20 06:36 Cage/IV: Voiding Method Condom Catheter IV Catheter Type [Right Peripheral IV Forearm] IV Catheter Type [Left Upper INT / Saline Lock arm] IV Catheter Type [Left] Peripheral IV Active Medications - Current Medications Current Medications: Generic Name Dose Route Start Last Admin Trade Name Freq PRN Reason Stop Dose Admin Acetaminophen 650 mg 08/06/20 17:55 08/07/20 03:45 Acetaminophen 325 Mg Tab PO 650 mg Q4H PRN Administration Pain MILD(1-3)/Fever >100.5/ONEILL Albuterol 2.5 mg 08/06/20 17:55 Albuterol 2.5 Mg/3 Ml Nebu IH Q4HRT PRN Shortness Of Breath Atorvastatin Calcium 40 mg 08/06/20 22:00 08/09/20 22:34 Atorvastatin 40 Mg Tab PO 40 mg QHS PANDA Administration Cholecalciferol 1,000 unit 08/07/20 10:00 08/09/20 10:43 Cholecalciferol (Vit D3) 1000 Unit (25 Mcg) Tab PO 1,000 unit QDAY PANDA Administration Finasteride 5 mg 08/07/20 10:00 08/09/20 10:42 Finasteride 5 Mg Tab PO 5 mg QDAY PANDA Administration Gabapentin 300 mg 08/06/20 20:00 08/09/20 22:34 Gabapentin 300 Mg Cap PO 300 mg TID PANDA Administration Heparin Sodium (Porcine) 5,000 unit 08/06/20 22:00 08/09/20 22:35 Heparin 5,000 Unit/1 Ml Vial SUB-Q 5,000 unit Q12HR PANDA Administration Sodium Chloride 1,000 mls @ 75 mls/hr 08/06/20 18:00 08/10/20 01:10 Nacl 0.9% 1000 Ml IV 75 mls/hr DIRECT PANDA Administration Insulin Glargine 35 units 08/08/20 22:00 08/09/20 22:38 Insulin Glargine 100 Units/Ml SUB-Q Not Given QHS [facility] Insulin Human Lispro 0 unit 08/07/20 07:30 08/09/20 22:44 Insulin Lispro 100 Unit/Ml SUB-Q 2 unit ACHS PANDA Administration Protocol Magnesium Oxide 400 mg 08/08/20 10:00 08/09/20 22:34 Magnesium Oxide 400 Mg Tab PO 400 mg BID PANDA Administration Nifedipine 60 mg 08/07/20 22:00 08/09/20 22:35 Nifedipine Xl 60 Mg Tab PO 60 mg Q12HR PANDA Administration Ondansetron HCl 4 mg 08/06/20 17:55 08/06/20 22:37 Ondansetron 4 Mg/2 Ml Inj IV 4 mg Q8H PRN Administration Nausea And Vomiting Pantoprazole Sodium 40 mg 08/06/20 22:00 08/09/20 22:34 Pantoprazole 40 Mg Tab PO 40 mg BID PANDA Administration Sodium Chloride 10 ml 08/06/20 22:00 08/09/20 10:58 Sodium Chloride 0.9% 10 Ml Flush Syringe IV Not Given BID PANDA Sodium Chloride 10 ml 08/06/20 17:55 Sodium Chloride 0.9% 10 Ml Flush Syringe IV PRN PRN LINE FLUSH Tamsulosin HCl 0.4 mg 08/07/20 10:00 08/09/20 10:43 Tamsulosin 0.4 Mg Cap PO 0.4 mg QDAY PANDA Administration
[2020-08-10] MEDS: NIFEdipine XL 60 MG TAB PO SCH ×2 (09:27→22:32)
[2020-08-10] MEDS: FINASTERIDE 5 MG TAB PO SCH (09:27)
[2020-08-10] MEDS: MAGNESIUM OXIDE 400 MG TAB PO SCH ×2 (09:27→22:32)
[2020-08-10] MEDS: TAMSULOSIN 0.4 MG CAP PO SCH (09:27)
[2020-08-10] MEDS: HEPARIN 5,000 UNIT/1 ML VIAL SUB-Q SCH ×2 (09:27→22:33)
[2020-08-10] MEDS: PANTOPRAZOLE 40 MG TAB PO SCH ×2 (09:27→22:32)
[2020-08-10] MEDS: CHOLECALCIFEROL (VIT D3) 1000 UNIT (25 mcg) TAB PO SCH (09:27)
[2020-08-10] MEDS: INSULIN LISPRO 100 UNIT/ML SUB-Q SCH ×4 (09:28→22:38)
[2020-08-10] MEDS: GABAPENTIN 300 MG CAP PO SCH ×3 (09:28→22:32)
[2020-08-10] MEDS: INSULIN GLARGINE 100 UNITS/ML SUB-Q SCH (22:33)
[2020-08-11] MEDS: GABAPENTIN 300 MG CAP PO SCH ×3 (09:14→23:22)
[2020-08-11] MEDS: FINASTERIDE 5 MG TAB PO SCH (09:14)
[2020-08-11] MEDS: INSULIN LISPRO 100 UNIT/ML SUB-Q SCH ×4 (09:14→22:26)
[2020-08-11] MEDS: MAGNESIUM OXIDE 400 MG TAB PO SCH ×2 (09:15→22:24)
[2020-08-11] MEDS: TAMSULOSIN 0.4 MG CAP PO SCH (09:15)
[2020-08-11] MEDS: NIFEdipine XL 60 MG TAB PO SCH ×2 (09:15→22:23)
[2020-08-11] MEDS: CHOLECALCIFEROL (VIT D3) 1000 UNIT (25 mcg) TAB PO SCH (09:15)
[2020-08-11] MEDS: PANTOPRAZOLE 40 MG TAB PO SCH ×2 (09:15→22:23)
[2020-08-11] MEDS: HEPARIN 5,000 UNIT/1 ML VIAL SUB-Q SCH ×2 (09:19→22:24)
--- NOTE | 2020-08-11 11:56 | Progress Note ---
Assessment and Plan Assessment and plan: Metabolic encephalopathy. Resolved. Etiology secondary to HHNKS and acute kidney injury. Continue IV fluid hydration and treating underlying causes. Hyperosmolar hyperglycemic nonketotic syndrome. Resolved with IV fluid hydration. Continue insulin as above. Accelerated hypertension. Continue Procardia 60 mg twice daily. Added losartan Acute kidney injury. Etiology likely secondary to vasomotor nephropathy. Diabetes mellitus type 2, uncontrolled. Continue long-acting insulin, sliding scale regular insulin and Accu-Cheks. Protein calorie malnutrition. Nutritional support. Dietitian consult. Vascular dementia. Continue supportive care. Disposition. Dr. Atwood and I had a discussion with the who reports assistance with all daily activities. Patient is bedbound with a palliative performance score 30%. PT evaluation for discharge needs. Case management follow-up. 08/08. Acute kidney injury improved with creatinine of 1.4. Continue IV fluid hydration. Encephalopathy improved and patient appears to be back to baseline. Patient does have some underlying dementia. Blood pressure better controlled with Procardia. Physical therapy recommends subacute rehab placement. Case management to follow-up. 08/09. Encephalopathy, HHNKS and acute kidney injury resolved. Continue Procardia for blood pressure. Awaiting placement. 08/10. Patient somewhat somnolent this morning. However, patient is easily aroused. Blood pressure appears to be well controlled with Procardia. BG better controlled with home regimen of Lantus 35 units at bedtime. Continue SSRI and Accu-Cheks. Case management follow-up with regards to placement. 08/11. Awaiting placement. BP still elevated. Added losartan. History Interval history: No acute events noted overnight Hospitalist Physical - Physical exam Narrative exam: VITAL SIGNS: Reviewed. GENERAL: Awake HEAD: No signs of head trauma. EYES: Pupils are equal. Extraocular motions intact. MOUTH: Oropharynx is normal. NECK: No adenopathy, no JVD. CHEST: Chest with diminished breath sounds bilaterally. No wheezes, rales, or rhonchi. CARDIAC: normal S1 and S2, without murmurs, gallops, or rubs. ABDOMEN: Soft, non tender and non distended. No rebound or guarding, and no masses palpated. Bowel Sounds normal. MUSCULOSKELETAL: No edema NEUROLOGIC EXAM: Alert and oriented x3. No focal neurologic deficits SKIN: No obvious lesions - Constitutional Vitals: Temp Pulse Resp BP Pulse Ox 98.5 F 85 18 176/86 98 08/11/20 07:43 08/11/20 07:43 08/11/20 07:43 08/11/20 07:43 08/11/20 07:43 HEART Score - HEART Score Troponin: Troponin T < 0.010 ng/mL (0.00-0.029) 08/06/20 20:06 Results - Labs CBC & Chem 7: 08/09/20 04:14 08/09/20 04:14 Labs: Laboratory Last Values WBC 7.2 K/mm3 (4.5-11.0) 08/09/20 04:14 RBC 4.29 M/mm3 (3.65-5.03) 08/09/20 04:14 Hgb 12.9 gm/dl (11.8-15.2) 08/09/20 04:14 Hct 38.4 % (35.5-45.6) 08/09/20 04:14 MCV 90 fl (84-94) 08/09/20 04:14 MCH 30 pg (28-32) 08/09/20 04:14 MCHC 34 % (32-34) 08/09/20 04:14 RDW 14.5 % (13.2-15.2) 08/09/20 04:14 Plt Count 239 K/mm3 (140-440) 08/09/20 04:14 Lymph % (Auto) 40.9 % (13.4-35.0) H 08/09/20 04:14 Carbon % (Auto) 7.9 % (0.0-7.3) H 08/09/20 04:14 Eos % (Auto) 6.7 % (0.0-4.3) H 08/09/20 04:14 Baso % (Auto) 1.0 % (0.0-1.8) 08/09/20 04:14 Lymph # (Auto) 2.9 K/mm3 (1.2-5.4) 08/09/20 04:14 Carbon # (Auto) 0.6 K/mm3 (0.0-0.8) 08/09/20 04:14 Eos # (Auto) 0.5 K/mm3 (0.0-0.4) H 08/09/20 04:14 Baso # (Auto) 0.1 K/mm3 (0.0-0.1) 08/09/20 04:14 Seg Neutrophils % 43.5 % (40.0-70.0) 08/09/20 04:14 Seg Neutrophils # 3.1 K/mm3 (1.8-7.7) 08/09/20 04:14 PT 12.8 Sec. (12.2-14.9) 08/06/20 15:05 INR 0.97 (0.87-1.13) 08/06/20 15:05 APTT 23.3 Sec. (24.2-36.6) L 08/06/20 15:05 VBG pH 7.365 (7.320-7.420) 08/06/20 15:05 Sodium 132 mmol/L (137-145) L 08/09/20 04:14 Potassium 4.7 mmol/L (3.6-5.0) 08/09/20 04:14 Chloride 99.8 mmol/L (98-107) 08/09/20 04:14 Carbon Dioxide 23 mmol/L (22-30) 08/09/20 04:14 Anion Gap 14 mmol/L 08/09/20 04:14 BUN 24 mg/dL (9-20) H 08/09/20 04:14 Creatinine 1.3 mg/dL (0.8-1.3) 08/09/20 04:14 Estimated GFR > 60 ml/min 08/09/20 04:14 BUN/Creatinine Ratio 18 % 08/09/20 04:14 Glucose 346 mg/dL (75-100) H 08/09/20 04:14 POC Glucose 253 mg/dL (70-105) H 08/11/20 07:45 Lactic Acid 1.80 mmol/L (0.7-2.0) 08/06/20 15:05 Calcium 8.6 mg/dL (8.4-10.2) 08/09/20 04:14 Magnesium 1.90 mg/dL (1.7-2.3) 08/08/20 05:26 Total Bilirubin 0.30 mg/dL (0.1-1.2) 08/07/20 05:39 AST 16 units/L (5-40) 08/07/20 05:39 ALT 12 units/L (7-56) 08/07/20 05:39 Alkaline Phosphatase 110 units/L (35-129) 08/07/20 05:39 Troponin T < 0.010 ng/mL (0.00-0.029) 08/06/20 20:06 Total Protein 5.9 g/dL (6.3-8.2) L 08/07/20 05:39 Albumin 3.3 g/dL (3.9-5) L 08/07/20 05:39 Albumin/Globulin Ratio 1.3 % 08/07/20 05:39 Urine Color Yellow (Yellow) 08/07/20 06:36 Urine Turbidity Clear (Clear) 08/07/20 06:36 Urine pH 6.0 (5.0-7.0) 08/07/20 06:36 Ur Specific [place] 1.023 (1.003-1.030) 08/07/20 06:36 Urine Protein 100 mg/dl mg/dL (Negative) 08/07/20 06:36 Urine Glucose (UA) >=500 mg/dL (Negative) 08/07/20 06:36 Urine Ketones Neg mg/dL (Negative) 08/07/20 06:36 Urine Blood Neg (Negative) 08/07/20 06:36 Urine Nitrite Neg (Negative) 08/07/20 06:36 Urine Bilirubin Neg (Negative) 08/07/20 06:36 Urine Urobilinogen < 2.0 mg/dL (<2.0) 08/07/20 06:36 Ur Leukocyte Esterase Neg (Negative) 08/07/20 06:36 Urine WBC (Auto) 2.0 /HPF (0.0-6.0) 08/07/20 06:36 Urine RBC (Auto) 1.0 /HPF (0.0-6.0) 08/07/20 06:36 U Epithel Cells (Auto) < 1.0 /HPF (0-13.0) 08/07/20 06:36 Hyaline Casts 1 /LPF 08/07/20 06:36 Urine Mucus Few /HPF 08/07/20 06:36 Cage/IV: Voiding Method Condom Catheter IV Catheter Type [Right Peripheral IV Forearm] IV Catheter Type [Left Upper INT / Saline Lock arm] IV Catheter Type [Left] Peripheral IV Active Medications - Current Medications Current Medications: Generic Name Dose Route Start Last Admin Trade Name Freq PRN Reason Stop Dose Admin Acetaminophen 650 mg 08/06/20 17:55 08/07/20 03:45 Acetaminophen 325 Mg Tab PO 650 mg Q4H PRN Administration Pain MILD(1-3)/Fever >100.5/ONEILL Albuterol 2.5 mg 08/06/20 17:55 Albuterol 2.5 Mg/3 Ml Nebu IH Q4HRT PRN Shortness Of Breath Atorvastatin Calcium 40 mg 08/06/20 22:00 08/10/20 22:32 Atorvastatin 40 Mg Tab PO 40 mg QHS PANDA Administration Cholecalciferol 1,000 unit 08/07/20 10:00 08/11/20 09:15 Cholecalciferol (Vit D3) 1000 Unit (25 Mcg) Tab PO 1,000 unit QDAY PANDA Administration Finasteride 5 mg 08/07/20 10:00 08/11/20 09:14 Finasteride 5 Mg Tab PO 5 mg QDAY PANDA Administration Gabapentin 300 mg 08/06/20 20:00 08/11/20 09:14 Gabapentin 300 Mg Cap PO 300 mg TID PANDA Administration Heparin Sodium (Porcine) 5,000 unit 08/06/20 22:00 08/11/20 09:19 Heparin 5,000 Unit/1 Ml Vial SUB-Q 5,000 unit Q12HR PANDA Administration Sodium Chloride 1,000 mls @ 75 mls/hr 08/06/20 18:00 08/10/20 22:42 Nacl 0.9% 1000 Ml IV 75 mls/hr DIRECT PANDA Administration Insulin Glargine 35 units 08/08/20 22:00 08/10/20 22:33 Insulin Glargine 100 Units/Ml SUB-Q 35 units QHS PANDA Administration Insulin Human Lispro 0 unit 08/07/20 07:30 08/11/20 09:14 Insulin Lispro 100 Unit/Ml SUB-Q 4 unit ACHS PANDA Administration Protocol Magnesium Oxide 400 mg 08/08/20 10:00 08/11/20 09:15 Magnesium Oxide 400 Mg Tab PO 400 mg BID PANDA Administration Nifedipine 60 mg 08/07/20 22:00 08/11/20 09:15 Nifedipine Xl 60 Mg Tab PO 60 mg Q12HR PANDA Administration Ondansetron HCl 4 mg 08/06/20 17:55 08/06/20 22:37 Ondansetron 4 Mg/2 Ml Inj IV 4 mg Q8H PRN Administration Nausea And Vomiting Pantoprazole Sodium 40 mg 08/06/20 22:00 08/11/20 09:15 Pantoprazole 40 Mg Tab PO 40 mg BID PANDA Administration Sodium Chloride 10 ml 08/06/20 22:00 08/11/20 09:15 Sodium Chloride 0.9% 10 Ml Flush Syringe IV 10 ml BID PANDA Administration Sodium Chloride 10 ml 08/06/20 17:55 Sodium Chloride 0.9% 10 Ml Flush Syringe IV PRN PRN LINE FLUSH Tamsulosin HCl 0.4 mg 08/07/20 10:00 08/11/20 09:15 Tamsulosin 0.4 Mg Cap PO 0.4 mg QDAY PANDA Administration
[2020-08-11] MEDS: SODIUM CHLORIDE 0.9% 1000 ML 1,000 ML IV SCH (12:22)
[2020-08-11] MEDS: LOSARTAN 50 MG TAB PO SCH (12:23)
[2020-08-11] MEDS: INSULIN GLARGINE 100 UNITS/ML SUB-Q SCH (22:24)
[2020-08-11] MEDS: ACETAMINOPHEN 325 MG TAB PO PRN (22:27)
[2020-08-12] MEDS: SODIUM CHLORIDE 0.9% 1000 ML 1,000 ML IV SCH (04:34)
[2020-08-12 07:16] LABS: Basophils # (Auto) 0.1 K/mm3 (0.0-0.1); Basophils % (Auto) 1.3 % (0.0-1.8); Eosinophils # (Auto) 0.4 K/mm3 (0.0-0.4); Eosinophils % (Auto) 7.4 % (0.0-4.3); Hematocrit 37.9 % (35.5-45.6); Hemoglobin 12.7 gm/dl (11.8-15.2); Lymphocytes # (Auto) 1.8 K/mm3 (1.2-5.4); Mean Corpuscular HGB Conc 33 % (32-34); Mean Corpuscular Volume 89 fl (84-94); Monocytes # (Auto) 0.5 K/mm3 (0.0-0.8); Monocytes % (Auto) 9.2 % (0.0-7.3); Platelet Count 233 K/mm3 (140-440); Red Blood Count 4.24 M/mm3 (3.65-5.03); Red Cell Distribution Width 14.8 % (13.2-15.2)
[2020-08-12 07:34] LABS: Alanine Aminotransferase 23 units/L (7-56); BUN/Creatinine Ratio 21; Blood Urea Nitrogen 23 mg/dL (9-20); Calcium 8.3 mg/dL (8.4-10.2); Hemolysis Index 9
[2020-08-12] MEDS: TAMSULOSIN 0.4 MG CAP PO SCH (09:05)
[2020-08-12] MEDS: CHOLECALCIFEROL (VIT D3) 1000 UNIT (25 mcg) TAB PO SCH (09:05)
[2020-08-12] MEDS: PANTOPRAZOLE 40 MG TAB PO SCH ×2 (09:05→22:28)
[2020-08-12] MEDS: NIFEdipine XL 60 MG TAB PO SCH ×2 (09:05→22:28)
[2020-08-12] MEDS: MAGNESIUM OXIDE 400 MG TAB PO SCH ×2 (09:05→22:57)
[2020-08-12] MEDS: GABAPENTIN 300 MG CAP PO SCH ×3 (09:05→22:28)
[2020-08-12] MEDS: FINASTERIDE 5 MG TAB PO SCH (09:05)
[2020-08-12] MEDS: LOSARTAN 50 MG TAB PO SCH (09:05)
[2020-08-12] MEDS: HEPARIN 5,000 UNIT/1 ML VIAL SUB-Q SCH ×2 (09:06→22:28)
[2020-08-12] MEDS: INSULIN LISPRO 100 UNIT/ML SUB-Q SCH ×4 (09:06→22:55)
--- NOTE | 2020-08-12 10:31 | Progress Note ---
Assessment and Plan Assessment and plan: Metabolic encephalopathy. Resolved. Etiology secondary to HHNKS and acute kidney injury. Continue IV fluid hydration and treating underlying causes. Hyperosmolar hyperglycemic nonketotic syndrome. Resolved with IV fluid hydration. Continue insulin as above. Accelerated hypertension. Continue Procardia 60 mg twice daily. Added losartan Acute kidney injury. Etiology likely secondary to vasomotor nephropathy. Diabetes mellitus type 2, uncontrolled. Continue long-acting insulin, sliding scale regular insulin and Accu-Cheks. Protein calorie malnutrition. Nutritional support. Dietitian consult. Vascular dementia. Continue supportive care. Disposition. Dr. Atwood and I had a discussion with the who reports assistance with all daily activities. Patient is bedbound with a palliative performance score 30%. PT evaluation for discharge needs. Case management follow-up. 08/08. Acute kidney injury improved with creatinine of 1.4. Continue IV fluid hydration. Encephalopathy improved and patient appears to be back to baseline. Patient does have some underlying dementia. Blood pressure better controlled with Procardia. Physical therapy recommends subacute rehab placement. Case management to follow-up. 08/09. Encephalopathy, HHNKS and acute kidney injury resolved. Continue Procardia for blood pressure. Awaiting placement. 08/10. Patient somewhat somnolent this morning. However, patient is easily aroused. Blood pressure appears to be well controlled with Procardia. BG better controlled with home regimen of Lantus 35 units at bedtime. Continue SSRI and Accu-Cheks. Case management follow-up with regards to placement. 08/11. Awaiting placement. BP still elevated. Added losartan. 08/12. Blood pressure is improved. Still awaiting placement History Interval history: No acute events noted overnight Hospitalist Physical - Physical exam Narrative exam: VITAL SIGNS: Reviewed. GENERAL: Awake HEAD: No signs of head trauma. EYES: Pupils are equal. Extraocular motions intact. MOUTH: Oropharynx is normal. NECK: No adenopathy, no JVD. CHEST: Chest with diminished breath sounds bilaterally. No wheezes, rales, or rhonchi. CARDIAC: normal S1 and S2, without murmurs, gallops, or rubs. ABDOMEN: Soft, non tender and non distended. No rebound or guarding, and no masses palpated. Bowel Sounds normal. MUSCULOSKELETAL: No edema NEUROLOGIC EXAM: Alert and oriented x3. No focal neurologic deficits SKIN: No obvious lesions - Constitutional Vitals: Temp Pulse Resp BP Pulse Ox 98.0 F 80 17 140/74 97 08/12/20 07:47 08/12/20 07:47 08/12/20 07:47 08/12/20 07:47 08/12/20 07:47 HEART Score - HEART Score Troponin: Troponin T < 0.010 ng/mL (0.00-0.029) 08/06/20 20:06 Results - Labs CBC & Chem 7: 08/12/20 06:40 08/12/20 06:40 Labs: Laboratory Last Values WBC 5.2 K/mm3 (4.5-11.0) 08/12/20 06:40 RBC 4.24 M/mm3 (3.65-5.03) 08/12/20 06:40 Hgb 12.7 gm/dl (11.8-15.2) 08/12/20 06:40 Hct 37.9 % (35.5-45.6) 08/12/20 06:40 MCV 89 fl (84-94) 08/12/20 06:40 MCH 30 pg (28-32) 08/12/20 06:40 MCHC 33 % (32-34) 08/12/20 06:40 RDW 14.8 % (13.2-15.2) 08/12/20 06:40 Plt Count 233 K/mm3 (140-440) 08/12/20 06:40 Lymph % (Auto) 35.0 % (13.4-35.0) 08/12/20 06:40 [place] % (Auto) 9.2 % (0.0-7.3) H 08/12/20 06:40 Eos % (Auto) 7.4 % (0.0-4.3) H 08/12/20 06:40 Baso % (Auto) 1.3 % (0.0-1.8) 08/12/20 06:40 Lymph # (Auto) 1.8 K/mm3 (1.2-5.4) 08/12/20 06:40 [place] # (Auto) 0.5 K/mm3 (0.0-0.8) 08/12/20 06:40 Eos # (Auto) 0.4 K/mm3 (0.0-0.4) 08/12/20 06:40 Baso # (Auto) 0.1 K/mm3 (0.0-0.1) 08/12/20 06:40 Seg Neutrophils % 47.1 % (40.0-70.0) 08/12/20 06:40 Seg Neutrophils # 2.5 K/mm3 (1.8-7.7) 08/12/20 06:40 PT 12.8 Sec. (12.2-14.9) 08/06/20 15:05 INR 0.97 (0.87-1.13) 08/06/20 15:05 APTT 23.3 Sec. (24.2-36.6) L 08/06/20 15:05 VBG pH 7.365 (7.320-7.420) 08/06/20 15:05 Sodium 131 mmol/L (137-145) L 08/12/20 06:40 Potassium 4.5 mmol/L (3.6-5.0) 08/12/20 06:40 Chloride 100.4 mmol/L (98-107) 08/12/20 06:40 Carbon Dioxide 27 mmol/L (22-30) 08/12/20 06:40 Anion Gap 8 mmol/L 08/12/20 06:40 BUN 23 mg/dL (9-20) H 08/12/20 06:40 Creatinine 1.1 mg/dL (0.8-1.3) 08/12/20 06:40 Estimated GFR > 60 ml/min 08/12/20 06:40 BUN/Creatinine Ratio 21 % 08/12/20 06:40 Glucose 322 mg/dL (75-100) H 08/12/20 06:40 POC Glucose 215 mg/dL (70-105) H 08/11/20 22:02 Lactic Acid 1.80 mmol/L (0.7-2.0) 08/06/20 15:05 Calcium 8.3 mg/dL (8.4-10.2) L 08/12/20 06:40 Magnesium 1.90 mg/dL (1.7-2.3) 08/08/20 05:26 Total Bilirubin 0.30 mg/dL (0.1-1.2) 08/12/20 06:40 AST 34 units/L (5-40) 08/12/20 06:40 ALT 23 units/L (7-56) 08/12/20 06:40 Alkaline Phosphatase 119 units/L (35-129) 08/12/20 06:40 Troponin T < 0.010 ng/mL (0.00-0.029) 08/06/20 20:06 Total Protein 5.6 g/dL (6.3-8.2) L 08/12/20 06:40 Albumin 3.0 g/dL (3.9-5) L 08/12/20 06:40 Albumin/Globulin Ratio 1.2 % 08/12/20 06:40 Urine Color Yellow (Yellow) 08/07/20 06:36 Urine Turbidity Clear (Clear) 08/07/20 06:36 Urine pH 6.0 (5.0-7.0) 08/07/20 06:36 Ur Specific [place] 1.023 (1.003-1.030) 08/07/20 06:36 Urine Protein 100 mg/dl mg/dL (Negative) 08/07/20 06:36 Urine Glucose (UA) >=500 mg/dL (Negative) 08/07/20 06:36 Urine Ketones Neg mg/dL (Negative) 08/07/20 06:36 Urine Blood Neg (Negative) 08/07/20 06:36 Urine Nitrite Neg (Negative) 08/07/20 06:36 Urine Bilirubin Neg (Negative) 08/07/20 06:36 Urine Urobilinogen < 2.0 mg/dL (<2.0) 08/07/20 06:36 Ur Leukocyte Esterase Neg (Negative) 08/07/20 06:36 Urine WBC (Auto) 2.0 /HPF (0.0-6.0) 08/07/20 06:36 Urine RBC (Auto) 1.0 /HPF (0.0-6.0) 08/07/20 06:36 U Epithel Cells (Auto) < 1.0 /HPF (0-13.0) 08/07/20 06:36 Hyaline Casts 1 /LPF 08/07/20 06:36 Urine Mucus Few /HPF 08/07/20 06:36 Caeg/IV: Voiding Method Condom Catheter IV Catheter Type [Right Peripheral IV Forearm] IV Catheter Type [Left Upper INT / Saline Lock arm] IV Catheter Type [Left] Peripheral IV Active Medications - Current Medications Current Medications: Generic Name Dose Route Start Last Admin Trade Name Freq PRN Reason Stop Dose Admin Acetaminophen 650 mg 08/06/20 17:55 08/11/20 22:27 Acetaminophen 325 Mg Tab PO 650 mg Q4H PRN Administration Pain MILD(1-3)/Fever >100.5/ONEILL Albuterol 2.5 mg 08/06/20 17:55 Albuterol 2.5 Mg/3 Ml Nebu IH Q4HRT PRN Shortness Of Breath Atorvastatin Calcium 40 mg 08/06/20 22:00 08/11/20 22:23 Atorvastatin 40 Mg Tab PO 40 mg QHS PANDA Administration Cholecalciferol 1,000 unit 08/07/20 10:00 08/12/20 09:05 Cholecalciferol (Vit D3) 1000 Unit (25 Mcg) Tab PO 1,000 unit QDAY PANDA Administration Finasteride 5 mg 08/07/20 10:00 08/12/20 09:05 Finasteride 5 Mg Tab PO 5 mg QDAY PANDA Administration Gabapentin 300 mg 08/06/20 20:00 08/12/20 09:05 Gabapentin 300 Mg Cap PO 300 mg TID PANDA Administration Heparin Sodium (Porcine) 5,000 unit 08/06/20 22:00 08/12/20 09:06 Heparin 5,000 Unit/1 Ml Vial SUB-Q 5,000 unit Q12HR PANDA Administration Sodium Chloride 1,000 mls @ 75 mls/hr 08/06/20 18:00 08/12/20 04:34 Nacl 0.9% 1000 Ml IV 75 mls/hr DIRECT PANDA Administration Insulin Glargine 35 units 08/08/20 22:00 08/11/20 22:24 Insulin Glargine 100 Units/Ml SUB-Q 35 units QHS PANDA Administration Insulin Human Lispro 0 unit 08/07/20 07:30 08/12/20 09:06 Insulin Lispro 100 Unit/Ml SUB-Q 6 unit ACHS PANDA Administration Protocol Losartan Potassium 50 mg 08/11/20 12:00 08/12/20 09:05 Losartan 50 Mg Tab PO 50 mg QDAY PANDA Administration Magnesium Oxide 400 mg 08/08/20 10:00 08/12/20 09:05 Magnesium Oxide 400 Mg Tab PO 400 mg BID PANDA Administration Nifedipine 60 mg 08/07/20 22:00 08/12/20 09:05 Nifedipine Xl 60 Mg Tab PO 60 mg Q12HR PANDA Administration Ondansetron HCl 4 mg 08/06/20 17:55 08/06/20 22:37 Ondansetron 4 Mg/2 Ml Inj IV 4 mg Q8H PRN Administration Nausea And Vomiting Pantoprazole Sodium 40 mg 08/06/20 22:00 08/12/20 09:05 Pantoprazole 40 Mg Tab PO 40 mg BID PANDA Administration Sodium Chloride 10 ml 08/06/20 22:00 08/12/20 09:06 Sodium Chloride 0.9% 10 Ml Flush Syringe IV 10 ml BID PANDA Administration Sodium Chloride 10 ml 08/06/20 17:55 Sodium Chloride 0.9% 10 Ml Flush Syringe IV PRN PRN LINE FLUSH Tamsulosin HCl 0.4 mg 08/07/20 10:00 08/12/20 09:05 Tamsulosin 0.4 Mg Cap PO 0.4 mg QDAY PANDA Administration
[2020-08-12] MEDS: ACETAMINOPHEN 325 MG TAB PO PRN (22:30)
[2020-08-12] MEDS: INSULIN GLARGINE 100 UNITS/ML SUB-Q SCH (22:49)
--- NOTE | 2020-08-13 10:00 | Progress Note ---
Assessment and Plan Assessment and plan: Metabolic encephalopathy. Resolved. Etiology secondary to HHNKS and acute kidney injury. Continue IV fluid hydration and treating underlying causes. Hyperosmolar hyperglycemic nonketotic syndrome. Resolved with IV fluid hydration. Continue insulin as above. Accelerated hypertension. Continue Procardia 60 mg twice daily. Added losartan Acute kidney injury. Etiology likely secondary to vasomotor nephropathy. Diabetes mellitus type 2, uncontrolled. Continue long-acting insulin, sliding scale regular insulin and Accu-Cheks. Protein calorie malnutrition. Nutritional support. Dietitian consult. Vascular dementia. Continue supportive care. Disposition. Dr. Atwood and I had a discussion with the who reports assistance with all daily activities. Patient is bedbound with a palliative performance score 30%. PT evaluation for discharge needs. Case management follow-up. 08/08. Acute kidney injury improved with creatinine of 1.4. Continue IV fluid hydration. Encephalopathy improved and patient appears to be back to baseline. Patient does have some underlying dementia. Blood pressure better controlled with Procardia. Physical therapy recommends subacute rehab placement. Case management to follow-up. 08/09. Encephalopathy, HHNKS and acute kidney injury resolved. Continue Procardia for blood pressure. Awaiting placement. 08/10. Patient somewhat somnolent this morning. However, patient is easily aroused. Blood pressure appears to be well controlled with Procardia. BG better controlled with home regimen of Lantus 35 units at bedtime. Continue SSRI and Accu-Cheks. Case management follow-up with regards to placement. 08/11. Awaiting placement. BP still elevated. Added losartan. 08/12. Blood pressure is improved. Still awaiting placement 08/13. Accepted at [facility]. Needs a COVID test. Continue to monitor vitals. May add additional BP medication History Interval history: No acute events noted overnight Hospitalist Physical - Physical exam Narrative exam: VITAL SIGNS: Reviewed. GENERAL: Awake HEAD: No signs of head trauma. EYES: Pupils are equal. Extraocular motions intact. MOUTH: Oropharynx is normal. NECK: No adenopathy, no JVD. CHEST: Chest with diminished breath sounds bilaterally. No wheezes, rales, or rhonchi. CARDIAC: normal S1 and S2, without murmurs, gallops, or rubs. ABDOMEN: Soft, non tender and non distended. No rebound or guarding, and no masses palpated. Bowel Sounds normal. MUSCULOSKELETAL: No edema NEUROLOGIC EXAM: Alert and oriented x3. No focal neurologic deficits SKIN: No obvious lesions - Constitutional Vitals: Temp Pulse Resp BP Pulse Ox 98.3 F 76 18 142/80 100 08/13/20 08:00 08/13/20 08:00 08/13/20 08:00 08/13/20 08:00 08/13/20 08:00 HEART Score - HEART Score Troponin: Troponin T < 0.010 ng/mL (0.00-0.029) 08/06/20 20:06 Results - Labs CBC & Chem 7: 08/12/20 06:40 08/12/20 06:40 Labs: Laboratory Last Values WBC 5.2 K/mm3 (4.5-11.0) 08/12/20 06:40 RBC 4.24 M/mm3 (3.65-5.03) 08/12/20 06:40 Hgb 12.7 gm/dl (11.8-15.2) 08/12/20 06:40 Hct 37.9 % (35.5-45.6) 08/12/20 06:40 MCV 89 fl (84-94) 08/12/20 06:40 MCH 30 pg (28-32) 08/12/20 06:40 MCHC 33 % (32-34) 08/12/20 06:40 RDW 14.8 % (13.2-15.2) 08/12/20 06:40 Plt Count 233 K/mm3 (140-440) 08/12/20 06:40 Lymph % (Auto) 35.0 % (13.4-35.0) 08/12/20 06:40 [place] % (Auto) 9.2 % (0.0-7.3) H 08/12/20 06:40 Eos % (Auto) 7.4 % (0.0-4.3) H 08/12/20 06:40 Baso % (Auto) 1.3 % (0.0-1.8) 08/12/20 06:40 Lymph # (Auto) 1.8 K/mm3 (1.2-5.4) 08/12/20 06:40 [place] # (Auto) 0.5 K/mm3 (0.0-0.8) 08/12/20 06:40 Eos # (Auto) 0.4 K/mm3 (0.0-0.4) 08/12/20 06:40 Baso # (Auto) 0.1 K/mm3 (0.0-0.1) 08/12/20 06:40 Seg Neutrophils % 47.1 % (40.0-70.0) 08/12/20 06:40 Seg Neutrophils # 2.5 K/mm3 (1.8-7.7) 08/12/20 06:40 PT 12.8 Sec. (12.2-14.9) 08/06/20 15:05 INR 0.97 (0.87-1.13) 08/06/20 15:05 APTT 23.3 Sec. (24.2-36.6) L 08/06/20 15:05 VBG pH 7.365 (7.320-7.420) 08/06/20 15:05 Sodium 131 mmol/L (137-145) L 08/12/20 06:40 Potassium 4.5 mmol/L (3.6-5.0) 08/12/20 06:40 Chloride 100.4 mmol/L (98-107) 08/12/20 06:40 Carbon Dioxide 27 mmol/L (22-30) 08/12/20 06:40 Anion Gap 8 mmol/L 08/12/20 06:40 BUN 23 mg/dL (9-20) H 08/12/20 06:40 Creatinine 1.1 mg/dL (0.8-1.3) 08/12/20 06:40 Estimated GFR > 60 ml/min 08/12/20 06:40 BUN/Creatinine Ratio 21 % 08/12/20 06:40 Glucose 322 mg/dL (75-100) H 08/12/20 06:40 POC Glucose 157 mg/dL (70-105) H 08/12/20 22:11 Lactic Acid 1.80 mmol/L (0.7-2.0) 08/06/20 15:05 Calcium 8.3 mg/dL (8.4-10.2) L 08/12/20 06:40 Magnesium 1.90 mg/dL (1.7-2.3) 08/08/20 05:26 Total Bilirubin 0.30 mg/dL (0.1-1.2) 08/12/20 06:40 AST 34 units/L (5-40) 08/12/20 06:40 ALT 23 units/L (7-56) 08/12/20 06:40 Alkaline Phosphatase 119 units/L (35-129) 08/12/20 06:40 Troponin T < 0.010 ng/mL (0.00-0.029) 08/06/20 20:06 Total Protein 5.6 g/dL (6.3-8.2) L 08/12/20 06:40 Albumin 3.0 g/dL (3.9-5) L 08/12/20 06:40 Albumin/Globulin Ratio 1.2 % 08/12/20 06:40 Urine Color Yellow (Yellow) 08/07/20 06:36 Urine Turbidity Clear (Clear) 08/07/20 06:36 Urine pH 6.0 (5.0-7.0) 08/07/20 06:36 Ur Specific [place] 1.023 (1.003-1.030) 08/07/20 06:36 Urine Protein 100 mg/dl mg/dL (Negative) 08/07/20 06:36 Urine Glucose (UA) >=500 mg/dL (Negative) 08/07/20 06:36 Urine Ketones Neg mg/dL (Negative) 08/07/20 06:36 Urine Blood Neg (Negative) 08/07/20 06:36 Urine Nitrite Neg (Negative) 08/07/20 06:36 Urine Bilirubin Neg (Negative) 08/07/20 06:36 Urine Urobilinogen < 2.0 mg/dL (<2.0) 08/07/20 06:36 Ur Leukocyte Esterase Neg (Negative) 08/07/20 06:36 Urine WBC (Auto) 2.0 /HPF (0.0-6.0) 08/07/20 06:36 Urine RBC (Auto) 1.0 /HPF (0.0-6.0) 08/07/20 06:36 U Epithel Cells (Auto) < 1.0 /HPF (0-13.0) 08/07/20 06:36 Hyaline Casts 1 /LPF 08/07/20 06:36 Urine Mucus Few /HPF 08/07/20 06:36 Cage/IV: Voiding Method Condom Catheter IV Catheter Type [Right Peripheral IV Forearm] IV Catheter Type [Left Upper INT / Saline Lock arm] IV Catheter Type [Left] Peripheral IV Active Medications - Current Medications Current Medications: Generic Name Dose Route Start Last Admin Trade Name Freq PRN Reason Stop Dose Admin Acetaminophen 650 mg 08/06/20 17:55 08/12/20 22:30 Acetaminophen 325 Mg Tab PO 650 mg Q4H PRN Administration Pain MILD(1-3)/Fever >100.5/ONEILL Albuterol 2.5 mg 08/06/20 17:55 Albuterol 2.5 Mg/3 Ml Nebu IH Q4HRT PRN Shortness Of Breath Atorvastatin Calcium 40 mg 08/06/20 22:00 08/12/20 22:28 Atorvastatin 40 Mg Tab PO 40 mg QHS PANDA Administration Cholecalciferol 1,000 unit 08/07/20 10:00 08/12/20 09:05 Cholecalciferol (Vit D3) 1000 Unit (25 Mcg) Tab PO 1,000 unit QDAY PANDA Administration Finasteride 5 mg 08/07/20 10:00 08/12/20 09:05 Finasteride 5 Mg Tab PO 5 mg QDAY PANDA Administration Gabapentin 300 mg 08/06/20 20:00 08/12/20 22:28 Gabapentin 300 Mg Cap PO 300 mg TID PANDA Administration Heparin Sodium (Porcine) 5,000 unit 08/06/20 22:00 08/12/20 22:28 Heparin 5,000 Unit/1 Ml Vial SUB-Q 5,000 unit Q12HR PANDA Administration Sodium Chloride 1,000 mls @ 75 mls/hr 08/06/20 18:00 08/12/20 19:31 Nacl 0.9% 1000 Ml IV Infused DIRECT PANDA Infusion Insulin Glargine 35 units 08/08/20 22:00 08/12/20 22:49 Insulin Glargine 100 Units/Ml SUB-Q 35 units QHS PANDA Administration Insulin Human Lispro 0 unit 08/07/20 07:30 08/12/20 22:55 Insulin Lispro 100 Unit/Ml SUB-Q Not Given ACHS [facility] Protocol Losartan Potassium 50 mg 08/11/20 12:00 08/12/20 09:05 Losartan 50 Mg Tab PO 50 mg QDAY PANDA Administration Magnesium Oxide 400 mg 08/08/20 10:00 08/12/20 22:57 Magnesium Oxide 400 Mg Tab PO 400 mg BID PANDA Administration Nifedipine 60 mg 08/07/20 22:00 08/12/20 22:28 Nifedipine Xl 60 Mg Tab PO 60 mg Q12HR PANDA Administration Ondansetron HCl 4 mg 08/06/20 17:55 08/06/20 22:37 Ondansetron 4 Mg/2 Ml Inj IV 4 mg Q8H PRN Administration Nausea And Vomiting Pantoprazole Sodium 40 mg 08/06/20 22:00 08/12/20 22:28 Pantoprazole 40 Mg Tab PO 40 mg BID PANDA Administration Sodium Chloride 10 ml 08/06/20 22:00 08/12/20 22:55 Sodium Chloride 0.9% 10 Ml Flush Syringe IV 10 ml BID PANDA Administration Sodium Chloride 10 ml 08/06/20 17:55 Sodium Chloride 0.9% 10 Ml Flush Syringe IV PRN PRN LINE FLUSH Tamsulosin HCl 0.4 mg 08/07/20 10:00 08/12/20 09:05 Tamsulosin 0.4 Mg Cap PO 0.4 mg QDAY PANDA Administration
[2020-08-13] MEDS: CHOLECALCIFEROL (VIT D3) 1000 UNIT (25 mcg) TAB PO SCH (10:02)
[2020-08-13] MEDS: FINASTERIDE 5 MG TAB PO SCH (10:02)
[2020-08-13] MEDS: TAMSULOSIN 0.4 MG CAP PO SCH (10:03)
[2020-08-13] MEDS: GABAPENTIN 300 MG CAP PO SCH ×3 (10:03→22:32)
[2020-08-13] MEDS: LOSARTAN 50 MG TAB PO SCH ×2 (10:03→14:03)
[2020-08-13] MEDS: INSULIN LISPRO 100 UNIT/ML SUB-Q SCH ×3 (10:03→16:46)
[2020-08-13] MEDS: MAGNESIUM OXIDE 400 MG TAB PO SCH ×2 (10:03→22:33)
[2020-08-13] MEDS: HEPARIN 5,000 UNIT/1 ML VIAL SUB-Q SCH ×2 (10:04→22:32)
[2020-08-13] MEDS: PANTOPRAZOLE 40 MG TAB PO SCH ×2 (10:07→22:32)
[2020-08-13] MEDS: NIFEdipine XL 60 MG TAB PO SCH (10:07)
[2020-08-13] MEDS: hydrALAZINE 25 MG TAB PO SCH ×2 (14:04→22:33)
[2020-08-14] MEDS: INSULIN GLARGINE 100 UNITS/ML SUB-Q SCH (00:53)
[2020-08-14] MEDS: INSULIN LISPRO 100 UNIT/ML SUB-Q SCH ×3 (00:59→11:58)
[2020-08-14] MEDS: SODIUM CHLORIDE 0.9% 1000 ML 1,000 ML IV SCH ×2 (01:00→13:24)
[2020-08-14] MEDS: NIFEdipine XL 60 MG TAB PO SCH ×2 (01:00→09:30)
[2020-08-14] MEDS: hydrALAZINE 25 MG TAB PO SCH ×2 (06:09→13:38)
[2020-08-14] MEDS: LOSARTAN 50 MG TAB PO SCH (09:30)
[2020-08-14] MEDS: GABAPENTIN 300 MG CAP PO SCH ×2 (09:31→13:39)
[2020-08-14] MEDS: PANTOPRAZOLE 40 MG TAB PO SCH (09:31)
[2020-08-14] MEDS: CHOLECALCIFEROL (VIT D3) 1000 UNIT (25 mcg) TAB PO SCH (09:31)
[2020-08-14] MEDS: TAMSULOSIN 0.4 MG CAP PO SCH (09:31)
[2020-08-14] MEDS: MAGNESIUM OXIDE 400 MG TAB PO SCH (09:31)
[2020-08-14] MEDS: FINASTERIDE 5 MG TAB PO SCH (09:31)
[2020-08-14] MEDS: HEPARIN 5,000 UNIT/1 ML VIAL SUB-Q SCH (09:32)
--- NOTE | 2020-08-14 11:27 | Discharge Summary ---
Providers - Providers Date of Admission: 08/06/20 17:55 Date of discharge: 08/14/20 Attending physician: GM GARCIA 08/07/20 13:00 Physical Therapy Evaluation and Treat [CONS] Routine Comment: Reason For Exam: deconditioning 08/10/20 13:57 Occupational Therapy Evaluate and Treat [CONS] Routine Comment: Reason For Exam: Debility Primary care physician: [employer]PLICATION [employer]CHITECT Hospitalization Condition: Fair Hospital course: 74 YO Male with DM complicated by Gastroparesis, Urinary Retention, HTN, HLD, Vascular Dementia, Cerebral Atherosclerosis, CKD, Nicotine Dependence presents to ED for evaluation. Patient is confused and lethargic and is unable to provide history. Patient history provided by who is at bedside during initial exam and interview. As per the patient has experienced increased confusion and agitation over the past 2 weeks with worsening symptoms over the past 7 days. Patient has diminished oral intake. Patient currently requires 6/6 assistance with activities of daily living. Patient is bedbound and has a palliative performance score 30%. Patient transported to [facility] for further care a nd evaluation of the aforementioned symptoms. The patient was seen and evaluated in the emergency department. All lab and imaging studies reviewed. Patient found to have metabolic encephalopathy, uncontrolled diabetes, volume depletion, acute kidney injury, as well as clinical symptoms consistent with urinary tract infection. Patient admitted to medical floor due to increased risk of worsening symptoms. Patient initiated on IV antibiotic therapy as well as IV fluid resuscitation therapy. No reports of fever, chills, chest pain, palpitations, productive cough, skin rash, recent ill contacts, or known exposure to COVID-19. Prior admission on 04/01/2020 reviewed. All medication listed at time of admission has been reconciled. Advanced care planning conducted in ED Hospital course 08/08. Acute kidney injury improved with creatinine of 1.4. Continue IV fluid hydration. Encephalopathy improved and patient appears to be back to baseline. Patient does have some underlying dementia. Blood pressure better controlled with Procardia. Physical therapy recommends subacute rehab placement. Case management to follow-up. 08/09. Encephalopathy, HHNKS and acute kidney injury resolved. Continue Procardia for blood pressure. Awaiting placement. 08/10. Patient somewhat somnolent this morning. However, patient is easily aroused. Blood pressure appears to be well controlled with Procardia. BG better controlled with home regimen of Lantus 35 units at bedtime. Continue SSRI and Accu-Cheks. Case management follow-up with regards to placement. 08/11. Awaiting placement. BP still elevated. Added losartan. 08/12. Blood pressure is improved. Still awaiting placement 08/13. Accepted at [facility]. Needs a COVID test. Continue to monitor vitals. BP better 08/14. Awaiting COVID-19 test. Stable for discharge to rehab today Disposition: [id number] Time spent for discharge: 40 mins - Discharge Diagnoses (1) Acute kidney injury (MAHSA) with acute tubular necrosis (ATN) Status: Acute (2) Hyperglycemia Status: Acute (3) Metabolic encephalopathy Status: Acute (4) Severe malnutrition Status: Acute Comment: Moderate PCM (5) Uncontrolled diabetes mellitus Status: Acute Core Measure Documentation - Palliative Care Palliative Care/ Comfort Measures: Not Applicable - Core Measures Any of the following diagnoses?: none Exam - Physical Exam Narrative exam: VITAL SIGNS: Reviewed. GENERAL: Awake HEAD: No signs of head trauma. EYES: Pupils are equal. Extraocular motions intact. MOUTH: Oropharynx is normal. NECK: No adenopathy, no JVD. CHEST: Chest with diminished breath sounds bilaterally. No wheezes, rales, or rhonchi. CARDIAC: normal S1 and S2, without murmurs, gallops, or rubs. ABDOMEN: Soft, non tender and non distended. No rebound or guarding, and no masses palpated. Bowel Sounds normal. MUSCULOSKELETAL: No edema NEUROLOGIC EXAM: Alert and oriented x3. No focal neurologic deficits SKIN: No obvious lesions - Constitutional Vitals: Temp Pulse Resp BP Pulse Ox 98.0 F 89 18 127/63 96 08/14/20 07:52 08/14/20 09:30 08/14/20 07:52 08/14/20 09:30 08/14/20 07:52 Plan Activity: no restrictions Diet: low cholesterol, low salt, diabetic Additional Instructions: Continue medications as prescribed. Follow up with primary medical doctor in 1-2 weeks Follow up with: PRIMARY CAREMD [Primary Care Provider] - 3-5 Days Prescriptions: Insulin Glargine [Lantus VIAL] 35 units SUB-Q QHS #10 ml AtorvaSTATin [Lipitor] 40 mg PO QHS #30 tablet hydrALAZINE [Apresoline TAB] 50 mg PO Q8HR #90 tablet Losartan [Cozaar] 100 mg PO QDAY #30 tablet Tamsulosin [Flomax] 0.4 mg PO QDAY #30 cap Gabapentin 300 mg PO TID #90 capsule Lispro Insulin [HumaLOG] 0 unit SUB-Q ACHS #10 ml Magnesium 400 mg PO BID #30 NIFEdipine XL [Procardia Xl] 60 mg PO Q12HR #60 tablet Finasteride [Proscar] 5 mg PO QDAY #30 Pantoprazole [Protonix TAB] 40 mg PO BID #60 tab Vitamin D3 1,000 unit PO QDAY #30
[2020-08-14 13:39] VITALS: BP 126/64
== END 2020-08-14 15:40 | disposition home health service (06) | DRG 70 ==
LOC: ED 13:38 → 4A 17:55 → 3B-SURG 19:49
PROVIDERS: ADMIT Internal Medicine; ATTEND Internal Medicine
DX: G93.41 Metabolic encephalopathy (principal); E11.00 Type 2 diabetes mellitus with hyperosmolarity without nonketotic hyperglycemic-hyperosmolar coma (NKHHC); E43 Unspecified severe protein-calorie malnutrition; N17.0 Acute kidney failure with tubular necrosis; Z68.1 Body mass index [BMI] 19.9 or less, adult; N39.0 Urinary tract infection, site not specified; E86.9 Volume depletion, unspecified; F03.90 Unspecified dementia, unspecified severity, without behavioral disturbance, psychotic disturbance, mood disturbance, and anxiety; E11.40 Type 2 diabetes mellitus with diabetic neuropathy, unspecified; F17.200 Nicotine dependence, unspecified, uncomplicated; E11.65 Type 2 diabetes mellitus with hyperglycemia; E11.43 Type 2 diabetes mellitus with diabetic autonomic (poly)neuropathy; F01.50 Vascular dementia, unspecified severity, without behavioral disturbance, psychotic disturbance, mood disturbance, and anxiety; E11.22 Type 2 diabetes mellitus with diabetic chronic kidney disease; I12.9 Hypertensive chronic kidney disease with stage 1 through stage 4 chronic kidney disease, or unspecified chronic kidney disease; N18.9 Chronic kidney disease, unspecified; Z20.822 Contact with and (suspected) exposure to COVID-19; K31.84 Gastroparesis; R33.9 Retention of urine, unspecified; E78.5 Hyperlipidemia, unspecified; Z79.4 Long term (current) use of insulin; Z82.49 Family history of ischemic heart disease and other diseases of the circulatory system; Z83.3 Family history of diabetes mellitus; Z89.429 Acquired absence of other toe(s), unspecified side
CPT/HCPCS: 36415; 70450; 71046; 80048; 80053; 81001; 82140; 82805; 82962; 83735; 84484; 85025; 85610; 85730; 93005; 94640; 96361; 96374; G0378; A9270-GY; J1644; J1815; J2405; J7030; U0003

== ENCOUNTER 2020-09-02 10:01 | Emergency (ER) | payer BC, MEDICARE ==
--- NOTE | 2020-09-02 10:19 | Emergency Department Report ---
ED CPR HPI - General Chief Complaint: Cardiac Arrest/CPR Stated Complaint: CARDIAC ARREST Time Seen by Provider: 09/02/20 10:04 Source: EMS Mode of arrival: Stretcher Limitations: No Limitations - History of Present Illness Initial Comments: This is a 74-year-old diabetic man who was found by paramedics in asystole with no signs of life. Despite his last known well time being 9 PM last night they initiated CPR. The patient was intubated and given several rounds of epinephrine. He did not respond. He had no return of spontaneous circulation. He arrived in asystole and was pronounced after prolonged resuscitative efforts were ineffective. Complaint: found unresponsive -: hour(s) Place: home Bystander CPR Performed: No Shock Advised: No Initial Findings in the Field: unresponsive, no respirations, systole ROSC in the Field: No Associated Injuries: No Treatments Prior to Arrival: intubation, epinephrine mgs # - Related Data Home Medications Medication Instructions Recorded Confirmed Last Taken Levomefolate/B6/B12/Algal Oil 1 each PO DAILY 08/02/16 08/11/20 03/17/19 [Metanx Capsule] Previous Rx's Medication Instructions Recorded Last Taken Type AtorvaSTATin [Lipitor] 40 mg PO QHS #30 tablet 08/14/20 Unknown Rx Finasteride [Proscar] 5 mg PO QDAY #30 08/14/20 Unknown Rx Gabapentin 300 mg PO TID #90 capsule 08/14/20 Unknown Rx Insulin Glargine [Lantus VIAL] 35 units SUB-Q QHS #10 ml 08/14/20 Unknown Rx Lispro Insulin [HumaLOG] 0 unit SUB-Q ACHS #10 ml 08/14/20 Unknown Rx Losartan [Cozaar] 100 mg PO QDAY #30 tablet 08/14/20 Unknown Rx Magnesium 400 mg PO BID #30 08/14/20 Unknown Rx NIFEdipine XL [Procardia Xl] 60 mg PO Q12HR #60 tablet 08/14/20 Unknown Rx Pantoprazole [Protonix TAB] 40 mg PO BID #60 tab 08/14/20 Unknown Rx Tamsulosin [Flomax] 0.4 mg PO QDAY #30 cap 08/14/20 Unknown Rx Vitamin D3 1,000 unit PO QDAY #30 08/14/20 Unknown Rx hydrALAZINE [Apresoline TAB] 50 mg PO Q8HR #90 tablet 08/14/20 Unknown Rx Allergies Allergy/AdvReac Type Severity Reaction Status Date / Time No Known Allergies Allergy Verified 04/01/20 08:01 ED Review of Systems ROS: Stated complaint: CARDIAC ARREST Other details as noted in HPI Comment: Unobtainable due to pts medical conditions ED Past Medical Hx - Past Medical History Hx Hypertension: Yes Hx Congestive Heart Failure: No Hx Diabetes: Yes Hx Renal Disease: Yes (ARF) Hx Seizures: Yes Hx Asthma: No Hx COPD: No Hx Dementia: Yes Hx HIV: No Additional medical history: GI bleed, neuropathy, elevated cholesterol. MVP - Surgical History Additional Surgical History: all left toes amputated - Social History Smoking Status: Never Smoker - Medications Home Medications: Home Medications Medication Instructions Recorded Confirmed Last Taken Type Levomefolate/B6/B12/Algal Oil 1 each PO DAILY 08/02/16 08/11/20 03/17/19 History [Metanx Capsule] AtorvaSTATin [Lipitor] 40 mg PO QHS #30 tablet 08/14/20 Unknown Rx Finasteride [Proscar] 5 mg PO QDAY #30 08/14/20 Unknown Rx Gabapentin 300 mg PO TID #90 capsule 08/14/20 Unknown Rx Insulin Glargine [Lantus VIAL] 35 units SUB-Q QHS #10 ml 08/14/20 Unknown Rx Lispro Insulin [HumaLOG] 0 unit SUB-Q ACHS #10 ml 08/14/20 Unknown Rx Losartan [Cozaar] 100 mg PO QDAY #30 tablet 08/14/20 Unknown Rx Magnesium 400 mg PO BID #30 08/14/20 Unknown Rx NIFEdipine XL [Procardia Xl] 60 mg PO Q12HR #60 tablet 08/14/20 Unknown Rx Pantoprazole [Protonix TAB] 40 mg PO BID #60 tab 08/14/20 Unknown Rx Tamsulosin [Flomax] 0.4 mg PO QDAY #30 cap 08/14/20 Unknown Rx Vitamin D3 1,000 unit PO QDAY #30 08/14/20 Unknown Rx hydrALAZINE [Apresoline TAB] 50 mg PO Q8HR #90 tablet 08/14/20 Unknown Rx ED Physical Exam - General General appearance: other (No signs of life) - Head Head exam: Present: atraumatic - Eye Pupils: Present: other (Fixed and dilated) - ENT ENT exam: Present: mucous membranes dry - Neck Neck exam: Present: normal inspection - Respiratory Respiratory exam: Present: normal lung sounds bilaterally (Breath sounds with Ambu bag noted bilaterally) - Cardiovascular Cardiovascular Exam: Present: other (No heart sounds) - GI/Abdominal GI/Abdominal exam: Absent: distended - Extremities Exam Extremities exam: Present: other (No acute deformity) - Neurological Exam Neurological exam: Present: other (Inapplicable) ED Course - Reevaluation(s) Reevaluation #1: Patient was pronounced DOA. Family will be counseled when available. 09/02/20 10:18 Critical care attestation.: If time is entered above; I have spent that time in minutes in the direct care of this critically ill patient, excluding procedure time. ED Disposition Clinical Impression: Cardiac arrest Disposition: DC-20 Is pt being admited?: No Does the pt Need Aspirin: No Condition: Stable Referrals: PRIMARY CARE, [Primary Care Provider] - 3-5 Days Time of Disposition: 10:19
== END 2020-09-02 15:26 ==
LOC: ED 10:01
DX: I46.9 Cardiac arrest, cause unspecified (principal); I10 Essential (primary) hypertension; E11.9 Type 2 diabetes mellitus without complications; R56.9 Unspecified convulsions; Z98.890 Other specified postprocedural states; Z79.4 Long term (current) use of insulin; Z79.899 Other long term (current) drug therapy